=== PATIENT | male | born 1970 | race Caucasian/White ===

== ENCOUNTER 2022-05-24 10:38 | Emergency (ER) | payer OTHER, SELFPAY ==
[2022-05-24 10:41] VITALS: BP 122/79; PULSE 88; RESP 18; TEMP 36.8; O2SAT 98; BMI 23.8
[2022-05-24 17:35] LABS: MANUAL DIFF FLAG NO
[2022-05-24 17:42] LABS: Eosinophils Percent Auto 0.8 % (0-4); Imm Gran Abs Auto 0.01 X10*3/uL (0.00-0.03); Imm Gran Pct Auto 0.2 % (0.0-0.4); Lymphocytes Absolute Auto 1.7 X10*3/uL (1.2-4.9); PLT CLUMP 1; SCAN SMEAR FLAG 1
[2022-05-24 17:44] LABS: Basophils Percent Auto 0.4 % (0-2); Hematocrit 40.1 % (42.0-52.0); Hemoglobin 14.1 g/dl (14.0-18.0); Lymphocytes Percent Auto 32.9 % (20-40); Mean Corpuscular HGB Conc 35.2 g/dl (31.0-36.0); Mean Corpuscular Hemoglobin 29.7 pg (27.0-33.0); Mean Corpuscular Volume 84.6 fL (80.0-98.0); Mean Platelet Volume 10.1 fL (9.4-12.4); Monocytes Absolute Auto 0.4 X10*3/uL (0.1-1.2); Monocytes Percent Auto 8.1 % (2-11); Neutrophils Percent Auto 57.6 % (45-73); Platelet Count 111 X10*3/uL (160-400); Red Blood Count 4.74 X10*6/uL (4.60-5.80); Red Cell Distribution Width 12.7 % (11.0-16.0); White Blood Count 5.2 X10*3/uL (4.8-10.8)
[2022-05-24 17:52] LABS: Anion Gap 15 (12-20); Blood Urea Nitrogen 14 mg/dL (9-16); Calcium 9.4 mg/dL (8.4-10.2); Carbon Dioxide 26 mmol/L (22-29); Chloride 99 mmol/L (96-108); Estimated Glomerular Filt Rate > 60; Glucose Random 262 mg/dL (60-115); Potassium 4.3 mmol/L (3.3-5.1); Sodium 136 mmol/L (135-145)
--- OUTSIDE RECORDS SUMMARY | 2022-05-24 22:26 | XMS_ITS | Continuity of Care Document ---
:1970 Author Organization [facility] Address [address] [place] [address]- Care Team Providers Name Role Phone Mireya Zavaleta DO Primary Care Physician Encounter [facility] [place] Date(s): 04/19/20 - 04/20/[address] [id number]- [facility] Discharge Disposition: A-D/C Home Attending Physician: Terry Crawley MD Admitting Physician: Terry Crawley MD Referring Physician: Terry Crawley MD Allergies, Adverse Reactions, Alerts Substance Reaction Severity Status penicillin Active Immunizations Given and Recorded Vaccine Date Status Refusal Reason pneumococcal 23-valent vaccine 04/20/20 Given Medications amLODIPine 5 mg oral tablet 5 mg, 1, tablet, By Mouth, Daily, # 90 tablet, Refills 2, Tot. Refills 2, Maintenance, 04/20/20 12:28:00 EDT, Route to Pharmacy Electronically, [facility], 168, cm, 04/20/20 8:13:00 EDT, Height, 79.9, kg, 04/19/20 5:50:00 EDT, Dry Weight Start Date: 04/20/20 Status: Orderedaspirin 81 mg oral delayed release tablet 81 mg, By Mouth, Daily, # 200 tablet, Refills 0, Tot. Refills 0, Maintenance, 04/20/20 12:29:00 EDT,Route to Pharmacy Electronically, [facility], 168, cm, 04/20/20 8:13:00 EDT, Height, 79.9, kg, 04/19/20 5:50:00 EDT, Dry Weight Start Date: 04/20/20 Status: Orderedatorvastatin 80 mg oral tablet 1 tablet = 80 mg, By Mouth, Daily at bedtime, # 90 tablet, 2 Refills, Maintenance, 04/20/20 12:28:00EDT, Tablet, [facility], 168, cm, 04/20/20 8:13:00 EDT, Height, 79.9, kg, 04/19/20 5:50:00 EDT, Dry Weight Start Date: 04/20/20 Status: OrderedMetFORMIN (Eqv-Fortamet) 500 mg oral tablet, extended release 1 tablet = 500 mg, By Mouth, Daily, # 30 tablet, 1 Refills, Maintenance, 04/20/20 12:28:00 EDT, [facility], 168, cm, 04/20/20 8:13:00 EDT, Height, 79.9, kg, 04/19/20 5:50:00 EDT, Dry Weight Start Date: 04/20/20 Status: OrderedPlavix 75 mg oral tablet 75 mg, 1, tablet, By Mouth, Daily, # 90 tablet, Refills 2, Tot. Refills 2, Maintenance, 04/20/20 12:28:00 EDT, Route to Pharmacy Electronically, [facility], 168, cm, 04/20/20 8:13:00 EDT,Height, 79.9, kg, 04/19/20 5:50:00 EDT, Dry Weight Start Date: 04/20/20 Status: Ordered Problem List Condition Effective Dates Status Health Status Informant Herniation of intervertebral disc Active without myelopathy(Confirmed) Hyperlipidemia(Confirmed) Active Hypertension(Confirmed) Active Type 2 diabetes mellitus(Confirmed) Active Vital Signs Most recent to oldest 1 2 3 [Reference Range]: Height 168 cm 168 cm 168 cm (04/20/20 8:13 AM) (04/20/20 2:28 AM) (04/19/20 8:1 7 PM) Weight 79.9 kg (04/19/20 5:50 AM) Oxygen Saturation [94-100 %] 97 % 99 % 99 % (04/20/20 8:13 AM) (04/20/20 2:28 AM) (04/19/20 8:1 7 PM) Pulse Rate [55-90 bpm] 65 bpm 81 bpm 68 bpm (04/20/20 8:13 AM) (04/20/20 2:28 AM) (04/19/20 8:1 7 PM) Body Mass Index [18.5-24.99] 28.31 *H* (04/19/20 5:50 AM) Blood Pressure [90-138/55-84 mm 102/62 mm Hg 100/55 mm Hg 106/66 mm Hg Hg] (04/20/20 9:31 AM) (04/20/20 8:13 AM) (04/20/20 2:2 8 AM) Respiratory Rate [16-30 br/min] 18 br/min 18 br/min 18 br/min (04/20/20 8:13 AM) (04/20/20 2:28 AM) (04/19/20 8:1 7 PM) Temperature [96.8-100.4 DegF] 97.7 DegF 98.1 DegF 97 .9 DegF (04/20/20 8:13 AM) (04/20/20 2:28 AM) (04/19/20 8:1 7 PM) Mode of Delivery (Oxygen) Room air Room air Room a ir (04/20/20 8:13 AM) (04/20/20 2:28 AM) (04/19/20 8:1 7 PM) Blood pressure sites Arm, left Arm, left Arm, left (04/20/20 8:13 AM) (04/20/20 2:28 AM) (04/19/20 8:1 7 PM) Temperature Route Oral Oral Oral (04/20/20 8:13 AM) (04/20/20 2:28 AM) (04/19/20 8:1 7 PM) Dry Weight 79.9 kg (04/19/20 5:50 AM) Social History Social History Type Response Smoking Status 10 or more cigarettes (1/2 p ack or more)/day in last 30 days; Type: Cigarettes; Previous treatment: Counseling; Number of years: 20; Total pack years: 10; Started at age: 29; entered on: 04/19/20 Sex
--- OUTSIDE RECORDS SUMMARY | 2022-05-24 22:26 | XMS_ITS | Continuity of Care Document ---
:1970 Author Organization [facility] Address [address] [place] [id number]- Care Team Providers Name Role Phone Jason Perkins Primary Care Physician Encounter [facility] [place] Date(s): 02/04/21 - 03/06/21 [facility] [address] [place] [id number]- Attending Physician: Haydee Rodriguez Admitting Physician: AdmtrHaydee Referring Physician: Admtr, Ar8 Allergies, Adverse Reactions, Alerts Substance Reaction Severity Status penicillin Active Immunizations Given and Recorded Vaccine Date Status Refusal Reason pneumococcal 23-valent vaccine 04/20/20 Given Medications amLODIPine 5 mg oral tablet 5 mg, 1, tablet, By Mouth, Daily, # 90 tablet, Refills 2, Tot. Refills 2, Maintenance, 04/20/20 12:28:00 EDT, Route to Pharmacy Electronically, [facility], 168, cm, 04/20/20 8:13:00 EDT, Height, 79.9, kg, 04/19/20 5:50:00 EDT, Dry Weight Start Date: 04/20/20 Status: Orderedaspirin 81 mg oral delayed release tablet 81 mg, By Mouth, Daily, # 200 tablet, Refills 0, Tot. Refills 0, Maintenance, 04/20/20 12:29:00 EDT,Route to Pharmacy Electronically, [facility], 168, cm, 04/20/20 8:13:00 EDT, Height, 79.9, kg, 04/19/20 5:50:00 EDT, Dry Weight Start Date: 04/20/20 Status: Orderedatorvastatin 80 mg oral tablet 1 tablet = 80 mg, By Mouth, Daily at bedtime, # 90 tablet, 2 Refills, Maintenance, 04/20/20 12:28:00EDT, Tablet, [facility], 168, cm, 04/20/20 8:13:00 EDT, Height, 79.9, kg, 04/19/20 5:50:00 EDT, Dry Weight Start Date: 04/20/20 Status: OrderedBlood Pressure Monitor 1, each, # 1 each, Maintenance, 05/12/20 14:32:00 EDT, HOME BP MONITOR HYPERTENSION ICD 10 401.1, Supply Start Date: 05/12/20 Status: OrderedMetFORMIN (Eqv-Fortamet) 500 mg oral tablet, extended release 1 tablet = 500 mg, By Mouth, Daily, # 30 tablet, 1 Refills, Maintenance, 04/20/20 12:28:00 EDT, [facility], 168, cm, 04/20/20 8:13:00 EDT, Height, 79.9, kg, 04/19/20 5:50:00 EDT, Dry Weight Start Date: 04/20/20 Status: OrderedPlavix 75 mg oral tablet 75 mg, 1, tablet, By Mouth, Daily, # 90 tablet, Refills 2, Tot. Refills 2, Maintenance, 04/20/20 12:28:00 EDT, Route to Pharmacy Electronically, [facility], 168, cm, 04/20/20 8:13:00 EDT,Height, 79.9, kg, 04/19/20 5:50:00 EDT, Dry Weight Start Date: 04/20/20 Status: OrderedToprol XL 25 mg oral tablet, extended release 25 mg, 1, tablet, By Mouth, Daily, # 90 tablet, Refills 0, Tot. Refills 0, Maintenance, 05/12/20 13:44:00 EDT, Route to Pharmacy Electronically, [facility], 168, cm, 05/09/20 16:51:00 EDT, Height, 79.9, kg, 04/19/20 5:50:00 EDT, . Start Date: 05/12/20 Status: Ordered Problem List Condition Effective Dates Status Health Status Informant Herniation of intervertebral disc Active without myelopathy(Confirmed) Hyperlipidemia(Confirmed) Active Hypertension(Confirmed) Active Type 2 diabetes mellitus(Confirmed) Active Social History Social History Type Response Smoking Status 10 or more cigarettes (1/2 p ack or more)/day in last 30 days; Type: Cigarettes; Previous treatment: Counseling; Number of years: 20; Total pack years: 10; Started at age: 29; entered on: 04/19/20 Sex
--- OUTSIDE RECORDS SUMMARY | 2022-05-24 22:26 | XMS_ITS | Continuity of Care Document ---
:1970 Author Organization [facility] Address [address] [place] [id number]- Care Team Providers Name Role Phone Jason Perkins Primary Care Physician Encounter [facility] [place]s): 01/01/21 - 03/06/21 [facility] [address] [place] [id number] Attending Physician: Efrain Carmichael MD Admitting Physician: Efrain Carmichael MD Referring Physician: Jason Perkins Allergies, Adverse Reactions, Alerts Substance Reaction Severity Status penicillin Active Immunizations Given and Recorded Vaccine Date Status Refusal Reason pneumococcal 23-valent vaccine 04/20/20 Given Medications amLODIPine 5 mg oral tablet 5 mg, 1, tablet, By Mouth, Daily, # 90 tablet, Refills 2, Tot. Refills 2, Maintenance, 04/20/20 12:28:00 EDT, Route to Pharmacy Electronically, [facility], 168, cm, 04/20/20 8:13:00 EDT, Height, 79.9, kg, 04/19/20 5:50:00 EDT, Dry Weight Start Date: 04/20/20 Status: Orderedaspirin 81 mg oral delayed release tablet 81 mg, By Mouth, Daily, # 200 tablet, Refills 0, Tot. Refills 0, Maintenance, 04/20/20 12:29:00 EDT,Route to Pharmacy Electronically, [facility], 168, cm, 04/20/20 8:13:00 EDT, Height, 79.9, kg, 04/19/20 5:50:00 EDT, Dry Weight Start Date: 04/20/20 Status: Orderedatorvastatin 80 mg oral tablet 1 tablet = 80 mg, By Mouth, Daily at bedtime, # 90 tablet, 2 Refills, Maintenance, 04/20/20 12:28:00EDT, Tablet, [facility], 168, cm, 04/20/20 8:13:00 [...] tablet, 1 Refills, Maintenance, 04/20/20 12:28:00 EDT, [facility], 168, cm, 04/20/20 8:13:00 EDT, Height, 79.9, kg, 04/19/20 5:50:00 EDT, Dry Weight Start Date: 04/20/20 Status: OrderedPlavix 75 mg oral tablet 75 mg, 1, tablet, By Mouth, Daily, # 90 tablet, Refills 2, Tot. Refills 2, Maintenance, 04/20/20 12:28:00 EDT, Route to Pharmacy Electronically, [facility], 168, cm, 04/20/20 8:13:00 EDT,Height, 79.9, kg, 04/19/20 5:50:00 EDT, Dry Weight Start Date: 04/20/20 Status: OrderedToprol XL 25 mg oral tablet, extended release 25 mg, 1, tablet, By Mouth, Daily, # 90 tablet, Refills 0, Tot. Refills 0, Maintenance, 05/12/20 13:44:00 EDT, Route to Pharmacy Electronically, [facility], 168, cm, 05/09/20 16:51:00 EDT, Height, 79.9, kg, 04/19/20 5:50:00 EDT, Start Date: 05/12/20 Status: Ordered Problem List [...]
== END 2022-05-24 22:33 | disposition left against medical advice (07) ==
PROVIDERS: Emergency Provider Emergency Medicine
DX: M62.831 Muscle spasm of calf (principal); M79.605 Pain in left leg; M79.604 Pain in right leg
CPT/HCPCS: 36415; 80048; 85025; 99281; 99283

== ENCOUNTER 2022-07-23 03:22 | Observation (INO) | payer OTHER, SELFPAY ==
[2022-07-23] VITALS (9 sets, daily range): BP systolic 102–180; BP diastolic 59–120; PULSE 61–80; RESP 12–20; TEMP 36.4–36.7; O2SAT 97–99; BMI 25.0
--- NOTE | 2022-07-23 | CA_ITS ---
Acquisition Time: 2022-07-23 14:16:11 Total Exercise Time: 00:04:03 Test Indications: ELEVATED TROPONINS/CP Medications: SEE CHART Protocol: KARI Max HR: 118 BPM 70% of Pred: 168 BPM Max BP: 142/078 mmHG Max Work Load: 5.8 METS Exercise stress test with exercise 4 min 3 sec of Kari protocol, achieving 67% MPHR, 5.8 METs, with report of signficant left calf cramping and need to stop, no anginal symptoms, without arrythmia, with normotensive response to exercise, with nondiagnostic EKG for ischemia. In recovery his calf discomfort improved but was still present. Test reviewed with Dr Hampton. Referred By: Marianela Ellsworth Overread By: MARIANELA ELLSWORTH
--- NOTE | ~2022-07-23 | XR_ITS ---
EXAMINATION: XR CHEST CLINICAL INFORMATION: Chest pain, shortness of breath COMPARISON: 04/19/2020 TECHNIQUE: Frontal view of the chest was obtained. FINDINGS: The lungs are clear with no focal consolidation. No evidence of pneumothorax, pulmonary edema, or pleural effusions. The cardiomediastinal silhouette is unremarkable. No acute osseous findings. XR/XR chest 1V IMPRESSION: No acute cardiopulmonary findings.
--- NOTE | 2022-07-23 03:28 | ECG_ITS ---
Test Reason : chest pain Blood Pressure : / mmHG Vent. Rate : 075 BPM Atrial Rate : 075 BPM P-R Int : 140 ms QRS Dur : 080 ms QT Int : 362 ms P-R-T Axes : 027 016 061 degrees QTc Int : 404 ms Normal sinus rhythm Septal infarct (cited on or before 19-APR-2020) Abnormal ECG When compared with ECG of 19-APR-2020 02:19, ST no longer elevated in Anterior leads Nonspecific T wave abnormality no longer evident in Anterior leads Referred By: Generic ED Physician Electronically Signed By:Washington Hampton
[2022-07-23 03:50] LABS: MANUAL DIFF FLAG NO
--- NOTE | 2022-07-23 03:52 | ED_ITS ---
HPI - Chest Pain General Chief Complaint: Chest Pain Stated Complaint: Chest Pain Time Seen by Provider: 07/23/22 03:51 Source: patient Mode of arrival: ambulatory Limitations: no limitations History of Present Illness HPI narrative: Patient history of diabetes high cholesterol acute CO status post stent placement 04/10 since then patient been in good health without any chest pain yesterday at 09:00 while resting watching TV patient noticed left-sided chest pain similar to that when he had CO in 2019 lasted for an hour got better after taking ibuprofen patient with deep in character with slight radiation to the left armpit substitute with slight shortness of breath no diaphoresis or nausea or vomiting whole day patient was asymptomatic again 2 hours prior to arrival while resting and watching TV noticed similar pain radiated to the left side of the chest EMS gave him aspirin 324 mg and nitroglycerin feeling much better at this time but is still having the pain patient is noncompliant with medication not taking his cholesterol medication or aspirin does take his metformin for diabetes Related Data Previous Rx's Medication Instructions Recorded metformin 500 mg tablet,extended 500 mg PO BID #60 tabs 06/16/22 release 24 hr Allergies Allergy/AdvReac Type Severity Reaction Status Date / Time penicillin G [Penicillin G] Allergy Unknown THROAT Unverified 05/08/20 15:52 SWELLS penicillin V Allergy Unknown Unverified 12/13/19 00:00 Review of Systems Review of Systems: Yes all other systems are reviewed and are negative [facility] Past Medical History Medical History Coronary artery disease Diabetes mellitus Hyperlipidemia Surgical History S/P coronary artery stent placement Social History Social History Advance Directives: No Advance Directives Information Provided: Yes Physical Exam Vital Signs: Vital Signs: Last Vital Signs Temp 98.0 F 07/23/22 06:24 Pulse 69 07/23/22 06:24 Resp 17 07/23/22 06:24 BP 138/83 07/23/22 06:24 Pulse Ox 98 07/23/22 06:24 O2 Del Method 07/23/22 06:24 BMI result Body Mass Index 25.0 Appearance: Alert. Oriented X3. No acute distress. Eyes: PERRLA, No Nystagmus ENT: Pharynx normal. Oral Mucosa moist Neck: Normal inspection. Neck supple. CVS: Normal heart rate and rhythm. Pulses normal. No murmur rub or gallop Respiratory: No respiratory distress. Equal air entry bilateral, no wheezing/rales/rhonchi Abdomen: Soft and nontender. Bowel sounds are present, no mass palpable, no CVA tenderness Skin: Skin warm and dry. Normal skin color. Normal skin turgor. Extremities: No lower extremity edema. No calf tenderness Neuro: Oriented X 3. No motor deficit. No sensory deficit.No cerebellar signs , cranial nerves II-XII intact Medications Administered Discontinued Medications Generic Name Dose Route Start Last Admin Trade Name Freq PRN Reason Stop Dose Admin Nitroglycerin 1 inch 07/23/22 04:04 07/23/22 04:21 Nitroglycerin 2 % Oint 1 Gm Packet TRANSDERMA 07/23/22 04:05 1 inch ONCE ONE Administration MDM - Chest Pain MDM Narrative Medical decision making narrative: Patient with chest pain with history of stent placement came with the chest pain off and on for last 24 hours 2 sets of EKG without any ischemic changes 2 sets of high sensitive troponin negative for delta change. Patient is still complaining of pain were lasting for only a few seconds now. Case discussed Dr. gonzales, exercise physiologist advised to admit the patient for further evaluation including stress test/echo Differential Diagnosis Differential diagnosis: Likely stable angina, unstable angina pectoris, atypical chest pain, costochondritis and chest pain Medical Records Data Attestation: I reviewed the patient's medical records. Lab Data Result diagrams: 07/23/22 03:45 07/23/22 03:45 Labs: Lab Results 07/23/22 07/23/22 07/23/22 Range/Units 03:45 03:45 03:45 WBC 5.5 (4.8-10.8) X10*3/uL RBC 4.65 (4.60-5.80) X10*6/uL Hgb 13.8 L (14.0-18.0) g/dl Hct 39.2 L (42.0-52.0) % MCV 84.3 (80.0-98.0) fL MCH 29.7 (27.0-33.0) pg MCHC 35.2 (31.0-36.0) g/dl RDW 12.8 (11.0-16.0) % Plt Count 196 D (160-400) X10*3/uL MPV 9.7 (9.4-12.4) fL Immature Gran % (Auto) 0.4 (0.0-0.4) % Neut % (Auto) 40.6 L (45-73) % Lymph % (Auto) 47.1 H (20-40) % [place] % (Auto) 7.2 (2-11) % Eos % (Auto) 4.3 H (0-4) % Baso % (Auto) 0.4 (0-2) % Lymph # (Auto) 2.6 (1.2-4.9) X10*3/uL [place] # (Auto) 0.4 (0.1-1.2) X10*3/uL Eos # (Auto) 0.2 (0.0-0.4) X10*3/uL Baso # (Auto) 0.0 (0.0-0.2) X10*3/uL Abs Immat Gran (auto) 0.02 (0.00-0.03) X10*3/uL Absolute Neuts (auto) 2.3 (2.0-8.3) x10*3/uL Absolute Nucleated RBC 0.000 (0.0-0.012) X10*3/uL Nucleated RBC % (auto) 0.0 (0.0-0.2) /100WBC PT (10.0-13.1) SEC INR (0.9-1.1) APTT (26.0-36.4) SEC D-Dimer High Sensitivty NG/ML Sodium 131 L (135-145) mmol/L Potassium 4.3 (3.3-5.1) mmol/L Chloride 99 (96-108) mmol/L Carbon Dioxide 23 (22-29) mmol/L Anion Gap 13 (12-20) BUN 20 H (9-16) mg/dL Creatinine 0.85 (0.5-1.4) mg/dL Estim Creat Clear Calc 91.7 Estimated GFR > 60 Random Glucose 309 H (60-115) mg/dL Calcium 9.7 (8.4-10.2) mg/dL Troponin I High Sens (<3.5-35.0) ng/L COVID-19 (VANIA) Negative (Negative) COVID-19 Clin Com See Note 07/23/22 07/23/22 07/23/22 Range/Units 03:45 04:18 04:18 WBC (4.8-10.8) X10*3/uL RBC (4.60-5.80) X10*6/uL Hgb (14.0-18.0) g/dl Hct (42.0-52.0) % MCV (80.0-98.0) fL MCH (27.0-33.0) pg MCHC (31.0-36.0) g/dl RDW (11.0-16.0) % Plt Count (160-400) X10*3/uL MPV (9.4-12.4) fL Immature Gran % (Auto) (0.0-0.4) % Neut % (Auto) (45-73) % Lymph % (Auto) (20-40) % [place] % (Auto) (2-11) % Eos % (Auto) (0-4) % Baso % (Auto) (0-2) % Lymph # (Auto) (1.2-4.9) X10*3/uL [place] # (Auto) (0.1-1.2) X10*3/uL Eos # (Auto) (0.0-0.4) X10*3/uL Baso # (Auto) (0.0-0.2) X10*3/uL Abs Immat Gran (auto) (0.00-0.03) X10*3/uL Absolute Neuts (auto) (2.0-8.3) x10*3/uL Absolute Nucleated RBC (0.0-0.012) X10*3/uL Nucleated RBC % (auto) (0.0-0.2) /100WBC PT 10.1 (10.0-13.1) SEC INR 0.9 (0.9-1.1) APTT 26.8 (26.0-36.4) SEC D-Dimer High Sensitivty < 150 NG/ML Sodium (135-145) mmol/L Potassium (3.3-5.1) mmol/L Chloride (96-108) mmol/L Carbon Dioxide (22-29) mmol/L Anion Gap (12-20) BUN (9-16) mg/dL Creatinine (0.5-1.4) mg/dL Estim Creat Clear Calc Estimated GFR Random Glucose (60-115) mg/dL Calcium (8.4-10.2) mg/dL Troponin I High Sens < 3.5 (<3.5-35.0) ng/L COVID-19 (VANIA) (Negative) COVID-19 Clin Com 07/23/22 Range/Units 06:13 WBC (4.8-10.8) X10*3/uL RBC (4.60-5.80) X10*6/uL Hgb (14.0-18.0) g/dl Hct (42.0-52.0) % MCV (80.0-98.0) fL MCH (27.0-33.0) pg MCHC (31.0-36.0) g/dl RDW (11.0-16.0) % Plt Count (160-400) X10*3/uL MPV (9.4-12.4) fL Immature Gran % (Auto) (0.0-0.4) % Neut % (Auto) (45-73) % Lymph % (Auto) (20-40) % [place] % (Auto) (2-11) % Eos % (Auto) (0-4) % Baso % (Auto) (0-2) % Lymph # (Auto) (1.2-4.9) X10*3/uL [place] # (Auto) (0.1-1.2) X10*3/uL Eos # (Auto) (0.0-0.4) X10*3/uL Baso # (Auto) (0.0-0.2) X10*3/uL Abs Immat Gran (auto) (0.00-0.03) X10*3/uL Absolute Neuts (auto) (2.0-8.3) x10*3/uL Absolute Nucleated RBC (0.0-0.012) X10*3/uL Nucleated RBC % (auto) (0.0-0.2) /100WBC PT (10.0-13.1) SEC INR (0.9-1.1) APTT (26.0-36.4) SEC D-Dimer High Sensitivty NG/ML Sodium (135-145) mmol/L Potassium (3.3-5.1) mmol/L Chloride (96-108) mmol/L Carbon Dioxide (22-29) mmol/L Anion Gap (12-20) BUN (9-16) mg/dL Creatinine (0.5-1.4) mg/dL Estim Creat Clear Calc Estimated GFR Random Glucose (60-115) mg/dL Calcium (8.4-10.2) mg/dL Troponin I High Sens < 3.5 (<3.5-35.0) ng/L COVID-19 (VANIA) (Negative) COVID-19 Clin Com ECG Data ECG #1: Attestation: I personally reviewed and interpreted this ECG as follows: Interpretation: Normal sinus rhythm heart rate 75 beats per minute normal interval normal axis no acute ST-T changes no acute ischemia Discharge Plan Discharge Clinical Impression: Chest pain, Unstable angina pectoris Patient Disposition: Admitted As Inpatient
[2022-07-23 03:59] LABS: Basophils Percent Auto 0.4 % (0-2); Eosinophils Absolute Auto 0.2 X10*3/uL (0.0-0.4); Eosinophils Percent Auto 4.3 % (0-4); Hematocrit 39.2 % (42.0-52.0); Hemoglobin 13.8 g/dl (14.0-18.0); Imm Gran Abs Auto 0.02 X10*3/uL (0.00-0.03); Imm Gran Pct Auto 0.4 % (0.0-0.4); Lymphocytes Absolute Auto 2.6 X10*3/uL (1.2-4.9); Lymphocytes Percent Auto 47.1 % (20-40); Mean Corpuscular HGB Conc 35.2 g/dl (31.0-36.0); Mean Corpuscular Hemoglobin 29.7 pg (27.0-33.0); Mean Corpuscular Volume 84.3 fL (80.0-98.0); Mean Platelet Volume 9.7 fL (9.4-12.4); Monocytes Absolute Auto 0.4 X10*3/uL (0.1-1.2); Monocytes Percent Auto 7.2 % (2-11); Neutrophils Absolute Auto 2.3 x10*3/uL (2.0-8.3); Neutrophils Percent Auto 40.6 % (45-73); Platelet Count 196 X10*3/uL (160-400); Red Blood Count 4.65 X10*6/uL (4.60-5.80); Red Cell Distribution Width 12.8 % (11.0-16.0); White Blood Count 5.5 X10*3/uL (4.8-10.8)
[2022-07-23 04:08] LABS: Anion Gap 13 (12-20); Blood Urea Nitrogen 20 mg/dL (9-16); Calcium 9.7 mg/dL (8.4-10.2); Carbon Dioxide 23 mmol/L (22-29); Chloride 99 mmol/L (96-108); Creatinine Clr Calc Pharmacy 91.7; Estimated Glomerular Filt Rate > 60; Glucose Random 309 mg/dL (60-115); Potassium 4.3 mmol/L (3.3-5.1); Sodium 131 mmol/L (135-145)
[2022-07-23 04:10] LABS: COVID-19 Test Negative (Negative); IDNOW Serial# BCCEAD1C
[2022-07-23 04:13] LABS: Troponin-I High Sensitivity < 3.5 ng/L (<3.5-35.0)
[2022-07-23] MEDS: Nitroglycerin 2 % Oint 1 GM Packet 1 INCH TRANSDERMA (04:21)
[2022-07-23 04:28] LABS: INTERNATIONAL NORM RATIO 0.9 (0.9-1.1); Prothrombin Time 10.1 SEC (10.0-13.1)
[2022-07-23 04:31] LABS: D Dimer High Sensitivity < 150 NG/ML; Partial Thromboplastin Time 26.8 SEC (26.0-36.4)
--- NOTE | 2022-07-23 06:05 | ECG_ITS ---
Test Reason : chest pain Blood Pressure : / mmHG Vent. Rate : 064 BPM Atrial Rate : 064 BPM P-R Int : 138 ms QRS Dur : 080 ms QT Int : 378 ms P-R-T Axes : 011 014 062 degrees QTc Int : 389 ms Normal sinus rhythm Septal infarct (cited on or before 19-APR-2020) Abnormal ECG When compared with ECG of 23-JUL-2022 03:30, No significant change was found Referred By: Timothy Hernandez Electronically Signed By:Washington Hampton
[2022-07-23 06:39] LABS: Troponin-I High Sensitivity < 3.5 ng/L (<3.5-35.0)
--- NOTE | 2022-07-23 07:51 | PM.IMHP ---
History of Present Illness Date of Service: 07/23/22 Chief Complaint: chest pain this is a 51-year-old male with past medical history of coronary artery disease status post stent, diabetes, hyperlipidemia presents to the hospital with complaints of chest pain. Patient describes as pain as left-sided, occurred at rest, resolved with ibuprofen. He points to the left side of his chest stating that the pain is nonradiating,started on tue. patient denies any shortness of breath, no palpitations, no abdominal pain nausea or vomiting, no diarrhea constipation, no urinary symptoms and no lower extremity edema. On arrival to the ED patient hemodynamically stable with no significant abnormal vitals labs reviewed unremarkable, troponin negative x2, EKG shows normal sinus rhythm with no significant ST-T changes Chest x-ray shows no acute cardiopulmonary findings Review of Systems Review of Systems: Yes all other systems are reviewed and are negative [facility] Medical History Coronary artery disease Diabetes mellitus Hyperlipidemia Family History (Updated 07/23/22 @ 07:55 by Flaquita Matthews MD) Other No family history of coronary artery disease Surgical History S/P coronary artery stent placement Social History (Updated 07/23/22 @ 07:56 by Flaquita Matthews MD) Alcohol intake: former Patient Tobacco Use Status: Current everyday Tobacco user Cigarette Packs Per Day: 10 Use of substances other than those prescribed or required for medical reasons: No Advance Directives: No Advance Directives Information Provided: Yes Meds Allergies Allergy/AdvReac Type Severity Reaction Status Date / Time penicillin G [Penicillin G] Allergy Unknown THROAT Unverified 05/08/20 15:52 SWELLS penicillin V Allergy Unknown Unverified 12/13/19 00:00 Physical Exam Vital Signs and Narrative: Vital Signs: Last Vital Signs Temp 97.6 F 07/23/22 07:03 Pulse 61 07/23/22 07:03 Resp 12 07/23/22 07:03 BP 135/75 07/23/22 07:03 Pulse Ox 99 07/23/22 07:03 O2 Del Method 07/23/22 07:03 BMI result Body Mass Index 25.0 Results Labs CBC and Chem 7: 07/23/22 03:45 07/23/22 03:45 Labs: Laboratory Results - last 24 hr 07/23/22 07/23/22 07/23/22 03:45 03:45 03:45 MCV 84.3 MCH 29.7 MCHC 35.2 RDW 12.8 Plt Count 196 D MPV 9.7 Immature Gran % (Auto) 0.4 Neut % (Auto) 40.6 L Lymph % (Auto) 47.1 H [place] % (Auto) 7.2 Eos % (Auto) 4.3 H Baso % (Auto) 0.4 Lymph # (Auto) 2.6 [place] # (Auto) 0.4 Eos # (Auto) 0.2 Baso # (Auto) 0.0 Abs Immat Gran (auto) 0.02 Absolute Neuts (auto) 2.3 Absolute Nucleated RBC 0.000 Nucleated RBC % (auto) 0.0 PT INR APTT D-Dimer High Sensitivty Anion Gap 13 Estim Creat Clear Calc 91.7 Estimated GFR > 60 Random Glucose 309 H Calcium 9.7 Troponin I High Sens COVID-19 (VANIA) Negative COVID-19 Clin Com See Note 07/23/22 07/23/22 07/23/22 03:45 04:18 04:18 MCV MCH MCHC RDW Plt Count MPV Immature Gran % (Auto) Neut % (Auto) Lymph % (Auto) [place] % (Auto) Eos % (Auto) Baso % (Auto) Lymph # (Auto) [place] # (Auto) Eos # (Auto) Baso # (Auto) Abs Immat Gran (auto) Absolute Neuts (auto) Absolute Nucleated RBC Nucleated RBC % (auto) PT 10.1 INR 0.9 APTT 26.8 D-Dimer High Sensitivty < 150 Anion Gap Estim Creat Clear Calc Estimated GFR Random Glucose Calcium Troponin I High Sens < 3.5 COVID-19 (VANIA) COVID-19 Clin Com 07/23/22 06:13 MCV MCH MCHC RDW Plt Count MPV Immature Gran % (Auto) Neut % (Auto) Lymph % (Auto) [place] % (Auto) Eos % (Auto) Baso % (Auto) Lymph # (Auto) [place] # (Auto) Eos # (Auto) Baso # (Auto) Abs Immat Gran (auto) Absolute Neuts (auto) Absolute Nucleated RBC Nucleated RBC % (auto) PT INR APTT D-Dimer High Sensitivty Anion Gap Estim Creat Clear Calc Estimated GFR Random Glucose Calcium Troponin I High Sens < 3.5 COVID-19 (VANIA) COVID-19 Clin Com Imaging Radiologist's Impressions: Impressions Chest X-Ray 07/23/22 04:30 IMPRESSION: No acute cardiopulmonary findings. Assessment and Plan (1) Chest pain: Status: Acute Plan 51-year-old male with past medical history of coronary artery disease status post stent presents to the hospital with complaints of chest pain # chest pain - atypical - cardiology was consulted, wants patient admitted for possible stress test - admit to telemetry # diabetes - hold metformin - low-dose sliding scale insulin - diabetic diet DVT prophylaxis: Early ambulation Quality Stroke Does the patient have a stroke diagnosis?: No VTE Prior VTE?: No VTE Risk Level:: Medical - low VTE Device Contraindication: Treatment Not Indicated VTE Drug Contraindication: Treatment Not Indicated
[2022-07-23 08:02] LABS: Glucose, Whole Blood 199 mg/dL (60-115)
--- NOTE | 2022-07-23 09:09 | PHA.MEDREC ---
Pharmacy Consult ? Medication Reconciliation Pharmacy has completed the medication reconciliation. PATIENT STATES THEY ARE SUPPOSED TO BE ON A STATIN AND ASPIRIN BUT HAVE NOT TAKEN IT DUE TO PROVIDER ISSUES BRAYAN
[2022-07-23] MEDS: 0.9 % Sodium Chloride Flush 3 ML SYRINGE IVFLUSH (10:46)
--- NOTE | 2022-07-23 13:28 | MHC.CM.PN ---
This securities underwriter meet with patient for CM assessment. Patient from home, lives with @ home. Independent @ baseline. No services in the home. Not Vax'd. D/C plan- home no services. Daughter to transport. OBS noticed delivered.
[2022-07-23 13:37] LABS: Glucose, Whole Blood 267 mg/dL (60-115)
[2022-07-23] MEDS: Insulin Lispro 100 UNIT/ML 3 ML VIAL SUBCUT (13:39)
--- NOTE | 2022-07-23 15:06 | P.CONCA_ITS ---
History of Present Illness History of Present Illness Date of Service: 07/23/22 Requesting physician: Kalani Ramachandran Chief complaint: Chest Pain Narrative: [age] year gentleman who is here for chest pain. He has known history of coronary disease with previous PCI [place] [address] Shah. Is history of cocaine use. He is saying he has not used for many months. He is now presenting for indigestion like feeling as well as stabbing sensation on the lef t side of the chest which comes and goes. He also has neck issues and bilateral arm pains which are chronic. He has not been taking medications for 3-4 months at this stage. He has ruled out with troponins. EKG has not shown any dynamic changes. After discussion with him I referred him for treadmill stress test. He was able to exercise for 4 minutes and requested to stop because of severe left calf cramping. He achieved 5.8 metabolic equivalents. Dynamic EKG changes were noticed no chest pain was reported by the patient. [facility] Past Medical History Medical History Coronary artery disease Diabetes mellitus Hyperlipidemia Family History Family History (Updated 07/23/22 @ 07:55 by Flaquita Matthews MD) Other No family history of coronary artery disease Surgical History Surgical History S/P coronary artery stent placement Social History Social History (Updated 07/23/22 @ 07:56 by Flaquita Matthews MD) Alcohol intake: former Patient Tobacco Use Status: Current everyday Tobacco user Cigarette Packs Per Day: 10 Use of substances other than those prescribed or required for medical reasons: No Advance Directives: No Advance Directives Information Provided: Yes service: No Current occupational status: unemployed Meds Allergies Allergy/AdvReac Type Severity Reaction Status Date / Time penicillin G [Penicillin G] Allergy Unknown THROAT Verified 07/23/22 10:46 SWELLS penicillin V Allergy Unknown Swelling Verified 07/23/22 10:46 Active Medications: Current Medications Acetaminophen (Acetaminophen 325 Mg Tablet) 650 mg PO Q6H PRN PRN Reason: Pain, Mild (Pain Scale 1-3) Dextrose (Dextrose 50 % 25 Gm/50 Ml Syringe) 25 gm IVPUSH Q15M PRN; Protocol PRN Reason: per Hypoglycemia Standing Ord. Docusate Sodium (Docusate Sodium 100 Mg Capsule) 100 mg PO DAILY PRN PRN Reason: Constipation Glucose (Glucose Gel 15 Gm Gel..Gram.) 15 gm PO Q15M PRN; Protocol PRN Reason: per Hypoglycemia Standing Ord. Insulin Human Lispro (Insulin Lispro 100 Unit/Ml 3 Ml Vial) 0 unit SUBCUT QIDACHS [facility]; Protocol Last Admin: 07/23/22 13:39 Dose: 6 unit Ondansetron HCl (Ondansetron Hcl 4 Mg/2 Ml Vial) 4 mg IVPUSH Q8H PRN PRN Reason: Nausea and Vomiting Pharmacy Consult (Consult Rx Perform Med Rec) 1 each MISCELLANE ONCE PRN PRN Reason: Consult order Sodium Chloride (0.9 % Sodium Chloride Flush 3 Ml Syringe) [facility] Last Admin: 07/23/22 10:46 Dose: 3 ml Physical Exam Vital Signs: Vital Signs: Last Vital Signs Temp 97.6 F 07/23/22 07:03 Pulse 76 07/23/22 10:45 Resp 14 07/23/22 10:45 BP 122/68 07/23/22 10:45 Pulse Ox 97 07/23/22 10:45 O2 Del Method 07/23/22 10:45 BMI result Body Mass Index 25.0 GENERAL APPEARANCE: in no acute distress, pleasant. NECK: no carotid bruit, no jugular venous distention. SKIN: no suspicious lesions, warm and dry. HEART: no murmurs, regular rate and rhythm. LUNGS: clear to auscultation bilaterally. ABDOMEN: soft, nontender. EXTREMITIES: no edema. PERIPHERAL PULSES: equal. NEUROLOGIC: No gross deficits, AAO X 3 Objective Labs and Meds Result diagrams: 07/23/22 03:45 07/23/22 03:45 Lab results: Laboratory Results - last 24 hr 07/23/22 07/23/22 07/23/22 03:45 03:45 03:45 WBC 5.5 RBC 4.65 Hgb 13.8 L Hct 39.2 L MCV 84.3 MCH 29.7 MCHC 35.2 RDW 12.8 Plt Count 196 D MPV 9.7 Immature Gran % (Auto) 0.4 Neut % (Auto) 40.6 L Lymph % (Auto) 47.1 H [place] % (Auto) 7.2 Eos % (Auto) 4.3 H Baso % (Auto) 0.4 Lymph # (Auto) 2.6 [place] # (Auto) 0.4 Eos # (Auto) 0.2 Baso # (Auto) 0.0 Abs Immat Gran (auto) 0.02 Absolute Neuts (auto) 2.3 Absolute Nucleated RBC 0.000 Nucleated RBC % (auto) 0.0 PT INR APTT D-Dimer High Sensitivty Sodium 131 L Potassium 4.3 Chloride 99 Carbon Dioxide 23 Anion Gap 13 BUN 20 H Creatinine 0.85 Estim Creat Clear Calc 91.7 Estimated GFR > 60 POC Glucose Random Glucose 309 H Calcium 9.7 Troponin I High Sens COVID-19 (VANIA) Negative COVID-19 Clin Com See Note 07/23/22 07/23/22 07/23/22 03:45 04:18 04:18 WBC RBC Hgb Hct MCV MCH MCHC RDW Plt Count MPV Immature Gran % (Auto) Neut % (Auto) Lymph % (Auto) [place] % (Auto) Eos % (Auto) Baso % (Auto) Lymph # (Auto) [place] # (Auto) Eos # (Auto) Baso # (Auto) Abs Immat Gran (auto) Absolute Neuts (auto) Absolute Nucleated RBC Nucleated RBC % (auto) PT 10.1 INR 0.9 APTT 26.8 D-Dimer High Sensitivty < 150 Sodium Potassium Chloride Carbon Dioxide Anion Gap BUN Creatinine Estim Creat Clear Calc Estimated GFR POC Glucose Random Glucose Calcium Troponin I High Sens < 3.5 COVID-19 (VANIA) COVID-19 Clin Com 07/23/22 07/23/22 07/23/22 06:13 07:58 13:33 WBC RBC Hgb Hct MCV MCH MCHC RDW Plt Count MPV Immature Gran % (Auto) Neut % (Auto) Lymph % (Auto) [place] % (Auto) Eos % (Auto) Baso % (Auto) Lymph # (Auto) [place] # (Auto) Eos # (Auto) Baso # (Auto) Abs Immat Gran (auto) Absolute Neuts (auto) Absolute Nucleated RBC Nucleated RBC % (auto) PT INR APTT D-Dimer High Sensitivty Sodium Potassium Chloride Carbon Dioxide Anion Gap BUN Creatinine Estim Creat Clear Calc Estimated GFR POC Glucose 199 H 267 H Random Glucose Calcium Troponin I High Sens < 3.5 COVID-19 (VANIA) COVID-19 Clin Com Imaging Radiologist's impression: Impressions Chest X-Ray 07/23/22 04:30 IMPRESSION: No acute cardiopulmonary findings. Assessment and Plan (1) Chest pain: Status: Acute Plan [age] year gentleman with known history of coronary disease with previous PCI in 2019, diabetes, and hyperlipidemia is presenting for chest pain. The chest pain is quite atypical. He is describing and indigestion feeling as well as some stabbing sensation on the left side of his chest. He does not have any EKG changes. His biomarkers are normal. These symptoms happen at rest and on treadmill he did not develop any dynamic changes and stress test was limited because of claudication which is likely due to underlying peripheral vascular disease. The fact that he had pain at rest and during treadmill stress test did not develop any symptoms is somewhat reassuring. I think he can be discharged home and can follow up with [facility] as outpatient for further assessment. I think his chest pain is unlikely to be cardiac. He is reporting that he has not used cocaine in for many months. I have advised him that he should not be stopping all his medications and should definitely restart his asp irin and statin. Please start him on baby aspirin and atorvastatin 40 mg once a day. Thank you for allowing me to participate in the care of your patient. Please feel free to contact me if you have any questions. Procedures Date of Service Date of Service: 07/23/22
--- NOTE | 2022-07-23 15:53 | PM.DS ---
DS: Providers Provider Date of Service: 07/23/22 Date of admission: 07/23/22 07:44 Primary care physician: Unknown Physician Consults: 07/23/22 07:49 Consult to Cardiology Routine Consulting Provider: [place] Reason for consultation: chest pain Has provider been notified: No DS: Diagnosis Discharge Diagnosis (1) Chest pain: Status: Acute DS: Summary Hospital Course Hospital Course: history of presenting illness Chief Complaint: chest pain 51-year-old male with past medical history of coronary artery disease status post stent, diabetes, hyperlipidemia presents to the hospital with complaints of chest pain.? Patient describes as pain as left-sided, occurred at rest, resolved with ibuprofen.? He points to the left side of his chest stating that the pain is nonradiating,started on tue.?patient denies any shortness of breath, no palpitations, no abdominal pain nausea or vomiting, no diarrhea constipation, no urinary symptoms and no lower extremity edema. ?On arrival to the ED patient hemodynamically stable with no significant abnormal vitals ?labs reviewed unremarkable, troponin negative x2, ?EKG shows normal sinus rhythm with no significant ST-T changes ?Chest x-ray shows no acute cardiopulmonary findings hospital course [age] year gentleman with known history of coronary disease with previous PCI in 2020, diabetes, and hyperlipidemia presented with chest pain, described as indigestion , stabbing sensation on the left side of his chest.? noted to have normal EKG and troponin, due to prior history of coronary artery disease patient seen by quality engineer medical device and underwent stress,and on treadmill he did not develop any dynamic changes and stress test was limited because of claudication which is likely due to underlying peripheral vascular disease.? The fact that he had pain at rest and during treadmill stress test did not develop any symptoms is somewhat reassuring, quality engineer medical device recommend patient to be discharged on aspirin and Lipitor and recommend outpatient follow-up with Dr. Painting patient reported he has not used cocaine in for many months.? diabetes mellitus recommend to take metformin and follow diabetic diet Time Spent with Patient Time attestation: Total time spent providing and/or coordinating discharge services: Discharge coordination time: Greater than 30 minutes Quality: Safe Use of Opioids Does Pt have an Active Cancer Diagnosis on the Problem List?: No Quality: Stroke Does the patient have a stroke diagnosis?: No Physical Exam Vital Signs: Vital Signs: Last Vital Signs Temp 97.6 F 07/23/22 15:26 Pulse 72 07/23/22 15:26 Resp 14 07/23/22 10:45 BP 102/59 L 07/23/22 15:26 Pulse Ox 97 07/23/22 15:26 O2 Del Method 07/23/22 15:26 BMI result Body Mass Index 25.0 Const: Other: GENERAL no acute distress, pleasant . NECK: no carotid bruit, no jugular venous distention . SKIN: no suspici ous lesions, warm and dry. HEART: no murmurs, regular rate and rhythm. L UNGS: clear to aus cultation bilatera lly. ABDOMEN: soft , nontender. EXTRE MITIES: no edema. PERIPHERAL PULSES: equal. NEUROLOGIC : No gross deficit s, AAO X 3 DS: Data Data Completed and Pending Labs on day of discharge: Laboratory Results - last 24 hr 07/23/22 07/23/22 07/23/22 03:45 03:45 03:45 WBC 5.5 RBC 4.65 Hgb 13.8 L Hct 39.2 L MCV 84.3 MCH 29.7 MCHC 35.2 RDW 12.8 Plt Count 196 D MPV 9.7 Immature Gran % (Auto) 0.4 Neut % (Auto) 40.6 L Lymph % (Auto) 47.1 H [place] % (Auto) 7.2 Eos % (Auto) 4.3 H Baso % (Auto) 0.4 Lymph # (Auto) 2.6 [place] # (Auto) 0.4 Eos # (Auto) 0.2 Baso # (Auto) 0.0 Abs Immat Gran (auto) 0.02 Absolute Neuts (auto) 2.3 Absolute Nucleated RBC 0.000 Nucleated RBC % (auto) 0.0 PT INR APTT D-Dimer High Sensitivty Sodium 131 L Potassium 4.3 Chloride 99 Carbon Dioxide 23 Anion Gap 13 BUN 20 H Creatinine 0.85 Estim Creat Clear Calc 91.7 Estimated GFR > 60 POC Glucose Random Glucose 309 H Calcium 9.7 Troponin I High Sens COVID-19 (VANIA) Negative COVID-19 Clin Com See Note 07/23/22 07/23/22 07/23/22 03:45 04:18 04:18 WBC RBC Hgb Hct MCV MCH MCHC RDW Plt Count MPV Immature Gran % (Auto) Neut % (Auto) Lymph % (Auto) [place] % (Auto) Eos % (Auto) Baso % (Auto) Lymph # (Auto) [place] # (Auto) Eos # (Auto) Baso # (Auto) Abs Immat Gran (auto) Absolute Neuts (auto) Absolute Nucleated RBC Nucleated RBC % (auto) PT 10.1 INR 0.9 APTT 26.8 D-Dimer High Sensitivty < 150 Sodium Potassium Chloride Carbon Dioxide Anion Gap BUN Creatinine Estim Creat Clear Calc Estimated GFR POC Glucose Random Glucose Calcium Troponin I High Sens < 3.5 COVID-19 (VANIA) COVID-19 [facility] 07/23/22 07/23/22 07/23/22 06:13 07:58 13:33 WBC RBC Hgb Hct MCV MCH MCHC RDW Plt Count MPV Immature Gran % (Auto) Neut % (Auto) Lymph % (Auto) [place] % (Auto) Eos % (Auto) Baso % (Auto) Lymph # (Auto) [place] # (Auto) Eos # (Auto) Baso # (Auto) Abs Immat Gran (auto) Absolute Neuts (auto) Absolute Nucleated RBC Nucleated RBC % (auto) PT INR APTT D-Dimer High Sensitivty Sodium Potassium Chloride Carbon Dioxide Anion Gap BUN Creatinine Estim Creat Clear Calc Estimated GFR POC Glucose 199 H 267 H Random Glucose Calcium Troponin I High Sens < 3.5 COVID-19 (VANIA) COVID-19 [facility] Discharge Plan Discharge Patient Disposition: Home, Self-Care Discharge Diagnosis: atypical chest pain Referrals: Physician,Unknown J [Primary Care Provider] - 1 Week Discharge Medications: New aspirin [Ecotrin Low Strength] 81 mg tablet,delayed release (DR/EC) 81 mg PO DAILY Qty: 30 0RF atorvastatin [Lipitor] 40 mg tablet 40 mg PO BEDTIME Qty: 30 0RF Continued metformin 500 mg tablet extended release 24 hr 500 mg PO BID Qty: 60 3RF Discharge Orders: Discharge Order (Routine); Ordered 07/23/22 Ordered By: Kalani Ramachandran Diet: Diabetic diet Activity on Discharge: As tolerated Stand Alone Forms: Patient Portal Discharge page Care Plan Goals: take aspirin and statins as prescribed follow diabetic diet and continue metformin follow up with your primary quality engineer medical device stress test did not show acute ischemia likely atypical chest pain. Health Concerns: strongly recommend to abstain from illicit drug use Plan of Treatment: follow-up with Dr. Dsouza at [facility] call for appointment Assessment: as above
== END 2022-07-23 17:08 | disposition home or self-care (01) ==
LOC: HO.ED 06:28 → HO.EDOVER 07:55
PROVIDERS: Admitting Provider Internal Medicine; Emergency Provider Internal Medicine; Visit Provider Hospitalist
DX: R07.89 Other chest pain (principal); I25.10 Atherosclerotic heart disease of native coronary artery without angina pectoris; R06.02 Shortness of breath; E78.5 Hyperlipidemia, unspecified; Z20.822 Contact with and (suspected) exposure to COVID-19; Z79.899 Other long term (current) drug therapy
CPT/HCPCS: 36415; 71045; 80048; 82947; 84484; 85025; 85379; 85610; 85730; 87635; 93005; 93017; 96374; 96375; 99219; 99285

== ENCOUNTER 2022-08-23 08:32 | Outpatient (REF) | payer OTHER, SELFPAY ==
--- NOTE | ~2022-08-23 | MR_ITS ---
EXAMINATION: MR CERVICAL SPINE WITHOUT CONTRAST CLINICAL INFORMATION: 52-year-old with cervicalgia. Self-reported history of herniated disc and bilateral shoulder pain with muscle atrophy and weakness. COMPARISON: None TECHNIQUE: MRI of the cervical spine was obtained using routine sequences without contrast. FINDINGS: Alignment: Normal. No spondylolisthesis or retrolisthesis. Craniocervical Junction/C1-C2 Articulations: Intact and aligned. Visualized Intracranial Structures: Within normal limits. Vertebral Bodies: Mild chronic loss of height of the posterior aspect of the C4 vertebral body noted with minimal chronic loss of height of the posterior aspect of the C3 and C5 vertebral bodies. Otherwise vertebral body heights are well-maintained. Disc Spaces and Endplates: Earu-bb-qzgzrdcm multilevel anterior marginal endplate spurring is noted most apparent at C5-C6. Xmxq-ve-dwzcofda disc space height loss noted at C5-C6 and mild disc space height loss at C4-C5 and C3-C4. Endplates appear intact. Bone Marrow: No significant marrow-replacing process or bone marrow edema. C2-C3: Minor disc osteophyte complex noted with minimal flattening the ventral dural sac without cord impingement or canal stenosis. Mild facet arthropathy on the left noted with minor uncinate process spurring and mild left-sided foraminal narrowing. C3-C4: Posterior disc osteophyte complex noted with superimposed small central disc protrusion, with flattening of the ventral dural sac without cord impingement. Mild ligamentum flavum thickening is noted with mgyp-nw-irwhurtd central canal stenosis. There is uncovertebral spurring bilaterally and minor facet arthrosis on the left. There is moderate bilateral neural foraminal stenosis, left more than right. C4-C5: Central disc protrusion noted with effacement of the central dural sac slightly impinging on the ventral aspect of the spinal cord with slight ventral cord deformity with mild ligamentum flavum thickening. Nudx-za-tcvexqzm central canal stenosis is noted. There is uncovertebral and facet arthrosis with moderate bilateral neural foraminal stenosis, right more than left. C5-C6: Central to left central disc protrusion noted with effacement of the ventral dural sac with slight ventral cord deformity/impingement and mild ligamentum flavum thickening with xwky-sg-hlwvqaco spinal canal stenosis. Uncovertebral spurring is noted with facet arthropathy with moderate right-sided and mild left-sided neural foraminal stenosis. C6-C7: Central extruded disc herniation noted with 4 mm of caudal migration, with flattening of the ventral dural sac asymmetric to the left of midline resulting in moderate left-sided ventral cord deformity and pohs-mh-eqxcgoxw canal stenosis asymmetric to the left. Ligamentum flavum thickening is also noted with bilateral uncovertebral spurring and minor foraminal narrowing on the left. C7-T1: No disc herniation or canal stenosis. Mild left-sided facet arthrosis noted. No significant neural foraminal stenosis. Spinal Cord: The cervical and visualized upper thoracic spinal cord is normal in signal intensity throughout, without focal lesion, edema or syrinx. Probable chronic spinal cord volume loss on the left at C6-C7. Extracranial Soft Tissues: The visualized extracranial head/neck soft tissues are unremarkable within the limitations of the study. MR/MR cervical spine wo con IMPRESSION: 1. Multilevel discogenic degenerative changes as described above with multilevel central disc herniations and disc osteophyte complexes with multilevel bjxb-jl-wazluuko degrees of spinal canal stenosis with moderate left-sided ventral cord deformity at C6-C7 and slight ventral cord impingement at C4-C5 and C5-C6. 2. Multilevel uncovertebral and facet arthropathy with multilevel tfmc-st-dtbnjypu degrees of neural foraminal stenosis bilaterally as detailed by level above. 3. Probable chronic spinal cord volume loss at C6-C7.
== END 2022-08-23 08:33 | disposition home or self-care (01) ==
LOC: HO.MRI 08:32
PROVIDERS: Visit Provider Nurse Practitioner Family
DX: M54.2 Cervicalgia (principal)
CPT/HCPCS: 72141

== ENCOUNTER 2022-12-17 08:56 | Emergency (ER) | payer OTHER, SELFPAY ==
--- NOTE | 2022-12-17 09:02 | ED.NAVMDI ---
HPI - Nausea/Vomiting/Diarrhea General Chief complaint: Nausea/Vomiting/Diarrhea Stated complaint: Vomited (coffee ground blood) per EMS Time Seen by Provider: 12/17/22 08:57 Source: patient Mode of arrival: EMS Limitations: no limitations History of Present Illness HPI Narrative: This is a 52 years old man presented to the emergency department via ambulance complaining of vomiting x2 days, he describes vomiting as coffee-ground, he stated he has been taking a of nonsteroidal. Patient as history of diabetes, coronary artery disease status post stent, hyperlipidemia. He denies abdominal pain whatsoever MD elicited complaint: nausea and vomiting Onset (ago): day(s) (2) Description of vomiting: coffee grounds Associated nausea: Yes Associated abdominal pain: No Quality: cramping Exacerbating factors: none Relieving factors: none Related Data Previous Rx's Medication Instructions Recorded aspirin 81 mg tablet,delayed 81 mg PO DAILY #90 tabs 08/05/22 release (Ecotrin Low Strength) atorvastatin 40 mg tablet (Lipitor) 40 mg PO BEDTIME #90 tabs 08/05/22 cyclobenzaprine 5 mg tablet 5 mg PO BID PRN muscle spasm #14 08/05/22 tabs escitalopram oxalate 5 mg tablet 5 mg PO DAILY #30 tabs 08/05/22 metformin 500 mg tablet,extended 500 mg PO BID #60 tabs 12/03/22 release 24 hr ondansetron 4 mg disintegrating 4 mg PO Q8H 4 days #12 tabs 12/17/22 tablet pantoprazole 40 mg tablet,delayed 40 mg PO DAILY #30 tabs 12/17/22 release (Protonix) Allergies Allergy/AdvReac Type Severity Reaction Status Date / Time penicillin G [Penicillin G] Allergy Unknown THROAT Verified 08/05/22 15:55 SWELLS penicillin V Allergy Unknown Swelling Verified 08/05/22 15:55 Review of Systems Constitutional: Constitutional: Reports no additional constitutional complaints Cardiovascular: Cardiovascular: Reports no additional cardiovascular complaints Respiratory: Respiratory: Reports no additional respiratory complaints Gastrointestinal: Gastrointestinal: Reports nausea and Reports vomiting PMFSH Past Medical History Medical History Coronary artery disease Diabetes mellitus Hyperlipidemia Seizures Surgical History S/P coronary artery stent placement Family History Family History Other No family history of coronary artery disease Social History Social History Alcohol intake: former Patient Tobacco Use Status: Current everyday Tobacco user Cigarette Packs Per Day: 10 Smoked in Last 30 Days: Yes Use of substances other than those prescribed or required for medical reasons: Yes Substance Use Type: Marijuana Advance Directives: No Advance Directives Information Provided: No service: No Current occupational status: unemployed Cognitive needs: No Hearing needs: No Vision needs: No Physical Exam Vital Signs: Vital Signs: Last Vital Signs Temp 97.9 F 12/17/22 10:35 Pulse 68 12/17/22 10:35 Resp 15 12/17/22 10:35 BP 149/75 H 12/17/22 10:35 Pulse Ox 100 12/17/22 10:35 O2 Del Method Room Air 12/17/22 10:35 BMI result Body Mass Index 25.8 Const: General: cooperative, healthy appearing, comfortable and well developed Nutritional Appearance: well nourished Orientation/consciousness: patient oriented x3 HEENT: Head: Yes normal to inspection Ears: hearing grossly normal bilaterally General nose exam: Normal external nose present Mouth: Normal oral and palatal mucosa present Neck: Neck: Yes normal visual inspection, Yes full ROM and Yes no lymphadenopathy Chest: Chest palpation & inspection: normal inspection of the chest Resp: Effort & Inspection: normal respiratory effort and able to speak in complete sentences Auscultation: clear to auscultation bilaterally Cardio: Jugular venous distension: no JVD Rate: regular rate Rhythm: regular rhythm GI: Inspection: Yes normal to inspection Palpation (GI): Soft to palpation, not firm, nontender and no guarding Skin: General skin exam: no rashes or lesions noted, elasticity normal and turgor normal Rashes: no rashes Neuro: General: patient oriented x3 Cranial nerves: Yes CN's II-XII intact bilaterally Course Reevaluation(s) Reevaluation #1: rectal exam done brown stools Time: 09:22 Reevaluation #2: I re-examined the patient is doing much better at this time, is tolerating p.o. well his hemoglobin is normal ,stools are negative for blood , plan discharged with the PPI Time: 11:23 Medications Administered Discontinued Medications Generic Name Dose Route Start Last Admin Trade Name Shana PRN Reason Stop Dose Admin Famotidine 20 mg 12/17/22 09:01 12/17/22 09:14 Famotidine/Pf 20 Mg/2 Ml Vial IVPUSH 12/17/22 09:02 20 mg ONCE ONE Administration Sodium Chloride 1,000 mls @ 999 mls/hr 12/17/22 09:00 12/17/22 10:15 Ns IVCONT 12/17/22 10:00 Infused .Q1H1M RODRIGUEZ Infusion Sodium Chloride 1,000 mls @ 999 mls/hr 12/17/22 09:00 12/17/22 10:16 Ns IVCONT 12/17/22 10:00 Infused .Q1H1M RODRIGUEZ Infusion Metoclopramide HCl 10 mg 12/17/22 09:01 12/17/22 09:14 Metoclopramide Hcl 10 Mg/2 Ml Vial IVPUSH 12/17/22 09:02 10 mg ONCE ONE Administration Medical Decision Making Medical Decision Making [facility] Narrative: Patient presented within coffee-ground vomiting which check labs hydrate a antiemetic and reassess Differential Diagnosis Differential Diagnoses: The differential diagnosis associated with the presentation includes Gastroenteritis/peptic ulcer disease/GI bleeding Admission/Observation Consideration of admission/observation: Escalation of care including admission/observation considered Lab Data [facility] Lab Attestation statement: I reviewed the patient's lab results. 12/17/22 09:38 12/17/22 09:38 Labs: Lab Results 12/17/22 12/17/22 12/17/22 Range/Units 09:30 09:38 09:38 WBC 8.0 (4.8-10.8) X10*3/uL RBC 4.97 (4.60-5.80) X10*6/uL Hgb 15.0 (14.0-18.0) g/dl Hct 42.4 (42.0-52.0) % MCV 85.3 (80.0-98.0) fL MCH 30.2 (27.0-33.0) pg MCHC 35.4 (31.0-36.0) g/dl RDW 12.7 (11.0-16.0) % Plt Count 161 (160-400) X10*3/uL MPV 9.6 (9.4-12.4) fL Immature Gran % (Auto) 0.4 (0.0-0.4) % Neut % (Auto) 61.5 (45-73) % Lymph % (Auto) 28.0 (20-40) % [place] % (Auto) 7.2 (2-11) % Eos % (Auto) 2.5 (0-4) % Baso % (Auto) 0.4 (0-2) % Lymph # (Auto) 2.2 (1.2-4.9) X10*3/uL [place] # (Auto) 0.6 (0.1-1.2) X10*3/uL Eos # (Auto) 0.2 (0.0-0.4) X10*3/uL Baso # (Auto) 0.0 (0.0-0.2) X10*3/uL Abs Immat Gran (auto) 0.03 (0.00-0.03) X10*3/uL Absolute Neuts (auto) 4.9 (2.0-8.3) x10*3/uL Absolute Nucleated RBC 0.000 (0.0-0.012) X10*3/uL Nucleated RBC % (auto) 0.0 (0.0-0.2) /100WBC Sodium 133 L (135-145) mmol/L Potassium 4.4 (3.3-5.1) mmol/L Chloride 102 (96-108) mmol/L Carbon Dioxide 22 (22-29) mmol/L Anion Gap 13 (12-20) BUN 22 H (9-16) mg/dL Creatinine 1.01 (0.5-1.4) mg/dL Estim Creat Clear Calc 76.3 Estimated GFR > 60 Random Glucose 327 H (60-115) mg/dL Calcium 9.3 (8.4-10.2) mg/dL Total Bilirubin 0.8 (0.0-1.0) mg/dL AST 14 (5-37) U/L ALT 14 (0-40) U/L Alkaline Phosphatase 89 (39-117) U/L Total Protein 6.8 (6.5-8.0) g/dL Albumin 4.2 (3.5-5.0) g/dL Lipase 28 (8-78) U/L Stool Occult Blood NEGATIVE (NEGATIVE) Tests considered The following testing was considered but not selected: ct abdomen but no abdominal pain Discharge Plan Discharge Clinical Impression: Vomiting Patient Disposition: Home, Self-Care Instructions: Acute Nausea and Vomiting (ED) Additional Instructions: Clear liquid diet times 24 hour return if you worse Prescriptions: New pantoprazole [Protonix] 40 mg tablet,delayed release (DR/EC) 40 mg PO DAILY Qty: 30 0RF ondansetron 4 mg tablet,disintegrating 4 mg PO Q8H 4 Days Qty: 12 0RF No Action metformin 500 mg tablet extended release 24 hr 500 mg PO BID Qty: 60 3RF escitalopram oxalate 5 mg tablet 5 mg PO DAILY Qty: 30 2RF atorvastatin [Lipitor] 40 mg tablet 40 mg PO BEDTIME Qty: 90 0RF aspirin [Ecotrin Low Strength] 81 mg tablet,delayed release (DR/EC) 81 mg PO DAILY Qty: 90 1RF cyclobenzaprine 5 mg tablet 5 mg PO BID PRN (Reason: muscle spasm) Qty: 14 0RF Referrals: Yeskia Nash MD [Physician] - 5 days
[2022-12-17 09:06] VITALS: BP 151/92; PULSE 92; RESP 18; TEMP 36.7; O2SAT 98; BMI 25.8
[2022-12-17] MEDS: 0.9 % Sodium Chloride 1,000 ML 999 ML IVCONT ×2 (09:14)
[2022-12-17] MEDS: Metoclopramide HCl 10 MG/2 ML VIAL IVPUSH (09:14)
[2022-12-17] MEDS: Famotidine/PF 20 MG/2 ML VIAL IVPUSH (09:14)
[2022-12-17 09:47] LABS: Basophils Percent Auto 0.4 % (0-2); Eosinophils Absolute Auto 0.2 X10*3/uL (0.0-0.4); Eosinophils Percent Auto 2.5 % (0-4); Hematocrit 42.4 % (42.0-52.0); Imm Gran Abs Auto 0.03 X10*3/uL (0.00-0.03); Imm Gran Pct Auto 0.4 % (0.0-0.4); Lymphocytes Absolute Auto 2.2 X10*3/uL (1.2-4.9); MANUAL DIFF FLAG NO; Mean Corpuscular HGB Conc 35.4 g/dl (31.0-36.0); Mean Corpuscular Hemoglobin 30.2 pg (27.0-33.0); Mean Corpuscular Volume 85.3 fL (80.0-98.0); Mean Platelet Volume 9.6 fL (9.4-12.4); Monocytes Absolute Auto 0.6 X10*3/uL (0.1-1.2); Monocytes Percent Auto 7.2 % (2-11); Neutrophils Absolute Auto 4.9 x10*3/uL (2.0-8.3); Neutrophils Percent Auto 61.5 % (45-73); Platelet Count 161 X10*3/uL (160-400); Red Blood Count 4.97 X10*6/uL (4.60-5.80); Red Cell Distribution Width 12.7 % (11.0-16.0)
[2022-12-17 09:50] LABS: OBS Int Ctl Valid YES; OBS1 NEGATIVE (NEGATIVE)
[2022-12-17 10:17] LABS: Alanine Aminotransferase 14 U/L (0-40); Albumin Level 4.2 g/dL (3.5-5.0); Alkaline Phosphatase 89 U/L (39-117); Anion Gap 13 (12-20); Aspartate Amino Transferase 14 U/L (5-37); Bilirubin Total 0.8 mg/dL (0.0-1.0); Blood Urea Nitrogen 22 mg/dL (9-16); Calcium 9.3 mg/dL (8.4-10.2); Carbon Dioxide 22 mmol/L (22-29); Chloride 102 mmol/L (96-108); Creatinine Clr Calc Pharmacy 76.3; Estimated Glomerular Filt Rate > 60; Glucose Random 327 mg/dL (60-115); Lipase 28 U/L (8-78); Potassium 4.4 mmol/L (3.3-5.1); Sodium 133 mmol/L (135-145); Total Protein 6.8 g/dL (6.5-8.0)
[2022-12-17 10:35] VITALS: BP 149/75; PULSE 68; RESP 15; TEMP 36.6; O2SAT 100
--- NOTE | 2022-12-17 11:22 | PC.NURSE ---
pt given po challenge
== END 2022-12-17 11:33 | disposition home or self-care (01) ==
PROVIDERS: Emergency Provider Emergency Medicine; PCP Physician Assistant
DX: R11.2 Nausea with vomiting, unspecified (principal); E11.9 Type 2 diabetes mellitus without complications; E78.5 Hyperlipidemia, unspecified; F12.90 Cannabis use, unspecified, uncomplicated; F17.210 Nicotine dependence, cigarettes, uncomplicated; Z79.82 Long term (current) use of aspirin; Z79.02 Long term (current) use of antithrombotics/antiplatelets; Z79.84 Long term (current) use of oral hypoglycemic drugs; Z79.899 Other long term (current) drug therapy
CPT/HCPCS: 36415; 80053; 82272; 83690; 85025; 96361; 96374; 96375; 99284; J2765

== ENCOUNTER 2022-12-23 11:18 | Outpatient (REF) | payer OTHER, SELFPAY ==
--- NOTE | ~2022-12-23 | XR_ITS ---
EXAMINATION: XR SHOULDER, RIGHT CLINICAL INFORMATION: Unspecified disorder of synovium and tendon, right shoulder COMPARISON: Previous x-ray most recent April 2019 TECHNIQUE: AP external rotation, Grashey, scapular Y, and axillary views of the right shoulder. FINDINGS: Bone alignment is normal. No fracture or dislocation. The glenohumeral joint is normal. Mild osteoarthritis at the acromioclavicular joint. Normal soft tissues. XR/XR shoulder RT min 2V IMPRESSION: Mild osteoarthritis at the acromioclavicular joint.
== END 2022-12-23 11:19 | disposition home or self-care (01) ==
LOC: HO.XRAY 11:18
PROVIDERS: PCP Physician Assistant; Visit Provider Physician Assistant
DX: M67.911 Unspecified disorder of synovium and tendon, right shoulder (principal)
CPT/HCPCS: 73030

== ENCOUNTER → 2022-12-29 08:51 | Outpatient (BNVA) | payer OTHER, SELFPAY | PROVIDERS: PCP Physician Assistant; Visit Provider Physician Assistant | DX: K27.9 Peptic ulcer, site unspecified, unspecified as acute or chronic, without hemorrhage or perforation (principal); F32.89 Other specified depressive episodes; R19.4 Change in bowel habit | CPT/HCPCS: 99202 ==

== ENCOUNTER 2023-01-04 10:46 | Emergency (ER) | payer OTHER, SELFPAY ==
--- NOTE | ~2023-01-04 | XR_ITS ---
EXAMINATION: XR RIBS, RIGHT CLINICAL INFORMATION: Right lower rib pain. Question deformity. COMPARISON: Previous chest x-ray most recent July 2022 TECHNIQUE: 3 views of the right ribs were obtained. FINDINGS: Lungs are clear. No consolidation, pneumothorax, or pleural effusion. The cardiomediastinal silhouette and pulmonary vasculature are normal. There are degenerative changes of the thoracic spine. No rib fracture or bone lesion. XR/XR ribs RT min 3V w CXR1V IMPRESSION: No evidence for acute disease in the chest. No rib fracture. Degenerative changes of the thoracic spine.
--- NOTE | 2023-01-04 10:47 | ED_ITS ---
HPI - General Adult General Chief complaint: General Medical Stated complaint: R RIB/BACK PAIN, NO INJURY PER EMS Time Seen by Provider: 01/04/23 10:47 Source: patient, EMS and RN notes reviewed Mode of arrival: EMS Limitations: no limitations History of Present Illness HPI narrative: Patient is a 52-year-old male with history of DM, CAD, PUD, and cervical spinal stenosis presenting with 2-3 days of right lower rib pain radiating around to his back. He denies any injury, falls, or trauma. He reports that he sleeps on his stomach and typically sleeps with his right arm under his ribs. Last night he moved his arm and slept without the support or his arm under his ribs. He reports that the pain is decreased when his applies pressure to his right anterior lower ribs. He denies any recent cough, denies any chest pain or shortness of breath. He reports that for years his right 12th rib has appeared deformed compared to the left. He mentioned this to his district director and she advised him to have it evaluated. He has not tried any [id number] medications for his symptoms, has not tried any ice or heat. He denies any abdominal pain, recent nausea or vomiting, denies any urinary symptoms. He denies any fevers. He denies recent surgery, immobilization, hemoptysis. Related Data Previous Rx's Medication Instructions Recorded aspirin 81 mg tablet,delayed 81 mg PO DAILY #90 tabs 08/05/22 release (Ecotrin Low Strength) ondansetron 4 mg disintegrating 4 mg PO Q8H 4 days #12 tabs 12/17/22 tablet bupropion HCl 150 mg tablet,12 hr 150 mg PO BID 30 days #60 tabs 12/23/22 sustained-release (Wellbutrin SR) metformin 1,000 mg tablet 1,000 mg PO BID 30 days #60 tabs 12/23/22 pantoprazole 40 mg tablet,delayed 40 mg PO DAILY 90 days #90 tabs 12/23/22 release (Protonix) tramadol 50 mg tablet 50 mg PO BID PRN pain 7 days #14 12/23/22 tabs bisacodyl 5 mg tablet,delayed 10 mg PO ONCE colonoscopy prep 1 12/29/22 release (Dulcolax (bisacodyl)) day #2 tabs methylcellulose (laxative) 500 mg 500 mg PO TID #90 tabs 12/29/22 tablet (Citrucel) polyethylene glycol 3350 17 238 g PO ONCE PRN laxative effect 12/29/22 gram/dose oral powder (Miralax) 1 day #238 grams simethicone 125 mg chewable tablet 125 mg PO TID-QID PRN abdominal 12/29/22 (Gas Relief (simethicone)) distention #90 tabs sucralfate 1 gram tablet 1 g PO QIDACHS 28 days #90 tabs 12/29/22 atorvastatin 40 mg tablet (Lipitor) 40 mg PO BEDTIME #90 tabs 12/31/22 Allergies Allergy/AdvReac Type Severity Reaction Status Date / Time penicillin G [Penicillin G] Allergy Unknown THROAT Verified 12/29/22 09:05 SWELLS penicillin V Allergy Unknown Swelling Verified 12/29/22 09:05 Review of Systems Review of Systems: As per HPI Yes all other systems are reviewed and are negative Constitutional: Constitutional: Reports as per HPI PMFSH Past Medical History Medical History Coronary artery disease Diabetes mellitus Hyperlipidemia Seizures Surgical History S/P coronary artery stent placement Family History Family History Other No family history of coronary artery disease Social History Social History Housing: Apartment Alcohol intake: never Patient Tobacco Use Status: Current everyday Tobacco user Tobacco use type: Cigarette Cigarette Packs Per Day: 10 Smoked in Last 30 Days: No e-Cigarette/Vaping Use: Never Used Second Hand Smoke Exposure: Yes Use of substances other than those prescribed or required for medical reasons: No Substance Use Type: Marijuana Advance Directives: No service: No Current occupational status: unemployed Cognitive needs: No Hearing needs: No Vision needs: Yes Physical Exam ED Vital Signs: Vital Signs - 24 hr 01/04/23 10:50 01/04/23 11:07 01/04/23 12:22 Temperature 98.4 F 98.0 F 98.0 F Pulse Rate 81 77 78 Respiratory Rate 19 20 20 Blood Pressure 151/95 H 122/84 145/86 H Pulse Oximetry 99 98 98 Oxygen Delivery Method Room Air Room Air Room Air BMI result Body Mass Index 24.2 Const General: cooperative, healthy appearing and no acute distress Orientation/consciousness: oriented to person, oriented to place, oriented to time and patient oriented x3 Limitations: no limitations HENMT Head: Yes normocephalic and Yes atraumatic Ears: external ears normal General nose exam: Normal external nose present Face and sinus: Yes face symmetric Mouth: oropharynx normal and moist mucous membranes Throat: Yes uvula midline Eyes Pupils: Equal, round and reactive pupils present Neck Neck: Yes normal visual inspection and Yes supple Chest Chest palpation & inspection: abnormal palpation of chest wall, abnormal inspection of the chest other (anterior aspect of right 12th rib more prominent than left), no crepitus and tenderness (increased pain with hooking maneuver ) rib right other involving the 12th rib (tenderness to palpation of costal margin ) Resp Effort & Inspection: normal respiratory effort and able to speak in complete sentences Auscultation: clear to auscultation bilaterally Cardio Rate: regular rate Rhythm: regular rhythm Heart sounds: S1 normal heart sound present and S2 normal heart sound present GI Inspection: Yes normal to inspection Palpation (GI): Soft to palpation, nontender, no guarding and No Rebound tenderness present Auscultation: normoactive bowel sounds General: Yes no CVA tenderness Back/Spine/Pelvis Back: no CVA tenderness Thoracic/Lumbar Spine: No thoracic spinal tenderness and No lumbar spinal tenderness Skin General skin exam: elasticity normal and turgor normal Neuro General: oriented to person, oriented to place, oriented to time, patient oriented x3, moves all extremities, no focal motor deficits and CN's II-XI intact bilaterally Cranial nerves: Yes Equal, round and reactive pupils present Cognition (Neuro): normal cognition Extrem General: Yes full ROM, Yes no pedal edema and Yes no calf tenderness Psych Mental Status: mental status grossly normal Affect: normal affect Thought process: Normal thought process present Course Course Course Narrative: 12:01 X-ray negative for fracture. Will obtain D-dimer to rule out PE. 13:03 D-dimer negative, feel patient is safe for discharge home. 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 Advised patient to utilize Tylenol for pain and follow up with PCP. Return precautions discussed at bedside. Medical Decision Making Medical Decision Making MDM Narrative: Patient is a 52-year-old male with history of DM, CAD, PUD, and cervical spinal stenosis presenting with 2-3 days of right lower rib pain radiating around to his back. On exam patient is nontoxic appearing, in no acute distress, A+Ox3, VS WNL, not tachycardic or tachypneic. Concern for rib fracture or lower rib pain syndrome such as slipping rib syndrome given reported history and physical exam findings. Lower concern for abdominal etiology such as cholecystitis, FHC, or other hepatobiliary etiology given that abdomen is soft and nontender. PE unlikely as patient has low risk Wells score. Pyelonephritis also unlikely given lack of urinary symptoms, no CVAT. Plan: x-ray ribs, reassess Please refer to course for remaining clinical decision making. Differential Diagnosis Differential Diagnoses: The differential diagnosis associated with the presentation includes As above Lab Data Labs: Lab Results 01/04/23 Range/Units 12:20 D-Dimer High Sensitivty < 150 NG/ML Independent Interpretation I performed an independent interpretation of an: Plain X-Ray Interpretation: I independently reviewed the x-ray and agree with the radiologist's interpretation. Radiology Impression Discussion of test interpretation with radiology: I have reviewed the radiologist's reading. Radiologist Impression: FINDINGS: Lungs are clear. No consolidation, pneumothorax, or pleural effusion. The cardiomediastinal silhouette and pulmonary vasculature are normal. There are degenerative changes of the thoracic spine. No rib fracture or bone lesion. XR/XR ribs RT min 3V w CXR1V IMPRESSION: No evidence for acute disease in the chest. No rib fracture. Degenerative changes of the thoracic spine. ? External Record Review External record reviewed: Inpatient record, Office record and Outpatient record Discharge Plan Discharge Clinical Impression: Slipped rib syndrome Patient Disposition: Home, Self-Care Instructions: Costochondritis (ED), Thoracic Pain (ED) Additional Instructions: You were evaluated in the emergency department today for rib pain. Your evaluation has shown no signs of medical conditions requiring emergent intervention at this time, however we recommend that you follow-up with your primary care physician this week. We recommend you use 650mg Tylenol every 6 hours as needed for pain. Return to the emergency department if you experience worsening or uncontrolled chest pain, shortness of breath, lightheadedness, feeling faint, nausea, vomiting, or any other concerning symptoms. Prescriptions: No Action atorvastatin [Lipitor] 40 mg tablet 40 mg PO BEDTIME Qty: 90 0RF ondansetron 4 mg tablet,disintegrating 4 mg PO Q8H 4 Days Qty: 12 0RF aspirin [Ecotrin Low Strength] 81 mg tablet,delayed release (DR/EC) 81 mg PO DAILY Qty: 90 1RF metformin 1,000 mg tablet 1,000 mg PO BID 30 Days Qty: 60 3RF tramadol 50 mg tablet 50 mg PO BID PRN (Reason: pain) 7 Days Qty: 14 0RF bupropion HCl [Wellbutrin SR] 150 mg tablet sustained-release 12 hr 150 mg PO BID 30 Days Qty: 60 3RF pantoprazole [Protonix] 40 mg tablet,delayed release (DR/EC) 40 mg PO DAILY 90 Days Qty: 90 1RF bisacodyl [Dulcolax (bisacodyl)] 5 mg tablet,delayed release (DR/EC) 10 mg PO ONCE 1 Days Qty: 2 0RF Rx Instructions: Take 2 tablets by mouth at 12:00pm the day before your procedure. polyethylene glycol 3350 [Miralax] 17 gram/dose powder 238 g PO ONCE PRN (Reason: laxative effect) 1 Days Qty: 238 0RF Rx Instructions: Take as directed by mouth the day before your procedure. sucralfate 1 gram tablet 1 g PO QIDACHS 28 Days Qty: 90 0RF Citrucel 500 mg tablet 500 mg PO TID Qty: 90 5RF simethicone [Gas Relief (simethicone)] 125 mg tablet,chewable 125 mg PO TID-QID PRN (Reason: abdominal distention) Qty: 90 2RF
[2023-01-04 10:50] VITALS: BP 142/84; BP 151/95; PULSE 81; PULSE 83; RESP 19; TEMP 36.9; O2SAT 99; BMI 24.2
[2023-01-04 11:07] VITALS: BP 122/84; PULSE 77; RESP 20; TEMP 36.7; O2SAT 98
--- OUTSIDE RECORDS SUMMARY | 2023-01-04 11:09 | XMS_ITS | Continuity of Care Document ---
Author Name Unknown Organization [facility] Address [address] [place] [address] [address], [address] [place] [address]- Care Team Providers Care Repair Weaver Name Role Phone Jason Perkins Primary Care Physician Encounter [facility] Date(s): 08/31/22 - 09/30/22 [facility] [address] [place] [address] Drive, [address] [place], [place] [address] Allergies, Adverse Reactions, Alerts Substance Reaction Severity Status penicillin Active Immunizations Given and Recorded Vaccine Date Status Refusal Reason pneumococcal 23-valent vaccine 04/20/20 Given Medications amLODIPine 5 mg oral tablet 5 mg, 1, tablet, By Mouth, Daily, # 90 tablet, Refills 2, Tot. Refills 2, Maintenance, 04/20/20 12:28:00 EDT, Route to Pharmacy Electronically, [facility], 168, cm, 04/20/20 8:13:00 EDT, Height, 79.9, kg, 04/19/20 5:50:00 EDT, Dry Weight Start Date: 04/20/20 Status: Ordered aspirin 81 mg oral delayed release tablet 81 mg, By Mouth, Daily, # 200 tablet, Refills 0, Tot. Refills 0, Maintenance, 04/20/20 12:29:00 EDT, Route to Pharmacy Electronically, [facility], 168, cm, 04/20/20 8:13:00 EDT, Height,79.9, kg, 04/19/20 5:50:00 EDT, Dry Weight Start Date: 04/20/20 Status: Ordered atorvastatin 80 mg oral tablet 1 tablet = 80 mg, By Mouth, Daily at bedtime, # 90 tablet, 2 Refills, Maintenance, 04/20/20 12:28:00 EDT, Tablet, [facility], 168, cm, 04/20/20 8:13:00 EDT, Height, 79.9, kg, 04/19/20 5:50:00 EDT, Dry Weight Start Date: 04/20/20 Status: Ordered Blood Pressure Monitor 1, each, # 1 each, Maintenance, 05/12/20 14:32:00 EDT, HOME BP MONITOR HYPERTENSION ICD 10 401.1, Supply Start Date: 05/12/20 Status: Ordered Escitalopram By Mouth, Daily, 0 Refills, Maintenance, 09/20/22 11:12:00 EST, Partial fill upon patient request if the prescription is for a schedule II opioid drug. Start Date: 09/20/22 Status: Ordered MetFORMIN (Eqv-Fortamet) 500 mg oral tablet, extended release 1 tablet = 500 mg, By Mouth, Daily, # 30 tablet, 1 Refills, Maintenance, 04/20/20 12:28:00 EDT, [facility], 168, cm, 04/20/20 8:13:00 EDT, Height, 79.9, kg, 04/19/20 5:50:00 EDT, Dry Weight Start Date: 04/20/20 Status: Ordered Plavix 75 mg oral tablet 75 mg, 1, tablet, By Mouth, Daily, # 90 tablet, Refills 2, Tot. Refills 2, Maintenance, 04/20/20 12:28:00 EDT, Route to Pharmacy Electronically, [facility], 168, cm, 04/20/20 8:13:00 EDT, Height, 79.9, kg, 04/19/20 5:50:00 EDT, Dry Weight Start Date: 04/20/20 Status: Ordered Toprol XL 25 mg oral tablet, extended release 25 mg, 1, tablet, By Mouth, Daily, # 90 tablet, Refills 0, Tot. Refills 0, Maintenance, 05/12/20 13:44:00 EDT, Route to Pharmacy Electronically, [facility], 168, cm, 05/09/20 16:51:00 EDT, Height, 79.9, kg, 04/19/20 5:50:00 EDT, . Start Date: 05/12/20 Status: Ordered Problem List Condition Confirmation Course Effective Dates Status H ealth Status Informant Herniation of intervertebral disc without myelopathy Confirmed Active Hyperlipidemia Confirmed Active Hypertension Confirmed Active Type 2 diabetes mellitus Confirmed Active Social History Social History Type Response Smoking Status 10 or more cigarette s (1/2 pack or more)/day in last 30 days; Type: Cigarettes; Previous treatment: Counseling; Number of years: 20; Total pack years: 10; Started at age: 29; entered on: 04/19/20 Sex Patient Care team information Care Team Personnel Name: Nidia Smart RN Position: S RN Member Role: Primary Care Nurse Name: Jason Perkins Position: Reference Physician Member Role: PCP Address: Address: [address] [place] [address]- Care Team Related Persons Name: PORSHA AVILA Address: home [address] [place] [address]
--- OUTSIDE RECORDS SUMMARY | 2023-01-04 11:09 | XMS_ITS | Continuity of Care Document ---
Author Name Unknown Organization [facility] Address [address] [place] [id number]- Care Team Providers Care It Project Lead Name Role Phone Jason Perkins Primary Care Physician Encounter [facility] ACCT R [id number] Date(s): 10/04/22 - 11/20/22 [facility] [address] [place] [address]- Attending Physician: Christine Oswadl MD Admitting Physician: Christine Oswald MD Referring Physician: Nilson SINGER, Paul Glover Allergies, Adverse Reactions, Alerts Substance Reaction Severity Status penicillin Active Immunizations Given and Recorded Vaccine Date Status Refusal Reason pneumococcal 23-valent vaccine 04/20/20 Given Medications amLODIPine 5 mg oral tablet 5 mg, 1, tablet, By Mouth, Daily, # 90 tablet, Refills 2, Tot. Refills 2, Maintenance, 04/20/20 12:28:00 EDT, Route to Pharmacy Electronically, [facility], 168, cm, 04/20/20 8:13:00 EDT, Height, 79.9, kg, 04/19/20 5:50:00 EDT, Dry Weight Start Date: 04/20/20 Status: Ordered aspirin 81 mg oral delayed release tablet 81 mg, By Mouth, Daily, # 200 tablet, Refills 0, Tot. Refills 0, Maintenance, 04/20/20 12:29:00 EDT, Route to Pharmacy Electronically, [facility], 168, cm, 04/20/20 8:13:00 EDT, Height,79.9, kg, 04/19/20 5:50:00 EDT, Dry Weight Start Date: 04/20/20 Status: Ordered atorvastatin 80 mg oral tablet 1 tablet = 80 mg, By Mouth, Daily at bedtime, # 90 tablet, 2 Refills, Maintenance, 04/20/20 12:28:00 EDT, Tablet, [facility], 168, cm, 04/20/20 8:13:00 [...] tablet, 1 Refills, Maintenance, 04/20/20 12:28:00 EDT, [facility], 168, cm, 04/20/20 8:13:00 EDT, Height, 79.9, kg, 04/19/20 5:50:00 EDT, Dry Weight Start Date: 04/20/20 Status: Ordered Plavix 75 mg oral tablet 75 mg, 1, tablet, By Mouth, Daily, # 90 tablet, Refills 2, Tot. Refills 2, Maintenance, 04/20/20 12:28:00 EDT, Route to Pharmacy Electronically, [facility], 168, cm, 04/20/20 8:13:00 EDT, Height, 79.9, kg, 04/19/20 5:50:00 EDT, Dry Weight Start Date: 04/20/20 Status: Ordered Toprol XL 25 mg oral tablet, extended release 25 mg, 1, tablet, By Mouth, Daily, # 90 tablet, Refills 0, Tot. Refills 0, Maintenance, 05/12/20 13:44:00 EDT, Route to Pharmacy Electronically, [facility], 168, cm, 05/09/20 16:51:00 EDT, Height, 79.9, kg, 04/19/20 5:50:00 EDT, Dr... Start Date: 05/12/20 Status: Ordered Problem List [...] Physician Member Role: PCP Address: Address: [address] [place] [address]- Care Team Related Persons Name: JESÚSMARLEY SCHWARZA Address: [address] [address]
--- OUTSIDE RECORDS SUMMARY | 2023-01-04 11:09 | XMS_ITS | Continuity of Care Document ---
Author Name Unknown Organization [facility] Address [address] [place] [address]- Care Team Providers Care Mold Changer Name Role Phone Jason Perkins Primary Care Physician Encounter [facility] Date(s): 10/21/22 - 11/20/22 [facility] [address] [place] [address]- Attending Physician: Haydee Rodriguez Admitting Physician: AdmtrHaydee [...] 04/20/20 12:28:00 EDT, Route to Pharmacy Electronically, [facility], 168, cm, 04/20/20 8:13:00 EDT, Height, 79.9, kg, 04/19/20 5:50:00 EDT, Dry Weight Start Date: 04/20/20 Status: Ordered aspirin 81 mg oral delayed release tablet 81 mg, By Mouth, Daily, # 200 tablet, Refills 0, Tot. Refills 0, Maintenance, 04/20/20 12:29:00 EDT, Route to Pharmacy Electronically, [facility], 168, cm, 04/20/20 8:13:00 EDT, Height,79.9, kg, 04/19/20 5:50:00 EDT, Dry Weight Start Date: 04/20/20 Status: Ordered atorvastatin 80 mg oral tablet 1 tablet = 80 mg, By Mouth, Daily at bedtime, # 90 tablet, 2 Refills, Maintenance, 04/20/20 12:28:00 EDT, Tablet, [facility], 168, cm, 04/20/20 8:13:00 EDT, [...] tablet, 1 Refills, Maintenance, 04/20/20 12:28:00 EDT, [facility], 168, cm, 04/20/20 8:13:00 EDT, Height, 79.9, kg, 04/19/20 5:50:00 EDT, Dry Weight Start Date: 04/20/20 Status: Ordered Plavix 75 mg oral tablet 75 mg, 1, tablet, By Mouth, Daily, # 90 tablet, Refills 2, Tot. Refills 2, Maintenance, 04/20/20 12:28:00 EDT, Route to Pharmacy Electronically, [facility], 168, cm, 04/20/20 8:13:00 EDT, Height, 79.9, kg, 04/19/20 5:50:00 EDT, Dry Weight Start Date: 04/20/20 Status: Ordered Toprol XL 25 mg oral tablet, extended release 25 mg, 1, tablet, By Mouth, Daily, # 90 tablet, Refills 0, Tot. Refills 0, Maintenance, 05/12/20 13:44:00 EDT, Route to Pharmacy Electronically, [facility], 168, cm, 05/09/20 16:51:00 EDT, Height, [...] Reference Physician Member Role: PCP Address: Address: [address] [place] [address] [address] [place] [address]- Care Team Related Persons Name: PORSHA AVILA Address: home [address] [place] [id number]
--- OUTSIDE RECORDS SUMMARY | 2023-01-04 11:09 | XMS_ITS | Continuity of Care Document ---
Author Name Unknown Organization [facility] Address [address] [place] [address] [address], [address] [place] [address]- Care Team Providers Care Senior Administrative Services Officer Name Role Phone Jason Perkins Primary Care Physician [phone] Encounter [facility] Date(s): 09/20/22 - 09/27/22 [facility] [address] [place] [address] Drive, [address] [place] [address]- Attending Physician: Paul Devine MD Referring Physician: Jason Perkins Allergies, Adverse Reactions, Alerts Substance Reaction Severity Status penicillin Active Immunizations Given and Recorded Vaccine Date Status Refusal Reason pneumococcal 23-valent vaccine 04/20/20 Given Medications amLODIPine 5 mg oral tablet 5 mg, 1, tablet, By Mouth, Daily, # 90 tablet, Refills 2, Tot. Refills 2, Maintenance, 04/20/20 12:28:00 EDT, Route to Pharmacy Electronically, [facility], 168, cm, 04/20/20 8:13:00 EDT, Height, 79.9, kg, 04/19/20 5:50:00 EDT, Dry Weight Start Date: 04/20/20 Status: Ordered aspirin 81 mg oral delayed release tablet 81 mg, By Mouth, Daily, # 200 tablet, Refills 0, Tot. Refills 0, Maintenance, 04/20/20 12:29:00 EDT, Route to Pharmacy Electronically, [facility], 168, cm, 04/20/20 8:13:00 EDT, Height,79.9, kg, 04/19/20 5:50:00 EDT, Dry Weight Start Date: 04/20/20 Status: Ordered atorvastatin 80 mg oral tablet 1 tablet = 80 mg, By Mouth, Daily at bedtime, # 90 tablet, 2 Refills, Maintenance, 04/20/20 12:28:00 EDT, Tablet, [facility], 168, cm, 04/20/20 [...] tablet, 1 Refills, Maintenance, 04/20/20 12:28:00 EDT, [facility], 168, cm, 04/20/20 8:13:00 EDT, Height, 79.9, kg, 04/19/20 5:50:00 EDT, Dry Weight Start Date: 04/20/20 Status: Ordered Plavix 75 mg oral tablet 75 mg, 1, tablet, By Mouth, Daily, # 90 tablet, Refills 2, Tot. Refills 2, Maintenance, 04/20/20 12:28:00 EDT, Route to Pharmacy Electronically, [facility], 168, cm, 04/20/20 8:13:00 EDT, Height, 79.9, kg, 04/19/20 5:50:00 EDT, Dry Weight Start Date: 04/20/20 Status: Ordered Toprol XL 25 mg oral tablet, extended release 25 mg, 1, tablet, By Mouth, Daily, # 90 tablet, Refills 0, Tot. Refills 0, Maintenance, 05/12/20 13:44:00 EDT, Route to Pharmacy Electronically, [facility], 168, cm, 05/09/20 16:51:00 EDT, Height, 79.9, kg, 04/19/20 5:50:00 Dr.. JOELLEN. Start Date: 05/12/20 Status: Ordered Problem List Condition Confirmation Course Effective Dates Status H ealth Status Informant Herniation of intervertebral disc without myelopathy Confirmed Active Hyperlipidemia Confirmed Active Hypertension Confirmed Active Type 2 diabetes mellitus Confirmed Active Vital Signs Most recent to oldest [Reference Range]: 1 Height 168 cm (09/20/22 11:08 AM) Weight 73 kg (09/20/22 11:08 AM) Body Mass Index [18.5-24.99 kg/m2] 25.86 kg/m2 *H* (09/20/22 11:08 AM) Social History Social History Type Response [...] Physician Member Role: PCP Address: Address: [address] [place] [address]- Care Team Related Persons Name: PORSHA AVILA Address: [address] [place] [address]
--- OUTSIDE RECORDS SUMMARY | 2023-01-04 11:09 | XMS_ITS | Continuity of Care Document ---
Author Name Unknown Organization [facility] Address [address] [place] [address], [address] [place] [address]- Care Team Providers Care Pre Billing Specialist Name Role Phone Jason Perkins Primary Care Physician [phone] Encounter [facility] Date(s): 09/20/22 - 10/20/22 [facility] [address] [place] [address], [address] [place], [place] [address] Attending Physician: Admtr, [id number] Admitting Physician: Admtr, Ar8 Referring Physician: Admtr, Ar8 Allergies, Adverse Reactions, Alerts Substance Reaction Severity Status penicillin Active Immunizations Given and Recorded Vaccine Date Status Refusal Reason pneumococcal 23-valent vaccine 04/20/20 Given Medications amLODIPine 5 mg oral tablet 5 mg, 1, tablet, By Mouth, Daily, # 90 tablet, Refills 2, Tot. Refills 2, Maintenance, 04/20/20 12:28:00 EDT, Route to Pharmacy Electronically, [facility], 168, cm, 04/20/20 8:13:00 EDT, Height, 79.9, kg, 04/19/20 5:50:00 EDT, Dry Weight Start Date: 04/20/20 Status: Ordered aspirin 81 mg oral delayed release tablet 81 mg, By Mouth, Daily, # 200 tablet, Refills 0, Tot. Refills 0, Maintenance, 04/20/20 12:29:00 EDT, Route to Pharmacy Electronically, [facility], 168, cm, 04/20/20 8:13:00 EDT, Height,79.9, kg, 04/19/20 5:50:00 EDT, Dry Weight Start Date: 04/20/20 Status: Ordered atorvastatin 80 mg oral tablet 1 tablet = 80 mg, By Mouth, Daily at bedtime, # 90 tablet, 2 Refills, Maintenance, 04/20/20 12:28:00 EDT, Tablet, [facility], 168, cm, 04/20/20 [...] tablet, 1 Refills, Maintenance, 04/20/20 12:28:00 EDT, [facility], 168, cm, 04/20/20 8:13:00 EDT, Height, 79.9, kg, 04/19/20 5:50:00 EDT, Dry Weight Start Date: 04/20/20 Status: Ordered Plavix 75 mg oral tablet 75 mg, 1, tablet, By Mouth, Daily, # 90 tablet, Refills 2, Tot. Refills 2, Maintenance, 04/20/20 12:28:00 EDT, Route to Pharmacy Electronically, [facility], 168, cm, 04/20/20 8:13:00 EDT, Height, 79.9, kg, 04/19/20 5:50:00 EDT, Dry Weight Start Date: 04/20/20 Status: Ordered Toprol XL 25 mg oral tablet, extended release 25 mg, 1, tablet, By Mouth, Daily, # 90 tablet, Refills 0, Tot. Refills 0, Maintenance, 05/12/20 13:44:00 EDT, Route to Pharmacy Electronically, [facility], 168, cm, 05/09/20 16:51:00 EDT, Height, 79.9, kg, 04/19/20 5:50:00 EDTDr... Start Date: 05/12/20 Status: Ordered Problem List [...] at age: 29; entered on: 04/19/20 Sex Note * Event Display: MRI Spine, Non- BH Authored Date: * Event Display: MRI Spine, Non- BH Authored Date: Patient Care team information Care Team Personnel Name: Nidia Smart RN Position: [facility] RN Member Role: Primary Care Nurse Name: Jason Perkins Position: Reference Physician Member Role: PCP Address: Address: [address] [place] [address]- Care Team Related Persons Name: PORSHA AVILA Address: home [address] [place] [address]
--- NOTE | 2023-01-04 11:13 | PC.NURSE ---
Patient presents with rib pain. Patient denies any shortness of breath associated with the pain. Patient states the the bottom of his right ribs stick out slightly which is seen on exam.
[2023-01-04 12:22] VITALS: BP 145/86; PULSE 78; RESP 20; TEMP 36.7; O2SAT 98
[2023-01-04 12:59] LABS: D Dimer High Sensitivity < 150 NG/ML
== END 2023-01-04 13:25 | disposition home or self-care (01) ==
PROVIDERS: Registered Nurse Emergency; Emergency Provider Student in an Organized Health Care Education/Training Program; PCP Physician Assistant
DX: M89.8X8 Other specified disorders of bone, other site (principal); E11.9 Type 2 diabetes mellitus without complications; E78.5 Hyperlipidemia, unspecified; F17.210 Nicotine dependence, cigarettes, uncomplicated; F12.90 Cannabis use, unspecified, uncomplicated; Z79.82 Long term (current) use of aspirin; Z79.84 Long term (current) use of oral hypoglycemic drugs; Z79.899 Other long term (current) drug therapy; Z79.02 Long term (current) use of antithrombotics/antiplatelets
CPT/HCPCS: 36415; 71101; 85379; 99283; 99284

== ENCOUNTER → 2023-01-21 08:57 | Outpatient (BNVA) | payer OTHER, SELFPAY | PROVIDERS: PCP Physician Assistant; Visit Provider Physician Assistant | DX: M54.40 Lumbago with sciatica, unspecified side (principal) | CPT/HCPCS: 99202 ==

== ENCOUNTER → 2023-01-26 13:42 | Outpatient (BNVA) | payer OTHER, SELFPAY | PROVIDERS: PCP Physician Assistant; Visit Provider Internal Medicine Cardiovascular Disease | DX: I25.10 Atherosclerotic heart disease of native coronary artery without angina pectoris (principal); I73.9 Peripheral vascular disease, unspecified; I25.2 Old myocardial infarction | CPT/HCPCS: 93005; 99212 ==

== ENCOUNTER → 2023-01-27 13:45 | Outpatient (BNVA) | payer OTHER, SELFPAY | PROVIDERS: PCP Physician Assistant; Visit Provider Physician Assistant | DX: K27.9 Peptic ulcer, site unspecified, unspecified as acute or chronic, without hemorrhage or perforation (principal); R19.4 Change in bowel habit | CPT/HCPCS: 99212 ==

== ENCOUNTER 2023-01-28 10:08 | Outpatient (REF) | payer OTHER, SELFPAY ==
--- NOTE | ~2023-01-28 | XR_ITS ---
EXAMINATION: XR KNEE, LEFT CLINICAL INFORMATION: Left knee pain, recent fall COMPARISON: Left knee 08/05/2017 TECHNIQUE: Four views of the left knee. FINDINGS: Bones and soft tissues are normal. No fracture or joint effusion. Alignment is anatomic. Joint spaces are well maintained. No abnormal soft tissue calcification. XR/XR knee LT 3V IMPRESSION: Normal left knee.
== END 2023-01-28 10:09 | disposition home or self-care (01) ==
LOC: HO.XRAY 10:08
PROVIDERS: PCP Physician Assistant; Visit Provider Nurse Practitioner Family
DX: M25.562 Pain in left knee (principal)
CPT/HCPCS: 73562

== ENCOUNTER 2023-02-03 08:00 | Outpatient (REF) | payer OTHER, SELFPAY ==
--- NOTE | 2023-02-03 07:59 | EMG_ITS ---
FINDINGS: Right median and ulnar motor and sensory studies were performed. Right radial sensory study was performed and paraspinal muscles were tested with a needle. IMPRESSION: 1. Iovp-ri-sbujjtjo ulnar neuropathy across cubital tunnel. 2. Euln-ex-bhkdfouw right median neuropathy across carpal tunnel. MD ROE Quintero/ANISHA / [id number]
== END 2023-02-03 08:01 | disposition home or self-care (01) ==
LOC: HO.NEURO 08:00
PROVIDERS: PCP Physician Assistant; Visit Provider Physician Assistant
DX: R20.2 Paresthesia of skin (principal)
CPT/HCPCS: 95886; 95909

== ENCOUNTER → 2023-02-04 08:47 | Outpatient (BNVA) | payer OTHER, SELFPAY | PROVIDERS: PCP Physician Assistant; Visit Provider Physician Assistant | DX: M75.101 Unspecified rotator cuff tear or rupture of right shoulder, not specified as traumatic (principal); M24.119 Other articular cartilage disorders, unspecified shoulder | CPT/HCPCS: 99202 ==

== ENCOUNTER → 2023-02-17 08:56 | Outpatient (REF) | payer OTHER, SELFPAY ==
--- NOTE | 2023-02-17 09:00 | CA_ITS ---
Transthoracic Echocardiogram Patient (Last, First, Middle): Kwaku Diggs, Gender: Male Date of : 1970 Age: 52 Procedure Date: 02/17/2023 Procedure Type: Transthoracic Echocardiogram Location: OP Height: 167.64 cm Weight: 70.31 kg BSA: 1.79 m2 Heart Rate: bpm BP: 120 / 72 mmHg Content Management Consultant: TO Referring MD: Washington Hampton MD Maritime Officer: Washington Hampton MD Symptoms: I25.10 - Atherosclerotic heart disease of [place] coronary artery without... Study Quality: Adequate with contrast Conclusions: - Normal left ventricular size and systolic function. The visually estimated ejection fraction is between 55-60%. - The basal inferior segment is akinetic. - Normal right ventricular cavity size and systolic function. Findings Procedure Information Contrast agent, definity, is being given per protocol without apparent complications. Left Ventricle Normal left ventricular size and systolic function. The visually estimated ejection fraction is between 55-60%. There is evidence of regional wall motion abnormalities. Diastolic function is indeterminate on the basis of available data. Wall Motion Rest Echo Findings The basal inferior segment is akinetic. Right Ventricle Normal right ventricular cavity size and systolic function. Atria The left atrium is normal in size. The right atrium is normal in size. Aortic Valve There is a normal trileaflet aortic valve. There is mild calcification of the aortic valve. There is no aortic valve stenosis. There is no aortic valve regurgitation. Mitral Valve Normal mitral valve structure and function. There is trace mitral valve regurgitation. There is no mitral valve stenosis. Pulmonic Valve Normal pulmonic valve structure and function. There is no pulmonic valve regurgitation. Tricuspid Valve Normal tricuspid valve structure and function. There is trace tricuspid valve regurgitation. Tricuspid regurgitation envelope is inadequate for calculation of right ventricular systolic pressure. Normal right atrial pressure. Great Vessels All visible segments of the aorta are normal in size. Venous The inferior vena cava is normal in size and collapses greater than 50% with inspiration. Pericardium/Pleural There is no evidence of pericardial effusion. Prior Study Comparison No prior study available for comparison. Measurements 2D Linear Measurements IVSd: 1.17 0.6-0.9/0.6-1.0 cm LVIDd: 4.53 3.9-5.3/4.2-5.9 cm LVIDd Index: 2.53 2.4-3.2/2.2-3.1 cm/m2 LVIDs: 3.19 2.0-3.6 cm LVPWd: 0.77 0.7-1.1 cm LA Diam: 3.10 2.7-3.8/3.0-4.0 cm LAIDs Index: 1.73 1.5-2.3 cm/m2 LV Mass: 184.86 67-162/88-224 g LV Mass Index: 103.28 43-95/49-115 g/m2 LVOT Diam: 2.30 3.0+(-)1.3 cm 2D Systolic Function EF 4C: 60.20 >55% EF 2C: 58.60 >55% EF BiP: 60.20 >55% Aortic Valve AoV Pk [place]: 1.10 AoV Mn [place]: 0.78 AoV VTI: 0.24 AoV Pk Grad: 5.00 Aov Mn Grad: 3.00 JOSEFINA Cont.VTI: 3.73 LVOT LVOT Pk [place]: 1.05 LVOT Mn [place]: 0.67 LVOT VTI: 0.21 LVOT Pk Grad: 4.00 LVOT Mn Grad: 2.00 LVOT Diam: 2.30 LVOT Area: 4.15 Right Ventricle TAPSE (mm): 20.70 TVS' [place]: 11.20 Tricuspid Valve RA Press: 3.00 Great Vessels Aorta Sinus of Valsalva: 3.18 2.0-3.[address] [place]: 2.13 1.7-3.4 cm Ao Asc: 3.30 2.1-3.4 cm Ao Arch: 3.10 Updated in Other Vendor System with Status of Final Washington Hampton MD electronically signed on 02/17/2023 9:29:56 PM with status of Final
== END ==
LOC: HO.CARD 08:56
PROVIDERS: PCP Physician Assistant; Visit Provider Internal Medicine Cardiovascular Disease
DX: I73.9 Peripheral vascular disease, unspecified (principal); I25.10 Atherosclerotic heart disease of native coronary artery without angina pectoris
CPT/HCPCS: 93306; 93923; Q9957

== ENCOUNTER 2023-02-17 10:13 | Outpatient (REF) | payer OTHER, SELFPAY | END 2023-02-17 10:14 | disposition home or self-care (01) | LOC: HO.US 10:13 | PROVIDERS: PCP Physician Assistant; Visit Provider Internal Medicine Cardiovascular Disease | DX: Z13.89 Encounter for screening for other disorder (principal) ==

== ENCOUNTER 2023-03-08 09:00 | Outpatient (RCR) | payer OTHER, SELFPAY ==
--- NOTE | 2023-01-20 10:47 | MHC.PT.EP ---
[facility] [place] Office [place] Office [place] Office [address] Pola Ortega [address] [phone] F: [phone] F: [phone] F: [phone] F: [phone] Physical Therapy Plan of Care Date of Evaluation: Date of Surgery: N/A Diagnosis: M67.911 unspecified disorder of synovium and tendon, right shoulder (RL) Assessment: pt is a 52 y/o male presenting to physical therapy w/ referring diagnosis of M67.911 unspecified disorder of synovium and tendon, right shoulder. pt has very long hx of chronic pain (15+ years). He has several compounding factors contributing to his pain including several cervical herniated discs, OA, RA, and peripheral nerve compression syndromes. He has never had any formal PT in the past. Impairments include pain, decreased range of motion, decreased strength, impaired functional mobility, impaired postural awareness, and altered ambulation mechanics. pt is a good candidate for skilled PT due to age, potential remediation of impairments, typical disease/condition progression and prognosis, comorbidities, and motivation. pt would benefit from skilled PT intervention to provide a tailored strengthening and stretching exercise program, functional training, gait training, postural re-training, neuromuscular re-education, modalities as needed for pain, equipment safety demonstration. Frequency and Duration: The patient will be seen 2x/wk for 6 wks Short Term Goals: pt will be I w/ HEP to promote self-management of condition. pt will demo proper sitting posture w/ lumbar roll to promote neutral spine w/ seated postures/ADLs. pt will improve B shoulder flexion strength by 10 degrees to promote ease w/ reaching into cabinets. Assisted Goals: pt will report a statistically significant improvement in self-reported outcome measure, SPADI, to promote return to PLOF. pt will improve B shoulder flexion to 5/5 to promote ease in caretaking activities w/ his son. Treatment Plan: Modalities to reduce pain, spasms and effusion. Manual therapy to restore motion and function. Therapeutic exercise to improve strength and flexibility. Neuromuscular re-education for posture and balance. Therapeutic activities to return to functional activities of daily living. Electronically signed by: Kaylin Serrano PT, DPT Please sign and return to therapist. Thank you for your referral.
--- NOTE | 2023-03-10 08:16 | MHC.PT.DC ---
[facility] [place] Office [place] Office [place] Office [address] Pola Ortega [address] [phone] F: [phone] F: [phone] F: [phone] F: [phone] Physical Therapy Discharge Report Diagnosis: M67.911 unspecified disorder of synovium and tendon, right shoulder (RL) Date of Surgery: N/A Date of Evaluation: 01/20/23 Date of Discharge: 03/10/23 Treatments to Date: 7 Cancellations to Date: 4 No Shows to Date: 0 Discharge Status: Recommend MD Follow-up Discharge Summary: The patient overall did not respond well to physical therapy for his neck and shoulders. To be fair, he only attended 7 visits with gaps inbetween visits and his compliance to recommendations to this therapist is questionable. Given his pain has been going on for decades I anticipated he would need more time to improve his symptoms. He tends to malinger and perseverate on his pain. His cervical MRI revealed Multilevel discogenic degenerative changes as described above with multilevel central disc herniations and disc osteophyte complexes with multilevel imrj-qe-eygrnkab degrees of spinal canal stenosis. 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 This also causes him mental/emotional stress which does not help his physical state either. He stated he does not have any type of relief from the pain regardless of position or posture and OTC pain medications are not helpful. He would benefit from a referral to the Pain Management clinic to discuss if there are any other pain management alternatives for him. Electronically signed by: Kyalin Serrano PT, DPT Please sign and return to therapist. Thank you for your referral.
== END 2023-03-10 08:17 | disposition home or self-care (01) ==
LOC: HO.PT 09:00
PROVIDERS: PCP Physician Assistant; Visit Provider Physician Assistant
DX: M67.911 Unspecified disorder of synovium and tendon, right shoulder (principal)
CPT/HCPCS: 97012; 97110; 97112; 97140; 97162

== ENCOUNTER 2023-03-12 07:55 | Outpatient (REF) | payer OTHER, SELFPAY ==
--- NOTE | ~2023-03-12 | MR_ITS ---
EXAMINATION: MR LUMBAR SPINE WITHOUT CONTRAST CLINICAL INFORMATION: Lumbago with sciatica. Left lower extremity pain. COMPARISON: MRI scan of the lumbar spine 01/03/2013. TECHNIQUE: MRI of the lumbar spine was obtained using routine sequences without contrast. FINDINGS: VERTEBRAL BODIES AND PARASPINAL STRUCTURES: The alignment of the vertebral bodies is normal. There is narrowing of intervertebral disc height with loss of signal from the disc at L4-L5, which is not significantly changed compared to prior imaging. There is mild disc desiccation at L5-S1. The vertebral disc height is also narrowed at T11-T12. The vertebral bodies of normal height and contour, and no fractures are demonstrated. Overall, marrow signal is homogenous. The visualized retroperitoneal structures are unremarkable. There are arthropathic changes at the sacroiliac joints. CONUS MEDULLARIS AND CAUDA EQUINA: Normal, terminating at the level of L1. The lower thoracic spinal cord has normal signal. The cauda equina nerve roots and filum terminale appear normal.. SPINAL LEVELS: T10-T11: There is a small posterior disc protrusion with an annular fissure without mass effect on the spinal cord. There is no central stenosis. Neural foramina appear patent. L1-L2: The facet joints appear normal bilaterally. Disc contour is normal. There is no central stenosis or foraminal narrowing. L2-L3: The facet joints appear normal bilaterally. Disc contour is normal. There is no central stenosis or foraminal narrowing. L3-L4: The facet joints appear normal bilaterally. Disc contour is normal. There is no central stenosis or foraminal narrowing. L4-L5: There is moderate bilateral facet arthropathy, with ligamenta flava hypertrophy. There is interval increase in a synovial cyst medially off the right facet joint which measures 5 mm in diameter. There is mass effect on the bilateral thecal sac dorsolaterally. In addition, there is a central and left-sided disc protrusion which flattens the ventral thecal sac and narrows the left subarticular recess with impingement on the traversing left L5 nerve root. A small right foraminal disc protrusion impinges on the exiting right L4 nerve root. There is moderate to severe central stenosis. L5-S1: There is moderate bilateral facet arthropathy. There is a diffuse disc bulge with inferior foraminal disc protrusions, more prominent on the right with impingement on the exiting L5 nerve roots, no significant change compared to prior imaging. There is no central stenosis. MR/MR lumbar spine wo con IMPRESSION: 1. There has been interval increase in a synovial cyst medially off the right facet joint at L4-L5 with mass effect on the thecal sac dorsolaterally. There is a central and left-sided disc protrusion which flattens the ventral thecal sac and narrows the left subarticular recess with impingement on the traversing left L5 nerve root. A small right foraminal disc protrusion impinges on the exiting right L4 nerve root. There is moderate to severe central stenosis. 2. At L5-S1 there is facet arthropathy and there is a diffuse disc bulge with inferior foraminal disc protrusions impinging on the exiting L5 nerve roots. There is no central stenosis.
== END 2023-03-12 07:56 | disposition home or self-care (01) ==
LOC: HO.MRI 07:55
PROVIDERS: PCP Physician Assistant; Visit Provider Physician Assistant
DX: M54.40 Lumbago with sciatica, unspecified side (principal)
CPT/HCPCS: 72148

== ENCOUNTER 2023-03-28 09:34 | Outpatient (REF) | payer OTHER, SELFPAY ==
[2023-03-28 10:26] LABS: Hematocrit 36.9 % (42.0-52.0); Hemoglobin 12.9 g/dl (14.0-18.0); Mean Corpuscular Hemoglobin 30.4 pg (27.0-33.0); Mean Corpuscular Volume 86.8 fL (80.0-98.0); Mean Platelet Volume 9.1 fL (9.4-12.4); Platelet Count 192 X10*3/uL (160-400); Red Blood Count 4.25 X10*6/uL (4.60-5.80); Red Cell Distribution Width 13.2 % (11.0-16.0); White Blood Count 8.3 X10*3/uL (4.8-10.8)
[2023-03-28 10:58] LABS: Alanine Aminotransferase 22 U/L (0-40); Albumin Level 4.4 g/dL (3.5-5.0); Alkaline Phosphatase 82 U/L (39-117); Anion Gap 16 (12-20); Aspartate Amino Transferase 14 U/L (5-37); Bilirubin Total 0.4 mg/dL (0.0-1.0); Blood Urea Nitrogen 15 mg/dL (9-16); Calcium 9.8 mg/dL (8.4-10.2); Carbon Dioxide 23 mmol/L (22-29); Chloride 104 mmol/L (96-108); Cholesterol 114 mg/dL; Estimated Glomerular Filt Rate > 60; Glucose Fasting 115 mg/dL (60-99); HDL Cholesterol 43 mg/dL; LDL Cholesterol Calculated 48 mg/dl; Potassium 4.2 mmol/L (3.3-5.1); Sodium 139 mmol/L (135-145); Total Protein 7.3 g/dL (6.5-8.0); Triglycerides 116 mg/dL
== END 2023-03-28 09:35 | disposition home or self-care (01) ==
LOC: HO.LAB 09:34
PROVIDERS: PCP Physician Assistant; Visit Provider Physician Assistant
DX: I25.10 Atherosclerotic heart disease of native coronary artery without angina pectoris (principal)
CPT/HCPCS: 36415; 80053; 80061; 85027

== ENCOUNTER 2023-03-28 10:22 | Outpatient (AMB) | payer OTHER, SELFPAY ==
--- NOTE | 2023-03-28 10:24 | A.OFFPC_ITS ---
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 Accompanied by: Self / Same As Patient Allergies penicillin V Allergy (Unknown, Verified 03/28/23 10:38) Swelling Medication List - Last Reconciled 03/28/23 by Jason Vega PA-C aspirin (Ecotrin Low Strength) 81 mg PO DAILY atorvastatin (Lipitor) 40 mg PO BEDTIME bisacodyl (Dulcolax (bisacodyl)) 20 mg (4 x 5 mg) PO ONCE PRN 1 day bupropion HCl (Wellbutrin SR) 150 mg PO BID 30 days docusate sodium (Colace) 200 mg (2 x 100 mg) PO BEDTIME 30 days metformin 1,000 mg PO BID 30 days methylcellulose (laxative) (Citrucel) 500 mg PO TID pantoprazole (Protonix) 40 mg PO DAILY 90 days polyethylene glycol 3350 (Miralax) 17 grams PO DAILY 30 days simethicone (Gas Relief (simethicone)) 125 mg PO TID-QID PRN Tobacco use date assessed: 01/28/23 Dental Screening Dental Screen Date: 03/28/23 Did you have a dental visit in the last 12 months?: No Did you have a dental problem in the last 6 months where you did not have access to dental care?: No Was dental information given to patient?: Yes HPI f/u DMII / CAD - smoking cessation HPI Details Patient is a 52-year-old male here today for follow-up visit.? Patient has a past medical history significant for type 2 diabetes, coronary artery disease, hyperlipidemia, major depressive disorder. He reports he continues to have bilateral shoulder pain worse over his right shoulder, he has seen orthopedics and received cortisone injection though reports no pain relief. MRI cervical spine showing--> Multilevel discogenic degenerative changes as described above with multilevel central disc herniations and disc osteophyte complexes with multilevel [id number]-es-[id number] degrees of spinal canal stenosis with moderate left-sided ventral cord deformity at C6-C7 and slight ventral cord impingement at C4-C5 and C5-C6. Has recently got lumbar spine MRI showing disc degeneration and central nerve stenosis. He is now followed by [facility]. He is interested in speaking with bumper and painter about his chronic pain. .. Coronary artery disease:? Unfortunately continues to smoke, has not gotten lipid panel checked in quite a while.? Continues on moderate dose statin.? He denies any chest discomfort or shortness of breath on exertion.. .. Former smoker:? Has been started on Wellbutrin and has been able to quit smoking. Has cravings from time to time though stays willing to refrain from smoking. Major depressive disorder:? Does report having more more depressed as of late due to stress in his family life.? He does report having some suicidal ideations at times though reports he will never do that himself due to his 8-year-old autistic son.? He is willing to speak with a mental health therapist in starting mental health medications. --> also complains of having an OCD menses and does pick at his skin a lot. He is willing to try medication to help him with this. .. Type 2 diabetes:? Type 2 diabetes much better controlled with A1c today is 7.5 from 10.1. Has been trying to to follow a diabetic diet. Has increased his metformin to max dose 1000 b.i.d..? [facility] Medical History Coronary artery disease Diabetes mellitus Hyperlipidemia Seizures Surgical History History of ear surgery Hx of inguinal hernia surgery S/P coronary artery stent placement Family History Other No family history of coronary artery disease Social History Housing: Apartment Alcohol intake: never Patient Tobacco Use Status: Former Tobacco user Tobacco use type: Cigarette Cigarette Packs Per Day: 10 Years Smoked: 22 +/- , pt quit smoking 01/25/23 e-Cigarette/Vaping Use: Never Used Second Hand Smoke Exposure: Yes Substance Use Type: Marijuana service: No Current occupational status: unemployed Cognitive needs: No Hearing needs: No Vision needs: Yes Questionnaire Thrive Questionnaire Date Thrive assessed: 12/23/22 I am a: Patient What is your living situation today?: I have a place to live, but I am worried about losing it in the future Within the past 12 months, did the food you bought not last and you didn't have the money to get more?: Sometimes True Within the past 12 months, did you worry whether your food would run out before you got money to buy more?: Sometimes True Please select the resources that you would like help with: Housing/M[facility], Food, Transportation and Utilities BILLY-7 AMB Questionnaire BILLY-7 Date BILLY - 7 assessed: 12/23/22 Source: Developed by Drs. Paul Brand, Kim Sauer, Abdias Patel and colleagues, with an educational chad from [employer]. Review of Systems Const Denies headache(s) Eyes Denies loss of vision ENT Denies vertigo, Denies dizziness, Denies headache(s) and Denies sore throat Card Denies chest pain, Denies leg edema and Denies lightheadedness Resp Denies cough, Denies hemoptysis and Denies wheezing GI Denies abdominal pain, Denies melena, Denies constipation, Denies diarrhea and Denies vomiting Denies dysuria, Denies urinary frequency and Denies urinary urgency Musc Denies arthralgias, Denies joint swelling, Denies numbness and Denies tingling Neuro Denies Abnormal speech present, Denies behavioral changes, Denies vertigo, Denies dizziness, Denies headache(s), Denies loss of vision, Denies memory loss, Denies numbness and Denies tingling Psych Denies anxiety, Denies behavioral changes, Denies depression, Denies memory loss and Denies panic attacks Jamarcus/Lymph Denies easy bleeding and Denies easy bruising Aller/Immun Denies wheezing Physical exam (Primary Care) Vital Signs: Last Vital Signs Pulse 75 03/28/23 10:25 BP 126/70 03/28/23 10:25 Pulse Ox 98 03/28/23 10:25 BMI result Body Mass Index 26.4 Tobacco/Smoking Status: Tobacco use Status Tobacco use date assessed 01/28/23 03/28/23 10:30 Patient Tobacco Use Status Former Tobacco user 03/28/23 10:30 Tobacco use type Cigarette 03/28/23 10:30 e-Cigarette/Vaping Use Never Used 03/28/23 10:30 Thrive Assessment: Date of Thrive Assessment Date Thrive assessed 12/23/22 03/28/23 10:30 Const General: healthy appearing, no acute distress, alert and awake Nutritional Appearance: well nourished Orientation/consciousness: oriented to person, oriented to place and oriented to time HENMT Ears: TM's normal bilaterally General nose exam: Normal nasal mucous membranes and turbinates present Eyes Conjunctivae: conjunctivae normal Sclerae: sclerae normal Pupils: Equal, round and reactive pupils present Neck Neck: Yes no lymphadenopathy and Yes no JVD Thyroid: Thyroid normal Carotids: no bruits Resp Effort & Inspection: normal respiratory effort and not tachypneic Auscultation: no crackles, no rales, no rhonchi and no wheezes Cardio Rate: regular rate Rhythm: regular rhythm Heart sounds: no murmurs and normal S1 and S2 GI Palpation (GI): Soft to palpation, nontender, no hepatomegaly and no splenomegaly Auscultation: normal bowel sounds Skin General skin exam: no rashes or lesions noted and dry skin Neuro General: oriented to person, oriented to place and oriented to time Cranial nerves: Yes Equal, round and reactive pupils present Speech: No Abnormal speech present Gait exam (Neuro): Normal gait present Motor exam (neuro): no tremor noted Extrem Right upper extremity: full ROM Left upper extremity: full ROM Right lower extremity: full ROM; no edema Left lower extremity: full ROM; no edema Psych Mental Status: mental status grossly normal Speech and movement: Normal speech and movement present Affect: normal affect Attitude: cooperative Thought process: Normal thought process present Results AMB Hemoglobin A1c AMB Hemoglobin A1c 7.6 % Last Edit by Bin Gomez CMA on 03/28/23 10: 41 Results Reviewed Results Reviewed: Laboratory Last Values Hgb A1c (Clinic) 7.6 % (4.0-6.0) H 03/28/23 10:40 Assessment and Plan Assessment & Plan (1) Diabetes mellitus: Code(s): E11.9 - Type 2 diabetes mellitus without complications Qualifiers: Diabetes mellitus complication status: with hyperglycemia Diabetes mellitus press tender long goods insulin use: without press tender long goods use Diabetes mellitus type: type 2 Qualified Code(s): E11.65 - Type 2 diabetes mellitus with hyperglycemia Plan: Patient's type 2 diabetes suboptimally controlled though much improved since last office visit. Continues to work on diabetic diet. Goal A1c is to be below 7.0 (2) Cervical stenosis of spinal canal: Code(s): M48.02 - Spinal stenosis, cervical region Plan: Patient's most recent MRI cervical spine showing multilevel disc disease and spinal stenosis. Continues to be in pain and would like medication before bed to help him with his pain. Will be following up with spine center on his lumbar spine (3) Coronary artery disease: Code(s): I25.10 - Atherosclerotic heart disease of [place] coronary artery without angina pectoris Qualifiers: Associated angina: without angina Coronary Disease-Associated Artery/Lesion type: [place] artery [place] vs. transplanted heart: [place] heart Qualified Code(s): I25.10 - Atherosclerotic heart disease of [place] coronary artery without angina pectoris Plan: Patient now followed by Cardiology. Continues on high potency statin and daily aspirin. Denies any chest pain, palpitations shortness of breath on exertion. (4) OCD (obsessive compulsive disorder): Code(s): F42.9 - Obsessive-compulsive disorder, unspecified Qualifiers: Obsessive-compulsive disorder type: excoriation disorder Qualified Code(s): F42.4 - Excoriation (skin-picking) disorder Plan: Patient does seem to have an OCD disorder. Willing to start SNRI therapy to treat both pain and his OCD. (5) Lumbar degenerative disc disease: Code(s): M51.36 - Other intervertebral disc degeneration, lumbar region Plan: Patient's most recent MRI lumbar spine showing L4-L5 disc herniation with spinal cord stenosis. Continues to have left lower extremity pain and weakness. Will be following with with spine center. Would like to see pain management as he has multiple pain generators and would like recommendations on pain reduction. Will try muscle relaxer, gabapentin to help with his neuropathic pain and muscular pain at night. Due to his comorbid mental health disorder will also add on effexor. Orders: Orders Complete Blood Count no Diff Today E11.65 - Type 2 diabetes mellitus with hyperglycemia Lipid Panel 6 Months E78.5 - Hyperlipidemia, unspecified AMB Hemoglobin A1c Today E11.9 - Type 2 diabetes mellitus without complications, Z13.9 - Encounter for screening, unspecified Referrals Pain Management Referral M48.02 - Spinal stenosis, cervical region Medications: New tizanidine 2 mg PO BEDTIME 90 days 90 tabs 1RF muscle spasticity E78.5 - Hyperlipidemia, unspecified, M48.02 - Spinal stenosis, cervical region gabapentin 300 mg PO DAILY 90 days 90 caps 1RF E78.5 - Hyperlipidemia, unspecified, M48.02 - Spinal stenosis, cervical region venlafaxine ER (Effexor XR) 37.5 mg PO DAILY 90 days 90 caps 1RF E78.5 - Hyperlipidemia, unspecified, F42.9 - Obsessive-compulsive disorder, unspecified Changed From bupropion HCl (Wellbutrin SR) 150 mg PO BID 30 days 60 tabs 3RF F33.1 - Major depressive disorder, recurrent, moderate To bupropion HCl (Wellbutrin SR) 150 mg PO BID 90 days 180 tabs 1RF F33.1 - Major depressive disorder, recurrent, moderate From atorvastatin (Lipitor) 40 mg PO BEDTIME 90 tabs 0RF E78.5 - Hyperlipid emia, unspecified To atorvastatin (Lipitor) 40 mg PO BEDTIME 90 days 90 tabs 1RF E78.5 - Hyperlipidemia, unspecified Coding Level of Care Code Est Pt Level 4 (54512) Diagnoses Diabetes mellitus E11.65 Diabetes mellitus complication status: with hyperglycemia Diabetes mellitus halfway insulin use: without halfway use Diabetes mellitus type: type 2 Cervical stenosis of spinal canal M48.02 Coronary artery disease I25.10 Associated angina: without angina Coronary Disease-Associated Artery/Lesion type: [place] artery [place] vs. transplanted heart: [place] heart OCD (obsessive compulsive disorder) F42.4 Obsessive-compulsive disorder type: excoriation disorder Lumbar degenerative disc disease M51.36
[2023-03-28 10:25] VITALS: BP 126/70; PULSE 75; O2SAT 98; BMI 26.4
== END 2023-03-28 11:38 | disposition home or self-care (01) ==
PROVIDERS: PCP Physician Assistant; Visit Provider Physician Assistant
DX: E11.65 Type 2 diabetes mellitus with hyperglycemia (principal); M48.02 Spinal stenosis, cervical region; I25.10 Atherosclerotic heart disease of native coronary artery without angina pectoris; F42.4 Excoriation (skin-picking) disorder; M51.36 Other intervertebral disc degeneration, lumbar region; Z13.9 Encounter for screening, unspecified; E11.9 Type 2 diabetes mellitus without complications
CPT/HCPCS: 83036; 99214

== ENCOUNTER 2023-04-04 09:34 | Outpatient (REF) | payer OTHER, SELFPAY ==
--- NOTE | ~2023-04-04 | MR_ITS ---
EXAMINATION: MR SHOULDER WITHOUT CONTRAST, RIGHT CLINICAL INFORMATION: Right shoulder pain. Decreased range of motion. Evaluate for rotator cuff tendon tear. COMPARISON: Right shoulder radiographs dated 12/23/2022. TECHNIQUE: MRI of the shoulder without contrast was performed on a high-field scanner. FINDINGS: ROTATOR CUFF: Mild supraspinatus tendinosis with focal articular surface fraying/partial tearing of the junctional fibers measuring up to 1.0 cm in ML dimension. Mild subscapularis tendinosis. No full-thickness rotator cuff tendon tear. No muscle atrophy or fatty infiltration. BICEPS: Intact. CORACOACROMIAL ARCH: The undersurface of the acromion is minimally curved with no subacromial spur. Mild acromioclavicular osteoarthritis. LABRUM/CAPSULE: Somewhat linear, intermediate signal within the undersurface of the superior labrum which could represent normal variation versus a nondisplaced undersurface tear. Minimal thickening and edema of the joint capsule which can be seen in the setting of adhesive capsulitis. GLENOHUMERAL JOINT/MARROW: Unremarkable. MR/MR shoulder RT wo con IMPRESSION: 1. Mild supraspinatus tendinosis with focal articular surface fraying/partial tearing of the junctional fibers measuring 1.0 cm in ML dimension. Mild subscapularis tendinosis. No full-thickness rotator cuff tendon tear. 2. Mild acromioclavicular osteoarthritis. 3. Linear intermediate signal within the undersurface of the superior labrum which could represent normal variation versus a nondisplaced undersurface tear. 4. Minimal thickening and edema of the joint capsule which can be seen in the setting of adhesive capsulitis.
== END 2023-04-04 09:35 | disposition home or self-care (01) ==
LOC: HO.MRI 09:34
PROVIDERS: PCP Physician Assistant; Visit Provider Physician Assistant
DX: M75.101 Unspecified rotator cuff tear or rupture of right shoulder, not specified as traumatic (principal)
CPT/HCPCS: 73221

== ENCOUNTER 2023-04-05 15:30 | Outpatient (AMB) | payer OTHER, SELFPAY ==
--- NOTE | 2023-04-05 15:33 | MHC.OFFVIS ---
Intake Intake Visit Reasons: OV - MRI review, right shoulder Intake Note: Kwaku is a 52 year old right hand dominant male who presents today for his MRI review for his right shoulder. Patient reports nothing has changed with pain but PT is helping with pain relief. He states having concerns of his right hand pain. Allergies penicillin V Allergy (Unknown, Verified 04/05/23 15:36) Swelling HPI OV - MRI review, right shoulder HPI Details 52-year-old right hand dominant male who presents in the office today for a follow up of right shoulder pain and review of his MRI. The patient reports nothing has changed with his pain. He confirms participating in physical therapy and states it has helped with some pain relief. Patient expresses concern for right hand pain. [facility] Medical History Coronary artery disease Diabetes mellitus Hyperlipidemia Seizures Surgical History History of ear surgery Hx of inguinal hernia surgery S/P coronary artery stent placement Family History Other No family history of coronary artery disease Social History Housing: Apartment Alcohol intake: never Patient Tobacco Use Status: Former Tobacco user Tobacco use type: Cigarette Cigarette Packs Per Day: 10 Years Smoked: 22 +/- , pt quit smoking 01/25/23 e-Cigarette/Vaping Use: Never Used Second Hand Smoke Exposure: Yes Substance Use Type: Marijuana service: No Current occupational status: unemployed Cognitive needs: No Hearing needs: No Vision needs: Yes Review of Systems Const All systems reviewed & are unremarkable except as noted in HPI and below Physical Exam Const General: cooperative, healthy appearing and no acute distress Resp Effort & Inspection: normal respiratory effort and able to speak in complete sentences Cardio Rate: regular rate Peripheral pulses: Peripheral pulses 2+ throughout GI Palpation (GI): Soft to palpation Skin Lesions: no lesions Rashes: no rashes Extrem Other: Right shoulder: Forward flexion and abduction lacking 20 degrees. External rotation to end range. Able to reach T12. Pain with cross-body reach. Negative drop arm. Negative empty can. Positive O?Jordan?s. Occasional numbness and tingling bilateral upper extremities. Assessment & Plan Assessment & Plan (1) Painful arc syndrome of right shoulder: Code(s): M75.101 - Unspecified rotator cuff tear or rupture of right shoulder, not specified as traumatic (2) Labral tear of shoulder, degenerative: Code(s): M24.119 - Other articular cartilage disorders, unspecified shoulder Plan Mr. Diggs is a 52-year-old right hand dominant male who presents in the office today for a follow up of right shoulder pain and review of his MRI. The patient reports nothing has changed with his pain. He confirms participating in physical therapy and states it has helped with some pain relief. Patient expresses concern for right hand pain. I would like for the patient to meet with Dr. Guerrero to further evaluate the integrity of the right shoulder and see if he will be a possible surgical candidate. He expresses his main concern is the shoulder feels unstable. Although he does not dislocated. The patient also has a complaint of bilateral hand and all digit numbness and tingling. He would like to further discuss cubital tunnel and carpal tunnel release with our hand specialist. He has had an EMG which was obtained on 02/03/2023. He will follow up with Dr. Guerrero for the right shoulder and Dr. Romero for the bilateral hands at their next available, or sooner if needed. MRI of the right shoulder, obtained on 04/04/2023, revealed: 1. Mild supraspinatus tendinosis with focal articular surface fraying/partial tearing of the junctional fibers measuring 1.0 cm in ML dimension. Mild subscapularis tendinosis. No full-thickness rotator cuff tendon tear. 2. Mild acromioclavicular osteoarthritis. 3. Linear intermediate signal within the undersurface of the superior labrum which could represent normal variation versus a nondisplaced undersurface tear. 4. Minimal thickening and edema of the joint capsule which can be seen in the setting of adhesive capsulitis. EMG of the right upper extremity, obtained on 02/03/2023, revealed: 1. [id number] ulnar neuropathy across cubital tunnel. 2. [id number] right median neuropathy across carpal tunnel. Patient Instructions: Scribed for Cathleen Carter PA-C by mica Lucas scribe, on 04/05/2023 at 3:36 pm, EST. Coding Level of Care Code Est Pt Level 4 (16530) Diagnoses Painful arc syndrome of right shoulder M75.101 Labral tear of shoulder, degenerative M24.119
== END 2023-04-05 15:50 | disposition home or self-care (01) ==
PROVIDERS: PCP Physician Assistant; Visit Provider Physician Assistant
DX: M75.101 Unspecified rotator cuff tear or rupture of right shoulder, not specified as traumatic (principal); M24.119 Other articular cartilage disorders, unspecified shoulder; M19.011 Primary osteoarthritis, right shoulder; G56.23 Lesion of ulnar nerve, bilateral upper limbs
CPT/HCPCS: 99213

== ENCOUNTER → 2023-04-05 15:30 | Outpatient (BNVA) | payer OTHER, SELFPAY | PROVIDERS: PCP Physician Assistant; Visit Provider Physician Assistant ==

== ENCOUNTER 2023-04-14 13:43 | Outpatient (AMB) | payer OTHER, SELFPAY ==
--- NOTE | 2023-04-14 13:50 | MHC.OFFVIS ---
Intake Vital Signs 04/14/23 13:59 Height 5 ft 6 in Weight 165 lb 6 oz BMI 26.7 BP 179/90 H Blood Pressure Location Rt brachial Position Sitting Pulse 84 Pulse Source Pulse Oximeter Pulse Oximetry (%) 96 Oxygen Delivery Method Room Air Intake Visit Reasons: Spinal stenosis, cervical region Intake Note: Pain today 02/28. Trim Technician Required: No Accompanied by: Self / Same As Patient Allergies penicillin V Allergy (Unknown, Verified 04/14/23 13:56) Swelling HPI Spinal stenosis, cervical region HPI Details Patient is a pleasant 52 years old male with history of seizures, depression, shoulder arthritis, migraines, diabetes (A1C 7.6 on 03/28/23), ID, CAD with stenting, chronic neck and back pain presents today with multiple pain generators, head to toe, most significant neck pain radiating to his shoulders. Denies any recent trauma, injury of falls. Reports most recent seizure 2 months ago, states he self-stopped Keppra due to side effects and has been taking gabapentin and smoking marijuana which he reports helps for seizures but not pain. He was previously evaluated by [facility] and [facility] and was deemed non surgical for cervical degenerative disc disease. Patient will follow up with [facility] for potential back surgery. Neck pain is worse with extension, overhead reaches. His cervical lateral rotations are slow movements due to pain. He reports mild to moderate pain with bending or flexion with numbness and tingling in his fingers bilaterally, worse on the right. Pain affects his daily activities, functioning, sleep, mood and social interactions. Denies any fever, chills, visual disturbances, dizziness, chest pain, bladder or bowel incontinence or saddle anesthesia. Location Neck pain radiates to shoulders (R>L) down to his left leg and calf Duration Chronic pain neck pain for 15 years Characteristics of symptom or complaint Aching, numbness and tingling, sharp, shooting, burning Aggravating or associated factors Movements, changing positions, walking, bending, twisting Relieving factors Rest, hot baths, Tylenol, NSAIDs Treatment PT- helped, gabapentin- no improvement [facility] Medical History (Updated 04/14/23 @ 14:21 by ELDA Barron) Coronary artery disease Diabetes mellitus Hyperlipidemia Seizures Surgical History History of ear surgery Hx of inguinal hernia surgery S/P coronary artery stent placement Family History Other No family history of coronary artery disease Social History Housing: Apartment Alcohol intake: never Patient Tobacco Use Status: Former Tobacco user Tobacco use type: Cigarette Cigarette Packs Per Day: 10 Years Smoked: 22 +/- , pt quit smoking 01/25/23 e-Cigarette/Vaping Use: Never Used Second Hand Smoke Exposure: Yes Substance Use Type: Marijuana service: No Current occupational status: unemployed Cognitive needs: No Hearing needs: No Vision needs: Yes Review of Systems Const All systems reviewed & are unremarkable except as noted in HPI and below Physical Exam Vital Signs: Last Vital Signs Pulse 84 04/14/23 13:59 BP 179/90 H 04/14/23 13:59 Pulse Ox 96 04/14/23 13:59 Oxygen Delivery Method Room Air 04/14/23 13:59 BMI result Body Mass Index 26.7 Neck Other: Patient with decreased cervical ROM in all planes due to pain. Reports increased pain with cervical extension and flexion. Spurling compression test equivocal. Pain is unchanged by Spurling maneuver with retraction. Elvey's tension test positive bilaterally, with radiation of pain from neck to wrist to fingers bilaterally, worse on the right. Lhermitte's test was negative. DTR intact, +2 and symmetrical. Patient demonstrated 5/5 left and 4/5 right motor strength of bilateral upper extremities. 2 + radial pulses. Significant tightness throughout right upper trapezius as well as TTP throughout bilateral upper trapezius muscles. Anterior right shoulder pain with overhead reaches. No swelling, no redness, no warmth. Neck: Yes no lymphadenopathy, Yes supple, No anterior neck swelling and Yes no JVD Back/Spine/Pelvis Cervical Spine: cervical muscular tenderness, pain with cervical ROM, No Cervical spine tenderness and No step off deformity Thoracic/Lumbar Spine: thoracic and lumbar spine normal to inspection, Lasegue's sign positive on the left and diffuse, pain with thoraco-lumbar ROM, paraspinal muscle tenderness, No thoracic spinal tenderness and lumbar spinal tenderness Pelvis: buttock tenderness on the left Sacroiliac joints: bilaterally nontender Results Reviewed Results Reviewed: MR/MR shoulder RT wo con 04/04/23 IMPRESSION: 1. Mild supraspinatus tendinosis with focal articular surface fraying/partial tearing of the junctional fibers measuring 1.0 cm in ML dimension. Mild subscapularis tendinosis. No full-thickness rotator cuff tendon tear. 2. Mild acromioclavicular osteoarthritis. 3. Linear intermediate signal within the undersurface of the superior labrum which could represent normal variation versus a nondisplaced undersurface tear. 4. Minimal thickening and edema of the joint capsule which can be seen in the setting of adhesive capsulitis. NE electromyogram (EMG); NE nerve conduction velocity 02/03/23 FINDINGS: Right median and ulnar motor and sensory studies were performed. Right radial sensory study was performed and paraspinal muscles were tested with a needle. IMPRESSION: 1. Svlj-mw-rpfsgeoo ulnar neuropathy across cubital tunnel. 2. Khon-sw-vussjswb right median neuropathy across carpal tunnel. MR LUMBAR SPINE WITHOUT CONTRAST 03/12/23 CLINICAL INFORMATION: Lumbago with sciatica. Left lower extremity pain. COMPARISON: MRI scan of the lumbar spine 01/03/2013. FINDINGS: VERTEBRAL BODIES AND PARASPINAL STRUCTURES: The alignment of the vertebral bodies is normal. There is narrowing of intervertebral disc height with loss of signal from the disc at L4-L5, which is not significantly changed compared to prior imaging. There is mild disc desiccation at L5-S1. The vertebral disc height is also narrowed at T11-T12. The vertebral bodies of normal height and contour, and no fractures are demonstrated. Overall, marrow signal is homogenous. The visualized retroperitoneal structures are unremarkable. There are arthropathic changes at the sacroiliac joints. CONUS MEDULLARIS AND CAUDA EQUINA: Normal, terminating at the level of L1. The lower thoracic spinal cord has normal signal. The cauda equina nerve roots and filum terminale appear normal.. SPINAL LEVELS: T10-T11: There is a small posterior disc protrusion with an annular fissure without mass effect on the spinal cord. There is no central stenosis. Neural foramina appear patent. L1-L2: The facet joints appear normal bilaterally. Disc contour is normal. There is no central stenosis or foraminal narrowing. L2-L3: The facet joints appear normal bilaterally. Disc contour is normal. There is no central stenosis or foraminal narrowing. L3-L4: The facet joints appear normal bilaterally. Disc contour is normal. There is no central stenosis or foraminal narrowing. L4-L5: There is moderate bilateral facet arthropathy, with ligamenta flava hypertrophy. There is interval increase in a synovial cyst medially off the right facet joint which measures 5 mm in diameter. There is mass effect on the bilateral thecal sac dorsolaterally. In addition, there is a central and left-sided disc protrusion which flattens the ventral thecal sac and narrows the left subarticular recess with impingement on the traversing left L5 nerve root. A small right foraminal disc protrusion impinges on the exiting right L4 nerve root. There is moderate to severe central stenosis. L5-S1: There is moderate bilateral facet arthropathy. There is a diffuse disc bulge with inferior foraminal disc protrusions, more prominent on the right with impingement on the exiting L5 nerve roots, no significant change compared to prior imaging. There is no central stenosis. IMPRESSION: 1. There has been interval increase in a synovial cyst medially off the right facet joint at L4-L5 with mass effect on the thecal sac dorsolaterally. There is a central and left-sided disc protrusion which flattens the ventral thecal sac and narrows the left subarticular recess with impingement on the traversing left L5 nerve root. A small right foraminal disc protrusion impinges on the exiting right L4 nerve root. There is moderate to severe central stenosis. 2. At L5-S1 there is facet arthropathy and there is a diffuse disc bulge with inferior foraminal disc protrusions impinging on the exiting L5 nerve roots. There is no central stenosis. MR CERVICAL SPINE WITHOUT CONTRAST 08/23/22 CLINICAL INFORMATION: 52-year-old with cervicalgia. Self-reported history of herniated disc and bilateral shoulder pain with muscle atrophy and weakness. FINDINGS: Alignment: Normal. No spondylolisthesis or retrolisthesis. Craniocervical Junction/C1-C2 Articulations: Intact and aligned. Visualized Intracranial Structures: Within normal limits. Vertebral Bodies: Mild chronic loss of height of the posterior aspect of the C4 vertebral body noted with minimal chronic loss of height of the posterior aspect of the C3 and C5 vertebral bodies. Otherwise vertebral body heights are well-maintained. Disc Spaces and Endplates: Iuss-te-ppnmhpwi multilevel anterior marginal endplate spurring is noted most apparent at C5-C6. Xxmk-lm-cmpbnvvq disc space height loss noted at C5-C6 and mild disc space height loss at C4-C5 and C3-C4. Endplates appear intact. Bone Marrow: No significant marrow-replacing process or bone marrow edema. C2-C3: Minor disc osteophyte complex noted with minimal flattening the ventral dural sac without cord impingement or canal stenosis. Mild facet arthropathy on the left noted with minor uncinate process spurring and mild left-sided foraminal narrowing. C3-C4: Posterior disc osteophyte complex noted with superimposed small central disc protrusion, with flattening of the ventral dural sac without cord impingement. Mild ligamentum flavum thickening is noted with gezw-us-hzjhyxpf central canal stenosis. There is uncovertebral spurring bilaterally and minor facet arthrosis on the left. There is moderate bilateral neural foraminal stenosis, left more than right. C4-C5: Central disc protrusion noted with effacement of the central dural sac slightly impinging on the ventral aspect of the spinal cord with slight ventral cord deformity with mild ligamentum flavum thickening. Ppxa-vp-tgggptva central canal stenosis is noted. There is uncovertebral and facet arthrosis with moderate bilateral neural foraminal stenosis, right more than left. C5-C6: Central to left central disc protrusion noted with effacement of the ventral dural sac with slight ventral cord deformity/impingement and mild ligamentum flavum thickening with vvlp-fo-mmpkgppf spinal canal stenosis. Uncovertebral spurring is noted with facet arthropathy with moderate right-sided and mild left-sided neural foraminal stenosis. C6-C7: Central extruded disc herniation noted with 4 mm of caudal migration, with flattening of the ventral dural sac asymmetric to the left of midline resulting in moderate left-sided ventral cord deformity and pjek-kt-iouzyxsa canal stenosis asymmetric to the left. Ligamentum flavum thickening is also noted with bilateral uncovertebral spurring and minor foraminal narrowing on the left. C7-T1: No disc herniation or canal stenosis. Mild left-sided facet arthrosis noted. No significant neural foraminal stenosis. Spinal Cord: The cervical and visualized upper thoracic spinal cord is normal in signal intensity throughout, without focal lesion, edema or syrinx. Probable chronic spinal cord volume loss on the left at C6-C7. Extracranial Soft Tissues: The visualized extracranial head/neck soft tissues are unremarkable within the limitations of the study. IMPRESSION: 1. Multilevel discogenic degenerative changes as described above with multilevel central disc herniations and disc osteophyte complexes with multilevel mqug-rz-osbfujrk degrees of spinal canal stenosis with moderate left-sided ventral cord deformity at C6-C7 and slight ventral cord impingement at C4-C5 and C5-C6. 2. Multilevel uncovertebral and facet arthropathy with multilevel ufhy-jz-otszxjas degrees of neural foraminal stenosis bilaterally as detailed by level above. 3. Probable chronic spinal cord volume loss at C6-C7 Assessment & Plan Assessment & Plan (1) Seizures: Code(s): R56.9 - Unspecified convulsions (2) Migraines: Code(s): G43.909 - Migraine, unspecified, not intractable, without status migrainosus (3) Cervical spondylosis: Code(s): M47.812 - Spondylosis without myelopathy or radiculopathy, cervical region (4) Degenerative disc disease, cervical: Code(s): M50.30 - Other cervical disc degeneration, unspecified cervical region (5) Lumbar degenerative disc disease: Code(s): M51.36 - Other intervertebral disc degeneration, lumbar region (6) Neck pain: Code(s): M54.2 - Cervicalgia Plan 1. Cervical spine imaging to assess degree of degenerative changes, any subluxation, listhesis or pars defects. Cervical, shoulder, lumbar MRI were reviewed and are noted above. 2. Neurology Referral for management of seizures and migraine headaches. Patient used to see provider in [place] in the past prior to stopping Keppra. Continue gabapentin. 3. Schedule Bilateral Diagnostic C3-C4-C5 MBBs with local and fluoroscopy for axial cervical pain for potential therapeutic cervical MBBs or cervical RFA. Patient is not candidate for Sprint PNS trial due to seizures. Expectations, risks and benefits were reviewed. Patient is aware he will be contacted to schedule this procedure. All questions were answered and the patient is in agreement of plan. Follow-up after injections and sooner as needed. Orders: Orders XR cervical spine 3V 04/15/23 M47.812 - Spondylosis without myelopathy or radiculopathy, cervical region, M50.30 - Other cervical disc degeneration, unspecified cervical region Referrals Neurology Referral G43.909 - Migraine, unspecified, not intractable, without status migrainosus, R56.9 - Unspecified convulsions Coding Level of Care Code New Pt Level 4 (58330) Diagnoses Seizures R56.9 Migraines G43.909 Cervical spondylosis M47.812 Degenerative disc disease, cervical M50.30 Lumbar degenerative disc disease M51.36 Neck pain M54.2
[2023-04-14 13:59] VITALS: BP 179/90; PULSE 84; O2SAT 96; BMI 26.7
== END 2023-04-14 14:25 | disposition home or self-care (01) ==
PROVIDERS: PCP Physician Assistant; Visit Provider Nurse Practitioner Family
DX: G43.909 Migraine, unspecified, not intractable, without status migrainosus (principal); R56.9 Unspecified convulsions; M47.812 Spondylosis without myelopathy or radiculopathy, cervical region; M50.30 Other cervical disc degeneration, unspecified cervical region; M51.36 Other intervertebral disc degeneration, lumbar region; M54.2 Cervicalgia
CPT/HCPCS: 99204

== ENCOUNTER → 2023-04-14 13:43 | Outpatient (BNVA) | payer OTHER, SELFPAY | PROVIDERS: PCP Physician Assistant; Visit Provider Nurse Practitioner Family | DX: M47.812 Spondylosis without myelopathy or radiculopathy, cervical region (principal); M50.30 Other cervical disc degeneration, unspecified cervical region; M51.36 Other intervertebral disc degeneration, lumbar region; G43.909 Migraine, unspecified, not intractable, without status migrainosus; R56.9 Unspecified convulsions | CPT/HCPCS: 99202 ==

== ENCOUNTER 2023-04-15 08:41 | Outpatient (REF) | payer OTHER, SELFPAY ==
--- NOTE | ~2023-04-15 | XR_ITS ---
EXAMINATION: XR CERVICAL SPINE CLINICAL INFORMATION: Spondylosis. COMPARISON: MR cervical spine 08/23/2022. TECHNIQUE: 3 views of the cervical spine were obtained. FINDINGS: No acute compression deformity or evidence of traumatic subluxation. Zqyg-dr-nwxcxixn multilevel discogenic degenerative changes and disc osteophyte complexes. Suboptimal evaluation of neural foraminal encroachment and central canal stenosis in the absence of oblique views. No prevertebral soft tissue thickening. Lung apices are clear. XR/XR cervical spine 3V IMPRESSION: 1. No acute compression deformity or traumatic subluxation. 2. Mild to moderate cervical spondylosis.
== END 2023-04-15 08:42 | disposition home or self-care (01) ==
LOC: HO.XRAY 08:41
PROVIDERS: PCP Physician Assistant; Visit Provider Nurse Practitioner Family
DX: M47.812 Spondylosis without myelopathy or radiculopathy, cervical region (principal); M50.30 Other cervical disc degeneration, unspecified cervical region
CPT/HCPCS: 72040

== ENCOUNTER 2023-04-21 13:46 | Outpatient (AMB) | payer OTHER, SELFPAY ==
--- NOTE | 2023-04-21 14:01 | A.OFFVIS_ITS ---
Intake Intake Visit Reasons: ov- right shoulder pain Intake Note: Kwaku is a 52 year old male who presents today for a follow up of his right shoulder pain to discuss possible surgical intervention. Allergies penicillin V Allergy (Unknown, Verified 04/14/23 13:56) Swelling HPI ov- right shoulder pain HPI Details This is a 52 year old Diabetic man who presents to discuss his right shoulder pain. He has pain with daily activity, worse with overhead activity and at night. He says he has had his pain for over 9 months. He has found minimal relief from PT, and is unsure if he has had a shoulder injection in the past. He has had a neck injection before which did not help his pain. He says his pain is tolerable if it was just for himself, but he has an 8 year old autistic son at home that he plays with. He has a hx of Diabetes and CAD. He has both Cervical & Lumbar DDD. He also has Carpal & cubital tunnel syndrome affecting his right arm. [facility] Medical History (Updated 04/21/23 @ 14:25 by Rowdy Upton) Coronary artery disease Diabetes mellitus Hyperlipidemia Seizures Surgical History History of ear surgery Hx of inguinal hernia surgery S/P coronary artery stent placement Family History Other No family history of coronary artery disease Social History Housing: Apartment Alcohol intake: never Patient Tobacco Use Status: Former Tobacco user Tobacco use type: Cigarette Cigarette Packs Per Day: 10 Years Smoked: 22 +/- , pt quit smoking 01/25/23 e-Cigarette/Vaping Use: Never Used Second Hand Smoke Exposure: Yes Substance Use Type: Marijuana service: No Current occupational status: unemployed Cognitive needs: No Hearing needs: No Vision needs: Yes Review of Systems Const All systems reviewed & are unremarkable except as noted in HPI and below Physical Exam Const General: no acute distress, alert and awake Orientation/consciousness: patient oriented x3 HEENT Head: Yes normocephalic and Yes atraumatic Eyes EOM: EOMs intact bilaterally Resp Effort & Inspection: normal respiratory effort and able to speak in complete sentences Cardio Jugular venous distension: no JVD Skin General skin exam: turgor normal Rashes: no rashes Neuro General: patient oriented x3 Extrem Other: Right Shoulder: + H/N 4+/5 ec 45/90/130/s1 Psych Appearance: grossly normal Affect: normal affect Attitude: cooperative Results Reviewed Results Reviewed: I personally reviewed relevant MR images 1. Mild supraspinatus tendinosis with focal articular surface fraying/partial tearing of the junctional fibers measuring 1.0 cm in ML dimension. Mild subscapularis tendinosis. No full-thickness rotator cuff tendon tear. ? 2. Mild acromioclavicular osteoarthritis. ? 3. Linear intermediate signal within the undersurface of the superior labrum which could represent normal variation versus a nondisplaced undersurface tear. ? 4. Minimal thickening and edema of the joint capsule which can be seen in the setting of adhesive capsulitis. Assessment & Plan Assessment & Plan (1) Right rotator cuff tear: Code(s): M75.101 - Unspecified rotator cuff tear or rupture of right shoulder, not specified as traumatic Plan: This is a 52 year old man with a partial-thickness tear of the right RTC. He has pain with daily activity, worse with overhead activity and at night. He found minimal relief from PT in the past and injections have not provided sustained relief. I discussed his diagnosis and treatment options. He has a partial thickness rtc tear and his QOL is diminished and worsening., I recommend a right RTC repair with SAD. I discussed the risks, benefits, and alternatives including, but not limited to, the risk of pain, infection, stiffness, need for further surgery as well as potential medical complications such as blood clots, pulmonary embolism and cardiac complications. I discussed the recovery timeline and process as well as the importance of PT. Kwaku is a good candidate for this surgery, and he wishes to proceed with this decision. He is a Diabetic, his most recent HgA1c was 7.6% on 03/28/23. (2) Coronary artery disease: Code(s): I25.10 - Atherosclerotic heart disease of [place] coronary artery without angina pectoris Qualifiers: Associated angina: without angina Coronary Disease-Associated Artery/Lesion type: [place] artery [place] vs. transplanted heart: [place] heart Qualified Code(s): I25.10 - Atherosclerotic heart disease of [place] coronary artery without angina pectoris (3) Diabetes mellitus: Code(s): E11.9 - Type 2 diabetes mellitus without complications Qualifiers: Diabetes mellitus complication status: with hyperglycemia Diabetes mellitus termite control servicer insulin use: without fdc use Diabetes mellitus type: type 2 Qualified Code(s): E11.65 - Type 2 diabetes mellitus with hyperglycemia Plan Scribed for Cesar Guerrero MD by Rowdy Upton, medical equipment sales, on 04/21/23 at 2:35 PM, EST. Coding Level of Care Code Est Pt Level 4 (43521) Diagnoses Right rotator cuff tear M75.101 Coronary artery disease I25.10 Associated angina: without angina Coronary Disease-Associated Artery/Lesion type: [place] artery [place] vs. transplanted heart: [place] heart Diabetes mellitus E11.65 Diabetes mellitus complication status: with hyperglycemia Diabetes mellitus termite control servicer insulin use: without fdc use Diabetes mellitus type: type 2
== END 2023-04-21 14:41 | disposition home or self-care (01) ==
PROVIDERS: PCP Physician Assistant; Visit Provider Orthopaedic Surgery
DX: M75.101 Unspecified rotator cuff tear or rupture of right shoulder, not specified as traumatic (principal); E11.65 Type 2 diabetes mellitus with hyperglycemia
CPT/HCPCS: 99214

== ENCOUNTER → 2023-04-21 13:46 | Outpatient (BNVA) | payer OTHER, SELFPAY | PROVIDERS: PCP Physician Assistant; Visit Provider Orthopaedic Surgery | DX: M75.101 Unspecified rotator cuff tear or rupture of right shoulder, not specified as traumatic (principal); I25.10 Atherosclerotic heart disease of native coronary artery without angina pectoris; E11.65 Type 2 diabetes mellitus with hyperglycemia | CPT/HCPCS: 99212 ==

== ENCOUNTER 2023-04-26 10:00 | Outpatient (RCR) | payer OTHER, SELFPAY ==
--- NOTE | 2023-03-29 13:35 | MHC.PT.EP ---
[facility] [place] [facility] [place] [facility] [place] Office [address] Pola Ortega [address] [phone] F: [phone] F: [phone] F: [phone] F: [phone] Physical Therapy Plan of Care Date of Evaluation: Date of Surgery: N/A Diagnosis: lumbago with sciatica (RL) Assessment: pt is a 52 y/o male presenting to physical therapy w/ referring diagnosis of lumbago with sciatica. Impairments include pain, decreased range of motion, decreased strength, impaired functional mobility, impaired postural awareness, and altered ambulation mechanics. pt is a fair candidate for skilled PT due to age, potential remediation of impairments, typical disease/condition progression and prognosis, comorbidities, and motivation. pt would benefit from skilled PT intervention to provide a tailored strengthening and stretching exercise program, functional training, gait training, postural re-training, neuromuscular re-education, modalities as needed for pain, equipment safety demonstration. Frequency and Duration: The patient will be seen 2x/wk for 4 wks Short Term Goals: pt will be I w/ HEP to promote self-management of condition. pt will demo proper sitting posture w/ lumbar roll to promote neutral spine w/ seated ADLs. Director Of Annual Giving Goals: pt will report a statistically significant improvement in self-reported outcome measure, Nina, to promote return to PLOF. pt will improve standing tolerance to >15 min w/ <3/10 low back pain to promote improved tolerance for ADLs. Treatment Plan: Modalities to reduce pain, spasms and effusion. Manual therapy to restore motion and function. Therapeutic exercise to improve strength and flexibility. Neuromuscular re-education for posture and balance. Therapeutic activities to return to functional activities of daily living. Electronically signed by: Kaylin Serrano PT, DPT Please sign and return to therapist. Thank you for your referral.
--- NOTE | 2023-04-26 10:02 | MHC.PT.EP ---
[facility] [place] Office [place] Office [place] Office [address] Pola Ortega [address] [phone] F: [phone] F: [phone] F: [phone] F: [phone] Physical Therapy Plan of Care Date of Evaluation: 03/29/23 Date of Surgery: N/A Diagnosis: lumbago with sciatica (RL) Assessment: pt is a 52 y/o male presenting to physical therapy w/ referring diagnosis of lumbago with sciatica. Impairments include pain, decreased range of motion, decreased strength, impaired functional mobility, impaired postural awareness, and altered ambulation mechanics. pt is a fair candidate for skilled PT due to age, potential remediation of impairments, typical disease/condition progression and prognosis, comorbidities, and motivation. pt would benefit from skilled PT intervention to provide a tailored strengthening and stretching exercise program, functional training, gait training, postural re-training, neuromuscular re-education, modalities as needed for pain, equipment safety demonstration. Frequency and Duration: The patient will be seen 2x/wk for 4 wks Short Term Goals: pt will be I w/ HEP to promote self-management of condition. pt will demo proper sitting posture w/ lumbar roll to promote neutral spine w/ seated ADLs. Machine Plate Stacker Goals: pt will report a statistically significant improvement in self-reported outcome measure, Nina, to promote return to PLOF. pt will improve standing tolerance to >15 min w/ <3/10 low back pain to promote improved tolerance for ADLs. Treatment Plan: Modalities to reduce pain, spasms and effusion. Manual therapy to restore motion and function. Therapeutic exercise to improve strength and flexibility. Neuromuscular re-education for posture and balance. Therapeutic activities to return to functional activities of daily living. Electronically signed by: Kaylin Serrano PT, DPT Please sign and return to therapist. Thank you for your referral.
== END 2023-04-26 10:02 | disposition home or self-care (01) ==
LOC: HO.PT 10:00
PROVIDERS: PCP Physician Assistant; Visit Provider Physician Assistant
DX: M54.50 Low back pain, unspecified (principal)
CPT/HCPCS: 97110; 97162

== ENCOUNTER 2023-04-29 14:46 | Outpatient (REF) | payer OTHER, SELFPAY ==
--- NOTE | ~2023-04-29 | XR_ITS ---
EXAMINATION: XR LUMBOSACRAL SPINE WITH OBLIQUES CLINICAL INFORMATION: Low back pain. COMPARISON: MRI lumbar spine 03/12/2023 TECHNIQUE: AP, flexion and extension views of the lumbar spine. Lateral view of the lumbosacral junction. FINDINGS: There are 5 nonrib-bearing lumbar vertebral bodies. Normal sagittal alignment unchanged with flexion and extension. Vertebral body heights are maintained. Mild intervertebral disc space. L4-L5 and L5-S1 with facet hypertrophy. Mild sclerotic changes of the right sacroiliac joint. Atherosclerotic changes of the abdominal aorta. XR/XR lumbar spine 4V min IMPRESSION: Mild degenerative disc disease at L4-L5 and L5-S1.
== END 2023-04-29 14:47 | disposition home or self-care (01) ==
LOC: HO.HOSX 14:46
PROVIDERS: PCP Physician Assistant; Visit Provider Physician Assistant
DX: M51.36 Other intervertebral disc degeneration, lumbar region (principal); M48.061 Spinal stenosis, lumbar region without neurogenic claudication
CPT/HCPCS: 72110; 99212

== ENCOUNTER 2023-05-06 08:22 | Outpatient (REF) | payer OTHER, SELFPAY ==
--- NOTE | ~2023-05-06 | US_ITS ---
EXAMINATION: US RETROPERITONEAL LIMITED (AORTA) CLINICAL INFORMATION: Peripheral vascular disease, unspecified. COMPARISON: Ultrasound abdomen 12/22/2016. CT abdomen and pelvis 09/13/2013. TECHNIQUE: Rascon-scale, color Doppler and spectral Doppler evaluation of the abdominal aorta. FINDINGS: There is atherosclerotic disease with vessel wall calcification. The abdominal aorta is normal in caliber. There is no aneurysm. The measurements of the aorta in maximum AP and transverse dimensions respectively are as follows: Proximal: 2.5 x 2.5 cm. Mid: 2.0 x 2.0 cm. Distal: 1.4 x 1.4 cm. PSV: 62 cm/s. The measurements of the common iliac arteries in maximum AP and TRV dimensions are as follows: Right: AP: 0.9 cm. TRV: 1.0 cm. Left: AP: 1.0 cm. TRV: 0.9 cm. US/US aorta IMPRESSION: Atherosclerotic disease. No aneurysm.
== END 2023-05-06 08:23 | disposition home or self-care (01) ==
LOC: HO.US 08:22
PROVIDERS: Visit Provider Internal Medicine Cardiovascular Disease
DX: I73.9 Peripheral vascular disease, unspecified (principal)
CPT/HCPCS: 76775

== ENCOUNTER 2023-05-11 12:46 | Outpatient (AMB) | payer OTHER, SELFPAY ==
--- NOTE | 2023-05-11 13:00 | A.OFFVIS_ITS ---
Intake Vital Signs 05/11/23 13:15 Height 5 ft 6 in Weight 165 lb BMI 26.6 Intake Visit Reasons: New prob- R carpal + rubital tunnel Intake Note: Kwaku 52 yr old male presents today for a new problem visit. States he is having CTS. Patient has Hx of Right CTR (unsure of surgery date) and left cubital release with Dr Guerrero in 2016. States his symptoms started about 25 yrs ago. Reports after surgery, he cont'd to have numbness and tingling. Currently states his symptoms have started up again. Updated EMG done. Allergies penicillin V Allergy (Unknown, Verified 05/11/23 13:14) Swelling HPI New prob- R carpal + rubital tunnel HPI Details Kwaku is a 52 year old right hand dominant man who presents for a NCS review of his right hand numbness. He complains of numbness in all digits of his right hand. He says he has difficulties picking up objects and with fine motor control, and now has new pain that is radiating into his forearm. He has a hx of a right carpal tunnel release many years in the past but he cannot remember the exact date. He says his symptoms did not improve following his surgery. 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 He says he is unsure if he is squeezing too hard when holding his sons' hand. He also complains of similar numbness in his left hand, but his NCS was performed only on the right side. He has a hx of left cubital tunnel release performed by Dr. Guerrero in 2016. He says his sensation improved for a little while but a few months following this surgery he developed dense numbness in his small finger He has a hx of Cervical DDD and follows with Pain Management for this. He says he is not a candidate for C-spine surgery as the reconstruction would be very extensive and not worth the risk. He has lost muscle in his arms over the last few years. He says he has been doing martial arts for several years and has noticed a decrease in strength in his arms. He also has a hx of Diabetes, CAD, depression, OCD, and is a heavy smoker. He has lumbar surgery planned in the next few months, as well as a right RTC repair with Dr. Guerrero sometime in July. He says he has some difficulty walking due to his lumbar spine issues. He walks using a cane He studies [employer] for several years which involved repetitive striking and forceful maneuvers throughout his life, since he was 6 years old. He is no longer practicing [employer] Medical History (Updated 05/11/23 @ 13:17 by Rowdy Upton) Seizures Coronary artery disease Hyperlipidemia Diabetes mellitus Surgical History Hx of inguinal hernia surgery History of ear surgery S/P coronary artery stent placement Family History Other No family history of coronary artery disease Social History Housing: Apartment Alcohol intake: never Patient Tobacco Use Status: Former Tobacco user Tobacco use type: Cigarette Cigarette Packs Per Day: 10 Years Smoked: 22 +/- , pt quit smoking 01/25/23 e-Cigarette/Vaping Use: Never Used Second Hand Smoke Exposure: Yes Substance Use Type: Marijuana service: No Current occupational status: unemployed Cognitive needs: No Hearing needs: No Vision needs: Yes Review of Systems Const All systems reviewed & are unremarkable except as noted in HPI and below Physical Exam Vital Signs: BMI result Body Mass Index 26.6 Const General: cooperative, healthy appearing and no acute distress Orientation/consciousness: patient oriented x3 HEENT Head: Yes normocephalic and Yes atraumatic Eyes EOM: EOMs intact bilaterally Resp Effort & Inspection: normal respiratory effort and able to speak in complete sentences Cardio Jugular venous distension: no JVD Skin General skin exam: turgor normal Rashes: no rashes Neuro General: patient oriented x3 Extrem Other: Evaluation of Right Upper Extremity: The patient is alert, oriented, and in no acute distress Neuro: Dense numbness to the tips of all digits Early intrinsic wasting, no thenar wasting Weak APB muscle belly firing and finger cross + Froment's sign on the right - Froment's sign on the left Vascular: Cap refill brisk ROM: He can make a fist and extend all his digits Skin: No lacerations or abrasions. General: No Ecchymosis. No Erythema or evidence of infection. Nerve Conduction Study: Right median and ulnar motor and sensory studies were performed. Right radial sensory study was performed and paraspinal muscles were tested with a needle. IMPRESSION: 1. Qkqx-cm-zajzcfmg ulnar neuropathy across cubital tunnel. 2. Vjbm-sf-qwzitncs right median neuropathy across carpal tunnel. Patricia Sandoval MD 02/03/2023 Psych Appearance: grossly normal Affect: normal affect Attitude: cooperative Assessment & Plan Assessment & Plan (1) Carpal tunnel syndrome of right wrist: Code(s): G56.01 - Carpal tunnel syndrome, right upper limb (2) Cubital tunnel syndrome on right: Code(s): G56.21 - Lesion of ulnar nerve, right upper limb (3) Numbness and tingling in left hand: Code(s): R20.0 - Anesthesia of skin; R20.2 - Paresthesia of skin (4) Degenerative disc disease, cervical: Code(s): M50.30 - Other cervical disc degeneration, unspecified cervical region (5) MDD (major depressive disorder), recurrent episode, moderate: Code(s): F33.1 - Major depressive disorder, recurrent, moderate (6) Coronary artery disease: Code(s): I25.10 - Atherosclerotic heart disease of [place] coronary artery without angina pectoris Qualifiers: Associated angina: without angina Coronary Disease-Associated Artery/Lesion type: [place] artery [place] vs. transplanted heart: [place] heart Qualified Code(s): I25.10 - Atherosclerotic heart disease of [place] coronary artery without angina pectoris (7) Diabetes mellitus: Code(s): E11.9 - Type 2 diabetes mellitus without complications Qualifiers: Diabetes mellitus complication status: with hyperglycemia Diabetes mellitus group home insulin use: without computer terminal operator use Diabetes mellitus type: type 2 Qualified Code(s): E11.65 - Type 2 diabetes mellitus with hyperglycemia Plan Assessment & Plan: 1. Right Cubital tunnel syndrome, mild-moderate on NCS With dense numbness & early intrinsic wasting with a + Froment's sign This is his primary complaint today 2. Right Carpal tunnel syndrome, mild-moderate, recurrent S/P release DOS: unknown, several years ago at an outside clinic With Dense numbness that did not improve after the primary surgery More portably he does not have visible thenar atrophy, but does have weak APB muscle belly firing I educated him about these conditions I discussed operative and non-operative treatment options, I am recommending surgery to preserve motor function The patient would like to proceed with surgery The risks and benefits of operative treatment were discussed with the patient and the patient wishes to proceed with surgery. These risks include, but are not limited to risk of damage to blood vessels, nerves, tendons, infection, recurrence, incomplete relief of preoperative symptoms, persistent pain, possible need for further surgery and the risks associated with regional blocks and anesthesia. The plan is to take the patient to the operating room sometime in the next few weeks for the following procedures: 1. Right Cubital tunnel release vs transposition, under general 2. Right REPEAT Carpal tunnel release, under general All of the preoperative paperwork including the consent was filled out today. All the patient's questions were answered. The patient understands that they will be contacted by our sample color maker soon to schedule this procedure He denies blood thinners, asthma, lung, kidney issues He is a Diabetic, his most recent HgA1c was 7.6% on 03/28/23 He has CAD & PAD and will need cardiac clearance prior to surgery. However he is scheduled for lumbar spine surgery in May and a right RTC repair on 07/27/[address] Guerrero and may already have clearance for those procedures He is a heavy smoker of cigarettes and Marijuana 3. Left hand numbness Primarily in the middle, ring, and small fingers He reports having some slight improvement following his cubital tunnel release, but it was short-lived and he has had numbness since that time Negative Froment sign Hx of left cubital tunnel release by Dr. Guerrero in 2015 He has a lot going on with now 3 separate surgeries planned. We will evaluate this at a later date. Scribed for Sharmila Romero MD by Rowdy Upton, medical laboratory technologist, on 05/11/23 at 1:30 PM, EST. Coding Level of Care Code Est Pt Level 4 (17020) Diagnoses Carpal tunnel syndrome of right wrist G56.01 Cubital tunnel syndrome on right G56.21 Numbness and tingling in left hand R20.0; R20.2 Degenerative disc disease, cervical M50.30 MDD (major depressive disorder), recurrent episode, moderate F33.1 Coronary artery disease involving [place] coronary artery of [place] heart without angina pectoris I25.10 Associated angina: without angina Coronary Disease-Associated Artery/Lesion type: [place] artery [place] vs. transplanted heart: [place] heart Type 2 diabetes mellitus with hyperglycemia, without long-term current use of insulin E11.65 Diabetes mellitus complication status: with hyperglycemia Diabetes mellitus computer terminal operator insulin use: without computer terminal operator use Diabetes mellitus type: type 2
[2023-05-11 13:15] VITALS: BMI 26.6
== END 2023-05-11 13:42 | disposition home or self-care (01) ==
PROVIDERS: PCP Physician Assistant; Visit Provider Orthopaedic Surgery
DX: G56.01 Carpal tunnel syndrome, right upper limb (principal); G56.21 Lesion of ulnar nerve, right upper limb; R20.0 Anesthesia of skin; R20.2 Paresthesia of skin; M50.30 Other cervical disc degeneration, unspecified cervical region; F33.1 Major depressive disorder, recurrent, moderate; I25.10 Atherosclerotic heart disease of native coronary artery without angina pectoris; E11.65 Type 2 diabetes mellitus with hyperglycemia
CPT/HCPCS: 99214

== ENCOUNTER → 2023-05-11 12:46 | Outpatient (BNVA) | payer OTHER, SELFPAY | PROVIDERS: PCP Physician Assistant; Visit Provider Orthopaedic Surgery | DX: G56.01 Carpal tunnel syndrome, right upper limb (principal); G56.21 Lesion of ulnar nerve, right upper limb; M50.30 Other cervical disc degeneration, unspecified cervical region; R20.0 Anesthesia of skin; R20.2 Paresthesia of skin; F33.1 Major depressive disorder, recurrent, moderate; I25.10 Atherosclerotic heart disease of native coronary artery without angina pectoris; E11.65 Type 2 diabetes mellitus with hyperglycemia | CPT/HCPCS: 99212 ==

== ENCOUNTER 2023-05-18 06:02 | Outpatient (REF) | payer OTHER, SELFPAY ==
--- NOTE | ~2023-05-18 | FL_ITS ---
EXAMINATION: XR FLUOROSCOPY WITH IMAGES CLINICAL INFORMATION: Other cervical disc degeneration, unspecified cervical region, bilateral. COMPARISON: None available. TECHNIQUE: Fluoroscopy Supervised By: Dr. Tyler Mccoy. Fluoroscopy Time: 0.3 minutes. Cumulative Dose: 10.4 mGy. DAP: 1.12 Gycm2. Images: 4. FINDINGS: Images demonstrate needle placement and epidural contrast injection adjacent to the bilateral C3, C4 and C5 vertebrae FL/FL guidance in treatment room IMPRESSION: Fluoroscopy guidance for pain management procedure.
== END 2023-05-18 06:03 | disposition home or self-care (01) ==
LOC: CF 06:02
PROVIDERS: Visit Provider Internal Medicine
DX: M50.30 Other cervical disc degeneration, unspecified cervical region (principal)
CPT/HCPCS: J2795; Q9967

== ENCOUNTER 2023-05-18 08:34 | Outpatient (AMB) | payer OTHER, SELFPAY ==
[2023-05-18 08:39] VITALS: BP 110/70; PULSE 86; RESP 14; O2SAT 99
--- NOTE | 2023-05-18 08:39 | MHC.OFFVIS ---
Intake Vital Signs 05/18/23 08:39 05/18/23 09:07 BP 110/70 120/62 Blood Pressure Location Lt brachial Lt brachial Position Sitting Sitting Respiration 14 14 Pulse 86 78 Pulse Source Pulse Oximeter Pulse Oximeter Pulse Oximetry (%) 99 100 Oxygen Delivery Method Room Air Room Air Intake Visit Reasons: Jarek Dx C3-C4-C5 MBB Allergies penicillin V Allergy (Unknown, Verified 05/18/23 08:39) Swelling HPI Jarek Dx C3-C4-C5 MBB HPI Details Patient presents for scheduled procedure. Denies any recent cough, cold, infection, fever or other significant changes in medical history since last office visit. [facility] Medical History Migraine Peptic ulcer Depression Myocardial infarction Seizures Coronary artery disease Hyperlipidemia Diabetes mellitus Surgical History Hx of inguinal hernia surgery History of ear surgery S/P coronary artery stent placement Family History Other No family history of coronary artery disease Social History Housing: Apartment Alcohol intake: never Patient Tobacco Use Status: Current everyday Tobacco user Tobacco use type: Cigarette Cigarette Packs Per Day: 10 Cigarettes Per Day: 4 Years Smoked: 22 +/- , pt quit smoking 01/25/23 e-Cigarette/Vaping Use: Never Used Second Hand Smoke Exposure: Yes Substance Use Type: Marijuana service: No Current occupational status: unemployed Cognitive needs: No Hearing needs: No Vision needs: Yes Physical Exam Vital Signs: Last Vital Signs Pulse 78 05/18/23 09:07 Resp 14 05/18/23 09:07 BP 120/62 05/18/23 09:07 Pulse Ox 100 05/18/23 09:07 Oxygen Delivery Method Room Air 05/18/23 09:07 Office Procedures Cervical/Thoracic Facet Inj Details: Diagnostic Cervical Medial Branch Block, Bilateral C4, C5, C6 medial branches After obtaining written consent, pre-procedure blood pressure and pulse were recorded and are in the nursing record for review. The patient was placed in a lateral position. The respective cervical area was prepped with chloraprep and draped in sterile fashion. The skin over the target medial branch nerves was anesthetized with 0.5% lidocaine. A 25 gauge 1.5 inch needle was inserted into the target medial branch nerve under fluoroscopic guidance. No paresthesias were elicited with needle placement and aspiration was negative for blood and CSF. Next, 0.2cc of omnipaque 180 was injected to verify positioning. Next 0.5 ml 0.5% bupivicaine was injected (0.5 cc total per level). The identical procedure was performed at the remaining levels. The skin was cleansed and a sterile bandage was applied. Following the procedure the patient's vital signs were stable. The patient tolerated the procedure well and no complications were encountered. Following the procedure the patient's vital signs were stable. The patient was discharged home in good condition with post-procedural instructions. Time Out: Immediately prior to the procedure, the following was verbally confirmed that there is a signed consent form and that the correct patient, planned procedure, site and side are consistent with documentation and that necessary equipment and/or blood products are available prior to the start of the case. Complications: none EBL: <5 cc 74207 - second level, with Fluoroscopy (bilateral) Procedure code (CPT) selection complete Assessment & Plan Assessment & Plan (1) Cervical spondylosis: Code(s): M47.812 - Spondylosis without myelopathy or radiculopathy, cervical region Plan Patient is status post bilateral diagnostic C4, C5, C6 MBBs. Patient tolerated procedure well and was discharged home in stable condition with discharge instructions. All questions were answered. We will follow-up via telephone or in clinic to assess response to therapy. A follow-up appointment was made during today's visit. Orders: Orders FL guidance in treatment room Today M50.30 - Other cervical disc degeneration, unspecified cervical region Coding Level of Care Code Procedure Only Diagnoses Cervical spondylosis M47.812 CPT Codes Facet Injection Cervical/Thoracic - CPT: 74315 - second level, with Fluoroscopy ([id number])
[2023-05-18 09:07] VITALS: BP 120/62; PULSE 78; RESP 14; O2SAT 100
== END 2023-05-18 09:06 | disposition home or self-care (01) ==
LOC: HO.PMCPRC 08:34
PROVIDERS: PCP Physician Assistant; Visit Provider Internal Medicine
DX: M47.812 Spondylosis without myelopathy or radiculopathy, cervical region (principal)
CPT/HCPCS: 64490; 64491

== ENCOUNTER 2023-05-18 10:25 | Day surgery (SDC) | payer OTHER, SELFPAY ==
[2023-05-16 14:38] VITALS: BMI 24.9
--- NOTE | 2023-05-17 10:00 | HO.ANESPROP2 ---
Documented by User: Teresa Yang NP 05/17/23 10:04 HPI - Anesthesia Eval Consult details Narrative: 52yo M for Upper Endoscopy and Colonoscopy anterior wall [place] in 2019 in the setting of cocaine use. He underwent drug-eluting stent at that time [place] [facility] [place]. Last office visit 01/2023. [facility] Active Problems Active Problems: All Active Problems (Updated 05/16/23 @ 14:33 by Viji Partida RN) Numbness and tingling in left hand (Acute) Cubital tunnel syndrome on right (Acute) Carpal tunnel syndrome of right wrist (Acute) PAD (peripheral artery disease) (Acute) Lumbar stenosis (Acute) Right rotator cuff tear (Acute) Degenerative disc disease, cervical (Acute) Cervical spondylosis (Acute) Migraines (Acute) Lumbar degenerative disc disease (Acute) OCD (obsessive compulsive disorder) (Acute) Labral tear of shoulder, degenerative (Acute) Painful arc syndrome of right shoulder (Acute) Left knee pain (Acute) Preop cardiovascular exam (Acute) Claudication (Acute) Back pain of lumbar region with sciatica (Acute) Change in bowel habits (Acute) PUD (peptic ulcer disease) (Acute) Cervical stenosis of spinal canal (Acute) Right hand paresthesia (Acute) Tendinopathy of right shoulder (Acute) MDD (major depressive disorder), recurrent episode, moderate (Acute) Bilateral shoulder pain (Acute) Depression (Acute) Neck pain (Acute) Seizures (Acute) Hyperlipidemia (Acute) Coronary artery disease (Acute) Diabetes mellitus (Acute) Past Medical History Medical History Migraine Peptic ulcer Depression Myocardial infarction Seizures Coronary artery disease Hyperlipidemia Diabetes mellitus Family History Family History Other No family history of coronary artery disease Surgical History Surgical History Hx of inguinal hernia surgery History of ear surgery S/P coronary artery stent placement Social History Social History Housing: Apartment Alcohol intake: never Patient Tobacco Use Status: Current everyday Tobacco user Tobacco use type: Cigarette Cigarette Packs Per Day: 10 Cigarettes Per Day: 4 Years Smoked: 22 +/- , pt quit smoking 01/25/23 e-Cigarette/Vaping Use: Never Used Second Hand Smoke Exposure: Yes Substance Use Type: Marijuana service: No Current occupational status: unemployed Cognitive needs: No Hearing needs: No Vision needs: Yes Meds Allergies Allergy/AdvReac Type Severity Reaction Status Date / Time penicillin V Allergy Unknown Swelling Verified 05/18/23 08:39 Exam Exam Date and Time: May 17, 2023 1000 Height,Weight and Vital Signs: Height 5 ft 6 in Weight 69.853 kg Pertinent Lab Results Pertinent Lab Results: Laboratory Tests 03/28/23 10:05 WBC 8.3 Hgb 12.9 L Hct 36.9 L Plt Count 192 Sodium 139 Potassium 4.2 Chloride 104 Carbon Dioxide 23 BUN 15 Creatinine 0.84 Narrative Narrative: EKG 01/2023 Sinus rhythm 80 beats per minute, normal axis, anterior infarct, QTC 408 milliseconds ECHO 2022 Conclusions: - Normal left ventricular size and systolic function. The visually estimated ejection fraction is between 55-60%. - The basal inferior segment is akinetic. - Normal right ventricular cavity size and systolic function. Assessment and Plan Assessment Anesthesia Assessment: Chart Reviewed Documented by User: Lo Babcock MD 05/18/23 13:53 [facility] Active Problems Active Problems: All Active Problems (Updated 05/18/23 @ 12:51 by Lo Babcock MD) Numbness and tingling in left hand (Acute) Cubital tunnel syndrome on right (Acute) Carpal tunnel syndrome of right wrist (Acute) PAD (peripheral artery disease) (Acute) Lumbar stenosis (Acute) Right rotator cuff tear (Acute) Degenerative disc disease, cervical (Acute) Cervical spondylosis (Acute) Migraines (Acute) Lumbar degenerative disc disease (Acute) OCD (obsessive compulsive disorder) (Acute) Labral tear of shoulder, degenerative (Acute) Painful arc syndrome of right shoulder (Acute) Left knee pain (Acute) Preop cardiovascular exam (Acute) Claudication (Acute) Back pain of lumbar region with sciatica (Acute) Change in bowel habits (Acute) PUD (peptic ulcer disease) (Acute) Cervical stenosis of spinal canal (Acute) Right hand paresthesia (Acute) Tendinopathy of right shoulder (Acute) MDD (major depressive disorder), recurrent episode, moderate (Acute) Bilateral shoulder pain (Acute) Depression (Acute) Neck pain (Acute) Seizures (Acute). Was on keppra. Stopped taking. Marijuana works better. Last seizure about 1 month ago Hyperlipidemia (Acute) Coronary artery disease (Acute) Diabetes mellitus (Acute) H/o TIA Cervical joint injection(pain management ) this morning 05/18/23 Smoker Past Medical History Medical History Migraine Peptic ulcer Depression Myocardial infarction Seizures Coronary artery disease Hyperlipidemia Diabetes mellitus Family History Family History Other No family history of coronary artery disease Family history of problems with anesthesia: No Surgical History Surgical History Hx of inguinal hernia surgery History of ear surgery S/P coronary artery stent placement History of Problems with Anesthesia: No Social History Social History Housing: Apartment Alcohol intake: never Patient Tobacco Use Status: Current everyday Tobacco user Tobacco use type: Cigarette Cigarette Packs Per Day: 10 Cigarettes Per Day: 4 Years Smoked: 22 +/- , pt quit smoking 01/25/23 e-Cigarette/Vaping Use: Never Used Second Hand Smoke Exposure: Yes Substance Use Type: Marijuana service: No Current occupational status: unemployed Cognitive needs: No Hearing needs: No Vision needs: Yes Meds Allergies Allergy/AdvReac Type Severity Reaction Status Date / Time penicillin V Allergy Unknown Swelling Verified 05/18/23 08:39 Exam Height,Weight and Vital Signs: Height 5 ft 6 in Weight 69.853 kg Vital Signs Temp Pulse Resp BP Pulse Ox O2 Del Method 97.6 F 67 16 135/81 100 Room Air 05/18/23 11:58 05/18/23 11:58 05/18/23 11:58 05/18/23 11:58 05/18/23 11:58 05/18/23 11:58 Pertinent Lab Results Pertinent Lab Results: Laboratory Tests 03/28/23 10:05 WBC 8.3 Hgb 12.9 L Hct 36.9 L Plt Count 192 Sodium 139 Potassium 4.2 Chloride 104 Carbon Dioxide 23 BUN 15 Creatinine 0.84 Lab Results 05/18/23 Range/Units 12:03 POC Glucose 115 (60-115) mg/dL Airway Mallampati Class: II TM Dist: >3cm Neck ROM: Full Loose/Missing/Broken Teeth: Yes (No teeth top. Some teeth bottom - all loose. Informed about possibility of damage or dislodgement) Heart: RRR Lungs: CTAB Assessment and Plan Assessment Anesthesia Assessment: Anesthesia Plan Discussed Final Anesthetic Review Family History of Problems with Anesthesia: No History of Problems with Anesthesia: No NPO: Yes ASA Class: III Final Preanesthetic Review: No Changes in Pt Med Stat and Consent Obtained/Reviewed Patient Risk: Intermediate Procedure Risk: Low Assessment/Block/Sedation in SS: Assess/Block/Sedation-SS Anesthetic Plan Anesthetic Plan: MAC: Disposition: Standard PACU
[2023-05-18 11:58] VITALS: BP 135/81; PULSE 67; RESP 16; TEMP 36.4; O2SAT 100
--- NOTE | 2023-05-18 12:07 | MHC.SHP ---
Pre-Procedural Eval Section A Date of Service: 05/18/23 Section B Chief Complaint: Peptic ulcer, site unspecified, other fecal abnorm Details of Present Illness: diarrhea Relevant Family History (Specify if Yes): No Relevant Social History: Other (specify) Present Medications: see Short Stay Collaborative assessment Medical History: Significant History (Migraine Peptic ulcer Depression Myocardial infarction Seizures Coronary artery disease Hyperlipidemia Diabetes mellitus) History of Previous Operations: Relevant previous surgery/procedure and date(s) (Hx of inguinal hernia surgery History of ear surgery S/P coronary artery stent placement) Allergies: Allergies Allergy/AdvReac Type Severity Reaction Status Date / Time penicillin V Allergy Unknown Swelling Verified 05/18/23 08:39 Review of Systems Sugical H&P ROS: Negative: Constitution, Cardiovascular, Respiratory, Neurological, Psychiatric, Hem-Onc, Allergic/Immunologic, Gastrointestinal, Genitourinary, Musculoskeletal, Integumentary, Endocrine and Eyes/Ears/Nose/Throat Exam Surgical H&P Exam: Normal: HEENT, Normal: Heart, Normal: Lungs, Normal: Extremities, Normal: Abdomen, Normal: Skin and Normal: Neurological Plan Diagnosis/Plan: Unchanged I have reviewed the history and physical and performed a pertinent physical examination on my patient. No changes have occurred unless specified. Time Spent With Patient Time: Total time managing care of this patient today ____ minutes.
[2023-05-18] MEDS: Lactated Ringers 1,000 ML 100 ML IVCONT (12:09)
[2023-05-18 12:11] LABS: Glucose, Whole Blood 115 mg/dL (60-115)
--- NOTE | 2023-05-18 12:42 | P.OP_ITS ---
Operative Note Operative Note Date of Service: 05/18/23 Narrative: Operative Information Procedure Description: EGD, Colonoscopy Indication: diarrhea, hx of PUD Anesthesia: MAC FLEXIBLE TRANSORAL UPPER GASTROINTESTINAL ENDOSCOPY AND COLONOSCOPY PROCEDURE NOTE UPPER ENDOSCOPY Consent: Indications for the procedure and potential complications of bleeding, perforation, reaction to medications and missed diagnosis were discussed with the patient and informed consent was obtained. Instrument: Olympus GIF H 190 J mid size upper endoscope Monitoring: Vital signs and clinical assessment, continuous EKG monitoring, Pulse oximetry, Carbon Dioxide monitoring and blood pressure monitoring were done throughout the procedure. Procedure: The patient was placed in the left lateral decubitis position and pre-procedure medications were administered and a bite block was placed. The endoscope was inserted into the mouth and advanced under direct vision to the third part of duodenum. A careful inspection was made as the upper endoscope was withdrawn including a retroflexed examination of the proximal stomach; Findings and interventions are described below. Findings: Larynx:normal Esophagus: GE junction at 38 cm, diaphragm hiatus at 38 cm, midl congestion and erythema GEJ, bx taken, benign esophgeal inlet patch noted Stomach: Patchy erythema. Biopsies were obtained. Grade 2 flap valve on retroflexed examination of the cardia. posterior antral wall there was a superficial linear ulcer with eschar measured about 8 mm with adjacent erosion, bx taken Duodenum: Normal bulb and descending duodenum, bx taken Intervention: Biopsies as noted above COLONOSCOPY Instrument: Olympus variable stiffness pediatric scope 190L Colonoscopy Monitoring: Vital signs and clinical assessment, continuous EKG monitoring, Pulse oximetry, Carbon Dioxide monitoring and blood pressure monitoring were done throughout the procedure. Colon withdrawal time was 8 minutes. Procedure: The patient was placed in the left lateral decubitis position and pre-procedure medications were administered. After a digital rectal examination of the ano-rectum, the video colonoscope was inserted into the rectum and advanced through the colon to the cecum/TI. The colonoscope was slowly withdrawn in a retrograde panoramic fashion and the colon mucosa was carefully examined including a retroflexed view of the rectum. Findings and interventions are described below. Procedure Difficulty: easy Findings: Terminal Ileum-normal Cecum:normal Ascending Colon: scattered diverticula noted, x2 sessile polyps 10 mm removed with cold snare Transverse Colon -normal Descending Colon: 10 mm sessile polyp removed with cold snare Sigmoid Colon:moderate diverticula Rectum: Retroflexion with small internal hemorrhoids, grade I Anorectum - normal Colon preparation: [place] Bowel Preparation Scale Right colon; 2 Transverse colon: 2 Left colon; 2 (0 = Unprepared colon segment with mucosa not seen due to solid stool that cannot be cleared. 1 = Portion of mucosa of the colon segment seen, but other areas of the colon segment not well seen due to staining, residual stool and/or opaque liquid. 2 = Minor amount of residual staining, small fragments of stool and/or opaque liquid, but mucosa of colon segment seen well. 3 = Entire mucosa of colon segment seen well with no residual staining, small fragments of stool or opaque liquid) Impression and Post Procedure Diagnosis: Endoscopy Findings: gastric ulcer gastritis Colonoscopy Findings: polyps internal hemorrhoids diverticular disease Plan: Await Pathology results Repeat Colonoscopy in 3 years or earlier if clinically indicated High fiber diet leaflet avoid straining at stool, epsom salts and sitz bath, anusol supps or cream check compliance with pantoprazole, maybe change to another formulation Above findings were reviewed with the patient and relevant handouts were provided if indicated.
[2023-05-18 13:45] VITALS: BP 96/61; PULSE 71; RESP 20; TEMP 36.1; O2SAT 98
[2023-05-18 14:00] VITALS: BP 133/81; PULSE 66; RESP 17; TEMP 36.1; O2SAT 100
== END 2023-05-18 14:57 | disposition home or self-care (01) ==
PROVIDERS: PCP Physician Assistant; Visit Provider Internal Medicine Gastroenterology
PROC: (CPT 45385; principal; 2023-05-18 12:40)
DX: R19.5 Other fecal abnormalities (principal); D12.2 Benign neoplasm of ascending colon; D12.4 Benign neoplasm of descending colon; K57.30 Diverticulosis of large intestine without perforation or abscess without bleeding; K64.0 First degree hemorrhoids; K27.9 Peptic ulcer, site unspecified, unspecified as acute or chronic, without hemorrhage or perforation; Q39.8 Other congenital malformations of esophagus; K29.50 Unspecified chronic gastritis without bleeding; K44.9 Diaphragmatic hernia without obstruction or gangrene; M47.812 Spondylosis without myelopathy or radiculopathy, cervical region; I25.10 Atherosclerotic heart disease of native coronary artery without angina pectoris; I25.2 Old myocardial infarction; Z95.5 Presence of coronary angioplasty implant and graft; E78.5 Hyperlipidemia, unspecified; E11.9 Type 2 diabetes mellitus without complications; R56.9 Unspecified convulsions; Z79.82 Long term (current) use of aspirin; Z79.84 Long term (current) use of oral hypoglycemic drugs; Z79.899 Other long term (current) drug therapy; Z88.0 Allergy status to penicillin; F17.210 Nicotine dependence, cigarettes, uncomplicated; F12.90 Cannabis use, unspecified, uncomplicated
CPT/HCPCS: 45385; 43239; 64490; 64491; 82947; 88305; 88342

== ENCOUNTER → 2023-05-18 10:25 | Outpatient (BNV) | payer OTHER, SELFPAY | PROVIDERS: PCP Physician Assistant; Visit Provider Internal Medicine Gastroenterology | DX: K52.9 Noninfective gastroenteritis and colitis, unspecified (principal); Z87.11 Personal history of peptic ulcer disease; D12.2 Benign neoplasm of ascending colon; D12.4 Benign neoplasm of descending colon; K64.0 First degree hemorrhoids; K57.30 Diverticulosis of large intestine without perforation or abscess without bleeding; K29.70 Gastritis, unspecified, without bleeding; K25.9 Gastric ulcer, unspecified as acute or chronic, without hemorrhage or perforation | CPT/HCPCS: 43239; 45385 ==

== ENCOUNTER 2023-05-20 11:27 | Outpatient (AMB) | payer OTHER, SELFPAY ==
--- NOTE | 2023-05-20 11:39 | A.OFFVIS_ITS ---
Intake Vital Signs 05/20/23 11:41 Height 5 ft 6 in Weight 171 lb BMI 27.6 BP 176/85 H Blood Pressure Location Rt brachial Position Sitting Respiration 14 Pulse 78 Pulse Source Pulse Oximeter Pulse Oximetry (%) 99 Oxygen Delivery Method Room Air Intake Visit Reasons: s/p amol Dx C3-C4-C5 MBB Allergies Penicillins Allergy (Severe, Verified 05/20/23 15:36) Anaphylaxis Medication List - Last Reconciled 05/20/23 by Krystal Day LPN aspirin (Ecotrin Low Strength) 81 mg PO DAILY atorvastatin (Lipitor) 40 mg PO BEDTIME 90 days blood sugar diagnostic (FreeStyle Lite Strips) Testing once a day as needed blood-glucose meter (FreeStyle Lite Meter kit) As directed bupropion HCl (Wellbutrin SR) 150 mg PO BID 90 days cane As directed flash glucose scanning reader (Trema [employer]Style John 2 [place]) As directed flash glucose sensor (FreeStyle John 2 Sensor kit) As directed gabapentin 300 mg PO DAILY 90 days lancets (FreeStyle Lancets) Testing once a day as needed metformin 1,000 mg PO BID 30 days pantoprazole (Protonix) 40 mg PO DAILY 90 days simethicone (Gas Relief (simethicone)) 125 mg PO TID-QID PRN tizanidine 2 mg PO BEDTIME 90 days HPI s/p amol Dx C3-C4-C5 MBB HPI Details 52-year-old male who presents today to t he office for a status post bilateral diagnostic C3-C4-C5 MBB. The patient reports insignificant relief following the procedure on the left side, which is most bothersome. He had significant pain relief on the right side; however, he continues to have pain on the left side. He reports pain and paresthesia in his left neck and shoulder for the past two weeks. He had cortisone injections in his neck and back in the past. He no longer wishes to proceed with steroid injections due to weight-gain issues and lack of relief in the past. He has not tolerated facet injections in the past. He also quit smoking. He has tried physical therapy in the past with moderate benefit. The patient has scheduled appointment for lumbar laminectomy. Past procedures: 05/18/23: Diagnostic Cervical Medial Bra nch Block, Bilateral C4, C5, C6 medial branches: no particular relief on the left side. REPLACED BY [facility] Medical History (Updated 05/20/23 @ 15:40 by Guadalupe Lino, NESS) Anxiety Glaucoma Diarrhea Migraine Peptic ulcer Depression Myocardial infarction Seizures Coronary artery disease Hyperlipidemia Diabetes mellitus Surgical History (Updated 05/20/23 @ 15:35 by Guadalupe Lino, RN) History of esophagogastroduodenoscopy (EGD) Hx of colonoscopy Hx of inguinal hernia surgery History of ear surgery S/P coronary artery stent placement Family History Other No family history of coronary artery disease Social History (Updated 05/20/23 @ 15:04 by Guadalupe Lino RN) Household Members: Spouse Housing: Apartment Are you a primary housekeeper child care to a significant other at home: No Do you presently have visiting nurse or other home services: No Alcohol intake: never Patient Tobacco Use Status: Current everyday Tobacco user Tobacco use type: Cigarette Cigarettes Per Day: 4 Years Smoked: 22+ e-Cigarette/Vaping Use: Never Used Second Hand Smoke Exposure: Yes Substance Use Type: Marijuana service: No Current occupational status: unemployed Cognitive needs: No Hearing needs: No Vision needs: Yes Review of Systems Const All systems reviewed & are unremarkable except as noted in HPI and below Physical Exam Vital Signs: Last Vital Signs Pulse 78 05/20/23 11:41 Resp 14 05/20/23 11:41 BP 176/85 H 05/20/23 11:41 Pulse Ox 99 05/20/23 11:41 Oxygen Delivery Method Room Air 05/20/23 11:41 BMI result Body Mass Index 27.6 General: Appears afebrile. Alert and oriented. Mood and affect appropriate. Follows and participates in conversation appropriately. Respiratory effort is unlabored. Able to transition from sit to stand unassisted. Ambulates with bilaterally normal heel strike and toe off. Results Reviewed Results Reviewed: No imaging is available for review. Assessment & Plan Assessment & Plan (1) Cervical radicular pain: Code(s): M54.12 - Radiculopathy, cervical region Plan Discussed potential IBRAHIMA for cervical radiculitis secondary to cervical disc herniation but the patient is not interested in further injection therapies at this time nor is he interested in considering surgery in the future for his neck. He will continue to participate in physical therapy. A referral was provided to physical therapy for active exercises as well as cervical traction. The patient will receive a call to schedule an appointment. Scribed for Dr. Mccoy by Severo Payan, medical device assembler, on 05/20/2023. I, Dr. Mccoy, have personally reviewed and agree with the information entered by the scribe. Orders: Orders PT Evaluation and Treatment 05/20/23 M54.12 - Radiculopathy, cervical region Coding Level of Care Code Est Pt Level 3 (07827) Diagnoses Cervical radicular pain M54.12
[2023-05-20 11:41] VITALS: BP 176/85; PULSE 78; RESP 14; O2SAT 99; BMI 27.6
== END 2023-05-20 12:09 | disposition home or self-care (01) ==
PROVIDERS: PCP Physician Assistant; Visit Provider Internal Medicine
DX: M54.12 Radiculopathy, cervical region (principal)
CPT/HCPCS: 99213

== ENCOUNTER → 2023-05-20 11:27 | Outpatient (BNVA) | payer OTHER, SELFPAY | PROVIDERS: PCP Physician Assistant; Visit Provider Internal Medicine | DX: M54.12 Radiculopathy, cervical region (principal) | CPT/HCPCS: 99212 ==

== ENCOUNTER 2023-05-24 07:45 | Outpatient (REF) | payer OTHER, SELFPAY ==
--- NOTE | 2023-05-24 07:54 | EEG_ITS ---
FINDINGS: Waking background activity consists of a [id number] voltage posterior 8 hertz alpha frequency that is seen symmetrically and attenuates well with eye opening while low-voltage fast frequencies predominate anteriorly. Photic stimulation is without activation. hyperventilation produces no change. No focal, lateralizing, or paroxysmal discharges are seen. IMPRESSION: This waking EEG is within normal limits. MD KASANDRA Mcleod/ANISHA / [phone]
== END 2023-05-24 07:46 | disposition home or self-care (01) ==
LOC: HO.NEURO 07:45
PROVIDERS: PCP Physician Assistant; Visit Provider Physician Assistant
DX: R56.9 Unspecified convulsions (principal)
CPT/HCPCS: 95816

== ENCOUNTER 2023-06-01 08:31 | Outpatient (AMB) | payer OTHER, SELFPAY ==
--- NOTE | 2023-06-01 08:38 | MHC.OFFVIS ---
Intake Vital Signs 06/01/23 08:41 Height 5 ft 6 in Weight 171 lb BMI 27.6 BP 140/77 H Blood Pressure Location Lt brachial Position Sitting Pulse 75 Intake Visit Reasons: S/P EGD, [place]; Dr. Nash Intake Note: Patient follow up for EGD/Colonoscopy results. Patient cc: acid reflex, abdominal pain come and go, some swallowing problems even the water, between diarrhea and constipation. 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: No Accompanied by: Self / Same As Patient Allergies Penicillins Allergy (Severe, Verified 06/01/23 08:38) Anaphylaxis Medication List - Last Reconciled 06/01/23 by Celeste Banegas PA-C aspirin (Ecotrin Low Strength) 81 mg PO DAILY atorvastatin (Lipitor) 40 mg PO DAILY blood sugar diagnostic (FreeStyle Lite Strips) Testing once a day as needed blood-glucose meter (FreeStyle Lite Meter kit) As directed cane As directed flash glucose scanning reader (FreeStyle John 2 [place]) As directed flash glucose sensor (FreeStyle John 2 Sensor kit) As directed lancets (FreeStyle Lancets) Testing once a day as needed metformin 1,000 mg PO BID 30 days pantoprazole (Protonix) 40 mg PO DAILY 90 days simethicone (Gas Relief (simethicone)) 125 mg PO TID-QID PRN tizanidine 2 mg PO BEDTIME 90 days HPI HPI Comments History of Present Illness Details A 52 y/o male f/u after EGD and colonoscopy- he c/o reflux intermittent-unable to identify anything specific- Appetite is ok Bowels alternate- constipation/loose stool. He does have anxiety upcoming 5 surgeries over the next few months He has been taking simethicone thinking it was fiber Scheduled for laminectomy tomorrow eye laser 06/14 rotator cuff- 05/27 Reviewed procedure report, path and recommendations-to include H pylori breath test . Duodenum, biopsy: Duodenal mucosa with predominantly preserved villi and no specific change. B. Gastric ulcer, biopsy: Gastric antral mucosa (2 pieces) with congestion and reactive changes, consistent with tissue adjacent to ulcer; negative for H pylori, intestinal metaplasia and dysplasia. Duodenal mucosa (1 piece) with no specific change. C. Stomach, biopsy: Gastric antral and body mucosa with congestion and focal minimal chronic inactive inflammation; negative for H pylori, intestinal metaplasia and dysplasia. D. Gastroesophageal junction, biopsy: Squamocolumnar mucosa with mild chronic active inflammation; negative for intestinal metaplasia and dysplasia. E. Colon, ascending, 2 polyps: Tubular adenomas (multiple pieces); negative for high-grade dysplasia and carcinoma. F. Colon, descending, polyp: Tubular adenoma; negative for high-grade dysplasia and carcino No N/v abdominal pain PFSH Medical History (Updated 06/01/23 @ 10:10 by Celeste Banegas PA-C) Change in consistency of stool Anxiety Glaucoma Diarrhea Migraine Peptic ulcer Depression Myocardial infarction Seizures Coronary artery disease Hyperlipidemia Diabetes mellitus Surgical History History of esophagogastroduodenoscopy (EGD) Hx of colonoscopy Hx of inguinal hernia surgery History of ear surgery S/P coronary artery stent placement Family History Other No family history of coronary artery disease Social History Household Members: Spouse Housing: Apartment Are you a primary care professionals to a significant other at home: No Do you presently have visiting nurse or other home services: No Alcohol intake: never Patient Tobacco Use Status: Current everyday Tobacco user Tobacco use type: Cigarette Cigarettes Per Day: 4 Years Smoked: 22+ e-Cigarette/Vaping Use: Never Used Second Hand Smoke Exposure: Yes Substance Use Type: Marijuana service: No Current occupational status: unemployed Cognitive needs: No Hearing needs: No Vision needs: Yes Review of Systems Const All systems reviewed & are unremarkable except as noted in HPI and below Card Denies chest pain and Denies dyspnea Resp Denies dyspnea GI Reports other (Alternating stool pattern) Musc Denies back pain, Reports arthralgias and Reports limited range of motion Psych Reports anxiety Physical Exam Vital Signs: Last Vital Signs Pulse 75 06/01/23 08:41 BP 140/77 H 06/01/23 08:41 BMI result Body Mass Index 27.6 Const General: cooperative, healthy appearing and comfortable Orientation/consciousness: patient oriented x3 Limitations: ambulation with cane Eyes Sclerae: sclerae normal Resp Effort & Inspection: normal respiratory effort and able to speak in complete sentences Skin General skin exam: no rashes or lesions noted Neuro General: patient oriented x3 Psych Appearance: well kempt Speech and movement: Clear speech present Affect: Anxious affect present Attitude: cooperative Thought process: Normal thought process present Thought content: Normal thought content present Results Reviewed Results Reviewed: Findings: Terminal Ileum-normal Cecum:normal Ascending Colon: scattered diverticula noted, x2 sessile polyps 10 mm removed with cold snare Transverse Colon -normal Descending Colon: 10 mm sessile polyp removed with cold snare Sigmoid Colon:moderate diverticula Rectum: Retroflexion with small internal hemorrhoids, grade I Anorectum - normal Colon preparation: Impression and Post Procedure Diagnosis: Endoscopy Findings: gastric ulcer gastritis Colonoscopy Findings: polyps internal hemorrhoids diverticular disease Plan: Await Pathology results Repeat Colonoscopy in 3 years or earlier if clinically indicated High fiber diet leaflet avoid straining at stool, epsom salts and sitz bath, anusol supps or cream check compliance with pantoprazole, maybe change to another formulation Above findings were reviewed with the patient and relevant handouts were provided if indicated. Name: Kwaku Diggs Age/Sex: 52/M Attending: Yesika Nash MD : [id number] Submitted by: Yesika Nash MD Copies to: Jason Vega PA-C MR #: [id number] Status: [facility] Collected: 05/18/23 Location: [facility] Received: 05/18/23 Diagnosis A. Duodenum, biopsy: Duodenal mucosa with predominantly preserved villi and no specific change. B. Gastric ulcer, biopsy: Gastric antral mucosa (2 pieces) with congestion and reactive changes, consistent with tissue adjacent to ulcer; negative for H pylori, intestinal metaplasia and dysplasia. Duodenal mucosa (1 piece) with no specific change. C. Stomach, biopsy: Gastric antral and body mucosa with congestion and focal minimal chronic inactive inflammation; negative for H pylori, intestinal metaplasia and dysplasia. D. Gastroesophageal junction, biopsy: Squamocolumnar mucosa with mild chronic active inflammation; negative for intestinal metaplasia and dysplasia. E. Colon, ascending, 2 polyps: Tubular adenomas (multiple pieces); negative for high-grade dysplasia and carcinoma. F. Colon, descending, polyp: Tubular adenoma; negative for high-grade dysplasia and carcino Assessment & Plan Assessment & Plan (1) Tubular adenoma of colon: Code(s): D12.6 - Benign neoplasm of colon, unspecified Plan: Repeat asymptomatic colonoscopy 3 years (2) Gastric ulcer: Comment: Having surgery tomorrow all will give him recovery time and then DC PPI for 2 weeks-UBT Code(s): K25.9 - Gastric ulcer, unspecified as acute or chronic, without hemorrhage or perforation Plan: After discontinuing PPI for 2 weeks he will- H pylori UBT-if positive will treat (3) Acid reflux: Code(s): K21.9 - Gastro-esophageal reflux disease without esophagitis Plan: Reflux precaution Medications as prescribed (4) Change in consistency of stool: Code(s): R19.5 - Other fecal abnormalities Plan: Maintain high-fiber diet Fiber supplement Orders: Orders H Pylori Breath Test 3 Weeks A04.8 - Other specified bacterial intestinal infections Patient Instructions: 3 weeks- UBT-must discontinue PPI for 2 weeks prior may take Tums in the antrum Repeat colonoscopy 3 years- 2025 Maintain high-fiber diet Fiber supplement Encouraged to call questions or concerns Coding Level of Care Code Est Pt Level 3 (59318) Diagnoses Tubular adenoma of colon D12.6 Gastric ulcer K25.9 Acid reflux K21.9 Change in consistency of stool R19.5 Time Spent (min) 30
[2023-06-01 08:41] VITALS: BP 140/77; PULSE 75; BMI 27.6
== END 2023-06-01 09:44 | disposition home or self-care (01) ==
PROVIDERS: PCP Physician Assistant; Visit Provider Physician Assistant
DX: D12.6 Benign neoplasm of colon, unspecified (principal); K25.9 Gastric ulcer, unspecified as acute or chronic, without hemorrhage or perforation; K21.9 Gastro-esophageal reflux disease without esophagitis; R19.5 Other fecal abnormalities
CPT/HCPCS: 99213

== ENCOUNTER → 2023-06-01 08:31 | Outpatient (BNVA) | payer OTHER, SELFPAY | PROVIDERS: PCP Physician Assistant; Visit Provider Physician Assistant | DX: R19.5 Other fecal abnormalities (principal); K21.9 Gastro-esophageal reflux disease without esophagitis; K25.9 Gastric ulcer, unspecified as acute or chronic, without hemorrhage or perforation; D12.6 Benign neoplasm of colon, unspecified | CPT/HCPCS: 99212 ==

== ENCOUNTER 2023-06-02 09:41 | Day surgery (SDC) | payer OTHER, SELFPAY ==
[2023-05-20 15:40] VITALS: BMI 27.4
--- NOTE | 2023-06-01 09:57 | HO.ANESPROP2 ---
Documented by User: Teresa Yang NP 06/01/23 10:03 HPI - Anesthesia Eval Consult details Narrative: 52yo M for Bilateral L4-5 Lumbar Decompression Medically cleared - pt self d/c kyree. PCP informed. EEG done preop. Cardiac cleared - abnormal WMA on echo. No further testing per [facility] [place] Smoker [facility] Active Problems Active Problems: All Active Problems (Updated 05/20/23 @ 15:40 by Guadalupe Lino RN) Cervical radicular pain (Acute) Numbness and tingling in left hand (Acute) Cubital tunnel syndrome on right (Acute) Carpal tunnel syndrome of right wrist (Acute) PAD (peripheral artery disease) (Acute) Lumbar stenosis (Acute) Right rotator cuff tear (Acute) Degenerative disc disease, cervical (Acute) Cervical spondylosis (Acute) Migraines (Acute) Lumbar degenerative disc disease (Acute) OCD (obsessive compulsive disorder) (Acute) Labral tear of shoulder, degenerative (Acute) Painful arc syndrome of right shoulder (Acute) Left knee pain (Acute) Preop cardiovascular exam (Acute) Claudication (Acute) Back pain of lumbar region with sciatica (Acute) Change in bowel habits (Acute) PUD (peptic ulcer disease) (Acute) Cervical stenosis of spinal canal (Acute) Right hand paresthesia (Acute) Tendinopathy of right shoulder (Acute) MDD (major depressive disorder), recurrent episode, moderate (Acute) Bilateral shoulder pain (Acute) Depression (Acute) Neck pain (Acute) Seizures (Acute) Hyperlipidemia (Acute) Coronary artery disease (Acute) Diabetes mellitus (Acute) Past Medical History Medical History (Updated 06/01/23 @ 10:10 by Celeste Banegas PA-C) Change in consistency of stool Anxiety Glaucoma Diarrhea Migraine Peptic ulcer Depression Myocardial infarction Seizures Coronary artery disease Hyperlipidemia Diabetes mellitus Family History Family History Other No family history of coronary artery disease Family history of problems with anesthesia: No Surgical History Surgical History History of esophagogastroduodenoscopy (EGD) Hx of colonoscopy Hx of inguinal hernia surgery History of ear surgery S/P coronary artery stent placement History of Problems with Anesthesia: No Social History Social History Household Members: Spouse Housing: Apartment Are you a primary medical care administrator to a significant other at home: No Do you presently have visiting nurse or other home services: No Alcohol intake: never Patient Tobacco Use Status: Current everyday Tobacco user Tobacco use type: Cigarette Cigarettes Per Day: 4 Years Smoked: 22+ e-Cigarette/Vaping Use: Never Used Second Hand Smoke Exposure: Yes Substance Use Type: Marijuana service: No Current occupational status: unemployed Cognitive needs: No Hearing needs: No Vision needs: Yes Meds Allergies Allergy/AdvReac Type Severity Reaction Status Date / Time Penicillins Allergy Severe Anaphylaxis Verified 06/02/23 10:19 Home Medications Medication Instructions Recorded Confirmed Last Taken Type atorvastatin 40 mg tablet (Lipitor) 40 mg PO DAILY 05/20/23 06/02/23 Unknown History Exam Exam Date and Time: June 01, 2023 0957 Height,Weight and Vital Signs: Height 5 ft 6 in Weight 77.111 kg Pertinent Lab Results Pertinent Lab Results: Laboratory Tests 03/28/23 10:05 WBC 8.3 Hgb 12.9 L Hct 36.9 L Plt Count 192 Sodium 139 Potassium 4.2 Chloride 104 Carbon Dioxide 23 BUN 15 Creatinine 0.84 Narrative Narrative: ECHO 01/2023 Conclusions: - Normal left ventricular size and systolic function. The visually estimated ejection fraction is between 55-60%. - The basal inferior segment is akinetic. - Normal right ventricular cavity size and systolic function. EKG 01/2023 Sinus rhythm 80 beats per minute, normal axis, anterior infarct, QTC 408 milliseconds EEG 05/2023 IMPRESSION: This waking EEG is within normal limits. Assessment and Plan Assessment Anesthesia Assessment: Chart Reviewed Final Anesthetic Review Family History of Problems with Anesthesia: No History of Problems with Anesthesia: No Documented by User: Devang Barron MD 06/02/23 18:29 HPI - Anesthesia Eval Consult details Narrative: 52yo M for Bilateral L4-5 Lumbar Decompression CAD s/p Stent Medically cleared - pt self d/c keppra. PCP informed. EEG done preop. Cardiac cleared - abnormal WMA on echo. No further testing per [facility] [place] Smoker [facility] Past Medical History Medical History (Updated 06/01/23 @ 10:10 by Celeste Banegas PA-C) Change in consistency of stool Anxiety Glaucoma Diarrhea Migraine Peptic ulcer Depression Myocardial infarction Seizures Coronary artery disease Hyperlipidemia Diabetes mellitus Functional capacity: independent ambulation Family History Family History Other No family history of coronary artery disease Surgical History Surgical History History of esophagogastroduodenoscopy (EGD) Hx of colonoscopy Hx of inguinal hernia surgery History of ear surgery S/P coronary artery stent placement Social History Social History Household Members: Spouse Housing: Apartment Are you a primary medical care administrator to a significant other at home: No Do you presently have visiting nurse or other home services: No Alcohol intake: never Patient Tobacco Use Status: Current everyday Tobacco user Tobacco use type: Cigarette Cigarettes Per Day: 4 Years Smoked: 22+ e-Cigarette/Vaping Use: Never Used Second Hand Smoke Exposure: Yes Substance Use Type: Marijuana service: No Current occupational status: unemployed Cognitive needs: No Hearing needs: No Vision needs: Yes Meds Allergies Allergy/AdvReac Type Severity Reaction Status Date / Time Penicillins Allergy Severe Anaphylaxis Verified 06/02/23 10:19 Home Medications Medication Instructions Recorded Confirmed Last Taken Type atorvastatin 40 mg tablet (Lipitor) 40 mg PO DAILY 05/20/23 06/02/23 Unknown History Exam Airway Mallampati Class: III TM Dist: >3cm Neck ROM: Full Loose/Missing/Broken Teeth: Yes (poor dentition overall , multiple lower teeth extremely loose ) Assessment and Plan Assessment Anesthesia Assessment: Anesthesia Plan Discussed Final Anesthetic Review NPO: Yes ASA Class: III Final Preanesthetic Review: Meds/Allgs Chart Reviewed, Consent Obtained/Reviewed and Anes Risks/Benef Reviewed Patient Risk: Intermediate Procedure Risk: Intermediate Anesthetic Plan Anesthetic Plan: GA and Agree w/ Assess. and Plan Disposition: Standard PACU
[2023-06-02] VITALS (16 sets, daily range): BP systolic 113–158; BP diastolic 52–80; PULSE 63–75; RESP 12–20; TEMP 36.1–36.4; O2SAT 96–100; BMI 27.4
--- NOTE | ~2023-06-02 | FL_ITS ---
EXAMINATION: XR FLUOROSCOPY WITH IMAGES CLINICAL INFORMATION: Bilateral L4-L5 decompression. COMPARISON: None available. TECHNIQUE: Fluoroscopy Supervised By: Dr. Cosmo Keene. Fluoroscopy Time: 0.0 minutes. Cumulative Dose: 1.89 mGy. DAP: 0.409 Gycm2. Images: 1. FINDINGS: Single lateral image demonstrates surgical marker projecting posterior to the L4 vertebral body. FL/FL guidance in OR IMPRESSION: Fluoroscopy guidance for lumbar spine surgery.
--- NOTE | 2023-06-02 07:02 | MHC.SHP ---
Pre-Procedural Eval Section A Date of Service: 06/02/23 Section B Chief Complaint: Other intervertebral disc degeneration, lumbar reg Allergies: Allergies Allergy/AdvReac Type Severity Reaction Status Date / Time Penicillins Allergy Severe Anaphylaxis Verified 06/01/23 08:38 Review of Systems Sugical H&P ROS: Negative: Constitution, Cardiovascular, Respiratory, Neurological, Psychiatric, Hem-Onc, Allergic/Immunologic, Gastrointestinal, Genitourinary, Musculoskeletal, Integumentary, Endocrine and Eyes/Ears/Nose/Throat Exam Surgical H&P Exam: Not Evaluated: HEENT, Not Evaluated: Heart, Not Evaluated: Lungs, Not Evaluated: Extremities, Not Evaluated: Abdomen, Not Evaluated: Skin and Not Evaluated: Neurological Plan Diagnosis/Plan: Unchanged I have reviewed the history and physical and performed a pertinent physical examination on my patient. No changes have occurred unless specified. Plan remains the same, L4-5 bilateral laminectomy. Time Spent With Patient Time: Total time managing care of this patient today ___10_ minutes.
[2023-06-02 10:20] LABS: Glucose, Whole Blood 221 mg/dL (60-115)
[2023-06-02] MEDS: Lactated Ringers 1,000 ML 100 ML IVCONT (10:43)
[2023-06-02] MEDS: Gabapentin 300 MG CAPSULE PO (10:43)
[2023-06-02] MEDS: methocarbamoL 750 MG TABLET PO (10:43)
[2023-06-02] MEDS: vancomycin HCL 1,000 MG in 0.9 % Sodium Chloride 250 ML 270 MG IV (10:43)
--- NOTE | 2023-06-02 13:56 | P.OP_ITS ---
Operative Note Operative Note Date of Service: 06/02/23 Narrative: Preoperative Diagnosis: L4-5 spinal stenosis/lateral recess stenosis/neural foraminal stenosis Operation: L4-5 Laminotomy, Partial facetectomy and foraminotomy with use of microscope Consent Informed Consent was obtained for this operation. I have explained the nature, purpose and benefits of the operation. I have discussed the risks and benefit of the operation including possible complications or adverse events with patient/family. Alternative(s) were discussed with the patient with their relative benefits and risks as well as the consequences of not accepting the operation were included in obtaining consent. Surgeon: BIANCA VASQUEZ MD, PHD Procedure Assisted By: Anthony Suarez Pac] Description of Procedure The patient is suffering from neurogenic claudication due to L4-5 spinal stenosis. The patient was offered a decompression. The procedure complications were explained. The patient was consented. The patient was brought to the operating room and endotracheally intubated. The patient was turned in prone position on the Desean frame. Prep and drape was done followed by timeout. The Physician nurseryman assistant provided access. A mid lumbar incision was made followed by release of the left paravertebral muscles to expose the L4-5 lamina and facet joint. An intraoperative x-ray was obtained to confirm the correct level. The microscope was brought in. I took over the procedure. The high-speed drill was used to do a left L4-5 laminotomy until flavum ligament was reached. a 2. Kerrison was used to expand the laminotomy near flush to the pedicles and to include a partial facetectomy. The L5 nerve root was decompressed in the lateral recess with a 2. and 3 Kerrison. The patient was turned contralaterally. The spinous process was undercut and in this way I could reach contralaterally. I removed flavum ligament until I could palpate in the lateral recess of the contralateral side lateral from the L5 nerve root. A long nerve root could be easily passed along both nerve roots in the lateral recesses as a sign of adequate decompression. Instability of the facet joints was noted during the procedure.The microscope was removed. Hemostasis was done. The physician nurseryman assistant close the Incision in 2 layers. Steri-Strips were used to approximate incision. An OpSite with Tegaderm was used to cover the incision. All sponge needle counts were correct. Patient was extubated and transported in stable is to recovery room. Anesthesia: General Estimated Blood Loss (ml): 20 mL Complications: None Duration of Surgery: Under 60 Minutes Postoperative Plan: Discharge to home
--- NOTE | 2023-06-02 14:11 | P.DS_ITS ---
DS: Providers Provider Date of Service: 06/02/23 Primary care physician: Jason Vega PA-C DS: Summary Time Spent with Patient Time attestation: Total time managing care of this patient today ____ minutes. Discharge coordination time: Less than 30 minutes Quality: Safe Use of Opioids Does Pt have an Active Cancer Diagnosis on the Problem List?: No Quality: Stroke Does the patient have a stroke diagnosis?: No Physical Exam Vital Signs: Vital Signs: Last Vital Signs Temp 97.3 F 06/02/23 10:30 Pulse 63 06/02/23 10:30 Resp 16 06/02/23 10:30 BP 158/78 H 06/02/23 10:30 Pulse Ox 97 06/02/23 10:30 O2 Del Method Room Air 06/02/23 10:30 BMI result Body Mass Index 27.4 DS: Data Data Completed and Pending Labs on day of discharge: Laboratory Results - last 24 hr 06/02/23 06/02/23 10:16 10:29 POC Glucose 221 H Blood Type A Positive Antibody Screen NEGATIVE Discharge Plan Discharge Patient Disposition: Home, Self-Care Referrals: Jason Vega PA-C [Primary Care Provider] - 1 Week Discharge Medications: New oxycodone 5 mg tablet 5 mg PO Q6H PRN (Reason: moderate-severe pain) Qty: 20 0RF Rx Instructions: Partial Fill upon patient request. docusate sodium 100 mg capsule 100 mg PO BID Qty: 20 0RF Continued aspirin [Ecotrin Low Strength] 81 mg tablet,delayed release (DR/EC) 81 mg PO DAILY Qty: 90 1RF (DME) cane Device See Rx Instructions .Route Qty: 1 0RF Rx Instructions: As directed (DME) lancets [FreeStyle Lancets] 28 gauge misc See Rx Instructions .ROUTE .MEDSUPPLY Qty: 100 3RF Rx Instructions: Testing once a day as needed (DME) FreeStyle Lite Strips Strip See Rx Instructions .ROUTE .MEDSUPPLY Qty: 100 3RF Rx Instructions: Testing once a day as needed (DME) blood-glucose meter [FreeStyle Lite Meter] Kit See Rx Instructions .Route Qty: 1 0RF Rx Instructions: As directed (DME) FreeStyle John 2 [place] Misc See Rx Instructions .Route Qty: 1 3RF Rx Instructions: As directed (DME) FreeStyle John 2 Sensor Kit See Rx Instructions .Route Qty: 1 3RF Rx Instructions: As directed metformin 1,000 mg tablet 1,000 mg PO BID 30 Days Qty: 60 3RF atorvastatin [Lipitor] 40 mg tablet 40 mg PO DAILY pantoprazole [Protonix] 40 mg tablet,delayed release (DR/EC) 40 mg PO DAILY 90 Days Qty: 90 1RF tizanidine 2 mg tablet 2 mg PO BEDTIME 90 Days Qty: 90 1RF simethicone [Gas Relief (simethicone)] 125 mg tablet,chewable 125 mg PO TID-QID PRN (Reason: abdominal distention) Qty: 90 2RF Discharge Orders: Discharge Order (Routine); Ordered 06/02/23 Ordered By: Sumit Auguste Diet: Advance to usual diet Activity on Discharge: As tolerated Activity Restrictions/Additional Instructions: After your spinal surgery we ask you to observe the following restrictions/guidelines: Activity: It is normal to feel some discomfort as you increase your activity, but that will improve with time. We ask you avoid heavy lifting or acitivities that cause pain. As a general rule, 8lbs is a safe limit for lifting right after surgery. Walk as much as you feel comfortable but not to exhaustion. You will feel extra tired the first few days after surgery. Stay well hydrated. It is OK to walk up and down stairs You may return to driving when you are off narcotics (such as vicodin, oxycodone, dilaudid, etc), and you are back to normal functional capacity. If you have any concerns please check with office before driving. Return to work is specific to each patient and each surgery, so please speak with your doctor/PA at first follow up. Please bring paperwork such as FMLA at that time if you need it filled out. Medications: We will give you a short supply of narcotics after surgery (usually one weeks worth). If you need more please call the office but do not use more than prescribed. You will need to give our office 48 hours notice if you need narcotics refilled and we do not fill narcotics on weekends or evenings. If you are on a narcotic, it is a good idea to take a stool softener such as colace or senna to avoid constipation If you take blood thinner such as aspirin, Plavix, Coumadin, Effient, Eliquis etc for conditions such as Afib, DVT, Pulmonary embolus, coronary disease, stents etc please speak with your surgeon about specific details as to when you can resume these medications. You can resume NSAIDs on post op day 1 (eg: Motrin, Naproxen, etc). Follow up: Please call the office, , after surgery to arrange a 3 w [place] follow up for wound check. Wound Care: You may remove your dressing on the first day after surgery. You may leave open to air. Please do not remove the steri strips underneath. they will fall off on their own in one week. IT IS NORMAL FOR THE WOUND TO OOZE OR BE BLOODY FOR A FEW DAYS AFTER SURGERY. IF THIS HAPPENS JUST PLACE NEW DRESSING OVER IT TO AVOID STAINING CLOTHES. You may shower on post op day # 1 We ask that you do not let the water soak the wound. If it does get wet, just towel dry lightly. Please do not scrub your incision or place any type of chemical/ointment on the wound. No tub baths, pools or jacuzzis for one month. If you have any leaking or redness from your wound, or fevers, please call the office.
[2023-06-02] MEDS: fentaNYL citrate/PF 100 MCG/2 ML VIAL 50 MCG IVPUSH ×2 (14:48→14:57)
[2023-06-02] MEDS: HYDROmorphone HCl 0.5 MG/0.5 ML SYRINGE IVPUSH (15:06)
[2023-06-02] MEDS: oxyCODONE HCl Immed Release 5 MG TABLET PO (15:35)
== END 2023-06-02 15:55 | disposition home or self-care (01) ==
PROVIDERS: PCP Physician Assistant; Visit Provider Neurological Surgery
PROC: (CPT 63047; principal; 2023-06-02 11:50)
DX: M48.062 Spinal stenosis, lumbar region with neurogenic claudication (principal); M51.36 Other intervertebral disc degeneration, lumbar region; R26.2 Difficulty in walking, not elsewhere classified; E11.9 Type 2 diabetes mellitus without complications; I25.10 Atherosclerotic heart disease of native coronary artery without angina pectoris; Z95.5 Presence of coronary angioplasty implant and graft; Z79.82 Long term (current) use of aspirin; Z79.899 Other long term (current) drug therapy; Z88.0 Allergy status to penicillin; F17.210 Nicotine dependence, cigarettes, uncomplicated; F12.90 Cannabis use, unspecified, uncomplicated
CPT/HCPCS: 63047; 82947; 86850; 86900; 86901; J0131; J1100; J1170; J1885; J2250; J2371; J2405; J3010; J3370

== ENCOUNTER → 2023-06-02 09:41 | Outpatient (BNV) | payer OTHER, SELFPAY | PROVIDERS: PCP Physician Assistant; Visit Provider Neurological Surgery | DX: M48.061 Spinal stenosis, lumbar region without neurogenic claudication (principal); M51.36 Other intervertebral disc degeneration, lumbar region | CPT/HCPCS: 63047; 99499 ==

== ENCOUNTER 2023-06-22 08:46 | Outpatient (REF) | payer OTHER, SELFPAY ==
[2023-06-24 13:57] LABS: H Pylori Breath Test Negative (Negative)
== END 2023-06-22 08:47 | disposition home or self-care (01) ==
LOC: HO.LNP 08:46
PROVIDERS: PCP Physician Assistant; Visit Provider Physician Assistant
DX: A04.8 Other specified bacterial intestinal infections (principal)
CPT/HCPCS: 83013; 99211

== ENCOUNTER 2023-06-24 10:27 | Outpatient (AMB) | payer OTHER, SELFPAY ==
--- NOTE | 2023-06-24 10:37 | A.SPINEOV_ITS ---
Intake Intake Visit Reasons: 1st post op Intake Note: Mr. Diggs is here today for his 1st post-op visit. 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 He reports he is very satisfied with the surgery and feels much better than he did pre- operatively. The patient reports he is up walking around and completing the majority of his ADLs. He reports that he still has some pain with ambulation and standing for prolonged periods of time, but does feel that it is getting better. He reports that he has been walking up to 1/2 mile per day, and trying to stay as active as he can. No neurological deficits. Sensation grossly intact. Patient is able to ambulate well with a cane, rises from a seated position with assistance of a cane. Incision site is closed, well healing, with no signs of drainage. We will follow-up with the patient in 6 weeks for his 2nd postoperative visit. Sumit Keene MD,PhD [facility] Coding Level of Care Code Global (41439) Diagnoses S/P spinal surgery Z98.890
== END 2023-06-24 10:53 | disposition home or self-care (01) ==
PROVIDERS: PCP Physician Assistant; Visit Provider Physician Assistant
DX: Z98.890 Other specified postprocedural states (principal)
CPT/HCPCS: 99024

== ENCOUNTER → 2023-06-24 10:27 | Outpatient (BNVA) | payer OTHER, SELFPAY | PROVIDERS: PCP Physician Assistant; Visit Provider Physician Assistant ==

== ENCOUNTER 2023-06-27 13:26 | Outpatient (AMB) | payer OTHER, SELFPAY ==
--- NOTE | 2023-06-27 13:50 | MHC.OFFVIS ---
Intake Vital Signs 06/27/23 14:04 Height 5 ft 7 in Weight 165 lb 12.602 oz BMI 26.0 BP 116/76 Blood Pressure Location Rt brachial Position Sitting Respiration 12 Pulse 76 Pulse Source Palpation Intake Visit Reasons: 4 mth f/up Intake Note: Kwaku is a 52 year old male who presents today for a 4 month follow up. Patient reports feeling very tired latley and having a lot of body pain. Allergies Penicillins Allergy (Severe, Verified 06/27/23 14:04) Anaphylaxis Medication List - Last Reconciled 06/27/23 by Washington Hampton MD aspirin (Ecotrin Low Strength) 81 mg PO DAILY atorvastatin (Lipitor) 40 mg PO DAILY blood sugar diagnostic (FreeStyle Lite Strips) Testing once a day as needed blood-glucose meter (FreeStyle Lite Meter kit) As directed cane As directed docusate sodium 100 mg PO BID doxycycline monohydrate 100 mg PO BID 7 days flash glucose scanning reader (BookititStyle John 2 [place]) As directed flash glucose sensor (FreeStyle John 2 Sensor kit) As directed lancets (BookititStyle Lancets) Testing once a day as needed metformin 1,000 mg PO BID 30 days oxycodone 5 mg PO Q8H PRN pantoprazole (Protonix) 40 mg PO DAILY 90 days simethicone (Gas Relief (simethicone)) 125 mg PO TID-QID PRN tizanidine 2 mg PO BEDTIME 90 days HPI HPI Comments History of Present Illness Details 52 year gentleman here for follow-up. 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 He underwent drug-eluting stent at that time by Dr. Shah. He had EF of 40 45% at that time too. He was at [facility] with atypical chest pain in July 2022. At that time he underwent stress testing which did not show any significant issues and he was discharged home. He has not followed up since then. He is saying that he does not plan to follow up with [facility] and wants to establish care with our practice. He is experiencing some right-sided atypical sounding chest pains. He has chronic shoulder discomfort. His anginal pain was left-sided tightness which she has not experienced. He walks and has no significant shortness of breath or chest discomfort with activity. His main complaint is left calf claudication. He is a former smoker. He has been clean since he had the anterior wall NE. 06/27/2023: He returns for follow-up. He had echocardiography which showed basal inferior wall motion with EF of 55-60%. He has non-anginal left-sided chest pain. Blood pressure control is good. He has started smoking again and will be talking to his primary about alternative medications for Wellbutrin. He was previously given Wellbutrin but apparently has history of seizures of albuterol was stopped appropriately. [facility] Medical History (Updated 06/13/23 @ 07:36 by Jason Vega PA-C) Change in consistency of stool Anxiety Glaucoma Diarrhea Migraine Peptic ulcer Depression Myocardial infarction Seizures Coronary artery disease Hyperlipidemia Diabetes mellitus Surgical History (Updated 06/24/23 @ 10:53 by MATIAS Saldana) History of esophagogastroduodenoscopy (EGD) Hx of colonoscopy Hx of inguinal hernia surgery History of ear surgery S/P coronary artery stent placement Family History Other No family history of coronary artery disease Social History Household Members: Spouse Housing: Apartment Are you a primary healthcare technician to a significant other at home: No Do you presently have visiting nurse or other home services: No Alcohol intake: never Patient Tobacco Use Status: Current everyday Tobacco user Tobacco use type: Cigarette Cigarettes Per Day: 4 Years Smoked: 22+ e-Cigarette/Vaping Use: Never Used Second Hand Smoke Exposure: Yes Substance Use Type: Marijuana service: No Current occupational status: unemployed Cognitive needs: No Hearing needs: No Vision needs: Yes Physical Exam Vital Signs: Last Vital Signs Temp 97.6 F 07/23/22 07:03 Pulse 76 07/23/22 10:45 Resp 14 07/23/22 10:45 BP 122/68 07/23/22 10:45 Pulse Ox 97 07/23/22 10:45 O2 Del Method 07/23/22 10:45 BMI result Body Mass Index 25.0 GENERAL APPEARANCE: in no acute distress, pleasant. NECK: no carotid bruit, no jugular venous distention. SKIN: no suspicious lesions, warm and dry. HEART: no murmurs, regular rate and rhythm. LUNGS: clear to auscultation bilaterally. ABDOMEN: soft, nontender. EXTREMITIES: no edema. PERIPHERAL PULSES: equal. NEUROLOGIC: No gross deficits, AAO X 3 Office Procedures EKG Details: Sinus rhythm 75 beats per minute, normal axis, anteroseptal infarct, QTC 404 milliseconds. [id number], Complete Assessment & Plan Assessment & Plan (1) Coronary artery disease: Code(s): I25.10 - Atherosclerotic heart disease of [place] coronary artery without angina pectoris Qualifiers: Coronary Disease-Associated Artery/Lesion type: [place] artery [place] vs. transplanted heart: [place] heart Associated angina: without angina Qualified Code(s): I25.10 - Atherosclerotic heart disease of [place] coronary artery without angina pectoris Plan 52-year-old gentleman who is here for follow-up. He has history of ischemic cardiomyopathy and previous anterior wall NE in 2020 for which she was treated with drug-eluting stent. Ejection fraction based on recent echocardiography is normal. He has some basal inferior wall motion abnormality. He has no anginal symptoms. He had spine surgery and is recovering from that. He needs shoulder and had surgery on the right side. He has restarted smoking and we discussed in detail that smoking cessation is important for him for multiple reason including cardiovascular disease as well as multiple surgeries as it will affect wound healing. He also has peptic ulcer disease. He is asking whether aspirin should be stopped. In case of spine surgery the risk is high and aspirin should not be used but for shoulder and had surgery if the surgeons can operate with baby aspirin then he should be operated while taking aspirin. On the other hand if it is felt that the bleeding risk is too high and may complicate his surgery then aspirin can be held. He is intermediate risk for perioperative cardiovascular complications. Thank you for allowing me to participate in the care of your patient. Please feel free to contact me if you have any questions. Coding Level of Care Code Est Pt Level 4 (52009) Diagnoses Coronary artery disease involving [place] coronary artery of [place] heart without angina pectoris I25.10 Coronary Disease-Associated Artery/Lesion type: [place] artery [place] vs. transplanted heart: [place] heart Associated angina: without angina CPT Codes EKG - CPT: 61130-[id number], Complete ([id number])
[2023-06-27 14:04] VITALS: BP 116/76; PULSE 76; RESP 12; BMI 26.0
== END 2023-06-27 14:15 | disposition home or self-care (01) ==
PROVIDERS: PCP Physician Assistant; Visit Provider Internal Medicine Cardiovascular Disease
DX: I25.10 Atherosclerotic heart disease of native coronary artery without angina pectoris (principal)
CPT/HCPCS: 93010; 99214

== ENCOUNTER → 2023-06-27 13:26 | Outpatient (BNVA) | payer OTHER, SELFPAY | PROVIDERS: PCP Physician Assistant; Visit Provider Internal Medicine Cardiovascular Disease | DX: I25.10 Atherosclerotic heart disease of native coronary artery without angina pectoris (principal); I25.2 Old myocardial infarction | CPT/HCPCS: 93005; 99212 ==

== ENCOUNTER 2023-06-28 10:02 | Outpatient (AMB) | payer OTHER, SELFPAY ==
[2023-06-28 10:17] VITALS: BP 120/72; PULSE 80; O2SAT 98; BMI 25.7
--- NOTE | 2023-06-28 10:17 | A.OFFPC_ITS ---
Vital Signs 06/28/23 10:17 Height 5 ft 7 in Weight 164 lb BMI 25.7 BP 120/72 Blood Pressure Location Lt brachial Position Sitting Pulse 80 Pulse Source Pulse Oximeter Pulse Oximetry (%) 98 Oxygen Delivery Method Room Air Intake Visit Reasons: f/u DMII/ HLD Wealth Management Advisor Required: No Accompanied by: Self / Same As Patient Allergies Penicillins Allergy (Severe, Verified 06/28/23 10:39) Anaphylaxis Medication List - Last Reconciled 06/28/23 by Jason Vega PA-C aspirin (Ecotrin Low Strength) 81 mg PO DAILY atorvastatin (Lipitor) 40 mg PO DAILY blood sugar diagnostic (FreeStyle Lite Strips) Testing once a day as needed blood-glucose meter (FreeStyle Lite Meter kit) As directed cane As directed docusate sodium 100 mg PO BID PRN flash glucose scanning reader (FreeStyle John 2 [place]) As directed flash glucose sensor (FreeStyle John 2 Sensor kit) As directed lancets (FreeStyle Lancets) Testing once a day as needed metformin 1,000 mg PO BID 30 days pantoprazole (Protonix) 40 mg PO DAILY 90 days simethicone (Gas Relief (simethicone)) 125 mg PO TID-QID PRN tizanidine 2 mg PO BEDTIME 90 days Tobacco use date assessed: 01/28/23 Dental Screening Dental Screen Date: 06/28/23 Did you have a dental visit in the last 12 months?: No Did you have a dental problem in the last 6 months where you did not have access to dental care?: No Was dental information given to patient?: Patient has dentist HPI f/u DMII/ HLD HPI Details Patient is a 52-year-old male here today for follow-up visit.? Patient has a past medical history significant for type 2 diabetes, coronary artery disease, hyperlipidemia, major depressive disorder. Shoulder tendinopathy: Scheduled for Right rotator cuff surgery Jul 27 2023. He reports he continues to have bilateral shoulder pain worse over his right shoulder, he has seen orthopedics and received cortisone injection though reports no pain relief. Degenerative spine diseaseL MRI cervical spine showing--> Multilevel discogenic degenerative changes as described above with multilevel central disc herniations and disc osteophyte complexes with multilevel [id number] degrees of spinal canal stenosis with moderate left-sided ventral cord deformity at C6-C7 and slight ventral cord impingement at C4-C5 and C5-C6. Has underwent lumbar spine surgery which has reduced his lower lumbar spine pain .. Coronary artery disease:? Unfortunately continues to smoke, has not gotten lipid panel checked in quite a while.? Continues on moderate dose statin.? He denies any chest discomfort or shortness of breath on exertion.. He has follow-up with cardiology advised to continue aspirin therapy .. Tobacco dependency:? Unfortunately to smoking again.. Has tried Wellbutrin though does have history seizure disorder and has stopped medication due to fears of having seizure. Will trial turned of medication to help him quit smoking. WIlling to try chantix now Major depressive disorder:? Does report having more more depressed as of late due to stress in his family life.? He does report having some suicidal ideations at times though reports he will never do that himself due to his 8-year-old autistic son.? He is willing to speak with a mental health therapist in starting mental health medications. --> also complains of having an OCD mens es and does pick at his skin a lot. He is willing to try medication to help him with this. .. Type 2 diabetes:? Today's A1c at 8.1 7.5. He does admit to some dietary indiscretion. Reports it is financially difficult to E within a diabetic diet.. He continues on metformin a 1000 b.i.d.. Will add on Actos 15 mg for better diabetes control. [facility] Medical History (Updated 06/29/23 @ 07:33 by Jason Vega PA-C) Change in consistency of stool Anxiety Glaucoma Diarrhea Migraine Peptic ulcer Depression Myocardial infarction Seizures Coronary artery disease Hyperlipidemia Diabetes mellitus Surgical History History of esophagogastroduodenoscopy (EGD) Hx of colonoscopy Hx of inguinal hernia surgery History of ear surgery S/P coronary artery stent placement Family History Mother Lumbar spine tumor Father Heart attack Paternal Grandfather Heart attack Other No family history of coronary artery disease Social History Household Members: Spouse Housing: Apartment Are you a primary chronic care nurse to a significant other at home: No Do you presently have visiting nurse or other home services: No Alcohol intake: never Patient Tobacco Use Status: Current everyday Tobacco user Tobacco use type: Cigarette Cigarettes Per Day: 4 Years Smoked: 22+ e-Cigarette/Vaping Use: Never Used Second Hand Smoke Exposure: Yes Substance Use Type: Marijuana service: No Current occupational status: unemployed Cognitive needs: No Hearing needs: No Vision needs: Yes Questionnaire Thrive Questionnaire Date Thrive assessed: 12/23/22 BILLY-7 AMB Questionnaire BILLY-7 Date BILLY - 7 assessed: 12/23/22 Source: Developed by Drs. Paul Brand, Kim Sauer, Abdias Patel and colleagues, with an educational chad from [employer]. Review of Systems Const Denies headache(s) Eyes Denies loss of vision ENT Denies vertigo, Denies dizziness, Denies headache(s) and Denies sore throat Card Denies chest pain, Denies leg edema and Denies lightheadedness Resp Denies cough, Denies hemoptysis and Denies wheezing GI Denies abdominal pain, Denies melena, Denies constipation, Denies diarrhea and Denies vomiting Denies dysuria, Denies urinary frequency and Denies urinary urgency Musc Denies arthralgias, Denies joint swelling, Denies numbness and Denies tingling Neuro Denies Abnormal speech present, Denies behavioral changes, Denies vertigo, Denies dizziness, Denies headache(s), Denies loss of vision, Denies memory loss, Denies numbness and Denies tingling Psych Denies anxiety, Denies behavioral changes, Denies depression, Denies memory loss and Denies panic attacks Jamarcus/Lymph Denies easy bleeding and Denies easy bruising Aller/Immun Denies wheezing Physical exam (Primary Care) Vital Signs: Last Vital Signs Pulse 80 06/28/23 10:17 BP 120/72 06/28/23 10:17 Pulse Ox 98 06/28/23 10:17 Oxygen Delivery Method Room Air 06/28/23 10:17 BMI result Body Mass Index 25.7 Tobacco/Smoking Status: Tobacco use Status Tobacco use date assessed 01/28/23 06/28/23 10:20 Patient Tobacco Use Status Current everyday Tobacco 06/28/23 10:20 Tobacco use type Cigarette 06/28/23 10:20 e-Cigarette/Vaping Use Never Used 06/28/23 10:20 Thrive Assessment: Date of Thrive Assessment Date Thrive assessed 12/23/22 06/28/23 10:20 Const General: healthy appearing, no acute distress, alert and awake Nutritional Appearance: well nourished Orientation/consciousness: oriented to person, oriented to place and oriented to time HENMT Ears: TM's normal bilaterally General nose exam: Normal nasal mucous membranes and turbinates present Eyes Conjunctivae: conjunctivae normal Sclerae: sclerae normal Pupils: Equal, round and reactive pupils present Neck Neck: Yes no lymphadenopathy and Yes no JVD Thyroid: Thyroid normal Carotids: no bruits Resp Effort & Inspection: normal respiratory effort and not tachypneic Auscultation: no crackles, no rales, no rhonchi and no wheezes Cardio Rate: regular rate Rhythm: regular rhythm Heart sounds: no murmurs and normal S1 and S2 GI Palpation (GI): Soft to palpation, nontender, no hepatomegaly and no splenomegaly Auscultation: normal bowel sounds Skin General skin exam: no rashes or lesions noted and dry skin Neuro General: oriented to person, oriented to place and oriented to time Cranial nerves: Yes Equal, round and reactive pupils present Speech: No Abnormal speech present Gait exam (Neuro): Normal gait present Motor exam (neuro): no tremor noted Extrem Right upper extremity: full ROM Left upper extremity: full ROM Right lower extremity: full ROM; no edema Left lower extremity: full ROM; no edema Psych Mental Status: mental status grossly normal Speech and movement: Normal speech and movement present Affect: normal affect Attitude: cooperative Thought process: Normal thought process present Results AMB Hemoglobin A1c AMB Hemoglobin A1c 8.1 % Last Edit by DAVID Lance on 06/28/23 10:37 Results Reviewed Results Reviewed: Laboratory Last Values Hgb A1c (Clinic) 8.1 % (4.0-6.0) H 06/28/23 10:37 Assessment and Plan Assessment & Plan (1) Right rotator cuff tear: Code(s): M75.101 - Unspecified rotator cuff tear or rupture of right shoulder, not specified as traumatic Qualifiers: Rotator cuff tear extent: incomplete Rotator cuff tear trauma status: nontraumatic Qualified Code(s): M75.111 - Incomplete rotator cuff tear or rupture of right shoulder, not specified as traumatic Plan: Patient is anticipating surgery next month for his right rotator cuff tear. Continues to have decreased range of motion and pain in his right shoulder. (2) Cervical spondylosis: Code(s): M47.812 - Spondylosis without myelopathy or radiculopathy, cervical region Plan: Recently underwent surgery for his cervical spine. Does report some reduced pain in his neck though continues to have pain and numbness/weakness in the upper extremities. (3) Diabetes mellitus: Code(s): E11.9 - Type 2 diabetes mellitus without complications Qualifiers: Diabetes mellitus complication status: with hyperglycemia Diabetes mellitus fci insulin use: without ocean transportation intermediary use Diabetes mellitus type: type 2 Qualified Code(s): E11.65 - Type 2 diabetes mellitus with hyperglycemia Plan: Patient's type 2 diabetes suboptimally controlled though much improved since last office visit. Today's A1c at 8.1. Will add on Actos 15 mg for better diabetes control. Continues to work on diabetic diet. Goal A1c is to be below 7.0 (4) Coronary artery disease: Code(s): I25.10 - Atherosclerotic heart disease of [place] coronary artery without angina pectoris Qualifiers: Associated angina: without angina Coronary Disease-Associated Artery/Lesion type: [place] artery [place] vs. transplanted heart: [place] heart Qualified Code(s): I25.10 - Atherosclerotic heart disease of [place] coronary artery without angina pectoris Plan: Patient now followed by Cardiology. Continues on high potency statin and daily aspirin. Denies any chest pain, palpitations shortness of breath on exertion. (5) OCD (obsessive compulsive disorder): Code(s): F42.9 - Obsessive-compulsive disorder, unspecified Qualifiers: Obsessive-compulsive disorder type: excoriation disorder Qualified Code(s): F42.4 - Excoriation (skin-picking) disorder Plan: Patient does seem to have an OCD disorder. Willing to start SNRI therapy to treat both pain and his OCD. Of note has a history acute angle glaucoma. Has underwent surgery to reverse this which was successful. (6) Tobacco dependence: Code(s): F17.200 - Nicotine dependence, unspecified, uncomplicated Plan: Patient does understand he needs to completely quit smoking due to his elevated CV risk. He is interested in starting Chantix as it has been effective for him in the past. He is now willing to be evaluated by the lung cancer screening program to start CTs of chest. As per the smoker more than [address] years [address] recent CT of chest (7) Migraines: Code(s): G43.909 - Migraine, unspecified, not intractable, without status migrainosus Qualifiers: Migraine type: unspecified Status migrainosus presence: without status migrainosus Intractability: not intractable Qualified Code(s): G43.909 - Migraine, unspecified, not intractable, without status migrainosus Plan: Reports he has frequent daily migraines located on the right side of his head and frontal region. He is willing to start up daily medication to reduce his migraines frequency. Sumatriptan contraindicated due to his history of coronary artery disease. (8) Seizures: Comment: last seizure 03/2023 , not taking Keppra x2 years Code(s): R56.9 - Unspecified convulsions Plan: Has a history of seizures. Was on Keppra in the past though has been off of this medication. He would like to establish care with a neurologist for further evaluation and possible restarting seizure medication. Orders: Orders AMB Hemoglobin A1c 06/28/23 E11.9 - Type 2 diabetes mellitus without complications Referrals Neurology Referral G43.909 - Migraine, unspecified, not intractable, without status migrainosus Thoracic Surgery Referral F17.200 - Nicotine dependence, unspecified, uncomplicated Medications: New varenicline 0.5 mg PO; Take 0.5 mg qd x 3 days, then 0.5 mg b.i.d. x4 days 7 days 11 tabs 0RF F17.200 - Nicotine dependence, unspecified, uncomplicated propranolol 10 mg PO BID 90 days 180 tabs 1RF G43.909 - Migraine, unspecified, not intractable, without status migrainosus varenicline 1 mg PO BID 90 days 180 tabs 1RF F17.200 - Nicotine dependence, unspecified, uncomplicated cyclobenzaprine 10 mg PO BEDTIME 90 days 90 tabs 1RF M48.02 - Spinal stenosis, cervical region venlafaxine 37.5 mg PO DAILY 90 days 90 tabs 1RF F42.4 - Excoriation (skin- picking) disorder pioglitazone (Actos) 15 mg PO DAILY 90 days 90 tabs 1RF E11.65 - Type 2 diabetes mellitus with hyperglycemia Changed From docusate sodium 100 mg PO BID 20 caps 0RF constipation To docusate sodium 100 mg PO BID PRN constipation From simethicone (Gas Relief (simethicone)) 125 mg PO TID-QID PRN 90 tabs 2RF abdominal distention To simethicone (Gas Relief (simethicone)) 125 mg PO TID-QID PRN abdominal distention Discontinued tizanidine Discontinued Reason: Doctor's Order 2 mg PO BEDTIME 90 days 90 tabs 1RF muscle spasticity E78.5 - Hyperlipidemia, unspecified, M48.02 - Spinal stenosis, cervical region Coding Level of Care Code Est Pt Level 4 (11751) Diagnoses Nontraumatic incomplete tear of right rotator cuff M75.111 Rotator cuff tear extent: incomplete Rotator cuff tear trauma status: nontraumatic Cervical spondylosis M47.812 Type 2 diabetes mellitus with hyperglycemia, without long-term current use of insulin E11.65 Diabetes mellitus complication status: with hyperglycemia Diabetes mellitus ocean transportation intermediary insulin use: without ocean transportation intermediary use Diabetes mellitus type: type 2 Coronary artery disease involving [place] coronary artery of [place] heart without angina pectoris I25.10 Associated angina: without angina Coronary Disease-Associated Artery/Lesion type: [place] artery [place] vs. transplanted heart: [place] heart Excoriation (skin-picking) disorder F42.4 Obsessive-compulsive disorder type: excoriation disorder Tobacco dependence F17.200 Migraine without status migrainosus, not intractable, unspecified migraine type G43.909 Migraine type: unspecified Status migrainosus presence: without status migrainosus Intractability: not intractable Seizures R56.9
== END 2023-06-28 11:04 | disposition home or self-care (01) ==
PROVIDERS: PCP Physician Assistant; Visit Provider Physician Assistant
DX: E11.9 Type 2 diabetes mellitus without complications (principal)
CPT/HCPCS: 83036; 99214

== ENCOUNTER 2023-07-07 09:59 | Outpatient (AMB) | payer OTHER, SELFPAY ==
--- NOTE | 2023-07-07 10:02 | MHC.OFFVIS ---
Intake Vital Signs 07/07/23 10:03 Height 5 ft 7 in Weight 164 lb BMI 25.7 Intake Visit Reasons: PreOP- Rt Shoulder 07/27/23 NE Intake Note: Kwaku is a 52 year old male who presents today for a pre op appointment right shoulder 07/27/23. Allergies Penicillins Allergy (Severe, Verified 07/07/23 10:03) Anaphylaxis HPI PreOP- Rt Shoulder 07/27/23 NE HPI Details 52-year-old male who presents in the office today for his preoperative history and physical exam prior to a right shoulder arthroscopy to be performed on 07/27/[address] Guerrero. Patient?s A1c as of 06/28/2023 was 8.1. Patient states he will get a ride to the [facility] for the day of surgery. 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 He confirms a history of seizures. Patient has no known allergy history. Patient is currently taking, as follows: -Aspirin 81 mg PO daily -Atorvastatin 40 mg PO daily -Cyclobenzaprine 10 mg PO bedtime -Docusate sodium 100 mg PO BID PRN -Metformin 1,000 mg PO BID -Pantoprazole 40 mg PO daily -Pioglitazone 15 mg PO daily -Propranolol 10 PO BID -Simethicone 125 mg PO TID-QID PRN -Varenicline 1 mg PO BID -Venlafaxine 37.5 mg PO daily Patient has a medical history, as follows: -Change in consistency of stool -Anxiety -Glaucoma -Migraine -Peptic ulcer -Depression -Myocardial infarction; 2019 w/cardiac stent-follows w/ -[facility] -Seizures; last seizure 03/2023 , not taking Keppra x2 years -Coronary artery disease -Hyperlipidemia -Diabetes mellitus Patient has a surgical history, as follows: -History of esophagogastroduodenoscopy; 05/18/2023 -History of colonoscopy; 05/18/2023 -History of inguinal hernia surgery -History of ear surgery -History of coronary artery stent placement Patient has a social history, as follows: -Tobacco; current user, 4 cigarettes daily -Marijuana [facility] Medical History (Updated 06/29/23 @ 07:33 by Jason Vgea PA-C) Change in consistency of stool Anxiety Glaucoma Diarrhea Migraine Peptic ulcer Depression Myocardial infarction Seizures Coronary artery disease Hyperlipidemia Diabetes mellitus Surgical History History of esophagogastroduodenoscopy (EGD) Hx of colonoscopy Hx of inguinal hernia surgery History of ear surgery S/P coronary artery stent placement Family History Mother Lumbar spine tumor Father Heart attack Paternal Grandfather Heart attack Other No family history of coronary artery disease Social History Household Members: Spouse Housing: Apartment Are you a primary managed care analyst to a significant other at home: No Do you presently have visiting nurse or other home services: No Alcohol intake: never Patient Tobacco Use Status: Current everyday Tobacco user Tobacco use type: Cigarette Cigarettes Per Day: 4 Years Smoked: 22+ e-Cigarette/Vaping Use: Never Used Second Hand Smoke Exposure: Yes Substance Use Type: Marijuana service: No Current occupational status: unemployed Cognitive needs: No Hearing needs: No Vision needs: Yes Review of Systems Const All systems reviewed & are unremarkable except as noted in HPI and below Physical Exam Vital Signs: BMI result Body Mass Index 25.7 Const General: no acute distress, alert and awake Orientation/consciousness: patient oriented x3 HEENT Head: Yes normocephalic and Yes atraumatic Eyes General: appearance normal, both eyes and all related structures EOM: EOMs intact bilaterally Neck Neck: Yes normal visual inspection and Yes no lymphadenopathy Resp Effort & Inspection: normal respiratory effort and able to speak in complete sentences Cardio Jugular venous distension: no JVD Rate: regular rate Peripheral pulses: Peripheral pulses 2+ throughout GI Inspection: Yes normal to inspection Palpation (GI): Soft to palpation Skin General skin exam: turgor normal Rashes: no rashes Neuro General: patient oriented x3 Extrem Other: Right Shoulder: + H/N 4+/5 ec 45/90/130/s1 Psych Appearance: grossly normal Mental Status: mental status grossly normal Affect: normal affect Attitude: cooperative Assessment & Plan Assessment & Plan (1) Right rotator cuff tear: Code(s): M75.101 - Unspecified rotator cuff tear or rupture of right shoulder, not specified as traumatic Qualifiers: Rotator cuff tear extent: incomplete Rotator cuff tear trauma status: nontraumatic Qualified Code(s): M75.111 - Incomplete rotator cuff tear or rupture of right shoulder, not specified as traumatic (2) Coronary artery disease: Code(s): I25.10 - Atherosclerotic heart disease of [place] coronary artery without angina pectoris Qualifiers: Associated angina: without angina Coronary Disease-Associated Artery/Lesion type: [place] artery [place] vs. transplanted heart: [place] heart Qualified Code(s): I25.10 - Atherosclerotic heart disease of [place] coronary artery without angina pectoris (3) Diabetes mellitus: Code(s): E11.9 - Type 2 diabetes mellitus without complications Qualifiers: Diabetes mellitus complication status: with hyperglycemia Diabetes mellitus correction insulin use: without correction use Diabetes mellitus type: type 2 Qualified Code(s): E11.65 - Type 2 diabetes mellitus with hyperglycemia Plan Mr. Diggs is a 52-year-old male who presents in the office today for his preoperative history and physical exam prior to a right shoulder arthroscopy to be performed on 07/27/[address] Guerrero. Patient?s A1c as of 06/28/2023 was 8.1. Patient states he will get a ride to the [facility] for the day of surgery. 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 He confirms a history of seizures. Patient has no known allergy history. Patient is currently taking, as follows: -Aspirin 81 mg PO daily -Atorvastatin 40 mg PO daily -Cyclobenzaprine 10 mg PO bedtime -Docusate sodium 100 mg PO BID PRN -Metformin 1,000 mg PO BID -Pantoprazole 40 mg PO daily -Pioglitazone 15 mg PO daily -Propranolol 10 PO BID -Simethicone 125 mg PO TID-QID PRN -Varenicline 1 mg PO BID -Venlafaxine 37.5 mg PO daily Patient has a medical history, as follows: -Change in consistency of stool -Anxiety -Glaucoma -Migraine -Peptic ulcer -Depression -Myocardial infarction; 2019 w/cardiac stent-follows w/ -[facility] -Seizures; last seizure 03/2023 , not taking Keppra x2 years -Coronary artery disease -Hyperlipidemia -Diabetes mellitus Patient has a surgical history, as follows: -History of esophagogastroduodenoscopy; 05/18/2023 -History of colonoscopy; 05/18/2023 -History of inguinal hernia surgery -History of ear surgery -History of coronary artery stent placement Patient has a social history, as follows: -Tobacco; current user, 4 cigarettes daily -Marijuana Dr. Joshua was avaliable to speak with me about the patient?s A1c while in the office today and we have agreed to proceed. The patient was instructed to continue to monitor his blood sugars. I discussed in detail the procedure and what to expect pre and post operatively. We discussed the risks, benefits and alternatives to the surgery as well as the rehabilitation course. The risks; which include, but are not limited to infection, bleeding, nerve injury, ongoing pain, swelling, and stiffness, perioperative risk of injury to bones and soft tissues, and blood clots. I have answered all questions and with their understanding they have consented to move forward with a right shoulder arthroscopy to be performed on 07/27/[address] Cesar Guerrero. Follow up will be at the post operative appointment on 08/02/2023 or sooner if needed. Patient Instructions: Scribed for Cathleen Carter PA-C by Soila Gonzalez clinical laboratory medical director, on 07/07/2023 at 10:05 am, EST. Coding Level of Care Code Global (88322) Diagnoses Nontraumatic incomplete tear of right rotator cuff M75.111 Rotator cuff tear extent: incomplete Rotator cuff tear trauma status: nontraumatic Coronary artery disease involving [place] coronary artery of [place] heart without angina pectoris I25.10 Associated angina: without angina Coronary Disease-Associated Artery/Lesion type: [place] artery [place] vs. transplanted heart: [place] heart Type 2 diabetes mellitus with hyperglycemia, without long-term current use of insulin E11.65 Diabetes mellitus complication status: with hyperglycemia Diabetes mellitus termite control representative insulin use: without correction use Diabetes mellitus type: type 2
[2023-07-07 10:03] VITALS: BMI 25.7
== END 2023-07-07 10:38 | disposition home or self-care (01) ==
PROVIDERS: PCP Physician Assistant; Visit Provider Physician Assistant
DX: M75.111 Incomplete rotator cuff tear or rupture of right shoulder, not specified as traumatic (principal); I25.10 Atherosclerotic heart disease of native coronary artery without angina pectoris; E11.65 Type 2 diabetes mellitus with hyperglycemia
CPT/HCPCS: 99024

== ENCOUNTER → 2023-07-07 09:59 | Outpatient (BNVA) | payer OTHER, SELFPAY | PROVIDERS: PCP Physician Assistant; Visit Provider Physician Assistant ==

== ENCOUNTER 2023-07-27 05:52 | Day surgery (SDC) | payer OTHER, SELFPAY ==
[2023-07-25 10:36] VITALS: BMI 25.7
--- NOTE | 2023-07-26 08:23 | P.CONAN_ITS ---
Documented by User: Teresa Yang NP 07/26/23 08:33 HPI - Anesthesia Eval Consult details Narrative: 52yo M for Right Shoulder Arthroscopy Cardiac cleared. Hx of KS with stent 2019. Resolved decrease EF s/p Bilateral L4-5 Lumbar Decompression 05/2023 with GA-ETT 7 (Prio to spine surgery: Medically cleared - pt self d/c kyree. PCP informed. EEG done preop and was wnl.) Smoker PMFSH Active Problems Active Problems: All Active Problems (Updated 07/25/23 @ 10:34 by Viji Partida RN) Tobacco dependence (Acute) S/P spinal surgery (Acute) Otitis media (Acute) Gastric ulcer (Acute) Tubular adenoma of colon (Acute) Acid reflux (Acute) Cervical radicular pain (Acute) Numbness and tingling in left hand (Acute) Cubital tunnel syndrome on right (Acute) Carpal tunnel syndrome of right wrist (Acute) PAD (peripheral artery disease) (Acute) Lumbar stenosis (Acute) Right rotator cuff tear (Acute) Degenerative disc disease, cervical (Acute) Cervical spondylosis (Acute) Migraines (Acute) Lumbar degenerative disc disease (Acute) OCD (obsessive compulsive disorder) (Acute) Labral tear of shoulder, degenerative (Acute) Painful arc syndrome of right shoulder (Acute) Left knee pain (Acute) Preop cardiovascular exam (Acute) Claudication (Acute) Back pain of lumbar region with sciatica (Acute) Change in bowel habits (Acute) PUD (peptic ulcer disease) (Acute) Cervical stenosis of spinal canal (Acute) Right hand paresthesia (Acute) Tendinopathy of right shoulder (Acute) MDD (major depressive disorder), recurrent episode, moderate (Acute) Bilateral shoulder pain (Acute) Depression (Acute) Neck pain (Acute) Change in consistency of stool (Acute) Seizures (Acute) Hyperlipidemia (Acute) Coronary artery disease (Acute) Diabetes mellitus (Acute) Past Medical History Medical History Change in consistency of stool Anxiety Glaucoma Diarrhea Migraine Peptic ulcer Depression Myocardial infarction Seizures Coronary artery disease Hyperlipidemia Diabetes mellitus Family History Family History Mother Lumbar spine tumor Father Heart attack Paternal Grandfather Heart attack Other No family history of coronary artery disease Family history of problems with anesthesia: No Surgical History Surgical History Hx of elbow surgery History of carpal tunnel surgery of right wrist History of incision and drainage History of back surgery History of esophagogastroduodenoscopy (EGD) Hx of colonoscopy Hx of inguinal hernia surgery History of ear surgery S/P coronary artery stent placement History of Problems with Anesthesia: No Social History Social History Household Members: Spouse Housing: Apartment Are you a primary critical care unit nurse to a significant other at home: No Do you presently have visiting nurse or other home services: No Alcohol intake: never Comment: d/c from er Patient Tobacco Use Status: Current everyday Tobacco user Tobacco use type: Cigarette Cigarettes Per Day: 4 Years Smoked: 22+ e-Cigarette/Vaping Use: Never Used Second Hand Smoke Exposure: Yes Use of substances other than those prescribed or required for medical reasons: No Substance Use Type: Marijuana Are you DNR?: No Advance Directives: No Advance Directives Information Provided: Yes service: No Current occupational status: unemployed Cognitive needs: No Hearing needs: No Vision needs: Yes Meds Allergies Allergy/AdvReac Type Severity Reaction Status Date / Time Penicillins Allergy Severe Anaphylaxis Verified 07/27/23 06:12 Home Medications Medication Instructions Recorded Confirmed Last Taken Type atorvastatin 40 mg tablet (Lipitor) 40 mg PO DAILY 05/20/23 07/25/23 Unknown History docusate sodium 100 mg capsule 100 mg PO BID PRN constipation 06/28/23 07/25/23 Unknown History simethicone 125 mg chewable tablet 125 mg PO TID-QID PRN abdominal 06/28/23 07/25/23 Unknown History (Gas Relief (simethicone)) distention Exam Exam Date and Time: June 01, 2023 0957 Height,Weight and Vital Signs: Height 5 ft 7 in Weight 74.389 kg Pertinent Lab Results Pertinent Lab Results: Laboratory Tests 03/28/23 10:05 WBC 8.3 Hgb 12.9 L Hct 36.9 L Plt Count 192 Sodium 139 Potassium 4.2 Chloride 104 Carbon Dioxide 23 BUN 15 Creatinine 0.84 Narrative Narrative: ECHO 01/2023 Conclusions: - Normal left ventricular size and systolic function. The visually estimated ejection fraction is between 55-60%. - The basal inferior segment is akinetic. - Normal right ventricular cavity size and systolic function. EKG 01/2023 Sinus rhythm 80 beats per minute, normal axis, anterior infarct, QTC 408 milliseconds EEG 05/2023 IMPRESSION: This waking EEG is within normal limits. Airway Mallampati Class: III TM Dist: >3cm Neck ROM: Full Loose/Missing/Broken Teeth: Yes (poor dentition overall , multiple lower teeth extremely loose ) Assessment and Plan Assessment Anesthesia Assessment: Chart Reviewed Final Anesthetic Review Family History of Problems with Anesthesia: No History of Problems with Anesthesia: No Documented by User: Walt Hernandez MD 07/27/23 09:59 PMFSH Past Medical History Medical History Change in consistency of stool Anxiety Glaucoma Diarrhea Migraine Peptic ulcer Depression Myocardial infarction Seizures Coronary artery disease Hyperlipidemia Diabetes mellitus Family History Family History Mother Lumbar spine tumor Father Heart attack Paternal Grandfather Heart attack Other No family history of coronary artery disease Surgical History Surgical History Hx of elbow surgery History of carpal tunnel surgery of right wrist History of incision and drainage History of back surgery History of esophagogastroduodenoscopy (EGD) Hx of colonoscopy Hx of inguinal hernia surgery History of ear surgery S/P coronary artery stent placement Social History Social History Household Members: Spouse Housing: Apartment Are you a primary critical care unit nurse to a significant other at home: No Do you presently have visiting nurse or other home services: No Alcohol intake: never Comment: d/c from er Patient Tobacco Use Status: Current everyday Tobacco user Tobacco use type: Cigarette Cigarettes Per Day: 4 Years Smoked: 22+ e-Cigarette/Vaping Use: Never Used Second Hand Smoke Exposure: Yes Use of substances other than those prescribed or required for medical reasons: No Substance Use Type: Marijuana Are you DNR?: No Advance Directives: No Advance Directives Information Provided: Yes service: No Current occupational status: unemployed Cognitive needs: No Hearing needs: No Vision needs: Yes Meds Allergies Allergy/AdvReac Type Severity Reaction Status Date / Time Penicillins Allergy Severe Anaphylaxis Verified 07/27/23 06:12 Home Medications Medication Instructions Recorded Confirmed Last Taken Type atorvastatin 40 mg tablet (Lipitor) 40 mg PO DAILY 05/20/23 07/25/23 Unknown History docusate sodium 100 mg capsule 100 mg PO BID PRN constipation 06/28/23 07/25/23 Unknown History simethicone 125 mg chewable tablet 125 mg PO TID-QID PRN abdominal 06/28/23 07/25/23 Unknown History (Gas Relief (simethicone)) distention Exam Airway Heart: rrr Lungs: cta Assessment and Plan Assessment Anesthesia Assessment: Anesthesia Plan Discussed Final Anesthetic Review NPO: No ASA Class: III Final Preanesthetic Review: No Changes in Pt Med Stat, Meds/Allgs Chart Reviewed, Consent Obtained/Reviewed and Anes Risks/Benef Reviewed Patient Risk: Intermediate Procedure Risk: Intermediate Anesthetic Plan Anesthetic Plan: GA, Regional Block and Agree w/ Assess. and Plan Disposition: Standard PACU
[2023-07-27 06:02] VITALS: BMI 26.6
[2023-07-27 06:32] VITALS: BP 121/76; PULSE 67; RESP 16; TEMP 36; O2SAT 98
[2023-07-27] MEDS: Lactated Ringers 1,000 ML 100 ML IVCONT (06:32)
[2023-07-27 06:56] LABS: Glucose, Whole Blood 131 mg/dL (60-115)
--- NOTE | 2023-07-27 07:57 | PC.NURSE ---
Dr Guerrero made aware of multiple scabbed, red areas noted to R side chest wall. Ok to proceed with planned surgical procedure.
[2023-07-27 09:17] VITALS: BP 135/75; PULSE 64; RESP 16; TEMP 36.1; O2SAT 100
[2023-07-27 09:22] VITALS: BP 128/70; PULSE 62; RESP 16; O2SAT 97
[2023-07-27 09:27] VITALS: BP 139/78; PULSE 67; RESP 17; O2SAT 97
[2023-07-27 09:33] VITALS: BP 126/62; PULSE 65; RESP 18; O2SAT 97
[2023-07-27 09:48] VITALS: BP 114/64; PULSE 63; RESP 18; TEMP 36.2; O2SAT 97
--- NOTE | 2023-07-27 09:49 | P.BOP_ITS ---
Brief Operative Note Date of Service: 07/27/23 Pre-op diagnosis: right rtc tear Post-op diagnosis: other (RTC tear and SLAP tear) Procedure: Right rtc repair and biceps tenotomy Implants: [employer]hew double loaded Helacoil and one knotless helacoil Surgeon: Cesar Guererro MD Anesthesia: GETA and regional Was an Counterintelligence Specialist used for this Procedure?: Yes Counterintelligence Specialist: Cathleen Carter Estimated blood loss (mL): 20 IV fluids (mL): 1,000 Pathology: none sent Condition: stable Disposition: PACU
--- NOTE | 2023-07-28 16:23 | W.PM.OPN ---
Operative Note Operative Note Date of Service: 07/27/23 Narrative: Date of Service: 07/27/23 Pre-op diagnosis: right rtc tear Post-op diagnosis: other (RTC tear and SLAP tear) Procedure: Right rtc repair and biceps tenotomy Implants: [employer] Nephew double loaded Helacoil and one knotless helacoil Surgeon: Cesar Guerrero MD Anesthesia: GETA and regional Was an Hospice Care Transitions Coordinator used for this Procedure?: Yes Hospice Care Transitions Coordinator: Cathleen Carter Estimated blood loss (mL): 20 IV fluids (mL): 1,000 Pathology: none sent Condition: stable Disposition: PACU Procedure in detail: Patient was brought to the operating room and placed the the beach chair position. All bony prominences were well padded and the limb was prepped and draped in standard sterile fashion. A time out was called to identify proper site, proper procedure and proper surgeon. IV antibiotics per weight were administered. I began by making a posterolateral stab incision with a 15 blade. A blunt trochar was placed into the glenohumeral joint and I insufflated the joint with saline and a 30 degree arthroscope was placed. I established an outside- in anterior portal just distal to the biceps tendon. I then began my inspection of the glenohumeral joint. There was a large degenerative SLAP tear at the biceps anchor ( Type 2). There were minimal cartilage changes at the inferior glenoid without humeral head changes. There was a parthial thickness undersurface RTC tear. The subcapularis was intact. I debrided the loose cartilage of the glenoid and the degenerative labral tearing and performed a biceps tenotomy. I placed a spinal needle into the undersurface RTC tear from superior to inferior. I then removed the trochar and entered the subacromial space. A direct lateral portal was then established and I performed a bursectomy. The cuff was then examined. There was a bursal sided partial thickness tear of the supraspinatus at the same level as the undersurface tear. I debrided this with a shaver and the tear was near full thicness. I therefore completed the tear and shaved unhealthy tissue. There was a small crescentic full thickness tear. I used a angelo to debride the bare area brii nto bleeding bone. I placed one medial row double loaded anchor adjacent to the articular cartilage and then brought the suture limbs (4) through the medial cuff. Using a cross bridge configuration, brought the 4 limbs to to the lateral 5.0 anchor. This re-approximated the cuff anatomy anatomically. Once I was satisfied with the repair final images were captured and I removed all instrumentation. There was no decompression needed. Portals were closed with nylon. Patient was placed in an abduction sling, extubated and brought to the recovery room in stable condition. There were no known complications. Small RTC repair protocol
== END 2023-07-27 14:55 | disposition home or self-care (01) ==
PROVIDERS: PCP Physician Assistant; Visit Provider Orthopaedic Surgery
PROC: (CPT 29805; principal; 2023-07-27 07:30)
DX: M75.111 Incomplete rotator cuff tear or rupture of right shoulder, not specified as traumatic (principal); S43.431A Superior glenoid labrum lesion of right shoulder, initial encounter; X58.XXXA Exposure to other specified factors, initial encounter; Y93.9 Activity, unspecified; Y92.9 Unspecified place or not applicable; Y99.9 Unspecified external cause status; H40.9 Unspecified glaucoma; I25.2 Old myocardial infarction; I25.10 Atherosclerotic heart disease of native coronary artery without angina pectoris; Z95.5 Presence of coronary angioplasty implant and graft; F17.210 Nicotine dependence, cigarettes, uncomplicated; E11.65 Type 2 diabetes mellitus with hyperglycemia; E78.5 Hyperlipidemia, unspecified; R56.9 Unspecified convulsions; F32.A Depression, unspecified; F41.9 Anxiety disorder, unspecified; Z79.82 Long term (current) use of aspirin; Z79.84 Long term (current) use of oral hypoglycemic drugs; Z79.899 Other long term (current) drug therapy; Z88.0 Allergy status to penicillin; F12.90 Cannabis use, unspecified, uncomplicated
CPT/HCPCS: 29827; 29826; 82947; C1713; J0131; J0171; J0736; J1100; J1885; J2250; J2371; J2405; J2704; J2795

== ENCOUNTER → 2023-07-27 05:52 | Outpatient (BNV) | payer OTHER, SELFPAY | PROVIDERS: PCP Physician Assistant; Visit Provider Orthopaedic Surgery | DX: M75.111 Incomplete rotator cuff tear or rupture of right shoulder, not specified as traumatic (principal); S43.431A Superior glenoid labrum lesion of right shoulder, initial encounter | CPT/HCPCS: 29827 ==

== ENCOUNTER 2023-08-02 08:59 | Outpatient (AMB) | payer OTHER, SELFPAY ==
--- NOTE | 2023-08-02 09:06 | A.OFFVIS_ITS ---
Intake Intake Visit Reasons: PO-Rt Shoulder 07/27 NE Intake Note: Kwaku is a 52 year old right hand dominant male who presents today for a post op appointment s/p right shoulder 07/27/23. Patient reports having some soreness and having muscle spams. Allergies Penicillins Allergy (Severe, Verified 08/02/23 09:07) Anaphylaxis HPI PO-Rt Shoulder 07/27 NE HPI Details 52-year-old right hand dominant male who presents in the office today 6 days status post right rotator cuff repair and biceps tenotomy, which was performed on 07/27/[address] Guerrero. While in the office today the patient reports having some soreness and muscle spams. Wearing the sling without the abduction pillow. [facility] Medical History Change in consistency of stool Anxiety Glaucoma Diarrhea Migraine Peptic ulcer Depression Myocardial infarction Seizures Coronary artery disease Hyperlipidemia Diabetes mellitus Surgical History (Updated 08/02/23 @ 09:14 by Soila Gonzalez) Hx of elbow surgery History of carpal tunnel surgery of right wrist History of incision and drainage History of back surgery History of esophagogastroduodenoscopy (EGD) Hx of colonoscopy Hx of inguinal hernia surgery History of ear surgery S/P coronary artery stent placement Family History Mother Lumbar spine tumor Father Heart attack Paternal Grandfather Heart attack Other No family history of coronary artery disease Social History Household Members: Spouse Housing: Apartment Are you a primary floor care technician to a significant other at home: No Do you presently have visiting nurse or other home services: No Alcohol intake: never Comment: d/c from er Patient Tobacco Use Status: Current everyday Tobacco user Tobacco use type: Cigarette Cigarettes Per Day: 4 Years Smoked: 22+ e-Cigarette/Vaping Use: Never Used Second Hand Smoke Exposure: Yes Substance Use Type: Marijuana service: No Current occupational status: unemployed Cognitive needs: No Hearing needs: No Vision needs: Yes Review of Systems Const All systems reviewed & are unremarkable except as noted in HPI and below Physical Exam Const General: cooperative, healthy appearing and no acute distress Resp Effort & Inspection: normal respiratory effort and able to speak in complete sentences Cardio Rate: regular rate Peripheral pulses: Peripheral pulses 2+ throughout GI Palpation (GI): Soft to palpation Skin Lesions: no lesions Rashes: no rashes Extrem Other: Right shoulder: Incision site is clean, dry, and intact. Sutures intact. No surrounding erythema or drainage. No signs of infection. Forward flexion and abduction to 45 degrees. External rotation to neutral. NVI. Assessment & Plan Assessment & Plan (1) S/P right rotator cuff repair: Comment: 07/27/2023 NE Code(s): Z98.890 - Other specified postprocedural states Plan Mr. Diggs is a 52-year-old right hand dominant male who presents in the office today 6 days status post right rotator cuff repair and biceps tenotomy, which was performed on 07/27/[address] Guerrero. While in the office today the patient reports having some soreness and muscle spams. Sutures were removed and steri-stripes were applied. The office will call the physical therapy office to get the patient scheduled for his first therapy session as soon as possible. I have sent a refill for Percocet 5-325 mg PO Q6H PRN to the pharmacy while in the office today. He will remain in the sling for a total of 6 weeks. Follow up will be in [address] Guerrero, or sooner if needed. Medications: New oxycodone-acetaminophen 5-325 mg Partial Fill upon patient request. 1 tab PO Q6H PRN 28 tabs 0RF pain 7 days Discontinued oxycodone-acetaminophen 5-325 mg (Percocet) Partial Fill upon patient request. Discontinued Reason: Doctor's Order 1 tab PO Q6H 7 days PRN 28 tabs 0RF pain (scale score 4-6) Patient Instructions: Scribed for Cathleen Carter PA-C by Soila Gonzalez medical staff physician, on 08/01/2023 at 9:10 am, EST. Coding Level of Care Code Global (81642) Diagnoses S/P right rotator cuff repair Z98.890
== END 2023-08-02 09:42 | disposition home or self-care (01) ==
PROVIDERS: PCP Physician Assistant; Visit Provider Physician Assistant
DX: Z98.890 Other specified postprocedural states (principal)
CPT/HCPCS: 99024

== ENCOUNTER → 2023-08-02 08:59 | Outpatient (BNVA) | payer OTHER, SELFPAY | PROVIDERS: PCP Physician Assistant; Visit Provider Physician Assistant | DX: Z47.89 Encounter for other orthopedic aftercare (principal) | CPT/HCPCS: 99212 ==

== ENCOUNTER 2023-08-05 09:58 | Outpatient (AMB) | payer OTHER, SELFPAY ==
--- NOTE | 2023-08-05 10:19 | A.SPINEOV_ITS ---
Intake Intake Visit Reasons: 2nd post op Allergies Penicillins Allergy (Severe, Verified 08/02/23 09:07) Anaphylaxis Assessment & Plan Assessment & Plan (1) S/P spinal surgery: Code(s): Z98.890 - Other specified postprocedural states Plan Procedure: L4-5 Laminotomy, Partial facetectomy and foraminotomy Kwaku comes in today for his 2nd postoperative visit. He reports that he continues to feel satisfied with the surgery. He has remained active, walking at least 1/2 mile a day as previously reported and completing tasks around his home. He was able to have his right rotator cuff repair surgery as well completed at [facility], and is healing from that. He reports he still has significant pain from that surgery, but feels as though his back pain has completely resolved. No neurological deficits. Patient is able to ambulate well, rises from a seated position without difficulty. Incision site is closed and well healed. Kwaku continues to do well from his surgery. There is no need for routine follow-up. He was advised to follow-up as needed. Sumit Keene MD,PhD [facility] Coding Level of Care Code Global (07737) Diagnoses S/P spinal surgery Z98.890
== END 2023-08-05 10:25 | disposition home or self-care (01) ==
PROVIDERS: PCP Physician Assistant; Visit Provider Physician Assistant
DX: Z98.890 Other specified postprocedural states (principal)
CPT/HCPCS: 99024

== ENCOUNTER → 2023-08-05 09:58 | Outpatient (BNVA) | payer OTHER, SELFPAY | PROVIDERS: PCP Physician Assistant; Visit Provider Physician Assistant | DX: Z98.890 Other specified postprocedural states (principal) | CPT/HCPCS: 99212 ==

== ENCOUNTER 2023-09-02 10:26 | Outpatient (AMB) | payer OTHER, SELFPAY ==
--- NOTE | 2023-09-02 10:39 | A.OFFVIS_ITS ---
Intake Intake Visit Reasons: LDCT SD Allergies Penicillins Allergy (Severe, Verified 08/02/23 09:07) Anaphylaxis HPI HPI Comments History of Present Illness Details Kwaku is a pleasant 53 year old male, current minimal smoker with a 31 PYH. Patient has been smoking since age 22 for 31 years at 1 ppd. Admits marijuana use. 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 Admits second hand smoke exposure. Denies known family history of lung cancer. Denies personal history of cancers. Denies chest CT in last year. Denies recent travel outside the [place]. Denies testing positive for COVID. Admits receiving COVID Vaccine. Denies fever, chills, chest pain, new cough, hemoptysis or unintentional weight loss. Lung Cancer Screening Questionnaire reviewed with patient by provider. Shared Decision Making Completed. Discussed in detail with patient, the risk versus benefit of LDCT screening. Patient in agreement of proceeding with scan. [facility] Medical History Change in consistency of stool Anxiety Glaucoma Diarrhea Migraine Peptic ulcer Depression Myocardial infarction Seizures Coronary artery disease Hyperlipidemia Diabetes mellitus Surgical History (Updated 08/02/23 @ 09:14 by Soila Gonzalez) Hx of elbow surgery History of carpal tunnel surgery of right wrist History of incision and drainage History of back surgery History of esophagogastroduodenoscopy (EGD) Hx of colonoscopy Hx of inguinal hernia surgery History of ear surgery S/P coronary artery stent placement Family History Mother Lumbar spine tumor Father Heart attack Paternal Grandfather Heart attack Other No family history of coronary artery disease Social History Household Members: Spouse Housing: Apartment Are you a primary weekend caregiver to a significant other at home: No Do you presently have visiting nurse or other home services: No Alcohol intake: never Comment: d/c from er Patient Tobacco Use Status: Current everyday Tobacco user Tobacco use type: Cigarette Cigarettes Per Day: 4 Years Smoked: 22+ e-Cigarette/Vaping Use: Never Used Second Hand Smoke Exposure: Yes Substance Use Type: Marijuana service: No Current occupational status: unemployed Cognitive needs: No Hearing needs: No Vision needs: Yes Assessment & Plan Assessment & Plan (1) Tobacco dependence: Code(s): F17.200 - Nicotine dependence, unspecified, uncomplicated Plan Shared decision-making visit completed today in office. This patient meets criteria for LDCT for lung cancer screening purposes and is asymptomatic. Patient currently on Chantix. Patient has been scheduled for a low dose chest CT for screening purposes at [facility]. We discussed how the results will be obtained depending on CT findings. RADS 1 and RADS 2 will receive a letter with results and will follow up for annual LDCT. Patient informed they will be contacted at later date to schedule upcoming LDCT scan. RADS 3 and RADS 4 will receive a telephone call, or an office visit after reviewing case at our Lung Cancer Conference to determine when the next LDCT will be scheduled or further interventions that may be needed. Discussed importance of screening program and compliance with yearly LDCT scan as scheduled. Risks, benefits, and alternatives were discussed in detail and patient agrees to proceed. Risks discussed include but are not limited to: radiation exposure and possibility of additional intervention for benign disease. Benefits include detection of lung cancer at an early stage. A copy of today's visit and LDCT results will be sent to patient's PCP. Incidental findings on LDCT are PCP's responsibility. If there are incidental findings, our office will ensure that PCP office is aware of these findings. All questions were answered and patient is in agreement of plan. Coding Level of Care Code Lung Cancer Screening G0296 Diagnoses Tobacco dependence F17.200
== END 2023-09-02 11:02 | disposition home or self-care (01) ==
PROVIDERS: PCP Physician Assistant; Visit Provider Nurse Practitioner Family
DX: F17.200 Nicotine dependence, unspecified, uncomplicated (principal)
CPT/HCPCS: G0296

== ENCOUNTER 2023-09-02 10:45 | Outpatient (REF) | payer OTHER, SELFPAY ==
--- NOTE | ~2023-09-02 | CT_ITS ---
EXAMINATION: CT CHEST LOW-DOSE SCREENING WITHOUT CONTRAST HISTORY: Asymptomatic patient meeting criteria for lung screening. Nicotine dependence. PATIENT PACK-YEAR HISTORY: 31. Current Smoker: Yes, 1 pack per day. COMPARISON: CTA chest 09/13/2013. TECHNIQUE: Multidetector volumetric noncontrast CT imaging of the chest was obtained on a Siemens Definition 64-slice scanner using low-dose screening CT technique. Axial thin section 0.6 mm reformations in soft tissue and lung windows were obtained. Sagittal and coronal reformations were obtained. Axial MIP images were also created and reviewed. RECONSTRUCTED WIDTH: 1.25 mm x 1.[address] examination was performed using dose optimization techniques as appropriate, variously including the following: *Automated exposure control *Adjustment of mA and/or kV according to patient size (this includes techniques or standardized protocols for targeted exams where dose is matched to indication/reason for exam; i.e. extremities or head) *Use of iterative reconstruction technique TOTAL EXAM DLP: 52 mGy-cm CTDIvol: 1.24 mGy FINDINGS: LUNGS: Some mild emphysematous changes are present. Mild saber sheath trachea. Lungs bilaterally symmetrically expanded. No effusion or pneumothorax. Central airways patent. Some punctate granulomas are seen. In the right lower lobe, there is a 5 x 4 x 2 mm right lower lobe pulmonary nodule (7:260). This was present on the 09/13/2013 study (6:273) and stable over 10 years. No other or concerning lung nodules are seen. LYMPHATIC STRUCTURES: No mediastinal, hilar or axillary adenopathy or free fluid collection. THYROID GLAND: Unremarkable to the extent seen. CARDIOVASCULAR STRUCTURES: Aortic and heart size normal. Marked coronary artery calcifications. No pericardial effusion. UPPER ABDOMEN: Included portions of the solid organs in the upper abdomen unremarkable on noncontrast imaging. OSSEOUS STRUCTURES: No suspicious focal findings. Mild degenerative changes are present. SPINAL COMPRESSION: Absent. CT/CT lung screening IMPRESSION: No findings suspicious for malignancy. There is a single 5 mm right lower lobe nodule, stable over a 10-year period. Mild emphysema. LUNG-RADS CATEGORY ASSESSMENT: Benign. INCIDENTAL FINDINGS (S CATEGORY): Finding: No incidental findings. Significance category: Normal or normal variant. RECOMMENDATION: Low-dose lung CT overall in 1 year. Visual estimate of coronary calcified plaque burden: Marked. However, this exam cannot replace a dedicated cardiac CT calcium score for accurate assessment.
== END 2023-09-02 10:46 | disposition home or self-care (01) ==
LOC: HO.CT 10:45
PROVIDERS: PCP Physician Assistant; Visit Provider Nurse Practitioner Family
DX: Z12.2 Encounter for screening for malignant neoplasm of respiratory organs (principal); F17.210 Nicotine dependence, cigarettes, uncomplicated
CPT/HCPCS: 71271; G0296

== ENCOUNTER 2023-09-12 09:58 | Outpatient (AMB) | payer OTHER, SELFPAY ==
--- NOTE | 2023-09-12 10:00 | MHC.OFFVIS ---
Intake Intake Visit Reasons: PO-Rt Shoulder 07/27/23 NE Intake Note: Kwaku is a 52 year old right hand dominant male who presents today for a post op appointment s/p right shoulder 07/27/23. Patient reports that he is feeling more pain this week than he did last week. Pain is felt at the top of the shoulder, as well as the posterior and anterior aspects of the shoulder as well. He has difficulty sleeping due to his pain. He explains that he is due to have a carpal tunnel release with Dr. Romero. He is working with physical therapy which is going well, he has improved ROM He is requesting Tramadol to help with pain at night for him to be able to sleep. Allergies Penicillins Allergy (Severe, Verified 09/12/23 10:05) Anaphylaxis HPI PO-Rt Shoulder 07/27/23 NE HPI Details Kwaku is a 53 year old man who presents ~6 weeks S/P right shoulder RTC repair with biceps tenotomy. He says his pain has been increasing in the last few weeks, since his last appointment. He feels pain globally about his shoulder, and says he has difficulty sleeping at night due to this. He has been working with PT and has improved his ROM, which he is happy about. He would like to request Tramadol for pain control at night so he can sleep. He plans to have a CTR with Dr. Romero soon in the next few months, when his shoulder has recovered more. [facility] Medical History Change in consistency of stool Anxiety Glaucoma Diarrhea Migraine Peptic ulcer Depression Myocardial infarction Seizures Coronary artery disease Hyperlipidemia Diabetes mellitus Surgical History Hx of elbow surgery History of carpal tunnel surgery of right wrist History of incision and drainage History of back surgery History of esophagogastroduodenoscopy (EGD) Hx of colonoscopy Hx of inguinal hernia surgery History of ear surgery S/P coronary artery stent placement Family History Mother Lumbar spine tumor Father Heart attack Paternal Grandfather Heart attack Other No family history of coronary artery disease Social History Household Members: Spouse Housing: Apartment Are you a primary resident care assistant to a significant other at home: No Do you presently have visiting nurse or other home services: No Alcohol intake: never Comment: d/c from er Patient Tobacco Use Status: Current everyday Tobacco user Tobacco use type: Cigarette Cigarettes Per Day: 4 Years Smoked: 22+ e-Cigarette/Vaping Use: Never Used Second Hand Smoke Exposure: Yes Substance Use Type: Marijuana service: No Current occupational status: unemployed Cognitive needs: No Hearing needs: No Vision needs: Yes Review of Systems Const All systems reviewed & are unremarkable except as noted in HPI and below Physical Exam Const General: no acute distress, alert and awake Orientation/consciousness: patient oriented x3 HEENT Head: Yes normocephalic and Yes atraumatic Eyes EOM: EOMs intact bilaterally Resp Effort & Inspection: normal respiratory effort and able to speak in complete sentences Cardio Jugular venous distension: no JVD Skin General skin exam: turgor normal Rashes: no rashes Neuro General: patient oriented x3 Extrem Other: 30/90/130/L5 no pain well healed portals Psych Appearance: grossly normal Affect: normal affect Attitude: cooperative Assessment & Plan Assessment & Plan (1) S/P right rotator cuff repair: Comment: 07/27/2023 NE Code(s): Z98.890 - Other specified postprocedural states Plan: Doing well D/c'd sling at 2 weeks but doing PT and doing well f/u 6 weeks Plan Prepared for Cesar Guerrero MD by Rowdy Upton, medical claims examiner, on 09/12/23 at 10:12 AM, EST. Coding Level of Care Code Global (55812) Diagnoses S/P right rotator cuff repair Z98.890
== END 2023-09-12 10:17 | disposition home or self-care (01) ==
PROVIDERS: PCP Physician Assistant; Visit Provider Orthopaedic Surgery
DX: Z98.890 Other specified postprocedural states (principal)
CPT/HCPCS: 99024

== ENCOUNTER → 2023-09-12 09:58 | Outpatient (BNVA) | payer OTHER, SELFPAY | PROVIDERS: PCP Physician Assistant; Visit Provider Orthopaedic Surgery | DX: Z47.89 Encounter for other orthopedic aftercare (principal); Z98.890 Other specified postprocedural states | CPT/HCPCS: 99212 ==

== ENCOUNTER 2023-09-26 13:26 | Outpatient (AMB) | payer OTHER, SELFPAY ==
[2023-09-26 13:48] VITALS: BP 110/62; PULSE 88; BMI 26.4
--- NOTE | 2023-09-26 13:48 | MHC.OFFVIS ---
Intake Vital Signs 09/26/23 13:48 Height 5 ft 7 in Weight 168 lb 13.985 oz BMI 26.4 BP 110/62 Blood Pressure Location Lt brachial Position Sitting Pulse 88 Pulse Source Pulse Oximeter Intake Visit Reasons: 4 month f/u Intake Note: pt its here in the office for a 4 mnth f/up pt states that he its feeling fine. Meteorologist In Charge Required: No Accompanied by: Self / Same As Patient Allergies Penicillins Allergy (Severe, Verified 09/12/23 10:05) Anaphylaxis Medication List - Last Reconciled 09/26/23 by Washington Hampton MD aspirin (Ecotrin Low Strength) 81 mg PO DAILY atorvastatin (Lipitor) 40 mg PO DAILY blood sugar diagnostic (FreeStyle Lite Strips) Testing once a day as needed blood-glucose meter (FreeStyle Lite Meter kit) As directed cane As directed cyclobenzaprine 10 mg PO BEDTIME 90 days flash glucose scanning reader (FreeStyle John 2 [place]) As directed flash glucose sensor (FreeStyle John 2 Sensor kit) As directed lancets (FreeStyle Lancets) Testing once a day as needed metformin 1,000 mg PO BID 30 days pantoprazole (Protonix) 40 mg PO DAILY 90 days pioglitazone (Actos) 15 mg PO DAILY 90 days propranolol 10 mg PO BID 90 days simethicone (Gas Relief (simethicone)) 125 mg PO TID-QID PRN varenicline 0.5 mg PO; Take 0.5 mg qd x 3 days, then 0.5 mg b.i.d. x4 days 7 days varenicline 1 mg PO BID 90 days venlafaxine 37.5 mg PO DAILY 90 days HPI HPI Comments History of Present Illness Details 53 year gentleman here for follow-up. He has background history of anterior wall CT in 2019 in the setting of cocaine use. He underwent drug-eluting stent at that time by Dr. Shah. He had EF of 40 45% at that time too. He was at [facility] with atypical chest pain in July 2022. At that time he underwent stress testing which did not show any significant issues and he was discharged home. He has not followed up since then. He is saying that he does not plan to follow up with [facility] and wants to establish care with our practice. He is experiencing some right-sided atypical sounding chest pains. He has chronic shoulder discomfort. His anginal pain was left-sided tightness which she has not experienced. He walks and has no significant shortness of breath or chest discomfort with activity. His main complaint is left calf claudication. He is a former smoker. He has been clean since he had the anterior wall CT. 06/27/2023: He returns for follow-up. He had echocardiography which showed basal inferior wall motion with EF of 55-60%. He has non-anginal left-sided chest pain. Blood pressure control is good. He has started smoking again and will be talking to his primary about alternative medications for Wellbutrin. He was previously given Wellbutrin but apparently has history of seizures of albuterol was stopped appropriately. 09/26/2023: He returns for follow-up. He has undergone spine and right shoulder surgery. He is still recovering from the shoulder surgery and is complaining of some pain. He is saying that he stop smoking with Chantix and today is day 1 of not smoking. He has no chest discomfort shortness of breath. Blood pressure is well controlled. [facility] Medical History Change in consistency of stool Anxiety Glaucoma Diarrhea Migraine Peptic ulcer Depression Myocardial infarction Seizures Coronary artery disease Hyperlipidemia Diabetes mellitus Surgical History Hx of elbow surgery History of carpal tunnel surgery of right wrist History of incision and drainage History of back surgery History of esophagogastroduodenoscopy (EGD) Hx of colonoscopy Hx of inguinal hernia surgery History of ear surgery S/P coronary artery stent placement Family History Mother Lumbar spine tumor Father Heart attack Paternal Grandfather Heart attack Other No family history of coronary artery disease Social History Household Members: Spouse Housing: Apartment Are you a primary technical healthcare consultant to a significant other at home: No Do you presently have visiting nurse or other home services: No Alcohol intake: never Comment: d/c from er Patient Tobacco Use Status: Current everyday Tobacco user Tobacco use type: Cigarette Cigarettes Per Day: 4 Years Smoked: 22+ e-Cigarette/Vaping Use: Never Used Second Hand Smoke Exposure: Yes Substance Use Type: Marijuana service: No Current occupational status: unemployed Cognitive needs: No Hearing needs: No Vision needs: Yes Review of Systems Const Denies chills, Denies fatigue, Denies fever(s), Denies frequent falls, Denies weakness, Denies weight gain and Denies weight loss ENT Denies dizziness Card Denies chest pain, Denies leg edema, Denies lightheadedness, Denies palpitations, Denies dyspnea and Denies dyspnea on exertion Resp Denies cough, Denies dyspnea and Denies dyspnea on exertion GI Denies hematochezia Musc Denies abnormal gait, Denies muscle weakness, Denies numbness, Denies radiating pain into limb and Denies tingling Neuro Denies abnormal gait, Denies dizziness, Denies frequent falls, Denies numbness, Denies tingling and Denies weakness Endo Denies fatigue and Denies palpitations Physical Exam Vital Signs: Last Vital Signs Pulse 88 09/26/23 13:48 BP 110/62 09/26/23 13:48 BMI result Body Mass Index 26.4 Last Vital Signs Temp 97.6 F 07/23/22 07:03 Pulse 76 07/23/22 10:45 Resp 14 07/23/22 10:45 BP 122/68 07/23/22 10:45 Pulse Ox 97 07/23/22 10:45 O2 Del Method 07/23/22 10:45 BMI result Body Mass Index 25.0 GENERAL APPEARANCE: in no acute distress, pleasant. NECK: no carotid bruit, no jugular venous distention. SKIN: no suspicious lesions, warm and dry. HEART: no murmurs, regular rate and rhythm. LUNGS: clear to auscultation bilaterally. ABDOMEN: soft, nontender. EXTREMITIES: no edema. PERIPHERAL PULSES: equal. NEUROLOGIC: No gross deficits, AAO X 3 Assessment & Plan Assessment & Plan (1) Coronary artery disease: Code(s): I25.10 - Atherosclerotic heart disease of grindstone coronary artery without angina pectoris Qualifiers: Coronary Disease-Associated Artery/Lesion type: grindstone artery [place] vs. transplanted heart: grindstone heart Associated angina: without angina Qualified Code(s): I25.10 - Atherosclerotic heart disease of grindstone coronary artery without angina pectoris (2) Hyperlipidemia: Code(s): E78.5 - Hyperlipidemia, unspecified Plan Pleasant 53 year gentleman is here for follow-up. He has known history of coronary disease with previous CT. He had cardiomyopathy which has improved at this stage. Blood pressure is well controlled. He is recovering from shoulder surgery at this point. He should have fasting lipid panel at least once a year. Target LDL is less than 70. Thank you for allowing me to participate in the care of your patient. Please feel free to contact me if you have any questions. Coding Level of Care Code Est Pt Level 3 (77764) Diagnoses Coronary artery disease involving grindstone coronary artery of grindstone heart without angina pectoris I25.10 Coronary Disease-Associated Artery/Lesion type: grindstone artery [place] vs. transplanted heart: grindstone heart Associated angina: without angina Hyperlipidemia E78.5
== END 2023-09-26 14:25 | disposition home or self-care (01) ==
PROVIDERS: PCP Physician Assistant; Visit Provider Internal Medicine Cardiovascular Disease
DX: I25.10 Atherosclerotic heart disease of native coronary artery without angina pectoris (principal); E78.5 Hyperlipidemia, unspecified
CPT/HCPCS: 99213

== ENCOUNTER → 2023-09-26 13:26 | Outpatient (BNVA) | payer OTHER, SELFPAY | PROVIDERS: PCP Physician Assistant; Visit Provider Internal Medicine Cardiovascular Disease | DX: I25.10 Atherosclerotic heart disease of native coronary artery without angina pectoris (principal); E78.5 Hyperlipidemia, unspecified; I25.2 Old myocardial infarction | CPT/HCPCS: 99212 ==

== ENCOUNTER 2023-09-29 13:00 | Outpatient (RCR) | payer OTHER, SELFPAY ==
--- NOTE | 2023-08-09 12:18 | MHC.PT.EP ---
[facility] [place] Office [place] Office [place] Office [address] Pola Ortega [address] [phone] F: [phone] F: [phone] F: [phone] F: [phone] Physical Therapy Plan of Care Date of Evaluation: 08/09/23 Date of Surgery: 07/27 Diagnosis: RTC Repair Assessment: 52 y/o R-hand dominant male s/p R RTC Repair on 07/27. He lives with his spouse and autisitc 8 y/o son. He is sleeping in his bed with pillows on his L side. Reports he is I with don/doffing sling otherwise reports limited with all R UE functional mobility and lifting. Of note, he had lumbar L4-5 laminectomy 06/06/23 and states his back feels better and no longer has restrictions. Examination shows limited R shoulder PROM, strength not tested secondary to surgical precautions, scabbed incisions, increased pain, and limited functional mobility. Recommend PT 2x/week for 12 weeks to address impairments, implement HEP, and optimize functional mobility. Frequency and Duration: The patient will be seen 2x/week for 12 weeks Short Term Goals: 6 weeks Compliant with HEP Improve R shoulder flexion AAROM to 140* Improve R shoulder ER AAROM to >50* Intermediate Goals: 12 weeks I with HEP and self management of sx Pt will be able to actively lift R shoulder to 120* to reach into overhead shelves Pt will be I with light peoplesoft analyst Treatment Plan: Modalities to reduce pain, spasms and effusion. Manual therapy to restore motion and function. Therapeutic exercise to improve strength and flexibility. Neuromuscular re-education for posture and balance. Therapeutic activities to return to functional activities of daily living. Electronically signed by: Ana Callaway PT Please sign and return to therapist. Thank you for your referral.
--- NOTE | 2023-10-31 12:20 | MHC.PT.DC ---
[facility] [place] [facility] [place] [facility] [place] [facility] [address] Pola Ortega [address] [phone] F: [phone] F: [phone] F: [phone] F: [phone] Physical Therapy Discharge Report Diagnosis: RTC Repair Date of Surgery: 07/27 Date of Evaluation: 08/09/23 Date of Discharge: 10/31/23 Treatments to Date: 6 Cancellations to Date: 11 No Shows to Date: 5 Discharge Status: Visit Non-compliance Discharge Summary: Pt had made progress with shoulder ROM however he is being d/c d/t noncompliance with scheduling policy having several cancellations and no show visits. Electronically signed by: Ana Callaway PT Please sign and return to therapist. Thank you for your referral.
== END 2023-10-31 12:20 | disposition home or self-care (01) ==
LOC: HO.PT 13:00
PROVIDERS: PCP Physician Assistant; Visit Provider Physician Assistant
DX: M75.111 Incomplete rotator cuff tear or rupture of right shoulder, not specified as traumatic (principal)
CPT/HCPCS: 97110; 97140; 97162

== ENCOUNTER 2023-10-11 10:26 | Outpatient (AMB) | payer OTHER, SELFPAY ==
--- NOTE | 2023-10-11 10:55 | A.OFFVIS_ITS ---
Intake Vital Signs 10/11/23 11:07 Height 5 ft 7 in Weight 168 lb BMI 26.3 Intake Visit Reasons: OV-Right Wrist, Discuss Surgery Intake Note: Kwaku 53 yr old male presents today to discuss Right Cubital tunnel release vs transposition & Right REPEAT Carpal tunnel release. He is also s/p right Shoulder from 07/27/23. last A1C was taken 06/28/23 and was a 8.1. also mentioned his director drug has cleared him already. Allergies Penicillins Allergy (Severe, Verified 10/11/23 11:23) Anaphylaxis HPI OV-Right Wrist, Discuss Surgery HPI Details Kwaku is a 53 year old right hand dominant man who returns to discuss his right carpal & cubital tunnel syndrome. He continues to have dense numbness in all fingers his right hand. He says his fingers are only a little less numb than when he received a nerve block prior to his right RTC repair by Dr. Guerrero, DOS: 07/28/23. He has a hx of a right carpal tunnel release many years in the past but he cannot remember the exact date. He says his symptoms did not improve following his surgery. 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 He says he is unsure if he is squeezing too hard when holding his sons' hand. He reports pain along anterior aspect of his right arm, extending along antecubital fossa, in line with the biceps tendon. He has some occasional pain in the extensor origin, near the lateral epicondyle He also complains of similar numbness in his left hand. Please see my previous note from 05/11/23 for more information regarding his LUE. He has a hx of Diabetes, CAD, depression, OCD, and is a heavy, daily, smoker of both cigarettes & Marijuana. He has been working on quitting smoking cigarettes since 09/26/23 He had a lumbar spine surgery in 06/13. He says he has some difficulty walking due to his lumbar spine issues. 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 He is no longer practicing. [facility] Medical History Change in consistency of stool Anxiety Glaucoma Diarrhea Migraine Peptic ulcer Depression Myocardial infarction Seizures Coronary artery disease Hyperlipidemia Diabetes mellitus Surgical History Hx of elbow surgery History of carpal tunnel surgery of right wrist History of incision and drainage History of back surgery History of esophagogastroduodenoscopy (EGD) Hx of colonoscopy Hx of inguinal hernia surgery History of ear surgery S/P coronary artery stent placement Family History Mother Lumbar spine tumor Father Heart attack Paternal Grandfather Heart attack Other No family history of coronary artery disease Social History Household Members: Spouse Housing: Apartment Are you a primary field care coordinator to a significant other at home: No Do you presently have visiting nurse or other home services: No Alcohol intake: never Comment: d/c from er Patient Tobacco Use Status: Current everyday Tobacco user Tobacco use type: Cigarette Cigarettes Per Day: 4 Years Smoked: 22+ e-Cigarette/Vaping Use: Never Used Second Hand Smoke Exposure: Yes Substance Use Type: Marijuana service: No Current occupational status: unemployed Cognitive needs: No Hearing needs: No Vision needs: Yes Physical Exam Vital Signs: BMI result Body Mass Index 26.3 Extrem Other: Evaluation of Right Upper Extremity: The patient is alert, oriented, and in no acute distress Neuro: Dense numbness to the tips of all digits, including the small finger Early intrinsic wasting, no thenar wasting Weak APB muscle belly firing and finger cross + Froment's sign on the right - Froment's sign on the left Vascular: Cap refill brisk ROM: He can make a fist and extend all his digits Nerve Conduction Study: Right side only IMPRESSION: 1. [id number] ulnar neuropathy across cubital tunnel. 2. [id number] right median neuropathy across carpal tunnel. Patricia Sandoval MD 02/03/23 Assessment & Plan Assessment & Plan (1) Carpal tunnel syndrome of right wrist: Code(s): G56.01 - Carpal tunnel syndrome, right upper limb (2) Cubital tunnel syndrome on right: Code(s): G56.21 - Lesion of ulnar nerve, right upper limb (3) Numbness and tingling in left hand: Code(s): R20.0 - Anesthesia of skin; R20.2 - Paresthesia of skin (4) Degenerative disc disease, cervical: Code(s): M50.30 - Other cervical disc degeneration, unspecified cervical region (5) Coronary artery disease: Code(s): I25.10 - Atherosclerotic heart disease of [place]ann[place] coronary artery without angina pectoris Qualifiers: Associated angina: without angina Coronary Disease-Associated Artery/Lesion type: [place]osh[place] artery [place] vs. transplanted heart: shoshone-bannock heart Qualified Code(s): I25.10 - Atherosclerotic heart disease of [place]ann[place] coronary artery without angina pectoris (6) Diabetes mellitus: Code(s): E11.9 - Type 2 diabetes mellitus without complications Qualifiers: Diabetes mellitus complication status: with hyperglycemia Diabetes mellitus mcc insulin use: without terminal clerk use Diabetes mellitus type: type 2 Qualified Code(s): E11.65 - Type 2 diabetes mellitus with hyperglycemia Plan Assessment & Plan: 1. Right Cubital tunnel syndrome, mild-moderate on NCS With dense numbness & early intrinsic wasting with a + Froment's sign This is his primary complaint today 2. Right Carpal tunnel syndrome, mild-moderate, recurrent S/P release DOS: unknown, several years ago at an outside clinic With Dense numbness that did not improve after the primary surgery More notably he does not have visible thenar atrophy, but does have weak APB muscle belly firing I educated him about these conditions I discussed operative and non-operative treatment options, I am recommending surgery to preserve motor function The patient would like to proceed with surgery I did explain that surgery is unlikely to affect the pain in his right arm The risks and benefits of operative treatment were discussed with the patient and the patient wishes to proceed with surgery. These risks include, but are not limited to risk of damage to blood vessels, nerves, tendons, infection, recurrence, incomplete relief of preoperative symptoms, persistent pain, possible need for further surgery and the risks associated with regional blocks and anesthesia. The plan is to take the patient to the operating room sometime in the next few weeks for the following procedures: 1. Right Cubital tunnel release vs transposition, under general 2. Right REPEAT Carpal tunnel release, under general All of the preoperative paperwork including the consent was filled out today. All the patient's questions were answered. The patient understands that they will be contacted by our online marketing specialist soon to schedule this procedure He denies blood thinners, asthma, lung, kidney issues He is a Diabetic, his most recent HgA1c was ~8.0%. He needs an updated HgA1c <8.1% in order to proceed with surgery. His next appointment to have thic checked in on 11/16/23. He has CAD & PAD and will need cardiac clearance prior to surgery. However he underwent a right RTC repair on 07/27/[address] Guerrero, with no complications He is a heavy smoker of cigarettes and Marijuana. he is working on quitting smoking since 09/26/23 3. Left hand numbness, S/P cubital tunnel release Done by Dr. Guerrero in ~2015 Primarily in the middle, ring, and small fingers He reports having some slight improvement following his cubital tunnel release, but it was short-lived and he has had numbness since that time Negative Froment sign We will evaluate this at a later date. Scribed for Sharmila Romero MD by Rowdy Upton, medical collections specialist, on 10/11/23 at 11:30 AM, EST. Coding Level of Care Code Est Pt Level 4 (00722) Diagnoses Carpal tunnel syndrome of right wrist G56.01 Cubital tunnel syndrome on right G56.21 Numbness and tingling in left hand R20.0; R20.2 Degenerative disc disease, cervical M50.30 Coronary artery disease involving shosh[place]bannock coronary artery of shosh[place]ann[place] heart without angina pectoris I25.10 Associated angina: without angina Coronary Disease-Associated Artery/Lesion type: [place]osh[place] artery [place] vs. transplanted heart: shoshone[place]bannock heart Type 2 diabetes mellitus with hyperglycemia, without long-term current use of insulin E11.65 Diabetes mellitus complication status: with hyperglycemia Diabetes mellitus terminal clerk insulin use: without terminal clerk use Diabetes mellitus type: type 2
[2023-10-11 11:07] VITALS: BMI 26.3
== END 2023-10-11 11:42 | disposition home or self-care (01) ==
PROVIDERS: PCP Physician Assistant; Visit Provider Orthopaedic Surgery
DX: G56.01 Carpal tunnel syndrome, right upper limb (principal); G56.21 Lesion of ulnar nerve, right upper limb; R20.0 Anesthesia of skin; R20.2 Paresthesia of skin; M50.30 Other cervical disc degeneration, unspecified cervical region; I25.10 Atherosclerotic heart disease of native coronary artery without angina pectoris; E11.65 Type 2 diabetes mellitus with hyperglycemia
CPT/HCPCS: 99214

== ENCOUNTER → 2023-10-11 10:26 | Outpatient (BNVA) | payer OTHER, SELFPAY | PROVIDERS: PCP Physician Assistant; Visit Provider Orthopaedic Surgery | DX: G56.01 Carpal tunnel syndrome, right upper limb (principal); G56.21 Lesion of ulnar nerve, right upper limb; R20.0 Anesthesia of skin; R20.2 Paresthesia of skin; M50.30 Other cervical disc degeneration, unspecified cervical region; I25.10 Atherosclerotic heart disease of native coronary artery without angina pectoris; E11.65 Type 2 diabetes mellitus with hyperglycemia | CPT/HCPCS: 99212 ==

== ENCOUNTER 2023-10-24 08:25 | Outpatient (REF) | payer OTHER, SELFPAY ==
[2023-10-24 09:20] LABS: Hematocrit 40.8 % (42.0-52.0); Hemoglobin 14.2 g/dl (14.0-18.0); Mean Corpuscular HGB Conc 34.8 g/dl (31.0-36.0); Mean Corpuscular Hemoglobin 29.9 pg (27.0-33.0); Mean Corpuscular Volume 85.9 fL (80.0-98.0); Mean Platelet Volume 9.5 fL (9.4-12.4); Platelet Count 202 X10*3/uL (160-400); Red Blood Count 4.75 X10*6/uL (4.60-5.80); Red Cell Distribution Width 13.2 % (11.0-16.0); White Blood Count 8.2 X10*3/uL (4.8-10.8)
[2023-10-24 09:33] LABS: Estimated Average Glucose 217 mg/dL; Hemoglobin A1c % 9.2 % (<6.0)
[2023-10-24 10:03] LABS: Cholesterol 148 mg/dL (<200); HDL Cholesterol 43 mg/dL (>40); LDL Cholesterol Calculated 69 mg/dL (<100); Triglycerides 181 mg/dL (<150)
== END 2023-10-24 08:26 | disposition home or self-care (01) ==
LOC: HO.LAB 08:25
PROVIDERS: PCP Physician Assistant; Visit Provider Physician Assistant
DX: E11.65 Type 2 diabetes mellitus with hyperglycemia (principal); E78.5 Hyperlipidemia, unspecified; M25.511 Pain in right shoulder; Z47.89 Encounter for other orthopedic aftercare; Z98.890 Other specified postprocedural states
CPT/HCPCS: 36415; 80061; 83036; 85027; 99212

== ENCOUNTER 2023-10-24 08:44 | Outpatient (AMB) | payer OTHER, SELFPAY ==
--- NOTE | 2023-10-24 09:08 | A.OFFVIS_ITS ---
Intake Intake Visit Reasons: PO-Rt Shoulder 07/27/23 NE Intake Note: Kwaku is a 52 year old right hand dominant male who presents today for a post op appointment s/p right shoulder 07/27/23. Patient reports that he is feeling pain in the shoulder, he explains that this pain is random and is not triggered by anything particular. He is scheduled to have a carpal & cubital tunnel surgery with Dr. Gibbons on 10/27/23 which should aleviate some symtpoms. Allergies Penicillins Allergy (Severe, Verified 10/11/23 11:23) Anaphylaxis HPI PO-Rt Shoulder 07/27/23 NE HPI Details Kwaku is a 53 year old man who presents ~3 months S/P right shoulder RTC repair with biceps tenotomy. He says he continues to have pain sporadically, with no identified triggers. He has been working with PT and has improved his ROM, which he is happy about. He has avoided any heavy lifting activities. He is scheduled for a right carpal & cubital tunnel release on 10/27/[address] Romero. He is hoping this will help some of his symptoms of pain. COUNT INCLUDES THE [facility] Medical History Change in consistency of stool Anxiety Glaucoma Diarrhea Migraine Peptic ulcer Depression Myocardial infarction Seizures Coronary artery disease Hyperlipidemia Diabetes mellitus Surgical History Hx of elbow surgery History of carpal tunnel surgery of right wrist History of incision and drainage History of back surgery History of esophagogastroduodenoscopy (EGD) Hx of colonoscopy Hx of inguinal hernia surgery History of ear surgery S/P coronary artery stent placement Family History Mother Lumbar spine tumor Father Heart attack Paternal Grandfather Heart attack Other No family history of coronary artery disease Social History Household Members: Spouse Housing: Apartment Are you a primary critical care physician assistant to a significant other at home: No Do you presently have visiting nurse or other home services: No Alcohol intake: never Comment: d/c from er Patient Tobacco Use Status: Current everyday Tobacco user Tobacco use type: Cigarette Cigarettes Per Day: 4 Years Smoked: 22+ e-Cigarette/Vaping Use: Never Used Second Hand Smoke Exposure: Yes Substance Use Type: Marijuana service: No Current occupational status: unemployed Cognitive needs: No Hearing needs: No Vision needs: Yes Review of Systems Const All systems reviewed & are unremarkable except as noted in HPI and below Physical Exam Const General: no acute distress, alert and awake Orientation/consciousness: patient oriented x3 HEENT Head: Yes normocephalic and Yes atraumatic Eyes EOM: EOMs intact bilaterally Resp Effort & Inspection: normal respiratory effort and able to speak in complete s entences Cardio Jugular venous distension: no JVD Skin General skin exam: turgor normal Rashes: no rashes Neuro General: patient oriented x3 Extrem Other: 45/90/120/S1 mild swati nwith emty can Psych Appearance: grossly normal Affect: normal affect Attitude: cooperative Assessment & Plan Assessment & Plan (1) S/P right rotator cuff repair: Comment: 07/27/2023 NE Code(s): Z98.890 - Other specified postprocedural states Plan: S/p RTC repair. Overall he is doing well. COntinue PT exercises and I would abstain from lifting activities until pain gone. He may follow up in 3 months. Plan Prepared for Cesar Guerrero MD by Rowdy Upton, medical coding specialist, on 10/24/23 at 9:11 AM, EST. Coding Level of Care Code Global (83571) Diagnoses S/P right rotator cuff repair Z98.890
== END 2023-10-24 10:00 | disposition home or self-care (01) ==
PROVIDERS: PCP Physician Assistant; Visit Provider Orthopaedic Surgery
DX: Z98.890 Other specified postprocedural states (principal)
CPT/HCPCS: 99024

== ENCOUNTER 2023-11-16 11:29 | Outpatient (AMB) | payer OTHER, SELFPAY ==
--- NOTE | 2023-11-16 11:47 | A.OFFPC_ITS ---
Vital Signs 11/16/23 11:53 Height 5 ft 7 in Weight 179 lb BMI 28.0 BP 138/80 Blood Pressure Location Lt brachial Position Sitting Pulse 79 Pulse Source Pulse Oximeter Pulse Oximetry (%) 100 Oxygen Delivery Method Room Air Intake Visit Reasons: 3 Month F/U Oil Burner Required: No Accompanied by: Self / Same As Patient Allergies Penicillins Allergy (Severe, Verified 11/16/23 12:23) Anaphylaxis Medication List - Last Reconciled 11/16/23 by Jason Vega PA-C aspirin (Ecotrin Low Strength) 81 mg PO DAILY atorvastatin (Lipitor) 40 mg PO DAILY 90 days blood sugar diagnostic (FreeStyle Lite Strips) Testing once a day as needed blood-glucose meter (FreeStyle Lite Meter kit) As directed cane As directed cyclobenzaprine 10 mg PO BEDTIME 90 days flash glucose scanning reader ([employer] John 2 [place]) As directed flash glucose sensor (FreeStyle John 2 Sensor kit) As directed gabapentin 800 mg PO BID 30 days lancets (FreeStyle Lancets) Testing once a day as needed metformin 1,000 mg PO BID 90 days pantoprazole (Protonix) 40 mg PO DAILY 90 days pioglitazone (Actos) 15 mg PO DAILY 90 days propranolol 10 mg PO BID 90 days simethicone (Gas Relief (simethicone)) 125 mg PO TID-QID PRN varenicline 0.5 mg PO; Take 0.5 mg qd x 3 days, then 0.5 mg b.i.d. x4 days 7 days varenicline 1 mg PO BID 90 days venlafaxine 37.5 mg PO DAILY 90 days Tobacco use date assessed: 11/16/23 HPI 3 Month F/U HPI Details Patient is a 53-year-old male here today for follow-up visit.? Patient has a past medical history significant for type 2 diabetes, coronary artery disease, hyperlipidemia, major depressive disorder. Concern---> he still has concerns about having a seizure disorder as he does r eport symptoms of random metallic taste in his mouth along with feeling as though his body gives out strength. He has seen multiple neurologists in the past and a mentions he was told he may have MS. Has had MRIs of his brain which did show nonspecific white matter spots. He would like to see a new neurologist for further evaluation of possible seizure disorder Degenerative spine disease MRI cervical spine showing--> Multilevel discogenic degenerative changes as described above with multilevel central disc herniations and disc osteophyte complexes with multilevel [id number] degrees of spinal canal stenosis with moderate left-sided ventral cord deformity at C6-C7 and slight ventral cord impingement at C4-C5 and C5-C6. Has underwent lumbar spine surgery which has reduced his lower lumbar spine pain .. Coronary artery disease:? Has quit smoking.? Continues on moderate dose statin.? He denies any chest discomfort or shortness of breath on exertion.. He has follow-up with cardiology advised to continue aspirin therapy .. Former smoker? Continues on Chantix and is quit smoking over the last several months. He does admit to taking a drag from a cigarette from time to time though has generally stopped smoking Major depressive disorder:? Does report having more more depressed as of late due to stress in his family life.? He does report having some suicidal ideations at times though reports he will never do that himself due to his 8-year-old autistic son.? He is willing to speak with a mental health therapist in starting mental health medications. --> also complains of having an OCD mens es and does pick at his skin a lot. He is willing to try medication to help him with this. .. Type 2 diabetes:? Most recent A1c above 9. He reports dietary indiscretion as of lately. He would like to recheck his A1c in 5 weeks to assure it is below 8 so that he can get his carpal and cubital tunnel surgery done. He continues on metformin a 1000 b.i.d.. [facility] Medical History Change in consistency of stool Anxiety Glaucoma Diarrhea Migraine Peptic ulcer Depression Myocardial infarction Seizures Coronary artery disease Hyperlipidemia Diabetes mellitus Surgical History Hx of elbow surgery History of carpal tunnel surgery of right wrist History of incision and drainage History of back surgery History of esophagogastroduodenoscopy (EGD) Hx of colonoscopy Hx of inguinal hernia surgery History of ear surgery S/P coronary artery stent placement Family History Mother Lumbar spine tumor Father Heart attack Paternal Grandfather Heart attack Other No family history of coronary artery disease Social History Household Members: Spouse Housing: Apartment Are you a primary hearing care professional to a significant other at home: No Do you presently have visiting nurse or other home services: No Alcohol intake: never Comment: d/c from er Patient Tobacco Use Status: Former Tobacco user Tobacco use type: Cigarette Cigarettes Per Day: 4 Years Smoked: 22+ e-Cigarette/Vaping Use: Never Used Second Hand Smoke Exposure: Yes Substance Use Type: Marijuana service: No Current occupational status: unemployed Cognitive needs: No Hearing needs: No Vision needs: Yes Questionnaire PHQ-9 Over the last 2 weeks, how often have you been bothered by any of the following problems? 1. Little interest or pleasure in doing things: not at all 2. Feeling down, depressed, or hopeless: several days 3. Trouble falling or staying asleep, or sleeping too much: nearly every day 4. Feeling tired or having little energy: nearly every day 5. Poor appetite or overeating: not at all 6. Feeling bad about yourself - or that you are a failure or have let yourself or your family down: nearly every day 7. Trouble concentrating on things, such as reading the newspaper or watching television: nearly every day 8. Moving or speaking so slowly that other people could have noticed. Or the opposite - being so fidgety or restless that you have been moving around a lot more than usual: more than half the days 9. Thoughts that you would be better off or of hurting yourself in some way: not at all Total score: 15 Depression Screening Interpretation: Positive Depression Screening Follow-up: New Medication prescribed Depression Screening Done: Yes 30421 - PHQ-9 Billing: Yes Source: Developed by Drs. Paul Brand, Kim Sauer, Abdias Patel and colleagues, with an educational chad from [employer]. Thrive Questionnaire Date Thrive assessed: 11/16/23 I am a: Patient What is your living situation today?: I have a place to live, but I am worried about losing it in the future (10 month behind on rent/in court for a whole year) Within the past 12 months, did the food you bought not last and you didn't have the money to get more?: Never true Within the past 12 months, did you worry whether your food would run out before you got money to buy more?: Never true Do you have trouble paying for medicines?: No Do you have trouble getting transportation to medical appointments?: No Do you have trouble paying your heating and electricity bill?: No Do you have trouble taking care of your child, family member or friend?: No Do you have trouble with day-to-day activities such as bathing, preparing meals, shopping, managing finances, etc.?: No Are you currently unemployed and looking for a job?: No Are you interested in more education?: No Please select the resources that you would like help with: None Currently or been in a relationship where the following occur: no concerns reported THRIVE Score: 1 AUDIT C Alcohol Use Questionnaire (AUDIT-C) 1. How often do you have a drink containing alcohol?: Never 3. How often do you have six or more drinks on one occasion?: Never Total Score: 0 Score Reviewed/Action Taken: No BILLY-7 AMB Questionnaire BILLY-7 Date BILLY - 7 assessed: 11/16/23 Feeling nervous, anxious, or on edge: 0 = Not at all Not being able to stop or control worryin = Not at all Worrying too much about different things: 0 = Not at all Trouble relaxin = Not at all Being so restless that it is hard to sit still: 0 = Not at all Becoming easily annoyed or irritable: 0 = Not at all Feeling afraid as if something awful might happen: 0 = Not at all Total BILLY-7 score (0-4 normal; 5-9 mild; 10-14 moderate; 15-21 severe): 0 Source: Developed by Drs. Paul Brand, Kim Sauer, Abdias Patel and colleagues, with an educational chad from [employer]. BILLY-7 Assessment Billing BILLY-7 Assessment Tool: BILLY-7 Assessment 10216 Review of Systems Const Denies headache(s) Eyes Denies loss of vision ENT Denies vertigo, Denies dizziness, Denies headache(s) and Denies sore throat Card Denies chest pain, Denies leg edema and Denies lightheadedness Resp Denies cough, Denies hemoptysis and Denies wheezing GI Denies abdominal pain, Denies melena, Denies constipation, Denies diarrhea and Denies vomiting Denies dysuria, Denies urinary frequency and Denies urinary urgency Musc Denies arthralgias, Denies joint swelling, Denies numbness and Denies tingling Neuro Denies Abnormal speech present, Denies behavioral changes, Denies vertigo, Denies dizziness, Denies headache(s), Denies loss of vision, Denies memory loss, Denies numbness and Denies tingling Psych Denies anxiety, Denies behavioral changes, Denies depression, Denies memory loss and Denies panic attacks Jamarcus/Lymph Denies easy bleeding and Denies easy bruising Aller/Immun Denies wheezing Physical exam (Primary Care) Vital Signs: Last Vital Signs Pulse 79 11/16/23 11:53 BP 138/80 11/16/23 11:53 Pulse Ox 100 11/16/23 11:53 Oxygen Delivery Method Room Air 11/16/23 11:53 BMI result Body Mass Index 28.0 Tobacco/Smoking Status: Tobacco use Status Tobacco use date assessed 11/16/23 11/16/23 11:58 Patient Tobacco Use Status Former Tobacco user 11/16/23 12:32 Tobacco use type Cigarette 11/16/23 11:47 e-Cigarette/Vaping Use Never Used 11/16/23 11:47 PHQ-9: PHQ-9 Score PHQ-9: Total score 15 11/16/23 12:25 Depression Screening Interpretation: Positive Depression Screening Follow-up: New Medication prescribed Thrive Assessment: Date of Thrive Assessment Date Thrive assessed 11/16/23 11/16/23 11:58 Currently or been in a relationship where the following occur: no concerns reported Const General: healthy appearing, no acute distress, alert and awake Nutritional Appearance: well nourished Orientation/consciousness: oriented to person, oriented to place and oriented to time HENMT Ears: TM's normal bilaterally General nose exam: Normal nasal mucous membranes and turbinates present Eyes Conjunctivae: conjunctivae normal Sclerae: sclerae normal Pupils: Equal, round and reactive pupils present Neck Neck: Yes no lymphadenopathy and Yes no JVD Thyroid: Thyroid normal Carotids: no bruits Resp Effort & Inspection: normal respiratory effort and not tachypneic Auscultation: no crackles, no rales, no rhonchi and no wheezes Cardio Rate: regular rate Rhythm: regular rhythm Heart sounds: no murmurs and normal S1 and S2 GI Palpation (GI): Soft to palpation, nontender, no hepatomegaly and no splenomegaly Auscultation: normal bowel sounds Skin General skin exam: no rashes or lesions noted and dry skin Neuro General: oriented to person, oriented to place and oriented to time Cranial nerves: Yes Equal, round and reactive pupils present Speech: No Abnormal speech present Gait exam (Neuro): Normal gait present Motor exam (neuro): no tremor noted Extrem Right upper extremity: full ROM Left upper extremity: full ROM Right lower extremity: full ROM; no edema Left lower extremity: full ROM; no edema Psych Mental Status: mental status grossly normal Speech and movement: Normal speech and movement present Affect: normal affect Attitude: cooperative Thought process: Normal thought process present Assessment and Plan Assessment & Plan (1) Diabetes mellitus: Code(s): E11.9 - Type 2 diabetes mellitus without complications Qualifiers: Diabetes mellitus complication status: with hyperglycemia Diabetes mellitus meterman insulin use: without meterman use Diabetes mellitus type: type 2 Qualified Code(s): E11.65 - Type 2 diabetes mellitus with hyperglycemia Plan: Patient's type 2 diabetes suboptimally controlled though much improved since last office visit. Most recent A1c at 9.2. He does admit to dietary indiscretion. He would like to recheck his A1c in the next 5 weeks and if below 8 will be able to be candidate for surgery. (2) Coronary artery disease: Code(s): I25.10 - Atherosclerotic heart disease of tribe coronary artery without angina pectoris Qualifiers: Associated angina: without angina Coronary Disease-Associated Artery/Lesion type: tribe artery [place] vs. transplanted heart: tribe heart Qualified Code(s): I25.10 - Atherosclerotic heart disease of tribe coronary artery without angina pectoris Plan: Patient now followed by Cardiology. Continues on high potency statin and daily aspirin. Denies any chest pain, pal pitations shortness of breath on exertion. (3) OCD (obsessive compulsive disorder): Code(s): F42.9 - Obsessive-compulsive disorder, unspecified Qualifiers: Obsessive-compulsive disorder type: excoriation disorder Qualified Code(s): F42.4 - Excoriation (skin-picking) disorder Plan: Patient does seem to have an OCD disorder. Continues on venlafaxine with good effect. Of note has a history acute angle glaucoma. Has underwent surgery to reverse this which was successful. (4) Tobacco dependence: Code(s): F17.200 - Nicotine dependence, unspecified, uncomplicated Plan: Patient does understand he needs to completely quit smoking due to his elevated CV risk. Has generally quit smoking. He does take a drug from cigarette from time to time. Has been using Chantix which has been helpful on smoking cessation. (5) Seizures: Comment: last seizure 03/2023-has not taken keppra X2 years-has followed w/PCP-has new appt w/Dr. Santiago or Dr. Sandoval 08/10/23-prior patient of theirs Code(s): R56.9 - Unspecified convulsions Plan: Has a history of seizures. Was on Keppra in the past though has been off of this medication. MRI of brain done in 2018 showing nonspecific white matter disease. He would like to establish care with a new neurologist for further evaluation and possible restarting seizure medication. (6) MDD (major depressive disorder), recurrent episode, moderate: Code(s): F33.1 - Major depressive disorder, recurrent, moderate Plan: Patient's PHQ-9 score positive for depression which has been existing condition for him. He continues on SNRI therapy with good effect on his mood. Orders: Orders Complete Blood Count no Diff Today I73.9 - Peripheral vascular disease, unspecified Hemoglobin A1c 5 Weeks E11.65 - Type 2 diabetes mellitus with hyperglycemia Comprehensive [place]. Panel Fast Today E78.5 - Hyperlipidemia, unspecified Lipid Panel Today E78.5 - Hyperlipidemia, unspecified Referrals Neurology Referral R56.9 - Unspecified convulsions Medications: Discontinued varenicline Discontinued Reason: Doctor's Order 0.5 mg PO; Take 0.5 mg qd x 3 days, then 0.5 mg b.i.d. x4 days 7 days 11 tabs 0RF F17.200 - Nicotine dependence, unspecified, uncomplicated Coding Level of Care Code Est Pt Level 4 (31769) Diagnoses Type 2 diabetes mellitus with hyperglycemia, without long-term current use of insulin E11.65 Diabetes mellitus complication status: with hyperglycemia Diabetes mellitus [facility] insulin use: without [facility] use Diabetes mellitus type: type 2 Coronary artery disease involving tribe coronary artery of tribe heart without angina pectoris I25.10 Associated angina: without angina Coronary Disease-Associated Artery/Lesion type: tribe artery [place] vs. transplanted heart: tribe heart Excoriation (skin-picking) disorder F42.4 Obsessive-compulsive disorder type: excoriation disorder Tobacco dependence F17.200 Seizures R56.9 MDD (major depressive disorder), recurrent episode, moderate F33.1 Additional Codes BILLY-7 Assessment Billing - BILLY-7 Assessment Tool: BILLY-7 Assessment 98763 ([id number])
[2023-11-16 11:53] VITALS: BP 138/80; PULSE 79; O2SAT 100; BMI 28.0
== END 2023-11-16 12:44 | disposition home or self-care (01) ==
PROVIDERS: PCP Physician Assistant; Visit Provider Physician Assistant
DX: E11.65 Type 2 diabetes mellitus with hyperglycemia (principal); R56.9 Unspecified convulsions; F33.1 Major depressive disorder, recurrent, moderate; I25.10 Atherosclerotic heart disease of native coronary artery without angina pectoris; F42.4 Excoriation (skin-picking) disorder; F17.210 Nicotine dependence, cigarettes, uncomplicated
CPT/HCPCS: 96127; 99214

== ENCOUNTER 2024-01-05 08:30 | Outpatient (REF) | payer OTHER, SELFPAY ==
--- NOTE | ~2024-01-05 | XR_ITS ---
EXAMINATION: XR SHOULDER, RIGHT CLINICAL INFORMATION: Right shoulder pain COMPARISON: Right shoulder x-ray on 12/23/2022 TECHNIQUE: AP external rotation, Grashey, and axillary views of the right shoulder. FINDINGS: BONES: Bony structures are intact. Surgical anchor is seen in lateral right humeral head. There is no focal bone destruction or periosteal reaction seen. JOINTS: Alignment of joints is normal. SOFT TISSUE: Lititz-shaped calcification is seen directly above the right humeral greater tuberosity. No radiopaque foreign body or abnormal air collection is seen. XR/XR shoulder RT min 2V IMPRESSION: 1. Interval performance of right shoulder tendon repair. 2. Interval development of right rotator cuff calcific tendinitis. 3. No fracture or dislocation or signs of osteomyelitis are found.
== END 2024-01-05 08:31 | disposition home or self-care (01) ==
LOC: HO.HOSX 08:30
PROVIDERS: PCP Physician Assistant; Visit Provider Orthopaedic Surgery
DX: M25.511 Pain in right shoulder (principal); G56.21 Lesion of ulnar nerve, right upper limb; Z98.890 Other specified postprocedural states
CPT/HCPCS: 73030; 99212

== ENCOUNTER 2024-01-05 08:30 | Outpatient (AMB) | payer OTHER, SELFPAY ==
[2024-01-05 08:34] VITALS: BMI 28.0
--- NOTE | 2024-01-05 08:34 | A.OFFVIS_ITS ---
Vital Signs 01/05/24 08:34 Height 5 ft 7 in Weight 179 lb BMI 28.0 Intake Visit Reasons: OV - Rt Shoulder 07/27/23 NE Intake Note: Kwaku is a 52 year old right hand dominant male who presents today for a post op appointment s/p right shoulder 07/27/23. He is booked to have Carpal & cubital tunnel surgery with Dr. Gibbons Patient reports that he is having more pain than he did prior to surgery. He expresses concerns for his clavicle, while sleeping he felt something shift and he now has pain in the proximal and distal aspect of the clavicle. he feels that the clavicle is pressing on the tendons of his neck. He has muscle spasms in the tricep of the righ arm, he is taking muscle relaxers which are not helping. Allergies Penicillins Allergy (Severe, Verified 11/16/23 12:23) Anaphylaxis HPI HPI OV - Rt Shoulder 07/27/23 NE: Details: Chucho comes in today almost 6 months status post right shoulder rotator cuff repair and biceps tenotomy. He states about 2 3 weeks ago he started having worsened pain and noticing prominence of the medial head of the clavicle. He also has ulnar hand numbness . He has not been working. He states he has some difficulty at night with pain in his subdeltoid and triceps region of his right shoulder. [facility] Medical History Change in consistency of stool Anxiety Glaucoma Diarrhea Migraine Peptic ulcer Depression Myocardial infarction Seizures Coronary artery disease Hyperlipidemia Diabetes mellitus Surgical History Hx of elbow surgery History of carpal tunnel surgery of right wrist History of incision and drainage History of back surgery History of esophagogastroduodenoscopy (EGD) Hx of colonoscopy Hx of inguinal hernia surgery History of ear surgery S/P coronary artery stent placement Family History Mother Lumbar spine tumor Father Heart attack Paternal Grandfather Heart attack Other No family history of coronary artery disease Social History Household Members: Spouse Housing: Apartment Are you a primary associate director career services to a significant other at home: No Do you presently have visiting nurse or other home services: No Alcohol intake: never Comment: d/c from er Patient Tobacco Use Status: Former Tobacco user Tobacco use type: Cigarette Cigarettes Per Day: 4 Years Smoked: 22+ e-Cigarette/Vaping Use: Never Used Second Hand Smoke Exposure: Yes Substance Use Type: Marijuana service: No Current occupational status: unemployed Cognitive needs: No Hearing needs: No Vision needs: Yes Physical Exam Vital Signs: BMI result Body Mass Index 28.0 Extrem Other: Mild prominence of the medial head of the clavicle at the sternoclavicular joint without instability Negative empty can Painful Anderson and Neer Positive Tinel's at the cubital tunnel Results Reviewed Results Reviewed: I personally reviewed relevant radiographs. No change in hardware alignment right shoulder radiographs. There is a question of calcific tendinitis of the rotator cuff insertion. Assessment & Plan Assessment & Plan (1) S/P right rotator cuff repair: Comment: 07/27/2023 NE Code(s): Z98.890 - Other specified postprocedural states Category: Surgical Plan: Status post rotator cuff repair on the right. There is no evidence of re-injury but he does have discomfort. He is trying to schedule a cubital tunnel decompression because of ulnar nerve symptoms. He is going to get a hemoglobin A1c and if that is under 8 do the surgery. I think that is reasonable. I would recommend get this done as soon as possible because I think it is affecting his shoulder mechanics. If his hemoglobin A1c is above a will contact me and I will write a prescription for physical therapy for his right shoulder. (2) Cubital tunnel syndrome on right: Code(s): G56.21 - Lesion of ulnar nerve, right upper limb Category: Medical Plan: Orders: Orders XR shoulder RT min 2V Today M25.519 - Pain in unspecified shoulder Coding Level of Care Code Est Pt Level 4 (75037) Diagnoses S/P right rotator cuff repair Z98.890 Cubital tunnel syndrome on right G56.21
== END 2024-01-05 09:10 | disposition home or self-care (01) ==
PROVIDERS: PCP Physician Assistant; Visit Provider Orthopaedic Surgery
DX: G56.21 Lesion of ulnar nerve, right upper limb (principal); M75.111 Incomplete rotator cuff tear or rupture of right shoulder, not specified as traumatic; S43.431S Superior glenoid labrum lesion of right shoulder, sequela
CPT/HCPCS: 99214

== ENCOUNTER 2024-01-05 09:17 | Outpatient (REF) | payer OTHER, SELFPAY ==
[2024-01-05 10:03] LABS: Hematocrit 39.8 % (42.0-52.0); Hemoglobin 13.8 g/dl (14.0-18.0); Mean Corpuscular HGB Conc 34.7 g/dl (31.0-36.0); Mean Corpuscular Hemoglobin 29.9 pg (27.0-33.0); Mean Corpuscular Volume 86.1 fL (80.0-98.0); Mean Platelet Volume 9.6 fL (9.4-12.4); Platelet Count 218 X10*3/uL (160-400); Red Blood Count 4.62 X10*6/uL (4.60-5.80); Red Cell Distribution Width 12.7 % (11.0-16.0); White Blood Count 7.4 X10*3/uL (4.8-10.8)
[2024-01-05 10:23] LABS: Alanine Aminotransferase 24 U/L (0-40); Albumin Level 4.6 g/dL (3.5-5.0); Alkaline Phosphatase 79 U/L (39-117); Anion Gap 12 (12-20); Aspartate Amino Transferase 15 U/L (5-37); Bilirubin Total 0.4 mg/dL (0.0-1.0); Blood Urea Nitrogen 18 mg/dL (9-16); Calcium 9.8 mg/dL (8.4-10.2); Carbon Dioxide 29 mmol/L (22-29); Chloride 102 mmol/L (96-108); Cholesterol 138 mg/dL (<200); Estimated Glomerular Filt Rate > 60; Glucose Fasting 187 mg/dL (60-99); HDL Cholesterol 43 mg/dL (>40); LDL Cholesterol Calculated 62 mg/dL (<100); Potassium 4.1 mmol/L (3.3-5.1); Sodium 139 mmol/L (135-145); Total Protein 7.4 g/dL (6.5-8.0); Triglycerides 167 mg/dL (<150)
[2024-01-05 11:03] LABS: Estimated Average Glucose 209 mg/dL; Hemoglobin A1c % 8.9 % (<6.0)
== END 2024-01-05 09:18 | disposition home or self-care (01) ==
LOC: HO.LAB 09:17
PROVIDERS: PCP Physician Assistant; Visit Provider Physician Assistant
DX: E78.5 Hyperlipidemia, unspecified (principal); I73.9 Peripheral vascular disease, unspecified; E11.65 Type 2 diabetes mellitus with hyperglycemia
CPT/HCPCS: 36415; 80053; 80061; 83036; 85027

== ENCOUNTER 2024-02-16 08:39 | Outpatient (AMB) | payer OTHER, SELFPAY ==
[2024-02-16 09:04] VITALS: BP 140/80; PULSE 65; O2SAT 100; BMI 28.8
--- NOTE | 2024-02-16 09:04 | MHC.PC.OV ---
Vital Signs 02/16/24 09:04 Height 5 ft 7 in Weight 184 lb BMI 28.8 BP 140/80 H Blood Pressure Location Lt brachial Position Sitting Pulse 65 Pulse Source Pulse Oximeter Pulse Oximetry (%) 100 Oxygen Delivery Method Room Air Intake Visit Reasons: f/u DMII Manager Inventory Management Required: No Network Security Consultant: Not Required per policy Accompanied by: Self / Same As Patient Allergies Penicillins Allergy (Severe, Verified 02/16/24 09:19) Anaphylaxis Medication List - Last Reconciled 02/16/24 by Jason Vega PA-C aspirin (Ecotrin Low Strength) 81 mg PO DAILY atorvastatin (Lipitor) 40 mg PO DAILY 90 days blood sugar diagnostic (FreeStyle Lite Strips) Testing once a day as needed blood-glucose meter (FreeStyle Lite Meter kit) As directed cane As directed cyclobenzaprine 10 mg PO BEDTIME 90 days flash glucose scanning reader (NMRKTStyle John 2 [place]) As directed flash glucose sensor (FreeStyle John 2 Sensor kit) As directed gabapentin 800 mg PO BID 30 days insulin glargine (Lantus Solostar U-100 Insulin) 12 units (0.12 mL) subcut QAM 30 days lancets (FreeStyle Lancets) Testing once a day as needed metformin 1,000 mg PO BID 90 days pantoprazole (Protonix) 40 mg PO DAILY 90 days pen needle, diabetic (BD Ultra-Fine [place] Pen Needle) As directed pioglitazone (Actos) 15 mg PO DAILY 90 days propranolol 10 mg PO BID 90 days simethicone (Gas Relief (simethicone)) 125 mg PO TID-QID PRN varenicline 1 mg PO BID 90 days venlafaxine 37.5 mg PO DAILY 90 days Tobacco use date assessed: 11/16/23 Dental Screening Dental Screen Date: 02/16/24 Did you have a dental visit in the last 12 months?: No Did you have a dental problem in the last 6 months where you did not have access to dental care?: No Was dental information given to patient?: Patient has dentist HPI f/u DMII HPI Details Patient is a 53-year-old male here today for follow-up visit.? Patient has a past medical history significant for type 2 diabetes, coronary artery disease, hyperlipidemia, major depressive disorder. .. Coronary artery disease:? Has quit smoking.? Continues on moderate dose statin.? He denies any chest discomfort or shortness of breath on exertion.. He has follow-up with cardiology advised to continue aspirin therapy .. Former smoker? Continues on Chantix and is quit smoking over the last several months. He does admit to taking a drag from a cigarette from time to time though has generally stopped smoking Major depressive disorder:? Does report having more more depressed as of late due to stress in his family life.? He does report having some suicidal ideations at times though reports he will never do that himself due to his 8-year-old autistic son.? He is willing to speak with a mental health therapist in starting mental health medications. --> also complains of having an OCD menses and does pick at his skin a lot. He is willing to try medication to help him with this. .. Type 2 diabetes:? Most recent A1c improved to 8.9.. He reports dietary indiscretion as of lately. He now has a continues glucose monitor(DebtLESS Communitystyle John) which has been helpful on managing his blood sugars.. He is anticipating cubital tunnel surgery and needs A1c below 8. Has been Lantus 12 units and reports sugars still 200-220. Of note has only been using 1 metformin 1000 mg per day. PLAN: Will increase his metformin to 1000 mg b.i.d.. He will up titrate his Lantus dose by 2 units weekly until gets his blood sugars 140s to 160s. [facility] Medical History Change in consistency of stool Anxiety Glaucoma Diarrhea Migraine Peptic ulcer Depression Myocardial infarction Seizures Coronary artery disease Hyperlipidemia Diabetes mellitus Surgical History Hx of elbow surgery History of carpal tunnel surgery of right wrist History of incision and drainage History of back surgery History of esophagogastroduodenoscopy (EGD) Hx of colonoscopy Hx of inguinal hernia surgery History of ear surgery S/P coronary artery stent placement Family History Mother Lumbar spine tumor Father Heart attack Paternal Grandfather Heart attack Other No family history of coronary artery disease Social History Household Members: Spouse Housing: Apartment Are you a primary neurocritical care physician to a significant other at home: No Do you presently have visiting nurse or other home services: No Alcohol intake: never Comment: d/c from er Patient Tobacco Use Status: Former Tobacco user Tobacco use type: Cigarette Cigarettes Per Day: 4 Years Smoked: 22+ e-Cigarette/Vaping Use: Never Used Second Hand Smoke Exposure: Yes Substance Use Type: Marijuana service: No Current occupational status: unemployed Cognitive needs: No Hearing needs: No Vision needs: Yes Questionnaire Thrive Questionnaire Date Thrive assessed: 11/16/23 BILLY-7 AMB Questionnaire BILLY-7 Date BILLY - 7 assessed: 11/16/23 Source: Developed by Drs. Paul Brand, Kim Sauer, Abdias Patel and colleagues, with an educational chad from [employer]. Review of Systems Const Denies headache(s) Eyes Denies loss of vision ENT Denies vertigo, Denies dizziness, Denies headache(s) and Denies sore throat Card Denies chest pain, Denies leg edema and Denies lightheadedness Resp Denies cough, Denies hemoptysis and Denies wheezing GI Denies abdominal pain, Denies melena, Denies constipation, Denies diarrhea and Denies vomiting Denies dysuria, Denies urinary frequency and Denies urinary urgency Musc Denies arthralgias, Denies joint swelling, Denies numbness and Denies tingling Neuro Denies Abnormal speech present, Denies behavioral changes, Denies vertigo, Denies dizziness, Denies headache(s), Denies loss of vision, Denies memory loss, Denies numbness and Denies tingling Psych Denies anxiety, Denies behavioral changes, Denies depression, Denies memory loss and Denies panic attacks Jamarcus/Lymph Denies easy bleeding and Denies easy bruising Aller/Immun Denies wheezing Physical exam (Primary Care) Vital Signs: Last Vital Signs Pulse 65 02/16/24 09:04 BP 140/80 H 02/16/24 09:04 Pulse Ox 100 02/16/24 09:04 Oxygen Delivery Method Room Air 02/16/24 09:04 BMI result Body Mass Index 28.8 Tobacco/Smoking Status: Tobacco use Status Tobacco use date assessed 11/16/23 02/16/24 09:05 Patient Tobacco Use Status Former Tobacco user 02/16/24 09:05 Tobacco use type Cigarette 02/16/24 09:05 e-Cigarette/Vaping Use Never Used 02/16/24 09:05 Are you ready to quit: No Tobacco cessation counseling provided: Yes Items discussed: Nicotine replacement Relapse Prevention: discussed the importance of a supportive environment, discussed negative mood or depression after quitting, weight gain after smoking is common and discussed dietary, exercise and/or lifestyle changes Number of minutes spent counselin CPT code: 83465 - 4-10 Minutes Thrive Assessment: Date of Thrive Assessment Date Thrive assessed 11/16/23 02/16/24 09:05 Const General: healthy appearing, no acute distress, alert and awake Nutritional Appearance: well nourished Orientation/consciousness: oriented to person, oriented to place and oriented to time HENMT Ears: TM's normal bilaterally General nose exam: Normal nasal mucous membranes and turbinates present Eyes Conjunctivae: conjunctivae normal Sclerae: sclerae normal Pupils: Equal, round and reactive pupils present Neck Neck: Yes no lymphadenopathy and Yes no JVD Thyroid: Thyroid normal Carotids: no bruits Chest Chest/axillae images: 1. TENDERNESS TO PALPATION IN THE AREA OUTLINED Resp Other: GOOD BREATH SOUNDS OVER RIGHT CHEST. Effort & Inspection: normal respiratory effort and not tachypneic Auscultation: no crackles, no rales, no rhonchi and no wheezes Cardio Rate: regular rate Rhythm: regular rhythm Heart sounds: no murmurs and normal S1 and S2 GI Palpation (GI): Soft to palpation, nontender, no hepatomegaly and no splenomegaly Auscultation: normal bowel sounds Skin General skin exam: no rashes or lesions noted and dry skin Neuro General: oriented to person, oriented to place and oriented to time Cranial nerves: Yes Equal, round and reactive pupils present Speech: No Abnormal speech present Gait exam (Neuro): Normal gait present Motor exam (neuro): no tremor noted Extrem Right upper extremity: full ROM Left upper extremity: full ROM Right lower extremity: full ROM; no edema Left lower extremity: full ROM; no edema Psych Mental Status: mental status grossly normal Speech and movement: Normal speech and movement present Affect: normal affect Attitude: cooperative Thought process: Normal thought process present Assessment and Plan Assessment & Plan (1) Diabetes mellitus: Code(s): E11.9 - Type 2 diabetes mellitus without complications Qualifiers: Diabetes mellitus type: type 2 Diabetes mellitus long filler cigar roller machine insulin use: without long filler cigar roller machine use Diabetes mellitus complication status: with hyperglycemia Qualified Code(s): E11.65 - Type 2 diabetes mellitus with hyperglycemia Plan: Patient's type 2 diabetes suboptimally controlled though much improved since last office visit. See at 8.9. He will increase his metformin to a 1000 b.i.d.. He will up titrate his Lantus dose by 2 units until sugars are more regularly 120s to 160s. Will recheck A1c in mid 03/2024 He does admit to dietary indiscretion, reports it is to expensive to eat healthy . He would like to recheck his A1c in the next 5 weeks and if below 8 will be able to be candidate for surgery. (2) Coronary artery disease: Code(s): I25.10 - Atherosclerotic heart disease of hoopa coronary artery without angina pectoris Qualifiers: Coronary Disease-Associated Artery/Lesion type: hoopa artery [place] vs. transplanted heart: hoopa heart Associated angina: without angina Qualified Code(s): I25.10 - Atherosclerotic heart disease of hoopa coronary artery without angina pectoris Plan: Patient now followed by Cardiology. Continues on high potency statin and daily aspirin. Denies any chest pain, palpitations shortness of breath on exertion. (3) Tobacco dependence: Code(s): F17.200 - Nicotine dependence, unspecified, uncomplicated Plan: Patient does understand he needs to completely quit smoking due to his elevated CV risk. Has generally quit smoking. He does take a drug from cigarette from time to time. Has been using Chantix which has been helpful on smoking cessation. (4) MDD (major depressive disorder), recurrent episode, moderate: Code(s): F33.1 - Major depressive disorder, recurrent, moderate Plan: Patient's PHQ-9 score positive for depression which has been existing condition for him. He continues on SNRI therapy with good effect on his mood. (5) Rib pain on right side: Code(s): R07.81 - Pleurodynia Plan: Reports injuring his right side of his ribs last . Still has pain especially with deep breaths. Will send for x-ray of right rib and chest to evaluate for fracture and pneumothorax. Orders: Orders XR ribs RT min 3V w CXR1V Today R07.81 - Pleurodynia Complete Blood Count no Diff 3 Months E11.65 - Type 2 diabetes mellitus with hyperglycemia Hemoglobin A1c 2 Months E11.65 - Type 2 diabetes mellitus with hyperglycemia Comprehensive [place]. Panel Fast 3 Months E11.65 - Type 2 diabetes mellitus with hyperglycemia Microalbumin, Random (w Creat) Today E11.65 - Type 2 diabetes mellitus with hyperglycemia Medications: Refilled flash glucose sensor (FreeStyle John 2 Sensor kit) As directed 1 ea 6RF E11.65 - Type 2 diabetes mellitus with hyperglycemia Patient Instructions: Goal: A1c to be below 8 Barriers: Adherence to physical activity and healthy eating habits Coding Level of Care Code Est Pt Level 4 (62282) Complex EM visit Add On G2211 Diagnoses Type 2 diabetes mellitus with hyperglycemia, without long-term current use of insulin E11.65 Diabetes mellitus type: type 2 Diabetes mellitus intermediate insulin use: without intermediate use Diabetes mellitus complication status: with hyperglycemia Coronary artery disease involving hoopa coronary artery of hoopa heart without angina pectoris I25.10 Coronary Disease-Associated Artery/Lesion type: hoopa artery [place] vs. transplanted heart: hoopa heart Associated angina: without angina Tobacco dependence F17.200 MDD (major depressive disorder), recurrent episode, moderate F33.1 Rib pain on right side R07.81 Additional Codes Vital Signs *Quality* - CPT code: 56859 - 4-10 Minutes ([id number])
== END 2024-02-16 09:37 | disposition home or self-care (01) ==
LOC: HO.HMGH 08:39
PROVIDERS: PCP Physician Assistant; Visit Provider Physician Assistant
DX: E11.65 Type 2 diabetes mellitus with hyperglycemia (principal); F33.1 Major depressive disorder, recurrent, moderate; I25.10 Atherosclerotic heart disease of native coronary artery without angina pectoris; F17.200 Nicotine dependence, unspecified, uncomplicated; R07.81 Pleurodynia
CPT/HCPCS: 99214; G2211

== ENCOUNTER 2024-02-17 08:31 | Outpatient (REF) | payer OTHER, SELFPAY ==
--- NOTE | ~2024-02-17 | XR_ITS ---
EXAMINATION: XR RIBS, RIGHT CLINICAL INFORMATION: Pleurodynia. COMPARISON: 01/04/2023 TECHNIQUE: 3 views of the right ribs were obtained. PA view of the chest. FINDINGS: The lungs are well expanded. No focal consolidation. No pleural effusion. Cardiac silhouette is unchanged. Postsurgical changes of the right humeral head. No displaced right-sided rib fracture. XR/XR ribs RT min 3V w CXR1V IMPRESSION: No acute abnormality.
== END 2024-02-17 08:32 | disposition home or self-care (01) ==
LOC: HO.XRAY 08:31
PROVIDERS: PCP Physician Assistant; Visit Provider Physician Assistant
DX: R07.81 Pleurodynia (principal)
CPT/HCPCS: 71101

== ENCOUNTER 2024-02-29 10:00 | Outpatient (RCR) | payer OTHER, SELFPAY ==
--- NOTE | 2024-01-31 08:58 | MHC.PT.EP ---
[facility] [place] Office [place] Office [place] Office [address] Pola Ortega [address] [phone] F: [phone] F: [phone] F: [phone] F: [phone] Physical Therapy Plan of Care Date of Evaluation: 01/31/24 Date of Surgery: 07/27/23 Diagnosis: s/p right rotator cuff repair (RL) Assessment: pt is a 53 y/o male presenting to physical therapy w/ referring diagnosis of s/p right rotator cuff repair. His R proximal clavicle does appear to be anteriorly shifted. His signs, symptoms, and objective findings seem consistent w/ adhesive capsulitis. Will continue to monitor and treat/refer as appropriate. Impairments include pain, decreased range of motion, decreased strength, impaired functional mobility, impaired postural awareness, and altered ambulation mechanics. pt is a fair candidate for skilled PT due to age, potential remediation of impairments, typical disease/condition progression and prognosis, comorbidities, and motivation. pt would benefit from skilled PT intervention to provide a tailored strengthening and stretching exercise program, functional training, gait training, postural re-training, neuromuscular re-education, modalities as needed for pain, equipment safety demonstration. Frequency and Duration: The patient will be seen 2x/wk for 4 wks Short Term Goals: pt will be I w/ HEP to promote self-management of condition. pt will improve R shoulder flexion AROM by at least 10 degrees to promote ease in reaching objects on higher shelves. Alf Goals: pt will report a statistically significant improvement in self-reported outcome measure, SPADI, to promote return to PLOF. pt will improve R shoulder functional IR to at least L3 to promote ease in upper body ADLs. Treatment Plan: Modalities to reduce pain, spasms and effusion. Manual therapy to restore motion and function. Therapeutic exercise to improve strength and flexibility. Neuromuscular re-education for posture and balance. Therapeutic activities to return to functional activities of daily living. Electronically signed by: Kaylin Serrano PT, DPT Please sign and return to therapist. Thank you for your referral.
--- NOTE | 2024-04-03 15:47 | MHC.PT.DC ---
[facility] [place] Office [place] Office [place] Office [address] Pola Ortega [address] [phone] F: [phone] F: [phone] F: [phone] F: [phone] Physical Therapy Discharge Report Diagnosis: s/p right rotator cuff repair (RL) Date of Surgery: 07/27/23 Date of Evaluation: 01/31/24 Date of Discharge: 04/03/24 Treatments to Date: 6 Cancellations to Date: 4 No Shows to Date: 1 Discharge Status: Improved Function Visit Non-compliance Discharge Summary: pt overall has been making improvement in AROM and pain intensity; however, his abduction range is still concerning. He feels he has a bony block that makes it impossible to move his arm any higher than 90-95*. He has improved scapulohumeral rhythm and less UT compensation. pt does still have palpable sternoclavicular joint deformity which I do not anticipate will change w/ PT. He was last seen on 02/29/24 and has not called to schedule any additional appointments since then. He is discharged from this plan of care. Electronically signed by: Kaylin Serrano PT, DPT Please sign and return to therapist. Thank you for your referral.
== END 2024-04-03 15:48 | disposition home or self-care (01) ==
LOC: HO.PT 10:00
PROVIDERS: PCP Physician Assistant; Visit Provider Orthopaedic Surgery
DX: Z98.890 Other specified postprocedural states (principal)
CPT/HCPCS: 97110; 97140; 97162

== ENCOUNTER 2024-03-01 08:32 | Outpatient (AMB) | payer OTHER, SELFPAY ==
--- NOTE | 2024-03-01 08:37 | A.OFFVIS_ITS ---
Intake Visit Reasons: OV - Rt Shoulder 07/27/23 NE-8 week follow up Intake Note: Kwaku is a 52 year old right hand dominant male who presents today for a post op appointment s/p right shoulder 07/27/23. Patient reports that he is doing well, he does have difficulty with ROM with lateral movements. He has some pain occasionally with certain movements. Allergies Penicillins Allergy (Severe, Verified 03/01/24 08:39) Anaphylaxis HPI HPI OV - Rt Shoulder 07/27/23 NE-8 week follow up: Details: Kwaku is a 52 year old right hand dominant male who presents today for a post op appointment s/p right shoulder 07/27/23. Patient reports that he is doing well, he does have difficulty with ROM with lateral movements. He has some pain occasionally with certain movements. [facility] Medical History Change in consistency of stool Anxiety Glaucoma Diarrhea Migraine Peptic ulcer Depression Myocardial infarction Seizures Coronary artery disease Hyperlipidemia Diabetes mellitus Surgical History Hx of elbow surgery History of carpal tunnel surgery of right wrist History of incision and drainage History of back surgery History of esophagogastroduodenoscopy (EGD) Hx of colonoscopy Hx of inguinal hernia surgery History of ear surgery S/P coronary artery stent placement Family History Mother Lumbar spine tumor Father Heart attack Paternal Grandfather Heart attack Other No family history of coronary artery disease Social History Household Members: Spouse Housing: Apartment Are you a primary client care representative to a significant other at home: No Do you presently have visiting nurse or other home services: No Alcohol intake: never Comment: d/c from er Patient Tobacco Use Status: Former Tobacco user Tobacco use type: Cigarette Cigarettes Per Day: 4 Years Smoked: 22+ e-Cigarette/Vaping Use: Never Used Second Hand Smoke Exposure: Yes Substance Use Type: Marijuana service: No Current occupational status: unemployed Cognitive needs: No Hearing needs: No Vision needs: Yes Physical Exam Extrem Other: 30/90/110/S1 neg EC Assessment & Plan Assessment & Plan (1) S/P right rotator cuff repair: Comment: 07/27/2023 NE Code(s): Z98.890 - Other specified postprocedural states Category: Surgical Plan: Eight months status post large rotator cuff repair doing well. Still limited combined glenohumeral abduction but isolated glenohumeral abduction to 90 with strong empty can. He is returning to normal activity. I cautioned him to be careful as it has only been 8 months after a significant injury in a 53-year-old diabetic. This typically takes a year to recover from fully but he is doing well at this point. Follow up as needed. Coding Level of Care Code Est Pt Level 3 (98872) Diagnoses S/P right rotator cuff repair Z98.890
== END 2024-03-01 08:52 | disposition home or self-care (01) ==
PROVIDERS: PCP Physician Assistant; Visit Provider Orthopaedic Surgery
DX: S43.431D Superior glenoid labrum lesion of right shoulder, subsequent encounter (principal); M75.111 Incomplete rotator cuff tear or rupture of right shoulder, not specified as traumatic
CPT/HCPCS: 99212

== ENCOUNTER → 2024-03-01 08:32 | Outpatient (BNVA) | payer OTHER, SELFPAY | PROVIDERS: PCP Physician Assistant; Visit Provider Orthopaedic Surgery | DX: Z98.890 Other specified postprocedural states (principal) | CPT/HCPCS: 99212 ==

== ENCOUNTER 2024-03-21 04:35 | Emergency (ER) | payer OTHER, SELFPAY ==
[2024-03-21 04:47] VITALS: BP 118/62; PULSE 86; O2SAT 97
[2024-03-21 04:51] VITALS: BMI 29.0
--- NOTE | 2024-03-21 06:37 | ED.GENADULT ---
HPI - General Adult General Chief complaint: Skin/Abscess/Foreign Body Stated complaint: rash lower left leg Time Seen by Provider: 03/21/24 06:32 Source: patient Mode of arrival: EMS Limitations: no limitations History of Present Illness ED Provider: rigo LANDIS narrative: Patient is a 53-year-old male presenting to the emergency department with complaint of pruritus to bilateral arms, legs, trunk since Tuesday. Patient reports his symptoms began after giving himself a hair cut and initially began on his head then spread to his entire body. He has taken Benadryl and Claritin with little relief. Some relief with cool compresses. Denies any new medications or recent medication changes, new soaps, new foods, etc.. Denies fevers. Denies any swelling to lips or tongue. Denies any chest pain or tightness or difficulty breathing. Denies any abdominal pain, nausea or vomiting. Related Data Home Medications ?Medication ?Instructions ?Recorded ?Confirmed simethicone 125 mg chewable tablet 125 mg PO TID-QID PRN abdominal 06/28/23 02/16/24 (Gas Relief (simethicone)) distention Previous Rx's ?Medication ?Instructions ?Recorded cane #1 ea 04/06/23 blood sugar diagnostic (FreeStyle #100 ea 05/02/23 Lite Strips) blood-glucose meter (FreeStyle #1 ea 05/02/23 Lite Meter kit) lancets 28 gauge (FreeStyle #100 ea 05/02/23 Lancets) aspirin 81 mg tablet,delayed 81 mg PO DAILY #90 tabs 09/28/23 release (Ecotrin Low Strength) atorvastatin 40 mg tablet (Lipitor) 40 mg PO DAILY 90 days #90 tabs 09/28/23 metformin 1,000 mg tablet 1,000 mg PO BID 90 days #180 tabs 09/28/23 pantoprazole 40 mg tablet,delayed 40 mg PO DAILY 90 days #90 tabs 09/28/23 release (Protonix) gabapentin 800 mg tablet 800 mg PO BID 30 days #60 tabs 11/23/23 pioglitazone 15 mg tablet (Actos) 15 mg PO DAILY 90 days #90 tabs 12/20/23 propranolol 10 mg tablet 10 mg PO BID 90 days #180 tabs 12/20/23 varenicline 1 mg tablet 1 mg PO BID 90 days #180 tabs 12/20/23 cyclobenzaprine 10 mg tablet 10 mg PO BEDTIME 90 days #90 tabs 01/05/24 insulin glargine 100 unit/mL (3 12 unit (0.12 mL) subcut QAM 30 01/17/24 mL) subcutaneous pen (Lantus days #15 mL Solostar U-100 Insulin) pen needle, diabetic 32 gauge x #50 ea 01/17/24 (BD Ultra-Fine Nereida Pen Needle) venlafaxine 37.5 mg tablet 37.5 mg PO DAILY 90 days #90 tabs 01/23/24 flash glucose scanning reader #1 ea 01/28/24 (FreeStyle John 2 [place]) flash glucose sensor (FreeStyle #1 ea 02/16/24 John 2 Sensor kit) prednisone 20 mg tablet See Rx Instructions .Route 03/21/24 .COMPLEX #18 tabs Allergies Allergy/AdvReac Type Severity Reaction Status Date / Time Penicillins Allergy Severe Anaphylaxis Verified 03/21/24 04:57 Review of Systems Review of Systems: As per HPI Yes all other systems are reviewed and are negative Constitutional: Constitutional: Reports as per HPI [facility] Past Medical History Medical History Change in consistency of stool Anxiety Glaucoma Diarrhea Migraine Peptic ulcer Depression Myocardial infarction Seizures Coronary artery disease Hyperlipidemia Diabetes mellitus Surgical History Hx of elbow surgery History of carpal tunnel surgery of right wrist History of incision and drainage History of back surgery History of esophagogastroduodenoscopy (EGD) Hx of colonoscopy Hx of inguinal hernia surgery History of ear surgery S/P coronary artery stent placement Family History Family History Mother Lumbar spine tumor Father Heart attack Paternal Grandfather Heart attack Other No family history of coronary artery disease Social History Social History Household Members: Spouse Housing: Apartment Are you a primary elderly caregiver to a significant other at home: No Do you presently have visiting nurse or other home services: No Alcohol intake: never Comment: d/c from er Patient Tobacco Use Status: Former Tobacco user Tobacco use type: Cigarette Cigarettes Per Day: 4 Years Smoked: 22+ Smoked in Last 30 Days: No e-Cigarette/Vaping Use: Never Used Second Hand Smoke Exposure: Yes Substance Use Type: Marijuana Advance Directives: No Advance Directives Information Provided: Yes service: No Current occupational status: unemployed Cognitive needs: No Hearing needs: No Vision needs: Yes Physical Exam ED Vital Signs: Vital Signs - 24 hr 03/21/24 07:36 Temperature 97.9 F Pulse Rate 76 Respiratory Rate 18 Blood Pressure 110/63 Pulse Oximetry 98 Oxygen Delivery Method Room Air BMI result Body Mass Index 29.0 Vital signs have been reviewed and appear to be correct. Blood pressure normal. Heart rate normal. Respiratory rate normal. Temperature normal. Oxygen saturation normal. Const General: cooperative, healthy appearing and no acute distress Orientation/consciousness: oriented to person, oriented to place, oriented to time and patient oriented x3 Limitations: no limitations HENMT Head: Yes normocephalic and Yes atraumatic Ears: external ears normal General nose exam: Normal external nose present Face and sinus: Yes face symmetric Mouth: Normal oral and palatal mucosa present, lip normal, tongue normal, oropharynx normal and moist mucous membranes Throat: Yes posterior oropharynx normal, Yes uvula midline and No uvular edema Eyes Pupils: Equal, round and reactive pupils present Neck Neck: Yes normal visual inspection and Yes supple Lymphatic: no lymphadenopathy noted Resp Effort & Inspection: normal respiratory effort and able to speak in complete sentences Auscultation: clear to auscultation bilaterally Cardio Rate: regular rate Rhythm: regular rhythm Heart sounds: S1 normal heart sound present and S2 normal heart sound present GI Palpation (GI): Soft to palpation and nontender Auscultation: normoactive bowel sounds General: Yes no CVA tenderness Back/Spine/Pelvis Back: no CVA tenderness Skin Other: linear superficial abrasions noted to bilateral arms, no other rash or lesions noted General skin exam: no rashes or lesions noted, elasticity normal and turgor normal Neuro General: oriented to person, oriented to place, oriented to time, patient oriented x3, moves all extremities, no focal motor deficits and CN's II-XI intact bilaterally Cranial nerves: Yes Equal, round and reactive pupils present Cognition (Neuro): normal cognition Extrem General: Yes full ROM, Yes no pedal edema and Yes no calf tenderness Psych Mental Status: mental status grossly normal Affect: normal affect Thought process: Normal thought process present Medical Decision Making Medical Decision Making [facility] Narrative: Patient is a 53-year-old male presenting to the emergency department with complaint of pruritus to bilateral arms, legs, trunk since Tuesday. On exam patient is awake, A+Ox3, VS WNL, afebrile, normal neurological exam without focal deficits, physical exam findings as above. Given reported symptoms and physical exam findings, initial differential includes contact dermatitis, atopic dermatitis. No red flag findings concerning for TEN/SJS, DRESS, TTP/DIC, necrotizing fasciitis, meningococcemia, SSSS, TSS, anaphylaxis. Will treat with taper dose of prednisone, advised loratadine/cetirizine, adding famotidine, and an unscented emollient cream. Follow up with dermatology and PCP. Return precautions discussed at bedside. Patient verbalized understanding of and agreement with plan. Differential Diagnosis Differential Diagnoses: The differential diagnosis associated with the presentation includes As per [facility] External Record Review External record reviewed: Inpatient record, Office record and Outpatient record Prescription Management I considered prescription management with: Other Discharge Plan Discharge Clinical Impression: Contact dermatitis Patient Disposition: Home, Self-Care Instructions: Contact Dermatitis (DC), Acute Rash (ED) Additional Instructions: You were evaluated in the emergency department today for a rash. Your evaluation did not reveal evidence of conditions requiring emergent medical treatment. You are being prescribed a tapering dose of a steroid called prednisone to decrease inflammation. We also recommend that you take a daily antihistamine such as loratadine (Claritin) or cetirizine (Zyrtec). You can also add over the counter famotidine (Pepcid) which is a different type of antihistamine. You can apply a thick unscented lotion to the affected areas such as Eucerine or Vanicream several times daily. Follow up with your primary care provider this week. If your symptoms do not improve, follow up with a fabrication specialist. Return to the emergency department if you develop difficulty breathing or shortness of breath, swelling to lips, tongue, fever, rash inside your mouth or to your palms/soles or any other concerning symptoms. Prescriptions: New prednisone 20 mg tablet See Rx Instructions .ROUTE .COMPLEX Qty: 18 0RF Rx Instructions: 60mg (3 tabs) x 3 days, then 40mg (2 tabs) x 3 days, then 20mg (1 tab) x 3 days No Action (DME) cane Device See Rx Instructions .Route Qty: 1 0RF Rx Instructions: As directed (DME) lancets [FreeStyle Lancets] 28 gauge misc See Rx Instructions .ROUTE .MEDSUPPLY Qty: 100 3RF Rx Instructions: Testing once a day as needed (DME) FreeStyle Lite Strips Strip See Rx Instructions .ROUTE .MEDSUPPLY Qty: 100 3RF Rx Instructions: Testing once a day as needed (DME) blood-glucose meter [FreeStyle Lite Meter] Kit See Rx Instructions .Route Qty: 1 0RF Rx Instructions: As directed atorvastatin [Lipitor] 40 mg tablet 40 mg PO DAILY 90 Days Qty: 90 1RF pantoprazole [Protonix] 40 mg tablet,delayed release (DR/EC) 40 mg PO DAILY 90 Days Qty: 90 1RF aspirin [Ecotrin Low Strength] 81 mg tablet,delayed release (DR/EC) 81 mg PO DAILY Qty: 90 1RF metformin 1,000 mg tablet 1,000 mg PO BID 90 Days Qty: 180 1RF gabapentin 800 mg tablet 800 mg PO BID 30 Days Qty: 60 3RF propranolol 10 mg tablet 10 mg PO BID 90 Days Qty: 180 1RF varenicline 1 mg tablet 1 mg PO BID 90 Days Qty: 180 1RF pioglitazone [Actos] 15 mg tablet 15 mg PO DAILY 90 Days Qty: 90 1RF cyclobenzaprine 10 mg tablet 10 mg PO BEDTIME 90 Days Qty: 90 3RF insulin glargine [Lantus Solostar U-100 Insulin] 100 unit/mL (3 mL) insulin pen 12 unit subcut QAM 30 Days Qty: 15 1RF (DME) pen needle, diabetic [BD Ultra-Fine Nereida Pen Needle] 32 gauge x 5/32 needle See Rx Instructions .ROUTE .MEDSUPPLY Qty: 50 1RF Rx Instructions: As directed venlafaxine 37.5 mg tablet 37.5 mg PO DAILY 90 Days Qty: 90 1RF (DME) FreeStyle John 2 [place] Misc See Rx Instructions .Route Qty: 1 3RF Rx Instructions: As directed simethicone [Gas Relief (simethicone)] 125 mg tablet,chewable 125 mg PO TID-QID PRN (Reason: abdominal distention) (DME) [employer] John 2 Sensor Kit See Rx Instructions .Route Qty: 1 6RF Rx Instructions: As directed Referrals: [facility] [Provider Group] [facility] [Provider Group] [facility] [Provider Group] [facility] [Provider Group] Print Language: Maldivian
[2024-03-21 07:36] VITALS: BP 110/63; PULSE 76; RESP 18; TEMP 36.6; O2SAT 98
== END 2024-03-21 08:11 | disposition home or self-care (01) ==
PROVIDERS: Emergency Provider Emergency Medicine Emergency Medical Services
DX: L25.9 Unspecified contact dermatitis, unspecified cause (principal); L29.9 Pruritus, unspecified
CPT/HCPCS: 99283; 99284

== ENCOUNTER 2024-03-30 14:24 | Outpatient (AMB) | payer OTHER, SELFPAY ==
[2024-03-30 14:39] VITALS: BP 118/68; PULSE 78; O2SAT 99; BMI 29.4
--- NOTE | 2024-03-30 14:39 | MHC.PC.OV ---
Vital Signs 03/30/24 14:39 Height 5 ft 6 in Weight 182 lb 0.2 oz BMI 29.4 BP 118/68 Blood Pressure Location Lt brachial Position Sitting Pulse 78 Pulse Source Pulse Oximeter Pulse Oximetry (%) 99 Oxygen Delivery Method Room Air Intake Visit Reasons: [place] [facility] [place]/Hyperglycemia Intake Note: Patient is here for hospital discharge follow up. [place] [facility] [place] 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 He [place] [facility] [place] for pruritus to the Bilateral arms, legs, chest and back. He was discharged home on Prednisone and Benadrly. Today reports no improvement. Denies any fevers, chills, nausea or vomiting. Denies any changes to medications or diet. Denies any new Cosmetic products or detergents. pt also c/o left middle finger pain and swelling. Three weeks ago he was walking his Dog on the leash, when it took off running pulling Pt's hand forward. Pt asking for Xray to r/o Fx. [facility] Medical History Change in consistency of stool Anxiety Glaucoma Diarrhea Migraine Peptic ulcer Depression Myocardial infarction Seizures Coronary artery disease Hyperlipidemia Diabetes mellitus Surgical History Hx of elbow surgery History of carpal tunnel surgery of right wrist History of incision and drainage History of back surgery History of esophagogastroduodenoscopy (EGD) Hx of colonoscopy Hx of inguinal hernia surgery History of ear surgery S/P coronary artery stent placement Family History Mother Lumbar spine tumor Father Heart attack Paternal Grandfather Heart attack Other No family history of coronary artery disease Social History Household Members: Spouse Housing: Apartment Are you a primary director critical care to a significant other at home: No Do you presently have visiting nurse or other home services: No Alcohol intake: never Comment: d/c from er Patient Tobacco Use Status: Former Tobacco user Tobacco use type: Cigarette Cigarettes Per Day: 4 Years Smoked: 22+ Packs per year/per ci.00 e-Cigarette/Vaping Use: Never Used Second Hand Smoke Exposure: Yes Substance Use Type: Marijuana service: No Current occupational status: unemployed Cognitive needs: No Hearing needs: No Vision needs: Yes Questionnaire Thrive Questionnaire Date Thrive assessed: 11/16/23 AUDIT C Alcohol Use Questionnaire (AUDIT-C) 1. How often do you have a drink containing alcohol?: Never 3. How often do you have six or more drinks on one occasion?: Never Total Score: 0 Score Reviewed/Action Taken: No BILLY-7 AMB Questionnaire BILLY-7 Date BILLY - 7 assessed: 11/16/23 Source: Developed by Drs. Paul Brand, Kim Sauer, Abdias Patel and colleagues, with an educational chad from [employer]. Review of Systems Const All systems reviewed & are unremarkable except as noted in HPI and below Physical exam (Primary Care) Vital Signs: Last Vital Signs Pulse 78 03/30/24 14:39 BP 118/68 03/30/24 14:39 Pulse Ox 99 03/30/24 14:39 Oxygen Delivery Method Room Air 03/30/24 14:39 BMI result Body Mass Index 29.4 Tobacco/Smoking Status: Tobacco use Status Tobacco use date assessed 11/16/23 03/30/24 14:41 Patient Tobacco Use Status Former Tobacco user 03/30/24 14:41 Tobacco use type Cigarette 03/30/24 14:41 e-Cigarette/Vaping Use Never Used 03/30/24 14:41 Thrive Assessment: Date of Thrive Assessment Date Thrive assessed 11/16/23 03/30/24 14:41 Const General: cooperative Orientation/consciousness: patient oriented x3 Skin General skin exam: crusts, dry skin and erythema Neuro General: patient oriented x3, gait normal and moves all extremities Psych Speech and movement: Normal speech and movement present Vital Signs: Last Vital Signs Pulse 78 03/30/24 14:39 BP 118/68 03/30/24 14:39 Pulse Ox 99 03/30/24 14:39 Oxygen Delivery Method Room Air 03/30/24 14:39 BMI result Body Mass Index 29.4 Const General: cooperative Orientation/consciousness: patient oriented x3 Skin Other: Dry crusting, erythematous lesions bilateral arms, legs, back and Torso. General skin exam: crusts, dry skin and erythema Neuro General: patient oriented x3, gait normal and moves all extremities Psych Speech and movement: Normal speech and movement present Results AMB Hemoglobin A1c AMB Hemoglobin A1c 7.5 % Last Edit by MARIS Eng on 03/30/24 15:01 Results Reviewed Results Reviewed: Laboratory Last Values Hgb A1c (Clinic) 7.5 % (4.0-6.0) H 03/30/24 08:35 Assessment and Plan Assessment & Plan (1) Rash and nonspecific skin eruption: Code(s): R21 - Rash and other nonspecific skin eruption Plan: Rash looks infected, probably from scratching and Skin picking. Will Tx with Bactrim today. Ordered Zyrtec BID for few days May take Benadrly at Bedtime. Low dose Topical Steroid cream BID If no improvement by Tuesday, advised to come to [facility] in [place]. may consider Derm Referral (2) Pain of middle finger: Code(s): M79.646 - Pain in unspecified finger(s) Plan: Probably Finger muscle Strain/Sprain. Ordered Xray of the digit. NSAIDs for pain relief IceHot Orders: Orders AMB Hemoglobin A1c Today E11.65 - Type 2 diabetes mellitus with hyperglycemia XR finger LT min 2V Today M79.646 - Pain in unspecified finger(s) Medications: New sulfamethoxazole-trimethoprim 800-160 mg (Bactrim DS) 1 tab PO Q12H 10 tabs 0RF 5 days R21 - Rash and other nonspecific skin eruption cetirizine (Zyrtec) 10 mg PO DAILY PRN 90 tabs 0RF allergy symptoms R21 - Rash and other nonspecific skin eruption hydrocortisone 2.5% 1 appl topical BID PRN 30 grams 0RF skin irritation R21 - Rash and other nonspecific skin eruption Coding Level of Care Code Est Pt Level 4 (77433) Diagnoses Rash and nonspecific skin eruption R21 Pain of middle finger M79.646 Time Spent (min) 20 Comment Spent on reviewing Hospital notes and Patient education
== END 2024-03-30 15:22 | disposition home or self-care (01) ==
PROVIDERS: Visit Provider Nurse Practitioner Family
DX: R21 Rash and other nonspecific skin eruption (principal); M79.642 Pain in left hand; E11.65 Type 2 diabetes mellitus with hyperglycemia
CPT/HCPCS: 83036; 99214

== ENCOUNTER 2024-04-02 08:33 | Outpatient (REF) | payer OTHER, SELFPAY ==
--- NOTE | ~2024-04-02 | XR_ITS ---
EXAMINATION: XR FINGER, LEFT CLINICAL INFORMATION: Left middle finger pain and swelling. Injury. COMPARISON: None available. TECHNIQUE: 3 views of the middle finger including AP view of the hand FINDINGS: Possible fracture along the volar cortex of the distal middle phalanx seen on only the lateral projection. Remaining bones joints and soft tissues unremarkable. XR/XR finger LT min 2V IMPRESSION: Possible fracture along the volar cortex of the distal middle phalanx seen on only the lateral projection. This could be artifactual given the projection Continue follow-up as felt clinically indicated to evaluate for possible fracture healing Electronically signed by: Ankit Mireles MD 04/15/2024 02:10 PM EDT
== END 2024-04-02 08:34 | disposition home or self-care (01) ==
LOC: HO.XRAY 08:33
PROVIDERS: Absent Provider Nurse Practitioner Family; PCP Physician Assistant; Visit Provider Internal Medicine Cardiovascular Disease
DX: M79.646 Pain in unspecified finger(s) (principal); I25.10 Atherosclerotic heart disease of native coronary artery without angina pectoris; E78.5 Hyperlipidemia, unspecified
CPT/HCPCS: 73140; 99212

== ENCOUNTER 2024-04-02 08:33 | Outpatient (AMB) | payer OTHER, SELFPAY ==
[2024-04-02 09:04] VITALS: BP 110/70; PULSE 69; BMI 30.4
--- NOTE | 2024-04-02 09:04 | A.OFFVIS_ITS ---
Vital Signs 04/02/24 09:04 Height 5 ft 6 in Weight 188 lb 4.396 oz BMI 30.4 BP 110/70 Blood Pressure Location Lt brachial Position Sitting Pulse 69 Pulse Source Pulse Oximeter Intake Visit Reasons: 6 mth f/up Intake Note: 6 mth f/up- pt is doing fine Adjuster Piano Action Required: No Accompanied by: Self / Same As Patient Allergies Penicillins Allergy (Severe, Verified 03/30/24 14:41) Anaphylaxis Medication List - Last Reconciled 04/02/24 by Washington Hampton MD aspirin (Ecotrin Low Strength) 81 mg PO DAILY atorvastatin (Lipitor) 40 mg PO DAILY 90 days blood sugar diagnostic (FreeStyle Lite Strips) Testing once a day as needed blood-glucose meter (FreeStyle Lite Meter kit) As directed cane As directed cetirizine (Zyrtec) 10 mg PO DAILY PRN cyclobenzaprine 10 mg PO BEDTIME 90 days flash glucose scanning reader (FreeStyle John 2 [place]) As directed flash glucose sensor (FreeStyle John 2 Sensor kit) As directed gabapentin 800 mg PO BID 30 days hydrocortisone 2.5% 1 appl topical BID PRN insulin glargine (Lantus Solostar U-100 Insulin) 12 units (0.12 mL) subcut QAM 30 days lancets (FreeStyle Lancets) Testing once a day as needed metformin 1,000 mg PO BID 90 days pantoprazole (Protonix) 40 mg PO DAILY 90 days pen needle, diabetic (BD Ultra-Fine [place] Pen Needle) As directed pioglitazone (Actos) 15 mg PO DAILY 90 days propranolol 10 mg PO BID 90 days simethicone (Gas Relief (simethicone)) 125 mg PO TID-QID PRN sulfamethoxazole-trimethoprim 800-160 mg (Bactrim DS) 1 tab PO Q12H 5 days varenicline 1 mg PO BID 90 days venlafaxine 37.5 mg PO DAILY 90 days HPI Comments Details: 53 year gentleman here for follow-up. He has background history of anterior wall TX in 2019 in the setting of cocaine use. He underwent drug-eluting stent at that time by Dr. Shah. He had EF of 40 45% at that time too. He was at [facility] with atypical chest pain in July 2022. At that time he underwent stress testing which did not show any significant issues and he was discharged home. He has not followed up since then. He is saying that he does not plan to follow up with [facility] and wants to establish care with our practice. He is experiencing some right-sided atypical sounding chest pains. He has chronic shoulder discomfort. His anginal pain was left-sided tightness which she has not experienced. He walks and has no significant shortness of breath or chest discomfort with activity. His main complaint is left calf claudication. He is a former smoker. He has been clean since he had the anterior wall TX. 06/27/2023: He returns for follow-up. He had echocardiography which showed basal inferior wall motion with EF of 55-60%. He has non-anginal left-sided chest pain. Blood pressure control is good. He has started smoking again and will be talking to his primary about alternative medications for Wellbutrin. He was previously given Wellbutrin but apparently has history of seizures of albuterol was stopped appropriately. 09/26/2023: He returns for follow-up. He has undergone spine and right shoulder surgery. He is still recovering from the shoulder surgery and is complaining of some pain. He is saying that he stop smoking with Chantix and today is day 1 of not smoking. He has no chest discomfort shortness of breath. Blood pressure is well controlled. 04/02/2024: He is here for follow-up. Denying any chest discomfort shortness of breath. He is complaining of cramping in both calves when he walks. This is random and it happens sometimes and other times he can walk without any complaints. No clear nighttime symptoms. He is taking insulin as well as oral medications for diabetes. Blood pressure is well controlled. [facility] Medical History Change in consistency of stool Anxiety Glaucoma Diarrhea Migraine Peptic ulcer Depression Myocardial infarction Seizures Coronary artery disease Hyperlipidemia Diabetes mellitus Surgical History Hx of elbow surgery History of carpal tunnel surgery of right wrist History of incision and drainage History of back surgery History of esophagogastroduodenoscopy (EGD) Hx of colonoscopy Hx of inguinal hernia surgery History of ear surgery S/P coronary artery stent placement Family History Mother Lumbar spine tumor Father Heart attack Paternal Grandfather Heart attack Other No family history of coronary artery disease Social History Household Members: Spouse Housing: Apartment Are you a primary after school caregiver to a significant other at home: No Do you presently have visiting nurse or other home services: No Alcohol intake: never Comment: d/c from er Patient Tobacco Use Status: Former Tobacco user Tobacco use type: Cigarette Cigarettes Per Day: 4 Years Smoked: 22+ e-Cigarette/Vaping Use: Never Used Second Hand Smoke Exposure: Yes Substance Use Type: Marijuana service: No Current occupational status: unemployed Cognitive needs: No Hearing needs: No Vision needs: Yes Review of Systems Const Denies chills, Denies fatigue, Denies fever(s), Denies frequent falls, Denies weakness, Denies weight gain and Denies weight loss ENT Denies dizziness Card Denies chest pain, Denies leg edema, Denies lightheadedness, Denies palpitations, Denies dyspnea and Denies dyspnea on exertion Resp Denies cough, Denies dyspnea and Denies dyspnea on exertion GI Denies hematochezia Musc Denies abnormal gait, Denies muscle weakness, Denies numbness, Denies radiating pain into limb and Denies tingling Neuro Denies abnormal gait, Denies dizziness, Denies frequent falls, Denies numbness, Denies tingling and Denies weakness Endo Denies fatigue and Denies palpitations Physical Exam Vital Signs: Last Vital Signs Pulse 69 04/02/24 09:04 BP 110/70 04/02/24 09:04 BMI result Body Mass Index 30.4 Last Vital Signs Temp 97.6 F 07/23/22 07:03 Pulse 76 07/23/22 10:45 Resp 14 07/23/22 10:45 BP 122/68 07/23/22 10:45 Pulse Ox 97 07/23/22 10:45 O2 Del Method 07/23/22 10:45 BMI result Body Mass Index 25.0 GENERAL APPEARANCE: in no acute distress, pleasant. NECK: no carotid bruit, no jugular venous distention. SKIN: Rash all over the body and he is on treatment for that by primary care physician. HEART: no murmurs, regular rate and rhythm. LUNGS: clear to auscultation bilaterally. ABDOMEN: soft, nontender. EXTREMITIES: no edema. PERIPHERAL PULSES: equal. NEUROLOGIC: No gross deficits, AAO X 3 Assessment & Plan Assessment & Plan (1) Coronary artery disease: Code(s): I25.10 - Atherosclerotic heart disease of [place] coronary artery without angina pectoris Category: Medical Qualifiers: Coronary Disease-Associated Artery/Lesion type: [place] artery [place] vs. transplanted heart: [place] heart Associated angina: without angina Qualified Code(s): I25.10 - Atherosclerotic heart disease of [place] coronary artery without angina pectoris (2) Hyperlipidemia: Code(s): E78.5 - Hyperlipidemia, unspecified Category: Medical Plan [age] year gentleman who is here for follow-up. He has known history of coronary disease and previous PCI. Has been stable from coronary disease point of view. Clinically not in heart failure. Triglycerides are mildly elevated. LDL is less than 70. I have advised him to diet and exercise and repeat cholesterol levels in 2-3 months. If no improvement then we will add ezetimibe 10 mg daily. Follow-up with us in 6 months. Thank you for allowing me to participate in the care of your patient. Please f eel free to contact me if you have any questions. Orders: Orders Lipid Panel 3 Months E78.5 - Hyperlipidemia, unspecified Coding Level of Care Code Est Pt Level 4 (61307) Diagnoses Coronary artery disease involving [place] coronary artery of [place] heart without angina pectoris I25.10 Coronary Disease-Associated Artery/Lesion type: [place] artery [place] vs. transplanted heart: [place] heart Associated angina: without angina Hyperlipidemia E78.5
== END 2024-04-02 09:22 | disposition home or self-care (01) ==
PROVIDERS: PCP Physician Assistant; Visit Provider Internal Medicine Cardiovascular Disease
DX: I25.10 Atherosclerotic heart disease of native coronary artery without angina pectoris (principal); E78.5 Hyperlipidemia, unspecified
CPT/HCPCS: 99214

== ENCOUNTER 2024-04-20 12:40 | Outpatient (AMB) | payer OTHER, SELFPAY ==
--- NOTE | 2024-04-20 12:50 | A.OFFVIS_ITS ---
Vital Signs 04/20/24 12:51 Height 5 ft 6 in Weight 191 lb BMI 30.8 BP 128/78 Blood Pressure Location Rt brachial Position Sitting Pulse 74 Pulse Source Pulse Oximeter Intake Visit Reasons: INP-Convulsion Intake Note: Patient presents for convulsions Allergies Penicillins Allergy (Severe, Verified 04/20/24 12:58) Anaphylaxis Medication List - Last Reconciled 04/20/24 by ELDA Yan aspirin (Ecotrin Low Strength) 81 mg PO DAILY atorvastatin (Lipitor) 40 mg PO DAILY 90 days blood sugar diagnostic (FreeStyle Lite Strips) Testing once a day as needed blood-glucose meter (FreeStyle Lite Meter kit) As directed cane As directed cetirizine (Zyrtec) 10 mg PO DAILY PRN cyclobenzaprine 10 mg PO BEDTIME 90 days flash glucose scanning reader (FreeStyle John 2 [place]) As directed flash glucose sensor (FreeStyle John 2 Sensor kit) As directed gabapentin 800 mg PO BID 30 days hydrocortisone 2.5% 1 appl topical BID PRN insulin glargine (Lantus Solostar U-100 Insulin) 22 units (0.22 mL) subcut QAM 30 days lancets (FreeStyle Lancets) Testing once a day as needed metformin 1,000 mg PO BID 90 days pantoprazole (Protonix) 40 mg PO DAILY 90 days pen needle, diabetic (BD Ultra-Fine [place] Pen Needle) As directed pioglitazone (Actos) 15 mg PO DAILY 90 days propranolol 10 mg PO BID 90 days simethicone (Gas Relief (simethicone)) 125 mg PO TID-QID PRN sulfamethoxazole-trimethoprim 800-160 mg (Bactrim DS) 1 tab PO Q12H 5 days varenicline 1 mg PO BID 90 days venlafaxine 37.5 mg PO DAILY 90 days HPI Comments Details: Right-handed 53-yr-old male presents for new pt evaluation of convulsions, but pt also would like to discuss h/o of question of MS. Pt reports 10 yrs ago, he started having episodes he thought were seizures- wo uld be walking or daily activities, when he would feel a surge of electrical activity throughout his body x's 20-30 seconds preceded by a metallic taste in his mouth. He denies LOC a/w the seizure activity. He stopped driving. Pt states that MRI at that time showed white matter changes, which increased on 6 month f/u MRI. EEG- was abnormal. After this, he started seeing Dr Lei, who dx'd him with seizure d/o and ? MS. He was treated w/ Keppra, but stopped as it was causing GI s/s. He has a typical seizure like episode every couple of weeks. Recently, he had an episode which came and went over 45 minutes- did not require urgent medical care, but did not feel well. Pt does not drive. He is not sure if he has ever had an MS attack. States he has constant pain in his neck, shoulders d/t diffuse arthritic changes. Has h/o low back surgery. 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 He has been having more difficulty walking- he has BLE calf cramping upon walking. 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 Generalized phonophobia- has h/o ear surgeries. He does not sleep well, uses marijuana for sleep. Has had sleep studies but has not been able to fall asleep- tells him he snores and gasps. Has photophobia. Recently had bilateral eye surgery for narrow angle glaucoma. States his diabetes is well-controlled, last HgA1C 7.5%, dx'd ~20 yrs ago. He is followed closely by cardiology, who is aware of claudication s/s. He has 3 types of headaches for at least 10 yrs: He has a left-sided headache- throbbing left eye pain, left temporal pain a/w left ear ringing. The pain is brief and severe. No known triggers. Occurs 4-5 x's per day. He has a right-sided headache- Brief, intense (not as severe as he left side) throbbing right temporal pain. Rarely occurs. Bilateral neck-occipital headache- throbbing starts in neck and moves into bilateral occipital region. This is triggered by poor posture- especially if laying down or sitting up incorrectly. Top of head pain- this pain is different, if he touches his hair, his head will hurt. Rarely occurs. Pt has previously worked w/ [facility] pain management, c-spine injections were not beneficial and not well-tolerated- caused hypergylcemia. XR C-spine, 03/2023- Mild to moderate cervical spondylosis. RUE EMG/NCS, 05/2023: 1. [id number] ulnar neuropathy across cubital tunnel. 2. [id number] right median neuropathy across carpal tunnel. C-spine MRI w/o, 08/2022: 1. Multilevel discogenic degenerative changes and multilevel central disc herniations and disc osteophyte complexes with multilevel [id number] degrees of spinal canal stenosis with moderate left- sided ventral cord deformity at C6-C7 and slight ventral cord impingement at C4- C5 and C5-C6. 2. Multilevel uncovertebral and facet arthropathy with multilevel mild-to-mod erate degrees of neural foraminal stenosis bilaterally as detailed by level above. 3. Probable chronic spinal cord volume loss at C6-C7 He has a 9 yr old autistic son. [facility] Medical History (Updated 04/29/24 @ 18:20 by ELDA Yan) White matter abnormality on MRI of brain Change in consistency of stool Anxiety Glaucoma Diarrhea Migraine Peptic ulcer Depression Myocardial infarction Seizures Coronary artery disease Hyperlipidemia Diabetes mellitus Surgical History Hx of elbow surgery History of carpal tunnel surgery of right wrist History of incision and drainage History of back surgery History of esophagogastroduodenoscopy (EGD) Hx of colonoscopy Hx of inguinal hernia surgery History of ear surgery S/P coronary artery stent placement Family History Mother Lumbar spine tumor Father Heart attack Paternal Grandfather Heart attack Other No family history of coronary artery disease Social History Household Members: Spouse Housing: Apartment Are you a primary health care marketing manager to a significant other at home: No Do you presently have visiting nurse or other home services: No Alcohol intake: never Comment: d/c from er Patient Tobacco Use Status: Former Tobacco user Tobacco use type: Cigarette Cigarettes Per Day: 4 Years Smoked: 22+ e-Cigarette/Vaping Use: Never Used Second Hand Smoke Exposure: Yes Substance Use Type: Marijuana service: No Current occupational status: unemployed Cognitive needs: No Hearing needs: No Vision needs: Yes Physical Exam Vital Signs: Last Vital Signs Pulse 74 04/20/24 12:51 BP 128/78 04/20/24 12:51 BMI result Body Mass Index 30.8 Const Orientation/consciousness: patient oriented x3 Resp Effort & Inspection: normal respiratory effort and able to speak in complete sentences Skin Other: Generalized tiny dry scabs. Neuro General: patient oriented x3 Cranial nerves: Yes CN's II-XII intact bilaterally Cognition (Neuro): normal cognition Gait exam (Neuro): Antalgic gait present Motor exam (neuro): 5/5 motor strength present throughout Deep tendon reflexes (DTR's): Right triceps reflex intensity grade: 2+, Left triceps reflex intensity grade: 2+, Rt Biceps (C5, C6): 2+, Left biceps reflex intensity grade: 2+, Right brachioradialis reflex intensity grade: 2+, Left brachioradialis reflex intensity grade: 2+, Right patellar reflex intensity grade: 2+ and Left patellar reflex intensity grade: 2+ Coordination: sapzii-yd-iran test normal and Romberg test negative Pupils: Normal pupillary reactivity/response: bilateral Extrem Other: Mild left 3rd finger swelling and tenderness Psych Appearance: grossly normal Mental Status: mental status grossly normal Speech and movement: Clear speech present Affect: normal affect Attitude: cooperative Thought process: Normal thought process present Assessment & Plan Assessment & Plan (1) Seizures: Code(s): R56.9 - Unspecified convulsions Category: Medical (2) White matter abnormality on MRI of brain: Comment: No recent head imaging available for review, thus severity/pattern unknown. Aug 2022 C-Spine MRI was w/o cord lesions. Pt does have CV and metabolic risk factors for cerebral vascular injuries/insults. No clear h/o MS attack, though history unclear d/t comorbid musculoskeletal, metabolic, and peripheral neuropathic processes. Code(s): R90.82 - White matter disease, unspecified Category: Medical (3) Headache: Comment: Multiple headache types- likely cervicogenic components, cranial neuralgias, possibly migraine Code(s): R51.9 - Headache, unspecified Category: Medical Plan Pt is advised to undergo: Brain MRI w/wo to assess status of white matter lesion burden. If suspicious for an MS/demyelinating process, will refer to the [facility]. f/u EEG Request notes from Dr Lei. For seizure: Increase Gabapentin from 800mg bid to 80mg qam, 400mg q midday, 800mg qhs. May help headaches as well. Do NOT drive or engage in high-risk activities, such as climbing ladders, swimming alone, operating heavy machinery. Future considerations: Carbamazepine/oxcarbazepine. Previous trial: Keppra caused GI upset. Will follow-up upon review of above and patient to follow-up in clinic in 6 months or sooner prn. Coding Level of Care Code New Pt Level 4 (15875) Diagnoses Seizures R56.9 White matter abnormality on MRI of brain R90.82 Headache R51.9
[2024-04-20 12:51] VITALS: BP 128/78; PULSE 74; BMI 30.8
== END 2024-04-20 14:18 | disposition home or self-care (01) ==
PROVIDERS: PCP Physician Assistant; Visit Provider Nurse Practitioner Family
DX: R56.9 Unspecified convulsions (principal); R90.82 White matter disease, unspecified; R51.9 Headache, unspecified
CPT/HCPCS: 99204

== ENCOUNTER → 2024-04-20 12:40 | Outpatient (BNVA) | payer OTHER, SELFPAY | PROVIDERS: PCP Physician Assistant; Visit Provider Nurse Practitioner Family | DX: R56.9 Unspecified convulsions (principal); R90.82 White matter disease, unspecified; R51.9 Headache, unspecified | CPT/HCPCS: 99202 ==

== ENCOUNTER 2024-05-22 08:32 | Outpatient (REF) | payer OTHER, SELFPAY ==
[2024-05-22 09:57] LABS: Hematocrit 42.6 % (42.0-52.0); Hemoglobin 14.9 g/dl (14.0-18.0); Mean Corpuscular Hemoglobin 30.5 pg (27.0-33.0); Mean Corpuscular Volume 87.3 fL (80.0-98.0); Mean Platelet Volume 9.6 fL (9.4-12.4); Platelet Count 238 X10*3/uL (160-400); Red Blood Count 4.88 X10*6/uL (4.60-5.80); Red Cell Distribution Width 13.2 % (11.0-16.0); White Blood Count 8.4 X10*3/uL (4.8-10.8)
[2024-05-22 10:25] LABS: Estimated Average Glucose 146 mg/dL; Hemoglobin A1C 182.6855 umol/L; Hemoglobin A1c % 6.7 % (<6.0); Total Hemoglobin (HGBA1C) 3703.7467 umol/L
[2024-05-22 10:38] LABS: Creatinine Urine 308.23 mg/dL; Microalbum/Creatinine Ratio Ur 10.7 ug/mg cr (<30)
[2024-05-22 10:54] LABS: Alanine Aminotransferase 17 U/L (0-40); Albumin Level 4.8 g/dL (3.5-5.0); Alkaline Phosphatase 88 U/L (39-117); Anion Gap 15 (12-20); Aspartate Amino Transferase 16 U/L (5-37); Bilirubin Total 0.5 mg/dL (0.0-1.0); Blood Urea Nitrogen 24 mg/dL (9-16); Calcium 10.4 mg/dL (8.4-10.2); Carbon Dioxide 22 mmol/L (22-29); Chloride 106 mmol/L (96-108); Estimated Glomerular Filt Rate > 60; Glucose Fasting 114 mg/dL (60-99); Potassium 4.1 mmol/L (3.3-5.1); Sodium 139 mmol/L (135-145); Total Protein 8.2 g/dL (6.5-8.0)
--- NOTE | 2024-05-22 11:03 | ECG_ITS ---
Test Reason : PREOP Blood Pressure : / mmHG Vent. Rate : 075 BPM Atrial Rate : 075 BPM P-R Int : 154 ms QRS Dur : 082 ms QT Int : 360 ms P-R-T Axes : 069 016 079 degrees QTc Int : 402 ms Normal sinus rhythm Low voltage QRS Borderline ECG When compared with ECG of 23-JUL-2022 06:12, No significant change was found Referred By: Jason Vega Electronically Signed By:FATEMEH MUIR
== END 2024-05-22 08:33 | disposition home or self-care (01) ==
LOC: HO.LAB 08:32
PROVIDERS: PCP Physician Assistant; Visit Provider Physician Assistant
DX: Z01.818 Encounter for other preprocedural examination (principal); E11.65 Type 2 diabetes mellitus with hyperglycemia; G56.01 Carpal tunnel syndrome, right upper limb; G56.21 Lesion of ulnar nerve, right upper limb; R20.0 Anesthesia of skin; M50.30 Other cervical disc degeneration, unspecified cervical region; I25.10 Atherosclerotic heart disease of native coronary artery without angina pectoris; E78.5 Hyperlipidemia, unspecified; Z87.891 Personal history of nicotine dependence; Z23 Encounter for immunization
CPT/HCPCS: 36415; 80053; 82043; 82570; 83036; 85027; 90471; 90656; 93005; 99212

== ENCOUNTER 2024-05-22 09:03 | Outpatient (AMB) | payer OTHER, SELFPAY ==
[2024-05-22 09:05] VITALS: BP 178/120; O2SAT 98; BMI 30.1
--- NOTE | 2024-05-22 09:05 | A.OFFPC_ITS ---
Vital Signs 05/22/24 09:05 05/22/24 09:35 Height 5 ft 6 in Weight 186 lb 8 oz BMI 30.1 BP 178/120 H 150/100 H Blood Pressure Location Rt brachial Position Sitting Pulse Oximetry (%) 98 Oxygen Delivery Method Room Air Intake Visit Reasons: Cubital/carpal t. surgery 05/28/24 Dr. Romero. Dining Room Supervisor Required: No Accompanied by: Self / Same As Patient Allergies Penicillins Allergy (Severe, Verified 05/22/24 09:17) Anaphylaxis Medication List - Last Reconciled 05/22/24 by Jason Vega PA-C aspirin (Ecotrin Low Strength) 81 mg PO DAILY atorvastatin (Lipitor) 40 mg PO DAILY 90 days blood sugar diagnostic (FreeStyle Lite Strips) Testing once a day as needed blood-glucose meter (FreeStyle Lite Meter kit) As directed cane As directed cetirizine (Zyrtec) 10 mg PO DAILY PRN cyclobenzaprine 10 mg PO BEDTIME 90 days flash glucose scanning reader (VolteaStyle John 2 [place]) As directed flash glucose sensor (FreeStyle John 2 Sensor kit) As directed gabapentin 800 mg PO BID 30 days gabapentin 400 mg PO DAILY 30 days hydrocortisone 2.5% 1 appl topical BID PRN insulin glargine (Lantus Solostar U-100 Insulin) 22 units (0.22 mL) subcut QAM 30 days lancets (FreeStyle Lancets) Testing once a day as needed metformin 1,000 mg PO BID 90 days pantoprazole (Protonix) 40 mg PO DAILY 90 days pen needle, diabetic (BD Ultra-Fine [place] Pen Needle) As directed pioglitazone (Actos) 15 mg PO DAILY 90 days propranolol 10 mg PO BID 90 days simethicone (Gas Relief (simethicone)) 125 mg PO TID-QID PRN varenicline 1 mg PO BID 90 days venlafaxine 37.5 mg PO DAILY 90 days Tobacco use date assessed: 11/16/23 Dental Screening Dental Screen Date: 05/22/24 Did you have a dental visit in the last 12 months?: No Did you have a dental problem in the last 6 months where you did not have access to dental care?: No Was dental information given to patient?: Patient has dentist HPI Cubital/carpal t. surgery 05/28/24 Dr. Romero. HPI Details Patient is a 53-year-old male here today for preop visit.? Patient has a past medical history significant for type 2 diabetes, coronary artery disease, hyperlipidemia, major depressive disorder. Patient does not have history of Congestive heart failure, CVA or NH> he does coronary artery disease to which she follows Cardiology for. Today in office blood pressure elevated, does report having a large ice coffee before today's visit. CHRONIC MEDICAL CONDITION---> Coronary artery disease:? Has quit smoking.? Continues on moderate dose statin.? He denies any chest discomfort or shortness of breath on exertion.. He has follow-up with cardiology advised to continue aspirin therapy .. Former smoker? Continues on Chantix and is quit smoking over the last several mo nths. He does admit to taking a drag from a cigarette from time to time though has generally stopped smoking .. Type 2 diabetes:? Most recent A1c has improved. Today's A1c below 7 Has a continues glucose monitor which has helped him tremendously control his blood sugar.. He is anticipating cubital tunnel surgery and needed A1c below 8. Has been Lantus 22 units and reports sugars are much better controlled. Of note has only been using 1 metformin 1000 mg per day. [facility] Medical History (Updated 05/17/24 @ 16:49 by Jason Vega PA-C) White matter abnormality on MRI of brain Change in consistency of stool Anxiety Glaucoma Diarrhea Migraine Peptic ulcer Depression Myocardial infarction Seizures Coronary artery disease Hyperlipidemia Diabetes mellitus Surgical History Hx of elbow surgery History of carpal tunnel surgery of right wrist History of incision and drainage History of back surgery History of esophagogastroduodenoscopy (EGD) Hx of colonoscopy Hx of inguinal hernia surgery History of ear surgery S/P coronary artery stent placement Family History Mother Lumbar spine tumor Father Heart attack Paternal Grandfather Heart attack Other No family history of coronary artery disease Social History Household Members: Spouse Housing: Apartment Are you a primary career development specialist to a significant other at home: No Do you presently have visiting nurse or other home services: No Alcohol intake: never Comment: d/c from er Patient Tobacco Use Status: Former Tobacco user Tobacco use type: Cigarette Cigarettes Per Day: 4 Years Smoked: 22+ e-Cigarette/Vaping Use: Never Used Second Hand Smoke Exposure: Yes Substance Use Type: Marijuana service: No Current occupational status: unemployed Cognitive needs: No Hearing needs: No Vision needs: Yes Questionnaire Thrive Questionnaire Date Thrive assessed: 11/16/23 Are you currently unemployed and looking for a job?: No BILLY-7 AMB Questionnaire BILLY-7 Date BILLY - 7 assessed: 11/16/23 Source: Developed by Drs. Paul Brand, Kim Sauer, Abdias Patel and colleagues, with an educational chad from [employer]. Review of Systems Const Denies headache(s) Eyes Denies loss of vision ENT Denies vertigo, Denies dizziness, Denies headache(s) and Denies sore throat Card Denies chest pain, Denies leg edema and Denies lightheadedness Resp Denies cough, Denies hemoptysis and Denies wheezing GI Denies abdominal pain, Denies melena, Denies constipation, Denies diarrhea and Denies vomiting Denies dysuria, Denies urinary frequency and Denies urinary urgency Musc Denies arthralgias, Denies joint swelling, Denies numbness and Denies tingling Neuro Denies Abnormal speech present, Denies behavioral changes, Denies vertigo, Denies dizziness, Denies headache(s), Denies loss of vision, Denies memory loss, Denies numbness and Denies tingling Psych Denies anxiety, Denies behavioral changes, Denies depression, Denies memory loss and Denies panic attacks Jamarcus/Lymph Denies easy bleeding and Denies easy bruising Aller/Immun Denies wheezing Physical exam (Primary Care) Vital Signs: Last Vital Signs BP 150/100 H 05/22/24 09:35 Pulse Ox 98 05/22/24 09:05 Oxygen Delivery Method Room Air 05/22/24 09:05 BMI result Body Mass Index 30.1 Tobacco/Smoking Status: Tobacco use Status Tobacco use date assessed 11/16/23 05/22/24 09:15 Patient Tobacco Use Status Former Tobacco user 05/22/24 09:15 Tobacco use type Cigarette 05/22/24 09:15 e-Cigarette/Vaping Use Never Used 05/22/24 09:15 Thrive Assessment: Date of Thrive Assessment Date Thrive assessed 11/16/23 05/22/24 09:15 Const General: healthy appearing, no acute distress, alert and awake Nutritional Appearance: well nourished Orientation/consciousness: oriented to person, oriented to place and oriented to time HENMT Ears: TM's normal bilaterally General nose exam: Normal nasal mucous membranes and turbinates present Eyes Conjunctivae: conjunctivae normal Sclerae: sclerae normal Pupils: Equal, round and reactive pupils present Neck Neck: Yes no lymphadenopathy and Yes no JVD Thyroid: Thyroid normal Carotids: no bruits Resp Effort & Inspection: normal respiratory effort and not tachypneic Auscultation: no crackles, no rales, no rhonchi and no wheezes Cardio Rate: regular rate Rhythm: regular rhythm Heart sounds: no murmurs and normal S1 and S2 GI Palpation (GI): Soft to palpation, nontender, no hepatomegaly and no splenomegaly Auscultation: normal bowel sounds Skin General skin exam: no rashes or lesions noted and dry skin Neuro General: oriented to person, oriented to place and oriented to time Cranial nerves: Yes Equal, round and reactive pupils present Speech: No Abnormal speech present Gait exam (Neuro): Normal gait present Motor exam (neuro): no tremor noted Extrem Right upper extremity: full ROM Left upper extremity: full ROM Right lower extremity: full ROM; no edema Left lower extremity: full ROM; no edema Psych Mental Status: mental status grossly normal Speech and movement: Normal speech and movement present Affect: normal affect Attitude: cooperative Thought process: Normal thought process present Office Procedures Flu Questionnaire Does the patient have a severe egg allergy?: No Does the patient have severe life threatening allergies?: No Does the patient have a fever or illness today?: No Has the patient ever had Guillain-Wheaton Syndrome?: No Has the patient ever had any past reaction to a flu shot?: No Immunizations Fluarix Triv [id number] (PF) 45 mcg (15 mcg x 3)/0.5 mL IM syringe Performing Provider: Jason Vega PA-C Performing Location: [facility] – [place] [facility] Administered by: MARIS Moulton on 05/22/24 09:42 Dose Route Admin Location Dispensed Lot Number Expiration Date [facility] Priming Powder Premix Blender 0.5 mL IM Right Deltoid 0.5 mL [id number] 02/18/25 [id number] One Diary VIS Given Date VIS Provided VIS Publication Date 05/22/24 Single Vaccine 21 Eligibility Eligibility Date Funding Source Not VF Eligible 05/22/24 Private Coding Level of Care Code Est Pt Level 4 (22211) Diagnoses Pre-op evaluation Z01.818 Coronary artery disease involving [place] coronary artery of [place] heart without angina pectoris I25.10 Associated angina: without angina Coronary Disease-Associated Artery/Lesion type: [place] artery [place] vs. transplanted heart: [place] heart Type 2 diabetes mellitus with hyperglycemia, without long-term current use of insulin E11.65 Diabetes mellitus complication status: with hyperglycemia Diabetes mellitus moth exterminator insulin use: without moth exterminator use Diabetes mellitus type: type 2 Assessment & Plan Assessment & Plan (1) Pre-op evaluation: Code(s): Z01.818 - Encounter for other preprocedural examination Category: Medical Plan: Patient's recent labs and EKG stable. Vitals today showing elevated blood pressure though reports having a large eyes coffee before coming into the office. He reports blood pressures are always pretty stable at home and at previous office visits. Patient is medically clear for needed carpal tunnel release surgery. (2) Coronary artery disease: Code(s): I25.10 - Atherosclerotic heart disease of [place] coronary artery without angina pectoris Category: Medical Qualifiers: Associated angina: without angina Coronary Disease-Associated Artery/Lesion type: [place] artery [place] vs. transplanted heart: [place] heart Qualified Code(s): I25.10 - Atherosclerotic heart disease of [place] coronary artery without angina pectoris Plan: Patient followed by Cardiology. Patient continues on aspirin and statin therapy. Most recent lipid panel showing excellent control of his total cholesterol and LDL. Patient's most recent EKG without any significant abnormalities. Goal LDL is to remain below 70 (3) Diabetes mellitus: Code(s): E11.9 - Type 2 diabetes mellitus without complications Category: Medical Qualifiers: Diabetes mellitus complication status: with hyperglycemia Diabetes mellitus correction insulin use: without correction use Diabetes mellitus type: type 2 Qualified Code(s): E11.65 - Type 2 diabetes mellitus with hyperglycemia Plan: Patient's type 2 diabetes is now well controlled. Does have a continues glucose monitor which he is able to manage his blood sugars much better. His Lantus dose to 22 units and continues with metformin 1000 mg b.i.d.. Most recent A1c below 7.0. Orders: Orders Influenza [id number] Immunization Today Z23 - Encounter for immunization Medications: Refilled atorvastatin (Lipitor) 40 mg PO DAILY 90 days 90 tabs 1RF E78.5 - Hyp erlipidemia, unspecified gabapentin 800 mg PO BID 30 days 60 tabs 0RF G56.21 - Lesion of ulnar nerve, right upper limb
[2024-05-22 09:35] VITALS: BP 150/100
== END 2024-05-22 09:42 | disposition home or self-care (01) ==
PROVIDERS: PCP Physician Assistant; Visit Provider Physician Assistant
DX: Z01.818 Encounter for other preprocedural examination (principal); I25.10 Atherosclerotic heart disease of native coronary artery without angina pectoris; E11.65 Type 2 diabetes mellitus with hyperglycemia; Z23 Encounter for immunization

== ENCOUNTER 2024-05-22 09:52 | Outpatient (AMB) | payer OTHER, SELFPAY ==
--- NOTE | 2024-05-22 10:16 | MHC.OFFVIS ---
Vital Signs 05/22/24 10:30 Height 5 ft 6 in Weight 186 lb 8 oz BMI 30.1 Intake Visit Reasons: Preop RT cubital vs trans/repeat CTR 05/28/24 AR Intake Note: Kwaku is 53 yr old male who presents today to discuss a right cubital tunnel release vs transposition & REPEAT right carpal tunnel release, scheduled for 05/28/[address] Romero. Allergies Penicillins Allergy (Severe, Verified 05/22/24 09:17) Anaphylaxis HPI HPI Preop RT cubital vs trans/repeat CTR 05/28/24 AR: Details: Kwaku is a 53 year old right hand dominant man who returns to discuss his right carpal & cubital tunnel syndrome. He continues to have dense numbness in all fingers his right hand. He says his fingers are only a little less numb than when he received a nerve block prior to his right RTC repair by Dr. Guerrero, DOS: 07/28/23. He has a hx of a right carpal tunnel release ~10+ years in the past, but he cannot remember the exact date. He says his symptoms did not improve following his surgery. 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 He says he is unsure if he is squeezing too hard when holding his sons' hand. He reports pain along anterior aspect of his right arm, extending along antecubital fossa, in line with the biceps tendon. He has some occasional pain in the extensor origin, near the lateral epicondyle He also complains of similar numbness in his left hand. Please see my previous note from 05/11/23 for more information regarding his LUE. He has a hx of Diabetes, CAD, depression, OCD, and is a heavy, daily, smoker Marijuana. He has quit smoking cigarettes at this time. He says he had a pre-op physical this morning with his PCP, and says he needs to go perform an EKG later today. He says his Diabetes has been better controlled, and his last HgA1c was ~7.5%. He says he recently had a skin infection ~1 month ago, which he suspects is related to his Diabetic sensor. This has been managed with Abx. 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 He had a lumbar spine surgery in 06/13. He says he has some difficulty walking due to his lumbar spine issues. 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 He is no longer practicing. [facility] Medical History (Updated 05/17/24 @ 16:49 by Jason Vega PA-C) White matter abnormality on MRI of brain Change in consistency of stool Anxiety Glaucoma Diarrhea Migraine Peptic ulcer Depression Myocardial infarction Seizures Coronary artery disease Hyperlipidemia Diabetes mellitus Surgical History Hx of elbow surgery History of carpal tunnel surgery of right wrist History of incision and drainage History of back surgery History of esophagogastroduodenoscopy (EGD) Hx of colonoscopy Hx of inguinal hernia surgery History of ear surgery S/P coronary artery stent placement Family History Mother Lumbar spine tumor Father Heart attack Paternal Grandfather Heart attack Other No family history of coronary artery disease Social History Household Members: Spouse Housing: Apartment Are you a primary respite care provider to a significant other at home: No Do you presently have visiting nurse or other home services: No Alcohol intake: never Comment: d/c from er Patient Tobacco Use Status: Former Tobacco user Tobacco use type: Cigarette Cigarettes Per Day: 4 Years Smoked: 22+ e-Cigarette/Vaping Use: Never Used Second Hand Smoke Exposure: Yes Substance Use Type: Marijuana service: No Current occupational status: unemployed Cognitive needs: No Hearing needs: No Vision needs: Yes Physical Exam Vital Signs: BMI result Body Mass Index 30.1 Extrem Other: Evaluation of Right Upper Extremity: The patient is alert, oriented, and in no acute distress Neuro: Dense numbness to the tips of all digits, including the small finger Early intrinsic wasting, no thenar wasting Weak APB muscle belly firing and finger cross + Froment's sign on the right - Froment's sign on the left Vascular: Cap refill brisk ROM: He can make a fist and extend all his digits Of note, he has multiple sores on both arms, in various stages of healing with a few scabs. No current infections Nerve Conduction Study: Right side only IMPRESSION: 1. Dsos-hb-[id number] ulnar neuropathy across cubital tunnel. 2. Pwsf-fm-yolzoagq right median neuropathy across carpal tunnel. Patricia Sandoval MD 02/03/23 Assessment & Plan Assessment & Plan (1) Carpal tunnel syndrome of right wrist: Code(s): G56.01 - Carpal tunnel syndrome, right upper limb Category: Medical (2) Cubital tunnel syndrome on right: Code(s): G56.21 - Lesion of ulnar nerve, right upper limb Category: Medical (3) Numbness and tingling in left hand: Code(s): R20.0 - Anesthesia of skin; R20.2 - Paresthesia of skin Category: Medical (4) Degenerative disc disease, cervical: Code(s): M50.30 - Other cervical disc degeneration, unspecified cervical region Category: Medical (5) Coronary artery disease: Code(s): I25.10 - Atherosclerotic heart disease of [place] coronary artery without angina pectoris Category: Medical Qualifiers: Associated angina: without angina Coronary Disease-Associated Artery/Lesion type: [place] artery [place] vs. transplanted heart: [place] heart Qualified Code(s): I25.10 - Atherosclerotic heart disease of [place] coronary artery without angina pectoris (6) Diabetes mellitus: Code(s): E11.9 - Type 2 diabetes mellitus without complications Category: Medical Qualifiers: Diabetes mellitus complication status: with hyperglycemia Diabetes mellitus prison insulin use: without prison use Diabetes mellitus type: type 2 Qualified Code(s): E11.65 - Type 2 diabetes mellitus with hyperglycemia Plan Assessment & Plan: 1. Right Cubital tunnel syndrome, mild-moderate on NCS With dense numbness & early intrinsic wasting with a + Froment's sign This is his primary complaint today 2. Right Carpal tunnel syndrome, mild-moderate, recurrent S/P release DOS: unknown, several years ago at an outside clinic With Dense numbness that did not improve after the primary surgery More notably he does not have visible thenar atrophy, but does have weak APB muscle belly firing I educated him about these conditions I discussed operative and non-operative treatment options, I am recommending surgery to preserve motor function The patient would like to proceed with surgery I explained the risks of his sensation not returning, and that surgery is important to maintain muscle function and preserve any sensation possible. He expressed understanding I explained that he may have some return of nerve function for 6-9 months, but that by 9 months whenever he has is likely the most improvement that he will have.. The risks and benefits of operative treatment were discussed with the patient and the patient wishes to proceed with surgery. These risks include, but are not limited to risk of damage to blood vessels, nerves, tendons, infection, recurrence, incomplete relief of preoperative symptoms, persistent pain, possible need for further surgery and the risks associated with regional blocks and anesthesia. The plan is to take the patient to the operating room sometime on 05/28/24 for the following procedures: 1. Right Cubital tunnel release vs transposition, under general 2. Right REPEAT Carpal tunnel release, under general All of the preoperative paperwork including the consent was filled out today. All the patient's questions were answered. The patient understands that they will be contacted by our assistant at surgery soon to schedule this procedure He denies blood thinners, asthma, lung, kidney issues He is a Diabetic, his most recent HgA1c was ~7.5%. He has CAD & PAD and will need cardiac clearance prior to surgery. However he underwent a right RTC repair on 07/27/[address] Guerrero, with no complications. He met with his PCP for pre-op clearance, and needs to go perform an EKG later today. He reports that he has quit smoking cigarettes, but occasionally smokes Marijuana Multiple sores on both upper extremities, in various stages of healing. No active infection. He has a hx of a recent skin infection, likely related to his Diabetic sensor. He has recently completed a course of PO Bactrim. All of this began about a month ago. He does have trouble with picking it wounds. Out of an abundance of caution I ordered a 7 day course of PO Bactrim, to be taken prior to surgery. I discussed the risks and benefits of delaying surgery to allow for further resolution of his multiple wounds, vs undergoing surgery while on PO Abx. He very much wants to avoid any further delay, and to proceed with surgery. 3. Left hand numbness, S/P cubital tunnel release Done by Dr. Guerrero in ~2015 Primarily in the middle, ring, and small fingers He reports having some slight improvement following his cubital tunnel release, but it was short-lived and he has had numbness since that time Negative Froment sign We will evaluate this at a later date. Scribed for Sharmila Romero MD by Rowdy Upton, medical technologist prn, on 05/22/24 at 10:45 AM, EST. Medications: New sulfamethoxazole-trimethoprim 800-160 mg (Bactrim DS) 1 tab PO BID 20 tabs 0RF 10 days Coding Level of Care Code Est Pt Level 4 (05596) Diagnoses Carpal tunnel syndrome of right wrist G56.01 Cubital tunnel syndrome on right G56.21 Numbness and tingling in left hand R20.0; R20.2 Degenerative disc disease, cervical M50.30 Coronary artery disease involving [place] coronary artery of [place] heart without angina pectoris I25.10 Associated angina: without angina Coronary Disease-Associated Artery/Lesion type: [place] artery [place] vs. 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
[2024-05-22 10:30] VITALS: BMI 30.1
== END 2024-05-22 11:04 | disposition home or self-care (01) ==
PROVIDERS: PCP Physician Assistant; Visit Provider Orthopaedic Surgery
DX: G56.01 Carpal tunnel syndrome, right upper limb (principal); G56.21 Lesion of ulnar nerve, right upper limb; M50.30 Other cervical disc degeneration, unspecified cervical region; I25.10 Atherosclerotic heart disease of native coronary artery without angina pectoris; E11.65 Type 2 diabetes mellitus with hyperglycemia
CPT/HCPCS: 99024

== ENCOUNTER 2024-05-23 09:33 | Outpatient (REF) | payer OTHER, SELFPAY ==
--- NOTE | ~2024-05-23 | MR_ITS ---
EXAMINATION: MR BRAIN WITHOUT AND WITH CONTRAST CLINICAL INFORMATION: White matter disease. Patient states has h/o being told he has MS and does not have MS. COMPARISON: CT head 12/12/2018. MR brain 06/13/2018. TECHNIQUE: Multiplanar MR imaging of the brain was performed without and with contrast. A total of 8.5 mL Gadavist was utilized for this examination. FINDINGS: There are are a few small nonspecific foci of T2 FLAIR signal hyperintensity within the left frontal lobe near the vertex and have remained stable when compared to prior imaging from 06/13/2018. No infratentorial white matter disease. Postcontrast images reveal no abnormal intracranial enhancement. No intracranial mass effect or midline shift. No abnormal extra-axial collection. Lateral and third ventricles are normal. No hydrocephalus. Midline structures including the cervicomedullary junction are normal. No acute bone marrow signal changes. There is no acute territorial infarct. No pathological magnetic susceptibility artifact. Intracranial vascular flow voids are maintained. There is no mastoid or middle ear effusion. Mild paranasal sinus the dorsal thickening within the ethmoid air cells. Globes and orbits are symmetric. MR/MR head/brain wo/w con IMPRESSION: Stable examination. A few small nonspecific signal changes within the left frontal lobe near the vertex have remained unchanged. No abnormal findings to provide conclusive evidence of demyelinating disease. No abnormal intracranial enhancement. No evidence of acute territorial infarct or hemorrhage. Electronically signed by: Paul Gerardo MD 06/01/2024 04:04 PM EDT
[2024-05-23] MEDS: gadobutroL 10 ML VIAL IVPUSH (10:31)
== END 2024-05-23 09:34 | disposition home or self-care (01) ==
LOC: HO.MRI 09:33
PROVIDERS: PCP Physician Assistant; Visit Provider Nurse Practitioner Family
DX: R56.9 Unspecified convulsions (principal); R90.82 White matter disease, unspecified
CPT/HCPCS: 70553; A9585

== ENCOUNTER 2024-05-28 06:59 | Day surgery (SDC) | payer OTHER, SELFPAY ==
--- NOTE | 2024-05-24 13:17 | HO.ANESPROP2 ---
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 He underwent drug-eluting stent at that time by Dr. Shah. He had EF of 40 45% at that time too. He was at [facility] with atypical chest pain in July 2022. At that time he underwent stress testing which did not show any significant issues and he was discharged home. Last office visit 03/2024 - stable with 6 month routine f/u [facility] Active Problems Active Problems: All Active Problems Former smoker (Acute) Pre-op evaluation (Acute) White matter abnormality on MRI of brain (Acute) Headache (Acute) Rib pain on right side (Acute) S/P right rotator cuff repair (Acute) Tobacco dependence (Acute) S/P spinal surgery (Acute) Otitis media (Acute) Gastric ulcer (Acute) Tubular adenoma of colon (Acute) Acid reflux (Acute) Cervical radicular pain (Acute) Numbness and tingling in left hand (Acute) Cubital tunnel syndrome on right (Acute) Carpal tunnel syndrome of right wrist (Acute) PAD (peripheral artery disease) (Acute) Lumbar stenosis (Acute) Right rotator cuff tear (Acute) Degenerative disc disease, cervical (Acute) Cervical spondylosis (Acute) Migraines (Acute) Lumbar degenerative disc disease (Acute) OCD (obsessive compulsive disorder) (Acute) Labral tear of shoulder, degenerative (Acute) Painful arc syndrome of right shoulder (Acute) Left knee pain (Acute) Preop cardiovascular exam (Acute) Claudication (Acute) Back pain of lumbar region with sciatica (Acute) Change in bowel habits (Acute) PUD (peptic ulcer disease) (Acute) Cervical stenosis of spinal canal (Acute) Right hand paresthesia (Acute) Tendinopathy of right shoulder (Acute) MDD (major depressive disorder), recurrent episode, moderate (Acute) Bilateral shoulder pain (Acute) Depression (Acute) Neck pain (Acute) Change in consistency of stool (Acute) Seizures (Acute) Hyperlipidemia (Acute) Coronary artery disease (Acute) Diabetes mellitus (Acute) Past Medical History Medical History Umbilical hernia White matter abnormality on MRI of brain Change in consistency of stool Anxiety Glaucoma Diarrhea Migraine Peptic ulcer Depression Myocardial infarction Seizures Coronary artery disease Hyperlipidemia Diabetes mellitus Family History Family History Mother Lumbar spine tumor Father Heart attack Paternal Grandfather Heart attack Other No family history of coronary artery disease Family history of problems with anesthesia: No Surgical History Surgical History Hx of elbow surgery History of carpal tunnel surgery of right wrist History of incision and drainage History of back surgery History of esophagogastroduodenoscopy (EGD) Hx of colonoscopy History of ear surgery S/P coronary artery stent placement History of Problems with Anesthesia: No Social History Social History Household Members: Spouse Housing: Apartment Are you a primary ostomy care nurse to a significant other at home: No Do you presently have visiting nurse or other home services: No Alcohol intake: never Comment: d/c from er Patient Tobacco Use Status: Former Tobacco user Tobacco use type: Cigarette Cigarettes Per Day: 4 Years Smoked: 22+ e-Cigarette/Vaping Use: Never Used Second Hand Smoke Exposure: Yes Use of substances other than those prescribed or required for medical reasons: Yes Substance Use Type: Marijuana Are you DNR?: No Advance Directives: No Advance Directives Information Provided: Yes Advance Directives on File: No Recently lost weight without trying: No Nutrition Risks: No Nutritional Risk service: No Current occupational status: unemployed Cognitive needs: No Hearing needs: No Vision needs: Yes Meds Allergies Allergy/AdvReac Type Severity Reaction Status Date / Time Penicillins Allergy Severe Anaphylaxis Verified 05/22/24 09:17 Home Medications ?Medication ?Instructions ?Recorded ?Confirmed ?Last Taken ?Type simethicone 125 mg chewable tablet 125 mg PO TID-QID PRN abdominal 06/28/23 05/22/24 Unknown History (Gas Relief (simethicone)) distention Exam Height,Weight and Vital Signs: Height 5 ft 6 in Weight 84.368 kg Pertinent Lab Results Pertinent Lab Results: Laboratory Tests 05/22/24 08:50 WBC 8.4 Hgb 14.9 Hct 42.6 Plt Count 238 Sodium 139 Potassium 4.1 Chloride 106 Carbon Dioxide 22 BUN 24 H Creatinine 1.11 Narrative Narrative: EKG 05/2024 Vent. Rate : 075 BPM Atrial Rate : 075 BPM P-R Int : 154 ms QRS Dur : 082 ms QT Int : 360 ms P-R-T Axes : 069 016 079 degrees QTc Int : 402 ms Normal sinus rhythm Low voltage QRS Borderline ECG When compared with ECG of 23-JUL-2022 06:12, No significant change was found Assessment and Plan Assessment Anesthesia Assessment: Chart Reviewed Final Anesthetic Review Family History of Problems with Anesthesia: No History of Problems with Anesthesia: No Documented by User: Lou Barr MD 05/28/24 10:48 PMFSH Past Medical History Medical History Umbilical hernia White matter abnormality on MRI of brain Change in consistency of stool Anxiety Glaucoma Diarrhea Migraine Peptic ulcer Depression Myocardial infarction Seizures Coronary artery disease Hyperlipidemia Diabetes mellitus Family History Family History Mother Lumbar spine tumor Father Heart attack Paternal Grandfather Heart attack Other No family history of coronary artery disease Surgical History Surgical History Hx of elbow surgery History of carpal tunnel surgery of right wrist History of incision and drainage History of back surgery History of esophagogastroduodenoscopy (EGD) Hx of colonoscopy History of ear surgery S/P coronary artery stent placement Social History Social History Household Members: Spouse Housing: Apartment Are you a primary ostomy care nurse to a significant other at home: No Do you presently have visiting nurse or other home services: No Alcohol intake: never Comment: d/c from er Patient Tobacco Use Status: Former Tobacco user Tobacco use type: Cigarette Cigarettes Per Day: 4 Years Smoked: 22+ e-Cigarette/Vaping Use: Never Used Second Hand Smoke Exposure: Yes Use of substances other than those prescribed or required for medical reasons: Yes Substance Use Type: Marijuana Are you DNR?: No Advance Directives: No Advance Directives Information Provided: Yes Advance Directives on File: No Recently lost weight without trying: No Nutrition Risks: No Nutritional Risk service: No Current occupational status: unemployed Cognitive needs: No Hearing needs: No Vision needs: Yes Meds Allergies Allergy/AdvReac Type Severity Reaction Status Date / Time Penicillins Allergy Severe Anaphylaxis Verified 05/22/24 09:17 Home Medications ?Medication ?Instructions ?Recorded ?Confirmed ?Last Taken ?Type simethicone 125 mg chewable tablet 125 mg PO TID-QID PRN abdominal 06/28/23 05/22/24 Unknown History (Gas Relief (simethicone)) distention Exam Airway Mallampati Class: III TM Dist: >3cm Neck ROM: Full Heart: rrr Lungs: cta Assessment and Plan Assessment Anesthesia Assessment: Anesthesia Plan Discussed Final Anesthetic Review NPO: Yes ASA Class: III Final Preanesthetic Review: No Changes in Pt Med Stat, Meds/Allgs Chart Reviewed, Consent Obtained/Reviewed and Anes Risks/Benef Reviewed Patient Risk: Intermediate Procedure Risk: Low Anesthetic Plan Anesthetic Plan: GA Disposition: Standard PACU
[2024-05-28] VITALS (7 sets, daily range): BP systolic 132–163; BP diastolic 77–85; PULSE 68–85; RESP 16–17; TEMP 36.3; O2SAT 97–100; BMI 30.7
[2024-05-28 08:04] LABS: Glucose, Whole Blood 113 mg/dL (60-115)
--- NOTE | 2024-05-28 08:29 | PC.NURSE ---
patient had brain mri on or tuesday of this past week to rule out his headaches. ?bleeding/ms rule out. history of seizures but no longer takes keppra per patient. used to see a neurologist but was referred to a new one. was seen at [facility]. i called mri and images are there but no report. i called our radiology department to put a stat read on patients mri prior to surgery in case its needed. denies having a headache at this time. neuros intact. 2mm bilateral reactive pupils.
--- NOTE | 2024-05-28 08:58 | PC.NURSE ---
md horvath by bedside regarding rash on bilateral arms and recent mri.
[2024-05-28] MEDS: Lactated Ringers 1,000 ML 100 ML IVCONT (09:06)
--- NOTE | 2024-05-28 09:11 | P.OP_ITS ---
Operative Note Operative Note Date of Service: 05/28/24 Narrative: Operative Note Narrative: Preop diagnosis: 1. Right Cubital tunnel syndrome 2. Right recurrent carpal tunnel syndrome Postop diagnosis: Same Procedure: 1. Right Cubital Tunnel Release 2. Right repeat carpal tunnel release Surgeon: Sharmila Romero MD Meteorology Teacher: None Anesthesia: General Anesthesia Findings: Thickening and fibrosis about the ulnar nerve at the cubital tunnel with an hourglass deformity at the distal half of the cubital tunnel, thickening of the nerve seen proximal to this. Implants: none Tourniquet time: 49 minutes EBL: 5.0 ml Specimen: none Drains: None Complications: None Disposition: Brought to the recovery room in stable condition Plan: Follow-up in 10-14 days for wound check, and suture removal He will finish up his Bactrim which she was given last week for his multiple healing upper extremity lesions. Indications: The patient is 53 years old with right cubital tunnel syndrome and right recurrent carpal tunnel syndrome . The risks and benefits of operative treatment, including but not limited to risk of damage to blood vessels, nerves, tendons, infection, recurrence, persistent pain or numbness, incomplete resolution of preoperative symptoms, or need for further surgery were discussed with the patient and they wished to proceed with surgery. Procedure: Once consent was obtained patient was brought back to the operating suite and placed in the operating table in a supine position. Perioperative antibiotics and anesthesia was administered by the anesthesia team. The limb was prepped and draped in a standard surgical fashion, and a sterile tourniquet applied to the proximal aspect of the right upper extremity. The limb was elevated exsanguinated with Esmarch bandage and the tourniquet inflated to 250 mm of mercury for a total tourniquet time of 49 minutes. Once assured that we had a good block, a 2.0 cm longitudinal incision was made centered over the right carpal tunnel and extended in a zigzag fashion proximal to the distal wrist crease.. The incision was made through the skin to the subcutaneous tissues using a #15 blade. Dissection was made down to the level of the volar forearm fascia at the distal aspect of the forearm. The volar forearm fascia was opened longitudinally using tenotomy scissors revealing to us the median nerve. The scar tissue in the area of the previous transverse carpal ligament then incised longitudinally 1st using a 15. Blade and then using tenotomy scissors under direct visualization. This visualized, a longitudinal incision was made in the transverse carpal ligament 1st using a #15 blade, then using tenotomy scissors under direct visualization. This was done while visualizing the median nerve. Once satisfied with our carpal tunnel release the wound was irrigated with normal saline. Skin edges were then reapproximated with some 4-0 Prolene suture material. My attention was then turned to our cubital tunnel release. A 6 cm gently curved but longitudinally oriented incision was made centered over the cubital tunnel of the right upper extremity. Incision was made through the skin to the subcutaneous tissues using a # 15 Blade. I then dissected down to the level of the medial epicondyle and the cubital tunnel using tenotomy scissors. Care was taken to protect the medial antebrachial cutaneous nerve. The ulnar nerve was identified just posterior to the medial intermuscular septum. The ulnar nerve was released in a proximal to distal direction using tenotomy in iris scissors while directly visualizing and protecting the ulnar nerve. He was noted to have an hourglass deformity of the ulnar nerve in the distal half of the cubital tunnel. Thickening and fibrosis was appreciated about the ulnar nerve proximal to the area of narrowing. The ulnar nerve was assessed as I passed the elbow through full flexion and extension and was found to remain stable within its groove. At this point the tourniquet was deflated and hemostasis obtained with a brief period of local pressure and bipolar electrocautery. The wound was copiously irrigated with normal saline. The subcutaneous layer was closed with 4-0 Vicryl suture, and the skin edges were reapproximated with 5-0 nylon suture. The wounds were infiltrated with some 1% lidocaine with epinephrine for postop pain control and sterile dressings were applied. The patient appears to have tolerated the procedure well and with no complications. All digits were well vascularized at the conclusion of the case.
--- NOTE | 2024-05-28 09:11 | MHC.SHP ---
Pre-Procedural Eval Section A - 24 Hr Update-Section A only Date of Service: 05/28/24 The patient is an INPATIENT: No Changes since office visit: No Cold of Flu in the past 2 weeks, No New Medical Problems, No Changes in Medication and No Patient answered all questions The patient has been examined within 24 hours of the surgical procedure. The History & Physical has been completed within 30 days and I have reviewed it.: Yes Section B - Complete if H&P > 30 days Chief Complaint: kesion of ulnar nerve,carpal tunnel release Allergies: Allergies Allergy/AdvReac Type Severity Reaction Status Date / Time Penicillins Allergy Severe Anaphylaxis Verified 05/22/24 09:17 Plan I have reviewed the history and physical and performed a pertinent physical examination on my patient. No changes have occurred unless specified. Time Spent With Patient Time: Total time managing care of this patient today ____ minutes.
== END 2024-05-28 12:37 | disposition home or self-care (01) ==
PROVIDERS: PCP Physician Assistant; Visit Provider Orthopaedic Surgery
PROC: (CPT 64718; principal; 2024-05-28 09:00)
PROC: (CPT 64721; 2024-05-28 09:00)
DX: G56.01 Carpal tunnel syndrome, right upper limb (principal); G56.21 Lesion of ulnar nerve, right upper limb; I25.10 Atherosclerotic heart disease of native coronary artery without angina pectoris; Z95.5 Presence of coronary angioplasty implant and graft; E78.5 Hyperlipidemia, unspecified; E11.65 Type 2 diabetes mellitus with hyperglycemia; F32.9 Major depressive disorder, single episode, unspecified; H40.9 Unspecified glaucoma; R90.82 White matter disease, unspecified; I25.2 Old myocardial infarction; R56.9 Unspecified convulsions; Z79.82 Long term (current) use of aspirin; Z79.899 Other long term (current) drug therapy; Z79.4 Long term (current) use of insulin; Z79.84 Long term (current) use of oral hypoglycemic drugs; Z88.0 Allergy status to penicillin; Z87.891 Personal history of nicotine dependence; Z98.890 Other specified postprocedural states; Z56.0 Unemployment, unspecified
CPT/HCPCS: 64721; 64718; 82947; J0131; J0736; J1100; J2003; J2004; J2405; J2704; J2795; J3010

== ENCOUNTER → 2024-05-28 06:59 | Outpatient (BNV) | payer OTHER, SELFPAY | PROVIDERS: PCP Physician Assistant; Visit Provider Orthopaedic Surgery | DX: G56.21 Lesion of ulnar nerve, right upper limb (principal); G56.01 Carpal tunnel syndrome, right upper limb | CPT/HCPCS: 64718; 64721 ==

== ENCOUNTER 2024-06-12 11:27 | Outpatient (AMB) | payer OTHER, SELFPAY ==
--- NOTE | 2024-06-12 11:46 | MHC.OFFVIS ---
Intake Visit Reasons: PO RT cubital vs trans/repeat CTR 05/28/24 AR Intake Note: Kwaku is a 53 year old male who presents today for a post operative visit s/p right cubital tunnel release & right repeat carpal tunnel release w/ Dr Romero DOS: 05/28/24. Pt states he is still having numbness and tingling in his pinky and ring finger. Pt states his ROM is doing better. Allergies Penicillins Allergy (Severe, Verified 06/12/24 11:47) Anaphylaxis HPI HPI PO RT cubital vs trans/repeat CTR 05/28/24 AR: Details: Patient is a 53-year-old male who presents for postoperative evaluation status post right cubital and repeat carpal tunnel releases DOS 05/28/2024. Today, the patient reports that he is feeling well, and he feels that the repeat carpal tunnel release brought him back normal sensation, but he continues to endorse dense numbness and tingling in the ulnar nerve distribution of the right hand. Patient was densely numb prior to surgery. The patient does report that his range of motion has improved significantly since DOS. Patient reports no other acute complaints or concerns at this time. [facility] Medical History Umbilical hernia White matter abnormality on MRI of brain Change in consistency of stool Anxiety Glaucoma Diarrhea Migraine Peptic ulcer Depression Myocardial infarction Seizures Coronary artery disease Hyperlipidemia Diabetes mellitus Surgical History Hx of elbow surgery History of carpal tunnel surgery of right wrist History of incision and drainage History of back surgery History of esophagogastroduodenoscopy (EGD) Hx of colonoscopy History of ear surgery S/P coronary artery stent placement Family History Mother Lumbar spine tumor Father Heart attack Paternal Grandfather Heart attack Other No family history of coronary artery disease Social History Household Members: Spouse Housing: Apartment Are you a primary director long term care to a significant other at home: No Do you presently have visiting nurse or other home services: No Alcohol intake: never Comment: d/c from er Patient Tobacco Use Status: Former Tobacco user Tobacco use type: Cigarette Cigarettes Per Day: 4 Years Smoked: 22+ e-Cigarette/Vaping Use: Never Used Second Hand Smoke Exposure: Yes Substance Use Type: Marijuana service: No Current occupational status: unemployed Cognitive needs: No Hearing needs: No Vision needs: Yes Physical Exam Extrem Other: Patient is alert, oriented, and in no acute distress. Neuro: Normal sensation of the tips of the thumb, index, and middle fingers of the right hand Patient does report continued numbness and tingling in the right ring and small fingers Vascular: Cap refill brisk Pain: Patient reports minimal tenderness to palpation about the incision sites ROM: Patient is able to make a closed fist and extend all digits of the right hand fully Patient is able to flex the right elbow to approximately 150 degrees and extend to 0 degrees without difficulty Skin: Well approximated and well healing incision sites noted on the medial aspect of the right elbow and the volar aspect of the right wrist No evidence of infection noted General: No ecchymosis, erythema, or evidence of infection. Psych: Appears grossly normal Affect normal Attitude cooperative Assessment & Plan Assessment & Plan (1) Cubital tunnel syndrome on right: Code(s): G56.21 - Lesion of ulnar nerve, right upper limb Category: Medical (2) Carpal tunnel syndrome of right wrist: Code(s): G56.01 - Carpal tunnel syndrome, right upper limb Category: Medical Plan 1. Cubital tunnel syndrome status post cubital tunnel release DOS 05/28/2024 Symptoms constant, daily 2. Carpal tunnel syndrome, right, status post carpal tunnel release DOS 05/28/2024 Patient appears to be recovering well postoperatively Patient is educated about the typical recovery course Patient was re-educated that due to the fact that he was experiencing dense numbness in the ulnar nerve distribution of the right hand, there is increased likelihood that he will not get normal sensation back even with release, and if he does it will likely take weeks to months Patient states understanding of this Patient is educated he should continue to work on range of motion exercises for the right hand, wrist, and elbow, and should call us for referral to occupational therapy if he notices no improvement his mild stiffness Patient will follow-up as needed with any acute concerns Coding Level of Care Code Global (18092) Diagnoses Cubital tunnel syndrome on right G56.21 Carpal tunnel syndrome of right wrist G56.01
== END 2024-06-12 12:17 | disposition home or self-care (01) ==
PROVIDERS: PCP Physician Assistant
DX: G56.21 Lesion of ulnar nerve, right upper limb (principal); G56.01 Carpal tunnel syndrome, right upper limb
CPT/HCPCS: 99024

== ENCOUNTER → 2024-06-12 11:27 | Outpatient (BNVA) | payer OTHER, SELFPAY | PROVIDERS: PCP Physician Assistant | DX: R20.0 Anesthesia of skin (principal); R20.2 Paresthesia of skin; Z48.811 Encounter for surgical aftercare following surgery on the nervous system; Z98.890 Other specified postprocedural states | CPT/HCPCS: 99212 ==

== ENCOUNTER 2024-07-16 11:31 | Outpatient (AMB) | payer OTHER, SELFPAY ==
--- NOTE | 2024-07-16 12:08 | A.OFFVIS_ITS ---
Intake Visit Reasons: OV - Rt Shoulder 07/27/23 follow up Intake Note: Kwaku is a 53 year old right hand dominant male who presents today for a follow up of his right shoulder s/p Right Rotator Cuff Tear and Biceps Tenotomy 07/27/23. Patient reports that his shoulder feels that same or worse than prior to surgery. He states My whole arm feels foreign to me, it doesn't feel like it belongs to me. He has trouble sleeping due to his pain, OTC NSAIDs and Tylenol are not helpful. Also reports increased pain in the left shoulder as he is sleeping on the left side and doing more with this arm due to pain in the right Right Cubital and Carpal Tunnel Release 05/28/24 AR - reports that his hand is still numb Allergies Penicillins Allergy (Severe, Verified 06/12/24 11:47) Anaphylaxis HPI HPI OV - Rt Shoulder 07/27/23 follow up: Details: Chucho comes in complaining of right shoulder pain. He is 1 year status post large rotator cuff repair. He states he can abduct his arm to 90 degrees but then starts to feel pain. He states he has difficulty sleeping at night. He also has some back pain and some arm pain. He recently had cubital and carpal tunnel surgery on the right. [facility] Medical History (Updated 07/10/24 @ 11:09 by Daysi Vasquez PA-C) Nicotine dependence, cigarettes, uncomplicated Umbilical hernia White matter abnormality on MRI of brain Change in consistency of stool Anxiety Glaucoma Diarrhea Migraine Peptic ulcer Depression Myocardial infarction Seizures Coronary artery disease Hyperlipidemia Diabetes mellitus Surgical History Hx of elbow surgery History of carpal tunnel surgery of right wrist History of incision and drainage History of back surgery History of esophagogastroduodenoscopy (EGD) Hx of colonoscopy History of ear surgery S/P coronary artery stent placement Family History Mother Lumbar spine tumor Father Heart attack Paternal Grandfather Heart attack Other No family history of coronary artery disease Social History Household Members: Spouse Housing: Apartment Are you a primary rn progressive care unit to a significant other at home: No Do you presently have visiting nurse or other home services: No Alcohol intake: never Comment: d/c from er Patient Tobacco Use Status: Former Tobacco user Tobacco use type: Cigarette Cigarettes Per Day: 4 Years Smoked: 22+ e-Cigarette/Vaping Use: Never Used Second Hand Smoke Exposure: Yes Substance Use Type: Marijuana service: No Current occupational status: unemployed Cognitive needs: No Hearing needs: No Vision needs: Yes Physical Exam Extrem Other: 4+/5 empty can on the right 5/5 external rotation at 0 degrees External rotation to 20 degrees Negative lift-off Positive Monica and Tana Assessment & Plan Assessment & Plan (1) S/P right rotator cuff repair: Comment: 07/27/2023 NE Code(s): Z98.890 - Other specified postprocedural states Category: Surgical Plan: Status post rotator cuff repair on the right. This is a large repair and based on his exam his rotator cuff appears to be functioning albeit in a slightly diminished capacity. I explained to him that this is to be expected given the severity of the tear and that I am pleased with the results. Still is frustrated that he has some pain at night and is not comfortable. He has done physical therapy and I am not comfortable injecting the shoulder at this time. I recommend a referral to pain management as they may have some additional intervention that might be helpful and they might be able to address some of his systemic pain complaints. I discussed this with him. He is amenable to the plan. No additional orthopedic surgical intervention warranted at this time. (2) Numbness and tingling in left hand: Code(s): R20.0 - Anesthesia of skin; R20.2 - Paresthesia of skin Category: Medical Plan: (3) Cervical radicular pain: Code(s): M54.12 - Radiculopathy, cervical region Category: Medical Plan: Orders: Referrals Pain Management Referral M54.12 - Radiculopathy, cervical region, R20.0 - Anesthesia of skin, R20.2 - Paresthesia of skin, Z98.890 - Other specified postprocedural states Coding Level of Care Code Est Pt Level 4 (61043) Diagnoses S/P right rotator cuff repair Z98.890 Numbness and tingling in left hand R20.0; R20.2 Cervical radicular pain M54.12
== END 2024-07-16 12:22 | disposition home or self-care (01) ==
PROVIDERS: PCP Physician Assistant; Visit Provider Orthopaedic Surgery
DX: Z47.89 Encounter for other orthopedic aftercare (principal); R20.0 Anesthesia of skin; R20.2 Paresthesia of skin; M54.12 Radiculopathy, cervical region
CPT/HCPCS: 99214

== ENCOUNTER → 2024-07-16 11:31 | Outpatient (BNVA) | payer OTHER, SELFPAY | PROVIDERS: PCP Physician Assistant; Visit Provider Orthopaedic Surgery | DX: R20.0 Anesthesia of skin (principal); R20.2 Paresthesia of skin; M54.12 Radiculopathy, cervical region; Z98.890 Other specified postprocedural states | CPT/HCPCS: 99212 ==

== ENCOUNTER 2024-07-30 10:32 | Outpatient (AMB) | payer OTHER, SELFPAY ==
--- NOTE | 2024-07-30 10:41 | MHC.OFFVIS ---
Vital Signs 07/30/24 10:43 Height 5 ft 6 in Weight 192 lb BMI 31.0 BP 134/72 Blood Pressure Location Lt brachial Position Sitting Respiration 15 Pulse 69 Pulse Source Pulse Oximeter Pulse Oximetry (%) 99 Oxygen Delivery Method Room Air Intake Visit Reasons: Cervical Radiculopathy BILLY 05/20/23 Allergies Penicillins Allergy (Severe, Verified 07/30/24 10:45) Anaphylaxis Medication List - Last Reconciled 07/30/24 by Krystal Day LPN aspirin (Ecotrin Low Strength) 81 mg PO DAILY atorvastatin (Lipitor) 40 mg PO DAILY 90 days blood sugar diagnostic (FreeStyle Lite Strips) Testing once a day as needed blood-glucose meter (FreeStyle Lite Meter kit) As directed cane As directed cetirizine (Zyrtec) 10 mg PO DAILY PRN cyclobenzaprine 10 mg PO BEDTIME 90 days flash glucose scanning reader (FreeStyle John 2 [place]) As directed flash glucose sensor (FreeStyle John 2 Sensor kit) As directed gabapentin 800 mg PO BID 30 days gabapentin 400 mg PO DAILY 30 days hydrocortisone 2.5% 1 appl topical BID PRN insulin glargine (Lantus Solostar U-100 Insulin) 22 units (0.22 mL) subcut QAM 30 days lancets (FreeStyle Lancets) Testing once a day as needed metformin 1,000 mg PO BID 90 days pantoprazole (Protonix) 40 mg PO DAILY 90 days pen needle, diabetic (BD Ultra-Fine [place] Pen Needle) As directed pioglitazone (Actos) 15 mg PO DAILY 90 days propranolol 10 mg PO BID 90 days simethicone (Gas Relief (simethicone)) 125 mg PO TID-QID PRN varenicline 1 mg PO BID 90 days venlafaxine 37.5 mg PO DAILY 90 days HPI HPI Cervical Radiculopathy BILLY 05/20/23: Details: 53-year-old male who presents today to the office for a cervical radiculopathy. He has difficulty sleeping on his side. He has muscle cramping on his bilateral side. He recently had back and elbow surgery with no relief. He reports increased pain in the left shoulder as he is sleeping on the left side and doing more with this arm due to pain in the right. He has trouble sleeping due to his pain; OTC NSAIDs and Tylenol are not helpful. He is still having numbness and tingling in his pinky and ring finger. He states he can abduct his arm to 90 degrees but then starts to feel pain. He also has some back pain and some arm pain. He recently had cubital and carpal tunnel surgery on the right by Dr. Romero, DOS: 05/28/24. He had status post right rotator cuff tear and biceps tenotomy on 07/27/23. He reports that his shoulder feels the same or worse than prior to surgery. He states, My whole arm feels foreign to me; it doesn't feel like it belongs to me. He has partial seizure disorder and has been taking gabapentin TID.? [facility] Medical History (Updated 07/10/24 @ 11:09 by Daysi Vasquez PA-C) Nicotine dependence, cigarettes, uncomplicated Umbilical hernia White matter abnormality on MRI of brain Change in consistency of stool Anxiety Glaucoma Diarrhea Migraine Peptic ulcer Depression Myocardial infarction Seizures Coronary artery disease Hyperlipidemia Diabetes mellitus Surgical History Hx of elbow surgery History of carpal tunnel surgery of right wrist History of incision and drainage History of back surgery History of esophagogastroduodenoscopy (EGD) Hx of colonoscopy History of ear surgery S/P coronary artery stent placement Family History Mother Lumbar spine tumor Father Heart attack Paternal Grandfather Heart attack Other No family history of coronary artery disease Social History Household Members: Spouse Housing: Apartment Are you a primary hospice care transitions coordinator to a significant other at home: No Do you presently have visiting nurse or other home services: No Alcohol intake: never Comment: d/c from er Patient Tobacco Use Status: Former Tobacco user Tobacco use type: Cigarette Cigarettes Per Day: 4 Years Smoked: 22+ e-Cigarette/Vaping Use: Never Used Second Hand Smoke Exposure: Yes Substance Use Type: Marijuana service: No Current occupational status: unemployed Cognitive needs: No Hearing needs: No Vision needs: Yes Review of Systems Const All systems reviewed & are unremarkable except as noted in HPI and below Physical Exam Vital Signs: Last Vital Signs Pulse 69 07/30/24 10:43 Resp 15 07/30/24 10:43 BP 134/72 07/30/24 10:43 Pulse Ox 99 07/30/24 10:43 Oxygen Delivery Method Room Air 07/30/24 10:43 BMI result Body Mass Index 31.0 General: Appears afebrile. Alert and oriented. Mood and affect appropriate. Follows and participates in conversation appropriately. Respiratory effort is unlabored. Able to transition from sit to stand unassisted. Ambulates with bilaterally normal heel strike and toe off. Right shoulder extension is limited to 90 degrees. Abduction is limited to 100 degrees, which reproduces pain all around the joint. There is tenderness to palpation overlying right shoulder joint. Results Reviewed Results Reviewed: No imaging is available for review. Assessment & Plan Assessment & Plan (1) S/P right rotator cuff repair: Comment: 07/27/2023 [place] Code(s): Z98.890 - Other specified postprocedural states Category: Surgical (2) Right rotator cuff tear: Code(s): M75.101 - Unspecified rotator cuff tear or rupture of right shoulder, not specified as traumatic Category: Medical Qualifiers: Rotator cuff tear extent: incomplete Rotator cuff tear trauma status: nontraumatic Qualified Code(s): M75.111 - Incomplete rotator cuff tear or rupture of right shoulder, not specified as traumatic (3) Bilateral shoulder pain: Code(s): M25.511 - Pain in right shoulder; M25.512 - Pain in left shoulder Category: Medical Plan We discussed temporary vs. permanent peripheral nerve stimulator as possible treatment options for his pain. We will schedule him for a right temporary suprascapular nerve stimulator placement. Discussed the risks and benefits of the procedure with the patient in detail. All questions were answered. The patient is on board with the plan. Justification for interventional therapy: ? Patient with average pain > 6/10 ? Patient has exhausted physical therapy, oral medications and surgical intervention. . Patient has a good understanding of their pain condition and has appropriate mental and social support. Scribed for Dr. Mccoy by Severo Payan, certified medical coding specialist, on 07/30/2024. I, Dr. Mccoy, have personally reviewed and agree with the information entered by the scribe. Coding Level of Care Code New Pt Level 4 (37215) Diagnoses S/P right rotator cuff repair Z98.890 Nontraumatic incomplete tear of right rotator cuff M75.111 Rotator cuff tear extent: incomplete Rotator cuff tear trauma status: nontraumatic Bilateral shoulder pain M25.511; M25.512
[2024-07-30 10:43] VITALS: BP 134/72; PULSE 69; RESP 15; O2SAT 99; BMI 31.0
== END 2024-07-30 11:18 | disposition home or self-care (01) ==
PROVIDERS: PCP Physician Assistant; Referring Provider Orthopaedic Surgery; Visit Provider Internal Medicine
DX: M75.111 Incomplete rotator cuff tear or rupture of right shoulder, not specified as traumatic (principal); M25.511 Pain in right shoulder; M25.512 Pain in left shoulder; Z98.890 Other specified postprocedural states
CPT/HCPCS: 99214

== ENCOUNTER → 2024-07-30 10:32 | Outpatient (BNVA) | payer OTHER, SELFPAY | PROVIDERS: PCP Physician Assistant; Referring Provider Orthopaedic Surgery; Visit Provider Internal Medicine | DX: M75.111 Incomplete rotator cuff tear or rupture of right shoulder, not specified as traumatic (principal); M25.511 Pain in right shoulder; M25.512 Pain in left shoulder; Z98.890 Other specified postprocedural states | CPT/HCPCS: 99212 ==

== ENCOUNTER 2024-08-31 11:36 | Outpatient (AMB) | payer OTHER, SELFPAY ==
[2024-08-31 11:40] VITALS: BP 184/86; PULSE 91; RESP 16; O2SAT 100; BMI 30.7
--- NOTE | 2024-08-31 11:40 | MHC.OFFVIS ---
Vital Signs 08/31/24 11:40 Height 5 ft 6 in Weight 190 lb BMI 30.7 BP 184/86 H Blood Pressure Location Lt brachial Position Sitting Respiration 16 Pulse 91 Pulse Source Pulse Oximeter Pulse Oximetry (%) 100 Oxygen Delivery Method Room Air Intake Visit Reasons: FU after denial Allergies Penicillins Allergy (Severe, Verified 08/31/24 11:41) Anaphylaxis Medication List - Last Reconciled 08/31/24 by Krystal Day LPN aspirin (Ecotrin Low Strength) 81 mg PO DAILY atorvastatin (Lipitor) 40 mg PO DAILY 90 days blood sugar diagnostic (FreeStyle Lite Strips) Testing once a day as needed blood-glucose meter (FreeStyle Lite Meter kit) As directed cane As directed cetirizine (Zyrtec) 10 mg PO DAILY PRN cyclobenzaprine 10 mg PO BEDTIME 90 days flash glucose scanning reader (MySQUARStyle John 2 [place]) As directed flash glucose sensor (FreeStyle John 2 Sensor kit) As directed gabapentin 800 mg PO BID 30 days gabapentin 400 mg PO DAILY 30 days hydrocortisone 2.5% 1 appl topical BID PRN insulin glargine (Lantus Solostar U-100 Insulin) 22 units (0.22 mL) subcut QAM 30 days lancets (FreeStyle Lancets) Testing once a day as needed metformin 1,000 mg PO BID 90 days pantoprazole (Protonix) 40 mg PO DAILY 90 days pen needle, diabetic (BD Ultra-Fine [place]re[place] Pen Needle) As directed pioglitazone (Actos) 15 mg PO DAILY 90 days propranolol 10 mg PO BID 90 days simethicone (Gas Relief (simethicone)) 125 mg PO TID-QID PRN varenicline 1 mg PO BID 90 days venlafaxine 37.5 mg PO DAILY 90 days HPI HPI FU after denial: Details: Chucho is here for follow-up following denial of his suprascapular nerve stimulation trial for his bilateral shoulder pain. He is not interested in corticosteroid injections. 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 He is interested in chronic opioid therapy to manage his multiple pain complaints as he is not interested in interventional therapy and is unable to return to work in his current condition. On exam today: Appears afebrile. Alert and oriented. Mood and affect appropriate. Follows and participates in conversation appropriately. Respiratory effort is unlabored. Able to transition from sit to stand unassisted. Ambulates with bilaterally normal heel strike and toe off. Able to stand and walk on toes and heels. [facility] Medical History (Updated 08/29/24 @ 12:22 by Jason Vega PA-C) Nicotine dependence, cigarettes, uncomplicated Umbilical hernia White matter abnormality on MRI of brain Change in consistency of stool Anxiety Glaucoma Diarrhea Migraine Peptic ulcer Depression Myocardial infarction Seizures Coronary artery disease Hyperlipidemia Diabetes mellitus Surgical History Hx of elbow surgery History of carpal tunnel surgery of right wrist History of incision and drainage History of back surgery History of esophagogastroduodenoscopy (EGD) Hx of colonoscopy History of ear surgery S/P coronary artery stent placement Family History Mother Lumbar spine tumor Father Heart attack Paternal Grandfather Heart attack Other No family history of coronary artery disease Social History Household Members: Spouse Housing: Apartment Are you a primary animal daycare provider to a significant other at home: No Do you presently have visiting nurse or other home services: No Alcohol intake: never Comment: d/c from er Patient Tobacco Use Status: Former Tobacco user Tobacco use type: Cigarette Cigarettes Per Day: 4 Years Smoked: 22+ e-Cigarette/Vaping Use: Never Used Second Hand Smoke Exposure: Yes Substance Use Type: Marijuana service: No Current occupational status: unemployed Cognitive needs: No Hearing needs: No Vision needs: Yes Physical Exam Vital Signs: Last Vital Signs Pulse 91 08/31/24 11:40 Resp 16 08/31/24 11:40 BP 184/86 H 08/31/24 11:40 Pulse Ox 100 08/31/24 11:40 Oxygen Delivery Method Room Air 08/31/24 11:40 BMI result Body Mass Index 30.7 Assessment & Plan Assessment & Plan (1) Foot pain, right: Code(s): M79.671 - Pain in right foot Category: Medical (2) Lumbar stenosis: Code(s): M48.061 - Spinal stenosis, lumbar region without neurogenic claudication Category: Medical (3) Painful arc syndrome of right shoulder: Code(s): M75.101 - Unspecified rotator cuff tear or rupture of right shoulder, not specified as traumatic Category: Medical (4) Left knee pain: Code(s): M25.562 - Pain in left knee Category: Medical Plan Unfortunately our request for authorization of temporary nerve stimulation for his shoulder pain was denied. He has peptic ulcer disease and can not take NSAIDs. He also has diabetes on insulin and is not interested in corticosteroid injections. He is already on gabapentin 2000 mg per day and this is not sufficient to relieve his symptoms. He is interested in chronic opioid therapy and states that he has never been addicted to any substance. I recommended that he follow-up with his primary care provider for consideration of chronic low-dose opioid therapy for his very out of pain symptoms since we are not accepting any patients into our opiate program at this time. He is already referred for podiatry evaluation for his left foot pain. He will follow-up as needed. Coding Level of Care Code Est Pt Level 3 (83569) Diagnoses Foot pain, right M79.671 Lumbar stenosis M48.061 Painful arc syndrome of right shoulder M75.101 Left knee pain M25.562
== END 2024-08-31 11:59 | disposition home or self-care (01) ==
PROVIDERS: PCP Physician Assistant; Visit Provider Internal Medicine
DX: M79.671 Pain in right foot (principal); M48.061 Spinal stenosis, lumbar region without neurogenic claudication; M75.101 Unspecified rotator cuff tear or rupture of right shoulder, not specified as traumatic; M25.562 Pain in left knee
CPT/HCPCS: 99213

== ENCOUNTER → 2024-08-31 11:36 | Outpatient (BNVA) | payer OTHER, SELFPAY | PROVIDERS: PCP Physician Assistant; Visit Provider Internal Medicine | DX: M79.671 Pain in right foot (principal); M48.061 Spinal stenosis, lumbar region without neurogenic claudication; M75.101 Unspecified rotator cuff tear or rupture of right shoulder, not specified as traumatic; M25.562 Pain in left knee | CPT/HCPCS: 99212 ==

== ENCOUNTER 2024-09-04 08:28 | Outpatient (REF) | payer OTHER, SELFPAY ==
--- NOTE | ~2024-09-04 | CT_ITS ---
CLINICAL HISTORY: F17.210 - Nicotine dependence, cigarettes, uncomplicated CT lung cancer screening (LDCT) Comparison: CT/CT/SR - CT LUNG SCREENING - 09/02/23 10:55 EST Technique: Axial CT images of the chest using low-dose technique. Referring provider counseled the patient on shared decision-making for LDCT screening. Additional counseling was provided on smoking cessation. Effective radiation dose total: DLP 50.5 mGycm, CTDIvol 1.6 mGy. Findings: Lung: Linear subsegmental atelectasis in the right middle lobe. 5 mm nodule in the right lower lobe (series 6, image [id number]) stable compared to prior. No new nodules. Coronary artery calcifications: Severe Limited upper abdomen: Unremarkable Other: Mild aortic atherosclerosis. No aneurysm. Impression: Category 2: Benign appearance or behavior, continue annual screening Category 1: Normal; continue annual screening Category 2: Benign appearance or behavior, continue annual screening Category 3: Probably benign, [address] recommended Category 4A: Suspicious, [address] recommended; may consider PET/CT Category 4B: Suspicious, Additional diagnostics and/or tissue sampling recommended Category 4X: Suspicious, Additional diagnostics and/or tissue sampling recommended Category 0: Recalls (incomplete screen due to Incomplete coverage, Noise, Respiratory motion, Expiration, Obscured by acute abnormality) This document has been electronically signed by: Herrera Wayne MD on 09/05/2024 02:39:07
== END 2024-09-04 08:29 | disposition home or self-care (01) ==
LOC: HO.CT 08:28
PROVIDERS: PCP Physician Assistant; Visit Provider Nurse Practitioner Family
DX: Z12.2 Encounter for screening for malignant neoplasm of respiratory organs (principal); F17.210 Nicotine dependence, cigarettes, uncomplicated
CPT/HCPCS: 71271

== ENCOUNTER → 2024-09-04 08:29 | Outpatient (BNV) | payer OTHER, SELFPAY | PROVIDERS: PCP Physician Assistant; Visit Provider Radiology Diagnostic Radiology | DX: F17.210 Nicotine dependence, cigarettes, uncomplicated (principal) | CPT/HCPCS: 71271 ==

== ENCOUNTER 2024-09-07 08:39 | Outpatient (REF) | payer OTHER, SELFPAY ==
[2024-09-07 10:07] LABS: Anion Gap 14 (12-20); Blood Urea Nitrogen 28 mg/dL (9-16); Calcium 9.8 mg/dL (8.4-10.2); Carbon Dioxide 25 mmol/L (22-29); Chloride 105 mmol/L (96-108); Cholesterol 170 mg/dL (<200); Estimated Glomerular Filt Rate > 60; Glucose Random 120 mg/dL (60-115); HDL Cholesterol 43 mg/dL (>40); LDL Cholesterol Calculated 86 mg/dL (<100); Potassium 4.3 mmol/L (3.3-5.1); Sodium 140 mmol/L (135-145); Triglycerides 206 mg/dL (<150)
== END 2024-09-07 08:40 | disposition home or self-care (01) ==
LOC: HO.LAB 08:39
PROVIDERS: Absent Provider Internal Medicine Cardiovascular Disease; PCP Physician Assistant; Visit Provider Physician Assistant
DX: Z01.818 Encounter for other preprocedural examination (principal); E78.5 Hyperlipidemia, unspecified; G56.01 Carpal tunnel syndrome, right upper limb
CPT/HCPCS: 36415; 80048; 80061

== ENCOUNTER 2024-09-19 08:32 | Outpatient (AMB) | payer OTHER, SELFPAY ==
[2024-09-19 09:19] VITALS: BP 132/82; PULSE 72; TEMP 36.2; O2SAT 99; BMI 31.6
--- NOTE | 2024-09-19 09:19 | A.OFFPC_ITS ---
Vital Signs 09/19/24 09:19 Height 5 ft 6 in Weight 195 lb 8 oz BMI 31.6 BP 132/82 Blood Pressure Location Lt brachial Position Sitting Pulse 72 Pulse Source Pulse Oximeter Temp 97.1 F Temp Source Temporal Artery Scan Pulse Oximetry (%) 99 Oxygen Delivery Method Room Air Intake Visit Reasons: f/u DMII Medical Dir Required: No Accompanied by: Self / Same As Patient Allergies Penicillins Allergy (Severe, Verified 09/19/24 09:36) Anaphylaxis Medication List - Last Reconciled 09/19/24 by Jason Vega PA-C aspirin (Ecotrin Low Strength) 81 mg PO DAILY atorvastatin 80 mg PO BEDTIME blood sugar diagnostic (FreeStyle Lite Strips) Testing once a day as needed blood-glucose meter (FreeStyle Lite Meter kit) As directed cane As directed cetirizine (Zyrtec) 10 mg PO DAILY PRN cyclobenzaprine 10 mg PO BEDTIME 90 days flash glucose scanning reader (videoNEXTStyle John 2 [place]) As directed flash glucose sensor (FreeStyle John 2 Sensor kit) As directed gabapentin 800 mg PO BID 30 days gabapentin 400 mg PO DAILY 30 days hydrocortisone 2.5% 1 appl topical BID PRN insulin glargine (Lantus Solostar U-100 Insulin) 22 units (0.22 mL) subcut QAM 30 days lancets (FreeStyle Lancets) Testing once a day as needed metformin 1,000 mg PO BID 90 days pantoprazole (Protonix) 40 mg PO DAILY 90 days pen needle, diabetic (BD Ultra-Fine [place] Pen Needle) As directed pioglitazone (Actos) 15 mg PO DAILY 90 days propranolol 10 mg PO BID 90 days simethicone (Gas Relief (simethicone)) 125 mg PO TID-QID PRN varenicline 1 mg PO BID 90 days venlafaxine 37.5 mg PO DAILY 90 days Tobacco use date assessed: 09/19/24 Dental Screening Dental Screen Date: 09/19/24 Did you have a dental visit in the last 12 months?: No Did you have a dental problem in the last 6 months where you did not have access to dental care?: No Was dental information given to patient?: Patient has dentist HPI f/u DMII HPI Details Patient is a 54-year-old male here today a follow-up visit.? Patient has a past medical history significant for type 2 diabetes, coronary artery disease, hyperlipidemia, major depressive disorder. Concern--> For his foot symptoms, the patient suggests he may have a Toney's neuroma. He reports a sensation of walking on a rock in his left foot with intermittent pain. A spout tender appointment is needed, complicated by pending documentation. Coronary artery disease:? Has quit smoking.? Continues on moderate dose statin.? He denies any chest discomfort or shortness of breath on exertion.. He has follow-up with cardiology advised to continue aspirin therapy .. Former smoker? Continues on Chantix and is quit smoking over the last several months. He does admit to taking a drag from a cigarette from time to time though has generally stopped smoking .. Type 2 diabetes:? The patient is also managing Type 2 Diabetes Mellitus. He has experienced episodes of hypoglycemia, coinciding with a period of gastrointestinal symptoms, including diarrhea. Previously, he had significant diarrhea reported as cowan and oily, with accompanying stomach cramps and belching, suggesting a possible celiac disease assessment is warranted. Current diabetes management includes insulin adjustments following hypoglycemia episodes and optimization of his oral regimen. The patient diligently monitors his blood glucose, with an A1c of 6.3 and average glucose readings showing good control. Laboratory Tests 12/17/22 12/23/22 03/28/23 09:38 10:02 10:05 RBC 4.97 4.25 L Hgb 15.0 12.9 L Sodium 133 L POC Glucose Random Glucose 327 H Fasting Glucose Hgb A1c (Clinic) 10.1 H Hemoglobin A1c % AST 14 Triglycerides Cholesterol LDL Cholesterol, C alc 03/28/23 06/02/23 06/28/23 10:40 10:16 10:37 RBC Hgb Sodium POC Glucose 221 H Random Glucose Fasting Glucose Hgb A1c (Clinic) 7.6 H 8.1 H Hemoglobin A1c % AST Triglycerides Cholesterol LDL Cholesterol, C alc 10/24/23 01/05/24 03/30/24 08:41 09:24 08:35 RBC 4.75 Hgb 13.8 L Sodium POC Glucose Random Glucose Fasting Glucose 187 H Hgb A1c (Clinic) 7.5 H Hemoglobin A1c % 9.2 H 8.9 H AST Triglycerides Cholesterol 138 LDL Cholesterol, C alc 62 05/22/24 09/07/24 09/19/24 08:50 09:00 09:27 RBC Hgb Sodium POC Glucose Random Glucose Fasting Glucose Hgb A1c (Clinic) 6.3 H Hemoglobin A1c % 6.7 H AST Triglycerides 206 H Cholesterol 170 LDL Cholesterol, C alc [facility] Medical History (Updated 09/19/24 @ 09:59 by Jason Vega PA-C) History of ST elevation myocardial infarction (STEMI) Seizures Coronary artery disease Hyperlipidemia Diabetes mellitus Nicotine dependence, cigarettes, uncomplicated Umbilical hernia White matter abnormality on MRI of brain Anxiety Depression Migraine Peptic ulcer Change in consistency of stool Diarrhea Glaucoma Surgical History History of heart artery stent Hx of elbow surgery History of carpal tunnel surgery of right wrist History of incision and drainage History of back surgery History of esophagogastroduodenoscopy (EGD) Hx of colonoscopy History of ear surgery Family History Mother Lumbar spine tumor Father Heart attack Paternal Grandfather Heart attack Other No family history of coronary artery disease Social History Household Members: Spouse Housing: Apartment Are you a primary home care consultant to a significant other at home: No Do you presently have visiting nurse or other home services: No Alcohol intake: never Comment: d/c from er Patient Tobacco Use Status: Former Tobacco user Tobacco use type: Cigarette Cigarettes Per Day: 4 Years Smoked: 22+ e-Cigarette/Vaping Use: Never Used Second Hand Smoke Exposure: Yes Substance Use Type: Marijuana service: No Current occupational status: unemployed Cognitive needs: No Hearing needs: No Vision needs: Yes Questionnaire PHQ-9 Over the last 2 weeks, how often have you been bothered by any of the following problems? 1. Little interest or pleasure in doing things: more than half the days 2. Feeling down, depressed, or hopeless: nearly every day 3. Trouble falling or staying asleep, or sleeping too much: nearly every day 4. Feeling tired or having little energy: nearly every day 5. Poor appetite or overeating: nearly every day 6. Feeling bad about yourself - or that you are a failure or have let yourself or your family down: nearly every day 7. Trouble concentrating on things, such as reading the newspaper or watching television: more than half the days 8. Moving or speaking so slowly that other people could have noticed. Or the opposite - being so fidgety or restless that you have been moving around a lot more than usual: nearly every day 9. Thoughts that you would be better off or of hurting yourself in some way: several days Total score: 23 [id number] - PHQ-9 Billing: Yes Source: Developed by Drs. Paul Brand, Kim Sauer, Abdias Patel and colleagues, with an educational chad from [employer]. Thrive Questionnaire Date Thrive assessed: 09/19/24 I am a: Patient What is your living situation today?: I have a place to live, but I am worried about losing it in the future Within the past 12 months, did the food you bought not last and you didn't have the money to get more?: Never true Within the past 12 months, did you worry whether your food would run out before you got money to buy more?: Never true Do you have trouble paying for medicines?: No Do you have trouble getting transportation to medical appointments?: No Do you have trouble paying your heating and electricity bill?: No Do you have trouble taking care of your child, family member or friend?: No Do you have trouble with day-to-day activities such as bathing, preparing meals, shopping, managing finances, etc.?: No Are you currently unemployed and looking for a job?: No Are you interested in more education?: No Please select the resources that you would like help with: None Currently or been in a relationship where the following occur: No concerns reported THRIVE Score: 1 AUDIT C Alcohol Use Questionnaire (AUDIT-C) 1. How often do you have a drink containing alcohol?: Never 3. How often do you have six or more drinks on one occasion?: Never Total Score: 0 Score Reviewed/Action Taken: No BILLY-7 AMB Questionnaire BILLY-7 Date BILLY - 7 assessed: 09/19/24 Feeling nervous, anxious, or on edge: 3 = Nearly every day Not being able to stop or control worryin = Nearly every day Worrying too much about different things: 3 = Nearly every day Trouble relaxin = Nearly every day Being so restless that it is hard to sit still: 3 = Nearly every day Becoming easily annoyed or irritable: 3 = Nearly every day Feeling afraid as if something awful might happen: 2 = More than half the days Total BILLY-7 score (0-4 normal; 5-9 mild; 10-14 moderate; 15-21 severe): 20 Source: Developed by Drs. Paul Brand, Kim Sauer, Abdias Patel and colleagues, with an educational chad from [employer]. BILLY-7 Assessment Billing BILLY-7 Assessment Tool: BILLY-7 Assessment 90168 Physical exam (Primary Care) Vital Signs: Last Vital Signs Temp 97.1 F 09/19/24 09:19 Pulse 72 09/19/24 09:19 BP 132/82 09/19/24 09:19 Pulse Ox 99 09/19/24 09:19 Oxygen Delivery Method Room Air 09/19/24 09:19 BMI result Body Mass Index 31.6 Tobacco/Smoking Status: Tobacco use Status Tobacco use date assessed 09/19/24 09/19/24 09:32 Patient Tobacco Use Status Former Tobacco user 09/19/24 09:26 Tobacco use type Cigarette 09/19/24 09:26 e-Cigarette/Vaping Use Never Used 09/19/24 09:26 PHQ-9: PHQ-9 Score PHQ-9: Total score 23 09/19/24 09:30 Thrive Assessment: Date of Thrive Assessment Date Thrive assessed 09/19/24 09/19/24 09:26 Currently or been in a relationship where the following occur: No concerns reported Results AMB Hemoglobin A1c AMB Hemoglobin A1c 6.3 % Last Edit by DAVID Lance on 09/19/24 09:28 Results Reviewed Results Reviewed: Laboratory Last Values Hgb A1c (Clinic) 6.3 % (4.0-6.0) H 09/19/24 09:27 Coding Diagnoses Type 2 diabetes mellitus with hyperglycemia, without long-term current use of insulin E11.65 Diabetes mellitus type: type 2 Diabetes mellitus intermediate insulin use: without intermediate manager use Diabetes mellitus complication status: with hyperglycemia MDD (major depressive disorder), recurrent episode, moderate F33.1 Mixed hyperlipidemia E78.2 Hyperlipidemia type: mixed hyperlipidemia Diarrhea due to malabsorption K90.9; R19.7 Diarrhea type: due to malabsorption 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 Additional Codes BILLY-7 Assessment Billing - BILLY-7 Assessment Tool: BILLY-7 Assessment 20067 ([id number]) PHQ-9 - 00166 - PHQ-9 Billing: Yes ([id number]) Assessment & Plan Assessment & Plan (1) Diabetes mellitus: Code(s): E11.9 - Type 2 diabetes mellitus without complications Category: Medical Qualifiers: Diabetes mellitus type: type 2 Diabetes mellitus intermediate insulin use: without intermediate use Diabetes mellitus complication status: with hyperglycemia Qualified Code(s): E11.65 - Type 2 diabetes mellitus with hyperglycemia Plan: Patient's type 2 diabetes well controlled with current dose of insulin and metformin and pioglitazone. He has reduced his insulin dose to 18 units to reduce hypoglycemic events. Goal A1c is to remain below 7.0 (2) MDD (major depressive disorder), recurrent episode, moderate: Code(s): F33.1 - Major depressive disorder, recurrent, moderate Category: Medical Plan: Patient continues to suffer with depression though has been fairly stable at this point. If refills most of his depression comes from his chronic pain. (3) Hyperlipidemia: Code(s): E78.5 - Hyperlipidemia, unspecified Category: Medical Qualifiers: Hyperlipidemia type: mixed hyperlipidemia Qualified Code(s): E78.2 - Mixed hyperlipidemia Plan: Most recent lipid panel showing good control of his total cholesterol and LDL. His atorvastatin increase to maximal dose 80 mg due to coronary artery calcifications. Goal LDL to be optimally below 70 (4) Diarrhea: Code(s): R19.7 - Diarrhea, unspecified Category: Medical Qualifiers: Diarrhea type: due to malabsorption Qualified Code(s): K90.9 - Intestinal malabsorption, unspecified; R19.7 - Diarrhea, unspecified Plan: Patient continues to complain of loose stools and diarrhea. Unclear if this is related to his metformin. He has made appointment with Gastroenterology for evaluation as he feels he has a malabsorptive diarrhea ? Celiac. He does report per antibiotics did help him normalize the stool. Will consider reducing his metformin to see if his diarrhea could be a side effect (5) Toney neuroma of left foot: Code(s): G57.62 - Lesion of plantar nerve, left lower limb Category: Medical Plan: He does report having left plantar foot pain and particular area just below his toes. He feels he may have a neuroma. Will like to see Podiatry for evaluation and treatment. Plan 1. Cubital tunnel syndrome status post cubital tunnel release DOS 05/28/2024 Symptoms constant, daily 2. Carpal tunnel syndrome, right, status post carpal tunnel release DOS 05/28/2024 Patient appears to be recovering well postoperatively Patient is educated about the typical recovery course Patient was re-educated that due to the fact that he was experiencing dense numbness in the ulnar nerve distribution of the right hand, there is increased likelihood that he will not get normal sensation back even with release, and if he does it will likely take weeks to months Patient states understanding of this Patient is educated he should continue to work on range of motion exercises for the right hand, wrist, and elbow, and should call us for referral to occupational therapy if he notices no improvement his mild stiffness Patient will follow-up as needed with any acute concerns Orders: Orders AMB Hemoglobin A1c Today E11.65 - Type 2 diabetes mellitus with hyperglycemia Referrals Podiatry Referral G57.62 - Lesion of plantar nerve, left lower limb Medications: New Lactobacillus rhamnosus GG (Culturelle) 1 cap PO DAILY 90 days 90 caps 1RF R19.7 - Diarrhea, unspecified blood sugar diagnostic (FreeStyle Test strips) Testing once a day as needed 100 ea 1RF baclofen 20 mg PO BEDTIME 30 days 30 tabs 3RF M50.30 - Other cervical disc degeneration, unspecified cervical region tramadol 50 mg PO DAILY 30 days PRN 14 tabs 3RF pain M50.30 - Other cervical disc degeneration, unspecified cervical region Changed From insulin glargine (Lantus Solostar U-100 Insulin) 22 units (0.22 mL) subcut QAM 30 days 15 mL 1RF E11.65 - Type 2 diabetes mellitus with hyperglycemia To insulin glargine (Lantus Solostar U-100 Insulin) 18 units (0.18 mL) subcut QAM 30 days 5.4 mL 1RF E11.65 - Type 2 diabetes mellitus with hyperglycemia Refilled insulin glargine (Lantus Solostar U-100 Insulin) 18 units (0.18 mL) subcut QAM 30 days 5.4 mL 1RF E11.65 - Type 2 diabetes mellitus with hyperglycemia gabapentin take daily at 2pm. Continue Gabapentin 800mg qam and qhs. 400 mg PO DAILY 30 days 30 caps 3RF hydrocortisone 2.5% 1 appl topical BID PRN 30 grams 0RF skin irritation R21 - Rash and other nonspecific skin eruption insulin glargine (Lantus Solostar U-100 Insulin) 22 units (0.22 mL) subcut QAM 30 days 15 mL 1RF E11.65 - Type 2 diabetes mellitus with hyperglycemia metformin 1,000 mg PO BID 90 days 180 tabs 1RF E11.65 - Type 2 diabetes mellitus with hyperglycemia Discontinued cyclobenzaprine Discontinued Reason: Doctor's Order 10 mg PO BEDTIME 90 days 90 tabs 3RF M48.02 - Spinal stenosis, cervical region
== END 2024-09-19 10:01 | disposition home or self-care (01) ==
PROVIDERS: PCP Physician Assistant; Visit Provider Physician Assistant
DX: E11.65 Type 2 diabetes mellitus with hyperglycemia (principal)

== ENCOUNTER → 2024-09-19 08:32 | Outpatient (BNVA) | payer OTHER, SELFPAY | PROVIDERS: PCP Physician Assistant; Visit Provider Physician Assistant | DX: E11.65 Type 2 diabetes mellitus with hyperglycemia (principal); F33.1 Major depressive disorder, recurrent, moderate; I25.10 Atherosclerotic heart disease of native coronary artery without angina pectoris; E78.5 Hyperlipidemia, unspecified; E78.2 Mixed hyperlipidemia; K90.9 Intestinal malabsorption, unspecified; R19.7 Diarrhea, unspecified; G57.62 Lesion of plantar nerve, left lower limb; M50.30 Other cervical disc degeneration, unspecified cervical region; Z87.891 Personal history of nicotine dependence | CPT/HCPCS: 83036; 96127; 99212 ==

== ENCOUNTER → 2024-11-02 15:03 | Outpatient (BNVA) | payer OTHER, SELFPAY | PROVIDERS: PCP Physician Assistant; Visit Provider Nurse Practitioner Family | DX: R56.9 Unspecified convulsions (principal); R90.82 White matter disease, unspecified; R51.9 Headache, unspecified | CPT/HCPCS: 99212 ==

== ENCOUNTER 2024-11-14 12:45 | Outpatient (AMB) | payer OTHER, SELFPAY ==
--- NOTE | 2024-11-14 12:47 | MHC.OFFVIS ---
Vital Signs 11/14/24 12:52 Height 5 ft 6 in Weight 191 lb 12.835 oz BMI 31.0 BP 147/72 H Blood Pressure Location Lt brachial Position Sitting Pulse 59 Intake Visit Reasons: Diarrhea Celeste PT 30 mins Intake Note: Kwaku presents in the office as a follow up Celeste patient. CC: States that he is still having diarrhea - today is okay and the past couple days have been okay. If he eats yogurt every day he does NOT have diarrhea. PCP tried to give him activia but that did not work as a prescription. If he eats fiber he will have constipation and back to diarrhea. LLQ pains that are new to him. He states that he had pains in the left groin area that came from the testicle area. 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 Reports daily watery BMs up to 2-10 times a day. Has been going on x 2 years. With and without abd pain. Not related to food intake. Night time sx +. No blood in stool. Sometimes black stool. Recently started celebrex 2 weeks ago. Bloating +. Nausea +. Vomit once a week but when he does throw up, has 2-3 emesis. Smokes marijuana. 0.5 oz/week. No etOH use. Prev crack cocaine - smoking. EGD/colo 2022: gastric ulcer gastritis Colonoscopy Findings: polyps internal hemorrhoids diverticular disease Path: A. Duodenum, biopsy: Duodenal mucosa with predominantly preserved villi and no specific change. B. Gastric ulcer, biopsy: Gastric antral mucosa (2 pieces) with congestion and reactive changes, consistent with tissue adjacent to ulcer; negative for H pylori, intestinal metaplasia and dysplasia. Duodenal mucosa (1 piece) with no specific change. C. Stomach, biopsy: Gastric antral and body mucosa with congestion and focal minimal chronic inactive inflammation; negative for H pylori, intestinal metaplasia and dysplasia. D. Gastroesophageal junction, biopsy: Squamocolumnar mucosa with mild chronic active inflammation; negative for intestinal metaplasia and dysplasia. E. Colon, ascending, 2 polyps: Tubular adenomas (multiple pieces); negative for high-grade dysplasia and carcinoma. F. Colon, descending, polyp: Tubular adenoma; negative for high-grade dysplasia and carcinoma. [facility] Medical History History of ST elevation myocardial infarction (STEMI) Seizures Coronary artery disease Hyperlipidemia Diabetes mellitus Nicotine dependence, cigarettes, uncomplicated Umbilical hernia White matter abnormality on MRI of brain Anxiety Depression Migraine Peptic ulcer Change in consistency of stool Diarrhea Glaucoma Surgical History History of heart artery stent Hx of elbow surgery History of carpal tunnel surgery of right wrist History of incision and drainage History of back surgery History of esophagogastroduodenoscopy (EGD) Hx of colonoscopy History of ear surgery Family History Mother Lumbar spine tumor Father Heart attack Paternal Grandfather Heart attack Other No family history of coronary artery disease Social History Household Members: Spouse Housing: Apartment Are you a primary nursing care attendant to a significant other at home: No Do you presently have visiting nurse or other home services: No Alcohol intake: never Comment: d/c from er Patient Tobacco Use Status: Former Tobacco user Tobacco use type: Cigarette Cigarettes Per Day: 4 Years Smoked: 22+ e-Cigarette/Vaping Use: Never Used Second Hand Smoke Exposure: Yes Substance Use Type: Marijuana service: No Current occupational status: unemployed Cognitive needs: No Hearing needs: No Vision needs: Yes Review of Systems Const All systems reviewed & are unremarkable except as noted in HPI and below Physical Exam Vital Signs: Last Vital Signs Pulse 59 11/14/24 12:52 BP 147/72 H 11/14/24 12:52 BMI result Body Mass Index 31.0 with obesity excoriation costa on both upper extremities abd soft, nontender, nondistended No NORTH Assessment & Plan Assessment & Plan (1) Abdominal pain: Code(s): R10.9 - Unspecified abdominal pain Category: Medical (2) Diarrhea: Code(s): R19.7 - Diarrhea, unspecified Category: Medical Qualifiers: Diarrhea type: due to malabsorption Qualified Code(s): K90.9 - Intestinal malabsorption, unspecified; R19.7 - Diarrhea, unspecified (3) Marijuana dependence: Code(s): F12.20 - Cannabis dependence, uncomplicated Category: Medical Plan Ddx includes malabsorption such as celiac, CSID, SIBO etc, microscopic colitis, panc insufficiency, symptomatic gallstones. Plan: - Blood work and stool studies as below - US Abd - Hold off antidiarrheals for now but can consider if stool/blood work up neg for inflammatory causes. Follow up 2 months Orders: Orders Complete Blood Count no Diff Today K90.9 - Intestinal malabsorption, unspecified, R19.7 - Diarrhea, unspecified Comprehensive Met. Panel Today K90.9 - Intestinal malabsorption, unspecified, R19.7 - Diarrhea, unspecified Ferritin Today K90.9 - Intestinal malabsorption, unspecified, R19.7 - Diarrhea, unspecified Hepatitis B Core Antibody Today K90.9 - Intestinal malabsorption, unspecified, R19.7 - Diarrhea, unspecified TSH reflex Free T4 Today K90.9 - Intestinal malabsorption, unspecified, R19.7 - Diarrhea, unspecified Transglutaminase IgA Today K90.9 - Intestinal malabsorption, unspecified, R19.7 - Diarrhea, unspecified Fecal Fat Qualitative Today K90.9 - Intestinal malabsorption, unspecified, R19.7 - Diarrhea, unspecified US abdomen complete Today K90.9 - Intestinal malabsorption, unspecified, R10.9 - Unspecified abdominal pain, R19.7 - Diarrhea, unspecified Hemoglobin A1c Today K90.9 - Intestinal malabsorption, unspecified, R19.7 - Diarrhea, unspecified IRON PROFILE Today K90.9 - Intestinal malabsorption, unspecified, R19.7 - Diarrhea, unspecified Hepatitis A IgG Today K90.9 - Intestinal malabsorption, unspecified, R19.7 - Diarrhea, unspecified Hepatitis B Surface Antibody Today K90.9 - Intestinal malabsorption, unspecified, R19.7 - Diarrhea, unspecified Hepatitis B Surface Antigen Today K90.9 - Intestinal malabsorption, unspecified, R19.7 - Diarrhea, unspecified Hepatitis C Antibody Today K90.9 - Intestinal malabsorption, unspecified, R19.7 - Diarrhea, unspecified Calprotectin, Fecal Today K90.9 - Intestinal malabsorption, unspecified, R19.7 - Diarrhea, unspecified Pancreatic Elastase-1 Today K90.9 - Intestinal malabsorption, unspecified, R19.7 - Diarrhea, unspecified Immunoglobulins,IgG IgA IgM Today K90.9 - Intestinal malabsorption, unspecified, R19.7 - Diarrhea, unspecified Coding Level of Care Code Est Pt Level 4 (59662) Diagnoses Abdominal pain R10.9 Diarrhea due to malabsorption K90.9; R19.7 Diarrhea type: due to malabsorption Marijuana dependence F12.20
[2024-11-14 12:52] VITALS: BP 147/72; PULSE 59; BMI 31.0
--- OUTSIDE RECORDS SUMMARY | 2024-11-14 15:04 | XMS_ITS | Encounter Summary ---
Author Organization [facility] Address [address] [place] [phone] Care Team Providers Care Auto Body Technician Name Role Phone Jason Vega Primary Care Provider [phone] Reason for Visit * Reason Comments Foot Pain Lesion Plantars nerv e L foot * Consultation (Routine) - Authorized Specialty Diagnoses / Procedures Referred By Darvin cordero Referred To Contact Podiatry / Orthopaedic Surgery Diagnoses Lesion of plantar nerve, left lower limb Jason Vega PA [address] [place] [address] Phone: tel: Matthew Edmonds DPM [address] [address] Phone: tel: fax: Referral ID Status Reason Start Date Expiration Date Visits Requested Visits Authorized [id number] Authorized Specialty Services Required 10/10/2024 10/10/2025 1 1 Encounter Details Date Type Department Care Team (Late st Contact Info) Description 11/13/2024 3:00 PM EDT Consult Orthopedic Surgery - [place] [address] [phone] Matthew Edmonds DPM [address] [id number] Lesion of plantar nerve, left lower limb (Primary Dx); Metatarsalgia of left foot; Lumbosacral radiculopathy Social History Tobacco Use Types Packs/Day Years Used Date Smoking Tobacco: Never Assessed Sex and Gender Information Value Date Recorded Sex Assigned at Not on file Legal Sex Male 2:28 PM EST Gender Identity Not on file Sexual Orientation Not on file documented as of this encounter Last Filed Vital Signs Vital Sign Reading Time Taken Comments Blood Pressure - - Pulse - - Temperature - - Respiratory Rate - - Oxygen Saturation - - Inhaled Oxygen Concentration - - Weight 87.5 kg (193 lb) 11/13/2024 3:22 PM EDT Height 170.2 cm (5' 7 ) 11/13/2024 3:22 PM EDT Body Mass Index 30.23 11/13/2024 3:22 PM EDT documented in this encounter Progress Notes * Matthew Edmonds DPM - 11/13/2024 3:00 PM EDT Referring MD: Jason Vega PA Last PCP visit: 10/16/2024 IDENTIFIER: @TITLE@ Caterina is a 54 y.o. year old male who presents for consultation. CC: Left foot pain HPI: 54-year-old male presents office for chief complaint of left foot pain. Patient notes that the areato the distal aspect of the left foot has had sharp shooting pain radiating into the midfoot which increases with more ambulatory activity. Patient wears good supportive shoes. Patient does have an extensive lower back history is required multiple surgeries. Patient denies any recent trauma to the area. ROS: GENERAL: Pt denies nausea, fever, vomiting, chills, or shortness of breath. Pt in NAD. CARDIOLOGY: pt denies chest pain, palpitations LUNGS: pt denies shortness of breath MUSCULOSKELETAL: See HPI, otherwise no joint pain or swelling, back pain, or muscle pain. SKIN: see HPI, otherwise no lesions, rash or itching NEURO: No persistent headache, weakness or numbness The remainder of the review of systems is noncontributory PAST MEDICAL HISTORY: There is no problem list on file for this patient. SOCIAL HISTORY: Social History Tobacco Use Smoking status: Not on file Smokeless tobacco: Not on file Substance Use Topics Alcohol use: Not on file ACTIVE MEDICATIONS: Outpatient Medications Marked as Taking for the 11/13/24 encounter (Consult) with Matthew Edmonds DPM Medication Sig Dispense Refill amLODIPine (NORVASC) 5 mg tablet Take 1 tablet (5 mg total) by mouth. atorvastatin (LIPITOR) 40 mg tablet Take 1 tablet (40 mg total) by mouth 1 (one) time each day. azithromycin (ZITHROMAX) 250 mg tablet TAKE 1 TABLET BY MOUTH ONCE DAILY FOR 4 DAYS baclofen (LIORESAL) 20 mg tablet Take 1 tablet (20 mg total) by mouth. at bedtime. blood pressure monitor kit 1 each. celecoxib (CeleBREX) 100 mg capsule Take 1 capsule (100 mg total) by mouth every 12 (twelve) hours. cetirizine (ZyrTEC) 10 mg tablet clopidogreL (Plavix) 75 mg tablet Take 1 tablet (75 mg total) by mouth. cyclobenzaprine (FLEXERIL) 10 mg tablet Take 1 tablet (10 mg total) by mouth. at bedtime. escitalopram (LEXAPRO) 5 mg/5 mL solution Take by mouth. FreeStyle John 2 Wagoner misc See administration instructions. FreeStyle John 2 Sensor kit USE DIRECTED TO TEST BLOOD SUGAR CHANGE EVERY 14 DAYS FreeStyle Precision Jakob Strips test strip USE DIRECTED TO TEST BLOOD SUGAR ONCE DAILY NEEDED gabapentin (NEURONTIN) 400 mg capsule TAKE 1 CAPSULE BY MOUTH EVERY DAY AT 2 IN THE AFTERNOON. CONTINUE 800 MG IN THE MORNING AND AT BEDTIME. gabapentin (NEURONTIN) 800 mg tablet Take 1 tablet (800 mg total) by mouth 2 (two) times a day. hydrocortisone 2.5 % cream APPLY TO THE AFFECTED AREA(S) TWICE DAILY NEEDED FOR SKIN IRRITATION Ani Conway U-100 Insulin 100 unit/mL (3 mL) injection pen INJECT 22 UNITS SUBCUTANEOUSLY EVERYMORNING metFORMIN (GLUCOPHAGE) 1,000 mg tablet Take 1 tablet (1,000 mg total) by mouth 2 (two) times a day. metoprolol succinate (Toprol XL) 25 mg 24 hr tablet Take 1 tablet (25 mg total) by mouth. ondansetron (ZOFRAN) 4 mg tablet Take 1 tablet (4 mg total) by mouth every 4 (four) hours if needed. nausea and vomiting ondansetron ODT (ZOFRAN-ODT) 8 mg disintegrating tablet DISSOLVE 1 TABLET ON TONGUE EVERY TWELVE HOURS NEEDED FOR NAUSEA AND VOMITING oxyCODONE-acetaminophen (PERCOCET) 5-325 mg per tablet Take 1 tablet by mouth every 6 (six) hours if needed. for pain Max Daily Amount: 4 tablets pantoprazole (PROTONIX) 40 mg EC tablet Take 1 tablet (40 mg total) by mouth 1 (one) time each day. Pentips Pen Needle 32 gauge x 5/32 needle See administration instructions. pioglitazone (ACTOS) 15 mg tablet Take 1 tablet (15 mg total) by mouth 1 (one) time each day. predniSONE (DELTASONE) 20 mg tablet TAKE 3 TABLETS BY MOUTH ONCE DAILY FOR 3 DAYS, THEN TAKE 2 TABLETS ONCE DAILY FOR 3 DAYS THEN 1 TABLET ONCE DAILY FOR 3 DAYS propranoloL (INDERAL) 10 mg tablet Take 1 tablet (10 mg total) by mouth 2 (two) times a day. sulfamethoxazole-trimethoprim (BACTRIM DS,SEPTRA DS) 800-160 mg per tablet traMADoL (ULTRAM) 50 mg tablet Take 1 tablet (50 mg total) by mouth 1 (one) time each day if needed. for pain Max Daily Amount: 50 mg varenicline tartrate (CHANTIX) 1 mg tablet Take 1 tablet (1 mg total) by mouth 2 (two) times a day. venlafaxine (EFFEXOR) 37.5 mg tablet Take 1 tablet (37.5 mg total) by mouth 1 (one) time each day. ALLERGIES: @ALL@ PHYSICAL EXAM: Height 1.702 m (67 ), weight 87.5 kg (193 lb). PODIATRIC EXAMINATION: GENERAL: Patient appears well nourished, with NAD. VASCULAR: Dorsalis pedis pulses are 2/4 bilaterally and Posterior tibial pulses are 2/4 bilaterally. Capillary filling time within normal limits the digits. No pallor on elevation or rubor on dependency. Positive hair growth. No varicosities. Denies rest pain or claudication pain. NEUROLOGICAL: Sharp/dull sensation intact, protective sensation intact on Pierron. Peripheral neuropathy throughout the lower extremity bilaterally ORTHOPEDIC: Good muscle strength 5/5 of all flexors and extensors. Dorsi flexion of ankle ,10 degrees, plantar flexion WNL. No muscle atrophy. Few arthritic changes to the left foot over the midtarsal joint. Some increased pain on palpation of the second and third interspace with increased pain at the second metatarsal head. Some contracture which is reducible in multiple digits. DERMATOLOGICAL:.No masses or skin lesions noted. Normal skin temperature, normal skin turgor. BIOMECHANICS: STJ ROM wnl, MTJ ROM wnl, 1st MPJ ROM wnl. IMPRESSION: 1. Lesion of plantar nerve, left lower limb 2. Metatarsalgia of left foot 3. Lumbosacral radiculopathy PLAN: Pt was seen and examined, history reviewed. Patient was educated that he could be suffering with impinged nerve in the lower back which is causing sensitivity within the foot. Patient is also educated on neuromas and lesions within the common digital nerves that run between the metatarsals. Patient was educated on the use of steroid injections versus offloading metatarsal pads for the purpose of decreasing pain. Patient does not like steroid medication and would prefer conservative offloading. Patient was fit with an offloading pad and instructed to use it for 4 weeks daily. Patient was educated on where to purchase silicone version ofthe same item. Patient understands that if there is no resolve in his pain he may require an MRI to visualize the soft tissue compartment and evaluate bursa formation versus neuroma. Patient return in 3 weeks Matthew Edmonds DPM cc: Jason Vega PA documented in this encounter Plan of Treatment Upcoming Encounters Date Type Department Care Team (Late st Contact Info) Description 12/25/2024 10:00 AM EDT Office Visit Orthopedic Surgery - [place] [address] [phone] Matthew Edmonds DPM [address] [phone] documented as of this encounter Visit Diagnoses Diagnosis Lesion of plantar nerve, left lower limb- Primary Metatarsalgia of left foot Lumbosacral radiculopathy Thoracic or lumbosacral neuritis or radiculitis, unspecified documented in this encounter Historical Medications * This list may reflect changes made after this encounter. escitalopram (LEXAPRO) 5 mg/5 mL solution Take by mouth. 3 amLODIPine (NORVASC) 5 mg tablet Take 1 tablet (5 mg total) by mouth. 0 aspirin 81 mg EC tablet Take 1 tablet (81 mg total) by mouth 1 (one) time each day. venlafaxine (EFFEXOR) 37.5 mg tablet Take 1 tablet (37.5 mg total) by mouth 1 (one) time each day. 5 varenicline tartrate (CHANTIX) 1 mg tablet Take 1 tablet (1 mg total) by mouth 2 (two) times a day. 5 traMADoL (ULTRAM) 50 mg tablet Take 1 tablet (50 mg total) by mouth 1 (one) time each day if needed. for pain Max Daily Amount: 50 mg 5 sulfamethoxazole-tr imethoprim (BACTRIM DS,SEPTRA DS) 800-160 mg per tablet 4 propranoloL (INDERAL) 10 mg tablet Take 1 tablet (10 mg total) by mouth 2 (two) times a day. 5 predniSONE (DELTASONE) 20 mg tablet TAKE 3 TABLETS BY MOUTH ONCE DAILY FOR 3 DAYS, THEN TAKE 2 TABLETS ONCE DAILY FOR 3 DAYS THEN 1 TABLET ONCE DAILY FOR 3 DAYS 4 pioglitazone (ACTOS) 15 mg tablet Take 1 tablet (15 mg total) by mouth 1 (one) time each day. 5 Pentips Pen Needle 32 gauge x 5/32 needle See administration instructions. 5 pantoprazole (PROTONIX) 40 mg EC tablet Take 1 tablet (40 mg total) by mouth 1 (one) time each day. 5 oxyCODONE-acetamino phen (PERCOCET) 5-325 mg per tablet Take 1 tablet by mouth every 6 (six) hours if needed. for pain Max Daily Amount: 4 tablets 4 ondansetron (ZOFRAN) 4 mg tablet Take 1 tablet (4 mg total) by mouth every 4 (four) hours if needed. nausea and vomiting 5 ondansetron ODT (ZOFRAN-ODT) 8 mg disintegrating tablet DISSOLVE 1 TABLET ON TONGUE EVERY TWELVE HOURS NEEDED FOR NAUSEA AND VOMITING 5 metoprolol succinate (Toprol XL) 25 mg 24 hr tablet Take 1 tablet (25 mg total) by mouth. 0 metFORMIN (GLUCOPHAGE) 1,000 mg tablet Take 1 tablet (1,000 mg total) by mouth 2 (two) times a day. 5 Lanisabelle Solmaurizioar U-100 Insulin 100 unit/mL (3 mL) injection pen INJECT 22 UNITS SUBCUTANEOUSLY EVERY MORNING 5 hydrocortisone 2.5 % cream APPLY TO THE AFFECTED AREA(S) TWICE DAILY NEEDED FOR SKIN IRRITATION 5 gabapentin (NEURONTIN) 800 mg tablet Take 1 tablet (800 mg total) by mouth 2 (two) times a day. 5 gabapentin (NEURONTIN) 400 mg capsule TAKE 1 CAPSULE BY MOUTH EVERY DAY AT 2 IN THE AFTERNOON. CONTINUE 800 MG IN THE MORNING AND AT BEDTIME. 5 FreeStyle John 2 Sensor kit USE DIRECTED TO TEST BLOOD SUGAR CHANGE EVERY 14 DAYS 5 FreeStyle John 2 Wagoner misc See administration instructions. 4 cyclobenzaprine (FLEXERIL) 10 mg tablet Take 1 tablet (10 mg total) by mouth. at bedtime. 4 clopidogreL (Plavix) 75 mg tablet Take 1 tablet (75 mg total) by mouth. 0 cetirizine (ZyrTEC) 10 mg tablet 4 celecoxib (CeleBREX) 100 mg capsule Take 1 capsule (100 mg total) by mouth every 12 (twelve) hours. 5 FreeStyle Precision Jakob Strips test strip USE DIRECTED TO TEST BLOOD SUGAR ONCE DAILY NEEDED 5 baclofen (LIORESAL) 20 mg tablet Take 1 tablet (20 mg total) by mouth. at bedtime. 5 azithromycin (ZITHROMAX) 250 mg tablet TAKE 1 TABLET BY MOUTH ONCE DAILY FOR 4 DAYS 5 atorvastatin (LIPITOR) 80 mg tablet Take 1 tablet (80 mg total) by mouth. at bedtime. atorvastatin (LIPITOR) 40 mg tablet Take 1 tablet (40 mg total) by mouth 1 (one) time each day. 5 blood pressure monitor kit 1 each. 0 added in this encounter Orders Outpatient Referral Count Last Ordered Date Fir st Ordered Date AMB REFERRAL TO PODIATRY 1 11/13/2024 documented in this encounter Care Teams Auto Body Technician Relationship Specialty Start Date End Date Jason Vega PA [address] [place] [address] PCP - General Physician Crusher Assembler 10/10/24 documented as of this encounter
--- OUTSIDE RECORDS SUMMARY | 2024-11-14 15:04 | XMS_ITS | Clinical Summary ---
Author Organization 175 [facility] Address [address] [place] [address] Phone Care Team Providers Care Court Registry Officer Name Role Phone Jason Vega Primary Care Provider Allergies Active Allergy Reactions Criticality Noted Date Comments Penicillin 11/13/2024 Penicillin G 12/02/2022 Medications blood pressure monitor kit 1 each. 05/12/20 20 Active atorvastatin (LIPITOR) 40 mg tablet Take 1 tablet (40 mg total) by mouth 1 (one) time each day. 08/29/19 25 Active atorvastatin (LIPITOR) 80 mg tablet Take 1 tablet (80 mg total) by mouth. at bedtime. Active azithromycin (ZITHROMAX) 250 mg tablet TAKE 1 TABLET BY MOUTH ONCE DAILY FOR 4 DAYS 10/05/19 25 Active baclofen (LIORESAL) 20 mg tablet Take 1 tablet (20 mg total) by mouth. at bedtime. 10/19/19 25 Active FreeStyle Precision Jakob Strips test strip USE DIRECTED TO TEST BLOOD SUGAR ONCE DAILY NEEDED 09/19/19 25 Active celecoxib (CeleBREX) 100 mg capsule Take 1 capsule (100 mg total) by mouth every 12 (twelve) hours. 11/03/19 25 Active cetirizine (ZyrTEC) 10 mg tablet 03/30/20 24 Active clopidogreL (Plavix) 75 mg tablet Take 1 tablet (75 mg total) by mouth. 04/20/20 20 Active cyclobenzaprine (FLEXERIL) 10 mg tablet Take 1 tablet (10 mg total) by mouth. at bedtime. 07/09/20 24 Active FreeStyle John 2 [place] misc See administration instructions. 01/30/20 24 Active FreeStyle John 2 Sensor kit USE DIRECTED TO TEST BLOOD SUGAR CHANGE EVERY 14 DAYS 10/09/19 Active gabapentin (NEURONTIN) 400 mg capsule TAKE 1 CAPSULE BY MOUTH EVERY DAY AT 2 IN THE AFTERNOON. CONTINUE 800 MG IN THE MORNING AND AT BEDTIME. 09/11/19 Active gabapentin (NEURONTIN) 800 mg tablet Take 1 tablet (800 mg total) by mouth 2 (two) times a day. 10/19/19 Active hydrocortisone 2.5 % cream APPLY TO THE AFFECTED AREA(S) TWICE DAILY NEEDED FOR SKIN IRRITATION 09/19/19 Active Lantus Solostar U-100 Insulin 100 unit/mL (3 mL) injection pen INJECT 22 UNITS SUBCUTANEOUSLY EVERY MORNING 08/29/19 Active metFORMIN (GLUCOPHAGE) 1,000 mg tablet Take 1 tablet (1,000 mg total) by mouth 2 (two) times a day. 10/19/19 Active metoprolol succinate (Toprol XL) 25 mg 24 hr tablet Take 1 tablet (25 mg total) by mouth. 05/12/20 Active ondansetron ODT (ZOFRAN-ODT) 8 mg disintegrating tablet DISSOLVE 1 TABLET ON TONGUE EVERY TWELVE HOURS NEEDED FOR NAUSEA AND VOMITING 10/03/19 25 Active ondansetron (ZOFRAN) 4 mg tablet Take 1 tablet (4 mg total) by mouth every 4 (four) hours if needed. nausea and vomiting 11/03/19 25 Active oxyCODONE-acetamin ophen (PERCOCET) 5-325 mg per tablet Take 1 tablet by mouth every 6 (six) hours if needed. for pain Max Daily Amount: 4 tablets 05/28/20 24 Active pantoprazole (PROTONIX) 40 mg EC tablet Take 1 tablet (40 mg total) by mouth 1 (one) time each day. 10/19/19 25 Active Pentips Pen Needle 32 gauge x 5/32 needle See administration instructions. 08/31/19 25 Active pioglitazone (ACTOS) 15 mg tablet Take 1 tablet (15 mg total) by mouth 1 (one) time each day. 10/19/19 25 Active predniSONE (DELTASONE) 20 mg tablet TAKE 3 TABLETS BY MOUTH ONCE DAILY FOR 3 DAYS, THEN TAKE 2 TABLETS ONCE DAILY FOR 3 DAYS THEN 1 TABLET ONCE DAILY FOR 3 DAYS 03/21/20 24 Active propranoloL (INDERAL) 10 mg tablet Take 1 tablet (10 mg total) by mouth 2 (two) times a day. 10/19/19 Active sulfamethoxazole-t rimethoprim (BACTRIM DS,SEPTRA DS) 800-160 mg per tablet 05/22/20 Active traMADoL (ULTRAM) 50 mg tablet Take 1 tablet (50 mg total) by mouth 1 (one) time each day if needed. for pain Max Daily Amount: 50 mg 10/19/19 Active varenicline tartrate (CHANTIX) 1 mg tablet Take 1 tablet (1 mg total) by mouth 2 (two) times a day. 10/19/19 Active venlafaxine (EFFEXOR) 37.5 mg tablet Take 1 tablet (37.5 mg total) by mouth 1 (one) time each day. 10/19/19 Active aspirin 81 mg EC tablet Take 1 tablet (81 mg total) by mouth 1 (one) time each day. Active amLODIPine (NORVASC) 5 mg tablet Take 1 tablet (5 mg total) by mouth. 04/20/20 Active escitalopram (LEXAPRO) 5 mg/5 mL solution Take by mouth. 09/20/19 Active Encounters Date Type Department Care Team Description 11/13/2024 3:00 PM EDT Consult Orthopedic Surgery - [address] [phone] Matthew Edmonds DPM Lesion of plantar nerve, left lower limb (Primary Dx); Metatarsalgia of left foot; Lumbosacral radiculopathy from Last 3 Months Social History Tobacco Use Types Packs/Day Years Used Date Smoking Tobacco: Never Assessed Sex and Gender Information Value Date Recorded Sex Assigned at Not on file Legal Sex Male 2:28 PM EST Gender Identity Not on file Sexual Orientation Not on file Last Filed Vital Signs Vital Sign Reading Time Taken Comments Blood Pressure - - Pulse - - Temperature - - Respiratory Rate - - Oxygen Saturation - - Inhaled Oxygen Concentration - - Weight 87.5 kg (193 lb) 11/13/2024 3:22 PM EDT Height 170.2 cm (5' 7 ) 11/13/2024 3:22 PM EDT Body Mass Index 30.23 11/13/2024 3:22 PM EDT Plan of Treatment Upcoming Encounters Date Type Department Care Team (Late st Contact Info) Description 12/25/2024 10:00 AM EDT Office Visit Orthopedic Surgery - [place] [address] [facility] [address] [place] [phone] Matthew Edmonds, CLIFF[place] 175 [facility] [address] [place] [address] Health Maintenance Due Date Last Done Comments Diabetes: Annual GFR (Glomerular Filtration Rate) 1969 Diabetes: Annual Foot Exam 1979 Diabetes: Annual Retina Eye Exam 1979 Hepatitis B Vaccines (1 of 3 - 19+ 3-dose series) 1988 Zoster Vaccines (2 of 2) 01/20/2023 11/25/2022 COVID-19 Vaccine ( season) 2024 01/05/2024, 12/02/2022, 08/24/2022, Additional history exists Cholesterol Screening (Lipid Panel) 10/10/2024 Colorectal Cancer Screening: Colonoscopy 10/10/2024 Depression Screening 10/10/2024 HIV Screening 10/10/2024 Hepatitis C Screening 10/10/2024 Social Influencers of Health Screening 10/10/2024 Diabetes: Annual Urine Albumin-Creatinine Ratio (uACR) 11/13/2024 Diabetes: Blood Sugar Control Test (HGBA1C) 11/13/2024 Hypertension/CHF/CAD Annual BMP Blood Test 11/13/2024 DTaP,Tdap,and Td Vaccines (2 - Td or Tdap) 11/19/2025 11/20/2015 Pneumococcal Vaccine: 50+ Years Completed 11/25/2022, 04/20/2020, 11/20/2015 Pneumococcal Vaccine: Pediatrics (0 to 5 Years) and At-Risk Patients (6 to 64 Years) Aged Out 11/25/2022, 04/20/2020, 11/20/2015 No longer eligible based on patient's age to complete this topic Influenza Vaccine Completed 05/22/2024, , 04/05/2017, Additional history exists HIB Vaccines Aged Out No longer eligi ble based on patient's age to complete this topic HPV Vaccines Aged Out No longer eligi ble based on patient's age to complete this topic Hepatitis A Vaccines Aged Out No long er eligible based on patient's age to complete this topic IPV Vaccines Aged Out No longer eligi ble based on patient's age to complete this topic MMR Vaccines Aged Out No longer eligi ble based on patient's age to complete this topic Meningococcal ACWY Vaccine Aged Out N o longer eligible based on patient's age to complete this topic Meningococcal B Vacine Aged Out No lo nger eligible based on patient's age to complete this topic RSV Immunization Patients Under 20 months Aged Out No longer eligible based on patient's age to complete this topic Varicella Vaccines Aged Out No longer eligible based on patient's age to complete this topic Insurance [facility] Care Teams Court Registry Officer Relationship Specialty Start Date End Date Jason Vega PA [address] [place] [address] PCP - General Physician Knife Cutter 10/10/24
--- OUTSIDE RECORDS SUMMARY | 2024-11-14 15:04 | XMS_ITS | Clinical Summary ---
Author Organization [employer] Address [address] [place] [address] [address] [place] [address] Care Team Providers Care Delivery Nurse Name Role Phone Unavailable Primary Care Provider Unavailabl e Allergies Active Allergy Reactions Criticality Noted Date Comments Penicillin G 12/02/2022 Immunizations Name Administration Dates Next Due Influenza injectable quadriv alent IIV4 with preservative 04/05/2017,06/14/2016 Influenza injectable quadrivalent preservative f ree 05/25/2023 Moderna Covid-19 Vaccine 12+ 08/24/2022,07/27/20 22 Moderna Covid-19 Vaccine 6+ Bivalent 12/02/2022 Pfizer Covid-19 Vaccine 12+ 01/05/2024 Pneumococcal Conjugate PCV 20 11/25/2022 Pneumococcal Polysaccharide PPSV23 04/20/2020, Tdap 11/20/2015 Zoster, Recombinant 11/25/2022 Social History Tobacco Use Types Packs/Day Years Used Date Smoking Tobacco: Never Assessed Sex and Gender Information Value Date Recorded Sex Assigned at Male 07/27/2022 10:55 AM EST Legal Sex Male 10:48 AM EST Gender Identity Male 07/27/2022 10:55 AM EST Sexual Orientation Straight 07/27/2022 10 :55 AM EST Plan of Treatment Health Maintenance Due Date Last Done Comments CT Colonography 1969 Colonoscopy 1969 Colorectal Cancer Screening 1969 Depression Screening 1969 FIT DNA/Cologuard 1969 FIT 1969 FOBT 1969 HIV Screening 1969 Lipid Panel 1969 SDOH Screening 1969 Sigmoidoscopy 1969 Alcohol/Substance Use Screening 1981 Tobacco Screening 1981 Hepatitis C Screening 1987 Hepatitis B Vaccines (1 of 3 - 19+ 3-dose series) 1988 Zoster Vaccines (2 of 2) 01/20/2023 11/25/2022 COVID-19 Vaccine (5 - season) 2024 01/05/2024, 12/02/2022, 08/24/2022, Additional history exists Influenza Vaccine (#1) 2024 , 04/05/2017, 06/14/2016 DTaP/Tdap/Td Vaccines (2 - Td or Tdap) 11/19/2025 11/20/2015 RSV Patients and Patients Aged 60 years or older (1 - 1-dose 75+ series) 2044 Pneumococcal Vaccine: 50+ Years Completed 11/25/2022, 04/20/2020, 11/20/2015 HIB Vaccines Aged Out No longer eligi [...] patient's age to complete this topic Meningococcal Vaccine Aged Out No pineda sarah eligible based on patient's age to complete this topic RSV under 20 months Aged Out No longe r eligible based on patient's age to complete this topic Rotavirus Vaccines Aged Out No longer eligible based on patient's age to complete this topic Insurance [facility]
== END 2024-11-14 13:18 | disposition home or self-care (01) ==
LOC: HO.HGI 12:45
PROVIDERS: PCP Physician Assistant; Visit Provider Internal Medicine
DX: R10.9 Unspecified abdominal pain (principal); K90.9 Intestinal malabsorption, unspecified; R19.7 Diarrhea, unspecified; F12.20 Cannabis dependence, uncomplicated
CPT/HCPCS: 99214

== ENCOUNTER → 2024-11-14 12:45 | Outpatient (BNVA) | payer OTHER, SELFPAY | PROVIDERS: PCP Physician Assistant; Visit Provider Internal Medicine | DX: K52.9 Noninfective gastroenteritis and colitis, unspecified (principal); K90.9 Intestinal malabsorption, unspecified; R10.32 Left lower quadrant pain; F12.20 Cannabis dependence, uncomplicated | CPT/HCPCS: 99212 ==

== ENCOUNTER 2024-12-25 09:29 | Outpatient (REF) | payer OTHER, SELFPAY ==
--- NOTE | ~2024-12-25 | US_ITS ---
EXAMINATION: US ABDOMEN COMPLETE CLINICAL INFORMATION: Abdominal pain. Diarrhea.. COMPARISON: December 22, 2016. TECHNIQUE: Real-time ultrasound of the abdomen using grayscale and color Doppler technique. FINDINGS: PANCREAS: No peripancreatic fluid collections. No main pancreatic ductal dilatation. ABDOMINAL AORTA: The proximal, mid, and distal segments are normal in caliber. INFERIOR VENA CAVA: Visualized portions are normal. LIVER: Liver measures 18 cm. Coarse echotexture. No nodular surface. No solid or cystic lesion detected by the technologist. No intrahepatic biliary ductal dilatation. GALLBLADDER: Fluid-filled. No pericholecystic fluid collection or gallbladder wall thickening. COMMON BILE DUCT: 4 mm. RIGHT KIDNEY: 10 cm. Normal echotexture. Normal renal cortical thickness. No hydronephrosis. No gross solid or cystic lesion. Normal flow on color Doppler interrogation. LEFT KIDNEY: 11 cm. Normal echotexture. Normal renal cortical thickness. No hydronephrosis. 8 mm anechoic lesion in the lower pole. Normal flow on color Doppler interrogation of the renal hilum. SPLEEN: 12 cm. No focal lesion.. FREE FLUID: None. US/US abdomen complete IMPRESSION: Hepatomegaly and likely steatosis. Borderline up to normal spleen. No cholelithiasis. No hydronephrosis. 8 mm cyst, left kidney. Electronically signed by: Rodolfo Vila MD 12/25/2024 10:27 AM EDT
--- OUTSIDE RECORDS SUMMARY | 2024-12-25 10:27 | XMS_ITS | Clinical Summary ---
Author Organization [employer] Address [address] [place] [address] [address] [place] [address] Care Team Providers Care Beam House Inspector Name Role Phone Unavailable Primary Care Provider [...] patient's age to complete this topic Insurance [facility]
== END 2024-12-25 09:30 | disposition home or self-care (01) ==
LOC: HO.US 09:29
PROVIDERS: PCP Physician Assistant; Visit Provider Internal Medicine
DX: K90.9 Intestinal malabsorption, unspecified (principal); R10.9 Unspecified abdominal pain; R19.7 Diarrhea, unspecified
CPT/HCPCS: 76700

== ENCOUNTER → 2024-12-25 09:30 | Outpatient (BNV) | payer OTHER, SELFPAY | PROVIDERS: PCP Physician Assistant; Visit Provider Radiology Diagnostic Radiology | DX: N28.1 Cyst of kidney, acquired (principal); R16.0 Hepatomegaly, not elsewhere classified | CPT/HCPCS: 76700 ==

== ENCOUNTER 2025-01-11 08:30 | Outpatient (REF) | payer OTHER, SELFPAY ==
--- OUTSIDE RECORDS SUMMARY | 2025-01-11 08:42 | XMS_ITS | Clinical Summary ---
Author Organization [address] [facility] Address [address] [place] [address] Phone Care Team Providers Care Ticker Maintainer Name Role Phone Jason Vega Primary Care [...] bedtime. 07/09/20 24 Active FreeStyle John 2 [place] misc See administration instructions. 01/30/20 24 Active [...] mouth 2 (two) times a day. 10/19/19 25 Active hydrocortisone 2.5 % cream APPLY TO THE AFFECTED AREA(S) TWICE DAILY NEEDED FOR SKIN IRRITATION 09/19/19 Active Lantus Solostar U-100 Insulin 100 unit/mL (3 mL) injection pen INJECT 22 UNITS SUBCUTANEOUSLY EVERY MORNING 08/29/19 25 Active metFORMIN (GLUCOPHAGE) 1,000 mg tablet Take [...] mouth 2 (two) times a day. 10/19/19 25 Active venlafaxine (EFFEXOR) 37.5 mg tablet Take [...] 3:00 PM EDT Consult Orthopedic Surgery - [address] [id number] Matthew Edmonds DPM [place] of [...] Care Team (Late st Contact Info) Description 01/22/2025 9:15 AM EDT Office Visit Orthopedic Surgery - [address] [facility] [address] [place] [id number] Matthew Edmonds, [place] [address] [facility] [address] [place] [address] Health Maintenance Due Date Last Done Comments [...] age to complete this topic Meningococcal B Vaccine Aged Out No l onger eligible based on patient's age to complete this topic RSV Immunization Patients Under 20 months Aged Out No longer eligible based on patient's age to complete this topic Varicella Vaccines Aged Out No longer eligible based on patient's age to complete this topic Insurance [facility] Care Teams Ticker Maintainer Relationship Specialty Start Date End Date Jason Vega PA PCP - General Physician Check Clerk 10/10/24
[2025-01-11 09:31] LABS: Hematocrit 39.3 % (42.0-52.0); Hemoglobin 13.6 g/dl (14.0-18.0); Mean Corpuscular HGB Conc 34.6 g/dl (31.0-36.0); Mean Corpuscular Hemoglobin 30.5 pg (27.0-33.0); Mean Corpuscular Volume 88.1 fL (80.0-98.0); Mean Platelet Volume 9.7 fL (9.4-12.4); Platelet Count 226 X10*3/uL (160-400); Red Blood Count 4.46 X10*6/uL (4.60-5.80); Red Cell Distribution Width 13.3 % (11.0-16.0); White Blood Count 7.5 X10*3/uL (4.8-10.8)
[2025-01-11 09:52] LABS: Estimated Average Glucose 140 mg/dL; Hemoglobin A1C 170.5667 umol/L; Hemoglobin A1c % 6.5 % (<6.0); Total Hemoglobin (HGBA1C) 3601.8651 umol/L
[2025-01-11 10:13] LABS: Albumin Level 4.6 g/dL (3.5-5.0); Alkaline Phosphatase 75 U/L (39-117); Anion Gap 11 (12-20); Aspartate Amino Transferase 28 U/L (5-37); Bilirubin Total 0.3 mg/dL (0.0-1.0); Blood Urea Nitrogen 21 mg/dL (9-16); Calcium 9.7 mg/dL (8.4-10.2); Carbon Dioxide 27 mmol/L (22-29); Chloride 110 mmol/L (96-108); Estimated Glomerular Filt Rate > 60; Glucose Random 130 mg/dL (60-115); Iron 78 mcg/dL (45-160); Percent Iron Saturation 28 % (15-50); Sodium 143 mmol/L (135-145); Total Iron Binding Capacity 278 mcg/dL (228-428); Total Protein 7.3 g/dL (6.5-8.0); Unsaturated Iron Binding 200 ug/dL
[2025-01-11 10:16] LABS: HBS Num1 0.97 mIU/mL (0-7.99); HBc Num1 0.05 S/CO (0.00-0.79); HBsAGNum1 0.41 S/CO (0.00-0.99); Hepatitis B Core Antibody Nonreactive (Nonreactive); Hepatitis B Surface Antigen Negative (Negative); ~HepC Num1 0.07 S/CO (0.00-0.79); ~Hepatitis B Surface Antibody NONREACTIVE (Nonreactive); ~Hepatitis C Antibody Nonreactive (Nonreactive)
[2025-01-11 10:18] LABS: Hepatitis A Antibody IgG Nonreactive (Nonreactive); ~Hepatitis A Antibody IgG 0.22 S/CO (0.00-0.99)
[2025-01-11 10:19] LABS: Alanine Aminotransferase 35 U/L (0-40)
[2025-01-11 10:28] LABS: Ferritin 99 ng/mL (20-250); TSH reflex Free T4 1.39 uIU/mL (0.32-4.0)
[2025-01-15 13:38] LABS: IgA 204 mg/dL (47-310); IgG 1030 mg/dL (600-1640); IgM 91 mg/dL (50-300)
[2025-01-16 15:14] LABS: Transglutaminase IgA <1.0 U/mL
== END 2025-01-11 08:31 | disposition home or self-care (01) ==
LOC: HO.LAB 08:30
PROVIDERS: Absent Provider Internal Medicine; PCP Physician Assistant; Visit Provider Physician Assistant
DX: K90.9 Intestinal malabsorption, unspecified (principal); R19.7 Diarrhea, unspecified
CPT/HCPCS: 80053; 82728; 82784; 83036; 83540; 84443; 85027; 86364; 86704; 86706; 86708; 86803; 87340

== ENCOUNTER 2025-01-16 08:42 | Outpatient (AMB) | payer OTHER, SELFPAY ==
[2025-01-16 08:58] VITALS: BP 144/94; PULSE 68; O2SAT 99; BMI 31.4
--- NOTE | 2025-01-16 08:58 | MHC.PC.OV ---
Vital Signs 01/16/25 08:58 Height 5 ft 6 in Weight 194 lb 8 oz BMI 31.4 BP 144/94 H Blood Pressure Location Lt brachial Position Sitting Pulse 68 Pulse Source Pulse Oximeter Pulse Oximetry (%) 99 Oxygen Delivery Method Room Air Intake Visit Reasons: 4 Month F/U Covered Button Maker Required: No Accompanied by: Self / Same As Patient Allergies Penicillins Allergy (Severe, Verified 01/16/25 09:23) Anaphylaxis Medication List - Last Reconciled 01/16/25 by Jason Vega PA-C aspirin (Ecotrin Low Strength) 81 mg PO DAILY atorvastatin 80 mg PO BEDTIME baclofen 20 mg PO BEDTIME 30 days blood sugar diagnostic (FreeStyle Lite Strips) Testing once a day as needed blood sugar diagnostic (FreeStyle Test strips) Testing once a day as needed blood-glucose meter (FreeStyle Lite Meter kit) As directed cane As directed celecoxib (Celebrex) 100 mg PO Q12H 90 days cetirizine (Zyrtec) 10 mg PO DAILY PRN flash glucose scanning reader (OwnEnergyStyle John 2 [place]) As directed flash glucose sensor (FreeStyle John 2 Sensor kit) As directed gabapentin 800 mg PO BID 30 days gabapentin 400 mg PO DAILY 30 days hydrocortisone 2.5% 1 appl topical BID PRN insulin glargine (Lantus Solostar U-100 Insulin) 18 units (0.18 mL) subcut QAM 30 days Lactobacillus rhamnosus GG (Culturelle) 1 cap PO DAILY 90 days lancets (FreeStyle Lancets) Testing once a day as needed metformin 1,000 mg PO BID 90 days ondansetron HCl 4 mg PO Q4H PRN 30 days MDD 12mg pantoprazole (Protonix) 40 mg PO DAILY 90 days pen needle, diabetic (BD Ultra-Fine [place] Pen Needle) As directed pioglitazone (Actos) 15 mg PO DAILY 90 days propranolol 10 mg PO BID 90 days simethicone (Gas Relief (simethicone)) 125 mg PO TID-QID PRN tramadol 50 mg PO DAILY PRN 30 days venlafaxine 37.5 mg PO DAILY 90 days Tobacco use date assessed: 01/16/25 Dental Screening Dental Screen Date: 01/16/25 Did you have a dental visit in the last 12 months?: Yes Did you have a dental problem in the last 6 months where you did not have access to dental care?: No Was dental information given to patient?: Patient has dentist HPI 4 Month F/U HPI Details Patient is a 54-year-old male here today a follow-up visit.? Patient has a past medical history significant for type 2 diabetes, coronary artery disease, hyperlipidemia, major depressive disorder. Concern--> Chronic pain has intensified following back and rotator cuff surgeries, with pain in the back, shoulders, and legs. He is status post lower lumbar spine back surgeries. He is considering a neurostimulator for pain relief due to ineffectiveness of tramadol and gabapentin. Foot pain/Toney's neuroma: Followed by Podiatry For his foot symptoms, the patient suggests he may have a Toney's neuroma. He reports a sensation of walking on a rock in his left foot with intermittent pain. Coronary artery disease:? Has quit smoking.? Continues on moderate dose statin.? He denies any chest discomfort or shortness of breath on exertion.. He has follow-up with cardiology advised to continue aspirin therapy . .. Type 2 diabetes:? The patient is also managing Type 2 Diabetes Mellitus. He has experienced episodes of hypoglycemia, coinciding with a period of gastrointestinal symptoms, including diarrhea. Previously, he had significant diarrhea reported as cowan and oily, with accompanying stomach cramps and belching, suggesting a possible celiac disease assessment is warranted. Current diabetes management includes insulin adjustments following hypoglycemia episodes and optimization of his oral regimen. The patient diligently monitors his blood glucose, with an A1c of 6.3 and average glucose readings showing good control. PLAN: we plan to reduce his metformin to a 1000 mg daily. He will continue his normal insulin regime. Laboratory Tests 09/07/24 09/19/24 01/11/25 09:00 09:27 08:46 RBC 4.46 L Hgb 13.6 L Creatinine 0.97 Random Glucose 130 H Hgb A1c (Clinic) 6.3 H Hemoglobin A1c % 6.5 H Cholesterol 170 TSH 1.39 [facility] Medical History History of ST elevation myocardial infarction (STEMI) Seizures Coronary artery disease Hyperlipidemia Diabetes mellitus Nicotine dependence, cigarettes, uncomplicated Umbilical hernia White matter abnormality on MRI of brain Anxiety Depression Migraine Peptic ulcer Change in consistency of stool Diarrhea Glaucoma Surgical History History of heart artery stent Hx of elbow surgery History of carpal tunnel surgery of right wrist History of incision and drainage History of back surgery History of esophagogastroduodenoscopy (EGD) Hx of colonoscopy History of ear surgery Family History Mother Lumbar spine tumor Father Heart attack Paternal Grandfather Heart attack Other No family history of coronary artery disease Social History Household Members: Spouse Housing: Apartment Are you a primary personal caregiver to a significant other at home: No Do you presently have visiting nurse or other home services: No Alcohol intake: never Comment: d/c from er Patient Tobacco Use Status: Former Tobacco user Tobacco use type: Cigarette Cigarettes Per Day: 4 Years Smoked: 22+ e-Cigarette/Vaping Use: Never Used Second Hand Smoke Exposure: Yes Substance Use Type: Marijuana service: No Current occupational status: unemployed Cognitive needs: No Hearing needs: No Vision needs: Yes Questionnaire PHQ-9 Over the last 2 weeks, how often have you been bothered by any of the following problems? 1. Little interest or pleasure in doing things: nearly every day 2. Feeling down, depressed, or hopeless: more than half the days 3. Trouble falling or staying asleep, or sleeping too much: nearly every day 4. Feeling tired or having little energy: nearly every day 5. Poor appetite or overeating: more than half the days 6. Feeling bad about yourself - or that you are a failure or have let yourself or your family down: more than half the days 7. Trouble concentrating on things, such as reading the newspaper or watching television: more than half the days 8. Moving or speaking so slowly that other people could have noticed. Or the opposite - being so fidgety or restless that you have been moving around a lot more than usual: more than half the days 9. Thoughts that you would be better off or of hurting yourself in some way: several days Total score: 20 Source: Developed by Drs. Paul Brand, Kim SauerAbdias and colleagues, with an educational chad from [employer]. Thrive Questionnaire Date Thrive assessed: 01/16/25 I am a: Patient What is your living situation today?: I choose not to answer this question Within the past 12 months, did the food you bought not last and you didn't have the money to get more?: Never true Within the past 12 months, did you worry whether your food would run out before you got money to buy more?: Never true Do you have trouble paying for medicines?: No Do you have trouble getting transportation to medical appointments?: No Do you have trouble paying your heating and electricity bill?: No Do you have trouble taking care of your child, family member or friend?: No Do you have trouble with day-to-day activities such as bathing, preparing meals, shopping, managing finances, etc.?: No Are you currently unemployed and looking for a job?: No Are you interested in more education?: No Please select the resources that you would like help with: None Currently or been in a relationship where the following occur: I choose not to answer THRIVE Score: 0 AUDIT C Alcohol Use Questionnaire (AUDIT-C) 1. How often do you have a drink containing alcohol?: Never 3. How often do you have six or more drinks on one occasion?: Never Total Score: 0 BILLY-7 AMB Questionnaire BILLY-7 Date BILLY - 7 assessed: 01/16/25 Feeling nervous, anxious, or on edge: 2 = More than half the days Not being able to stop or control worryin = More than half the days Worrying too much about different things: 2 = More than half the days Trouble relaxin = More than half the days Being so restless that it is hard to sit still: 2 = More than half the days Becoming easily annoyed or irritable: 2 = More than half the days Feeling afraid as if something awful might happen: 0 = Not at all Total BILLY-7 score (0-4 normal; 5-9 mild; 10-14 moderate; 15-21 severe): 12 Source: Developed by Drs. Paul Brand, Kim Sauer, Abdias Patel and colleagues, with an educational chad from [employer]. Review of Systems Const Denies headache(s) Eyes Denies loss of vision ENT Denies vertigo, Denies dizziness, Denies headache(s) and Denies sore throat Card Denies chest pain, Denies leg edema and Denies lightheadedness Resp Denies cough, Denies hemoptysis and Denies wheezing GI Denies abdominal pain, Denies melena, Denies constipation, Denies diarrhea and Denies vomiting Denies dysuria, Denies urinary frequency and Denies urinary urgency Musc Denies arthralgias, Denies joint swelling, Denies numbness and Denies tingling Neuro Denies Abnormal speech present, Denies behavioral changes, Denies vertigo, Denies dizziness, Denies headache(s), Denies loss of vision, Denies memory loss, Denies numbness and Denies tingling Psych Denies anxiety, Denies behavioral changes, Denies depression, Denies memory loss and Denies panic attacks Jamarcus/Lymph Denies easy bleeding and Denies easy bruising Aller/Immun Denies wheezing Physical exam (Primary Care) Vital Signs: Last Vital Signs Pulse 68 01/16/25 08:58 BP 144/94 H 01/16/25 08:58 Pulse Ox 99 01/16/25 08:58 Oxygen Delivery Method Room Air 01/16/25 08:58 BMI result Body Mass Index 31.4 Tobacco/Smoking Status: Tobacco use Status Tobacco use date assessed 01/16/25 01/16/25 09:05 Patient Tobacco Use Status Former Tobacco user 01/16/25 08:58 Tobacco use type Cigarette 01/16/25 08:58 e-Cigarette/Vaping Use Never Used 01/16/25 08:58 PHQ-9: PHQ-9 Score PHQ-9: Total score 20 01/16/25 09:24 Thrive Assessment: Date of Thrive Assessment Date Thrive assessed 01/16/25 01/16/25 09:05 Currently or been in a relationship where the following occur: I choose not to answer Const General: healthy appearing, no acute distress, alert and awake Nutritional Appearance: well nourished Orientation/consciousness: oriented to person, oriented to place and oriented to time HENMT Ears: TM's normal bilaterally General nose exam: Normal nasal mucous membranes and turbinates present Eyes Conjunctivae: conjunctivae normal Sclerae: sclerae normal Pupils: Equal, round and reactive pupils present Neck Neck: Yes no lymphadenopathy and Yes no JVD Thyroid: Thyroid normal Carotids: no bruits Resp Effort & Inspection: normal respiratory effort and not tachypneic Auscultation: no crackles, no rales, no rhonchi and no wheezes Cardio Rate: regular rate Rhythm: regular rhythm Heart sounds: no murmurs and normal S1 and S2 GI Palpation (GI): Soft to palpation, nontender, no hepatomegaly and no splenomegaly Auscultation: normal bowel sounds Skin General skin exam: no rashes or lesions noted and dry skin Neuro General: oriented to person, oriented to place and oriented to time Cranial nerves: Yes Equal, round and reactive pupils present Speech: No Abnormal speech present Gait exam (Neuro): Normal gait present Motor exam (neuro): no tremor noted Extrem Right upper extremity: full ROM Left upper extremity: full ROM Right lower extremity: full ROM; no edema Left lower extremity: full ROM; no edema Psych Mental Status: mental status grossly normal Speech and movement: Normal speech and movement present Affect: normal affect Attitude: cooperative Thought process: Normal thought process present Coding Level of Care Code Est Pt Level 4 (24897) Diagnoses Type 2 diabetes mellitus with hyperglycemia, without long-term current use of insulin E11.65 Diabetes mellitus complication status: with hyperglycemia Diabetes mellitus senior maintenance technician insulin use: without assisted use Diabetes mellitus type: type 2 MDD (major depressive disorder), recurrent episode, moderate F33.1 Mixed hyperlipidemia E78.2 Hyperlipidemia type: mixed hyperlipidemia 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 transplanted heart: [place] heart Assessment & Plan Assessment & Plan (1) Diabetes mellitus: Code(s): E11.9 - Type 2 diabetes mellitus without complications Category: Medical Qualifiers: Diabetes mellitus complication status: with hyperglycemia Diabetes mellitus assisted insulin use: without assisted use Diabetes mellitus type: type 2 Qualified Code(s): E11.65 - Type 2 diabetes mellitus with hyperglycemia Plan: Patient's type 2 diabetes well controlled with current dose of insulin and metformin and pioglitazone. He has reduced his insulin dose to 18 units to reduce hypoglycemic events. Will reduce his dose of metformin to a 1000 mg daily. Will continue to keep a close eye in his blood sugars. Goal A1c is to remain below 7.0 (2) MDD (major depressive disorder), recurrent episode, moderate: Code(s): F33.1 - Major depressive disorder, recurrent, moderate Category: Medical Plan: Patient's PHQ-9 score positive for depression which has been existing condition for him. Patient continues to suffer with depression though has been fairly stable at this point. He most of his depression comes from his chronic pain. (3) Hyperlipidemia: Code(s): E78.5 - Hyperlipidemia, unspecified Category: Medical Qualifiers: Hyperlipidemia type: mixed hyperlipidemia Qualified Code(s): E78.2 - Mixed hyperlipidemia Plan: Most recent lipid panel showing good control of his total cholesterol and LDL. He continues on atorvastatin 40 mg. Goal LDL to be optimally below 70 (4) Toney neuroma of left foot: Code(s): G57.62 - Lesion of plantar nerve, left lower limb Category: Medical Plan: He is now seeing a stucco worker. He continues to report pain in his plantar region of his left foot. (5) Degenerative disc disease, cervical: Code(s): M50.30 - Other cervical disc degeneration, unspecified cervical region Category: Medical Plan: I discussed the likelihood of a neuropathic origin for the patient's pain and the challenges with current medication regimens. We reviewed the choice of a limited quantity of opioid medication for as-needed basis only, with an emphasis on non-pharmacological interventions. I advised starting Baclofen as a new muscle relaxer at night, explaining the potential benefits - Prescribe a low dose of opioid pain medication for as-needed pain relief, strictly limited in quantity. - Start a new muscle relaxant, Baclofen, for night use to address muscle spasms. (6) Coronary artery disease: Code(s): I25.10 - Atherosclerotic heart disease of [place] coronary artery without angina pectoris Category: Medical Qualifiers: Associated angina: without angina Coronary Disease-Associated Artery/Lesion type: [place] artery [place] vs. transplanted heart: [place] heart Qualified Code(s): I25.10 - Atherosclerotic heart disease of [place] coronary artery without angina pectoris Plan: Most recent lipid panel showing suboptimal control of his LDL a 6 in August of 2024. He will work on dietary modifications. He was not able to tolerate higher potency statin. Will continue atorvastatin 40 mg at this time. Goal LDL optimally below 70. Orders: Orders Complete Blood Count no Diff Today E11.65 - Type 2 diabetes mellitus with hyperglycemia Comprehensive [place]. Panel Fast Today E11.65 - Type 2 diabetes mellitus with hyperglycemia Lipid Panel Today I25.10 - Atherosclerotic heart disease of [place] coronary artery without angina pectoris
== END 2025-01-16 09:53 | disposition home or self-care (01) ==
LOC: HO.HMCH 08:43
PROVIDERS: PCP Physician Assistant; Visit Provider Physician Assistant
DX: E11.65 Type 2 diabetes mellitus with hyperglycemia (principal); F33.1 Major depressive disorder, recurrent, moderate; E78.2 Mixed hyperlipidemia; G57.62 Lesion of plantar nerve, left lower limb; M50.30 Other cervical disc degeneration, unspecified cervical region; I25.10 Atherosclerotic heart disease of native coronary artery without angina pectoris

== ENCOUNTER → 2025-01-16 08:42 | Outpatient (BNVA) | payer OTHER, SELFPAY | PROVIDERS: PCP Physician Assistant; Visit Provider Physician Assistant | DX: I25.10 Atherosclerotic heart disease of native coronary artery without angina pectoris (principal); I25.2 Old myocardial infarction; Z79.899 Other long term (current) drug therapy; E11.65 Type 2 diabetes mellitus with hyperglycemia; F33.1 Major depressive disorder, recurrent, moderate; E78.2 Mixed hyperlipidemia; G57.62 Lesion of plantar nerve, left lower limb; M50.30 Other cervical disc degeneration, unspecified cervical region; Z79.4 Long term (current) use of insulin; Z79.84 Long term (current) use of oral hypoglycemic drugs | CPT/HCPCS: 93005; 99212 ==

== ENCOUNTER 2025-01-16 13:34 | Outpatient (AMB) | payer OTHER, SELFPAY ==
--- NOTE | 2025-01-16 14:23 | A.OFFVIS_ITS ---
Vital Signs 01/16/25 14:25 Height 5 ft 6 in Weight 195 lb 12.328 oz BMI 31.6 BP 140/64 H Blood Pressure Location Lt brachial Position Sitting Pulse 67 Pulse Source Monitor Intake Visit Reasons: 6 mth f/up/r/s 10/03 Intake Note: 6 mth f/up Avionics Engineer Required: No Accompanied by: Self / Same As Patient Allergies Penicillins Allergy (Severe, Verified 01/16/25 09:23) Anaphylaxis Medication List - Last Reconciled 01/16/25 by Washington Hampton MD aspirin (Ecotrin Low Strength) 81 mg PO DAILY atorvastatin 80 mg PO BEDTIME baclofen 20 mg PO BEDTIME 30 days blood sugar diagnostic (FreeStyle Lite Strips) Testing once a day as needed blood sugar diagnostic (FreeStyle Test strips) Testing once a day as needed blood-glucose meter (FreeStyle Lite Meter kit) As directed cane As directed celecoxib (Celebrex) 100 mg PO Q12H 90 days cetirizine (Zyrtec) 10 mg PO DAILY PRN flash glucose scanning reader (PrimeloopStyle John 2 Powers) As directed flash glucose sensor (FreeStyle John 2 Sensor kit) As directed gabapentin 800 mg PO BID 30 days gabapentin 400 mg PO DAILY 30 days hydrocortisone 2.5% 1 appl topical BID PRN insulin glargine (Lantus Solostar U-100 Insulin) 18 units (0.18 mL) subcut QAM 30 days Lactobacillus rhamnosus GG (Culturelle) 1 cap PO DAILY 90 days lancets (FreeStyle Lancets) Testing once a day as needed metformin 1,000 mg PO BID 90 days ondansetron HCl 4 mg PO Q4H PRN 30 days MDD 12mg pantoprazole (Protonix) 40 mg PO DAILY 90 days pen needle, diabetic (BD Ultra-Fine Nereida Pen Needle) As directed pioglitazone (Actos) 15 mg PO DAILY 90 days propranolol 10 mg PO BID 90 days simethicone (Gas Relief (simethicone)) 125 mg PO TID-QID PRN tramadol 50 mg PO DAILY PRN 30 days venlafaxine 37.5 mg PO DAILY 90 days HPI Comments Details: 54 year gentleman here for follow-up. He has background history of anterior wall DC in 2019 in the setting of cocaine use. He underwent drug-eluting stent at that time by Dr. Shah. He had EF of 40 45% at that time too. He was at [facility] with atypical chest pain in July 2022. At that time he underwent stress testing which did not show any significant issues and he was discharged home. He has not followed up since then. He is saying that he does not plan to follow up with [facility] and wants to establish care with our practice. He is experiencing some right-sided atypical sounding chest pains. He has chronic shoulder discomfort. His anginal pain was left-sided tightness which she has not experienced. He walks and has no significant shortness of breath or chest discomfort with activity. His main complaint is left calf claudication. He is a former smoker. He has been clean since he had the anterior wall DC. 06/27/2023: He returns for follow-up. He had echocardiography which showed basal inferior wall motion with EF of 55-60%. He has non-anginal left-sided chest pain. Blood pressure control is good. He has started smoking again and will be talking to his primary about alternative medications for Wellbutrin. He was previously given Wellbutrin but apparently has history of seizures of albuterol was stopped appropriately. 09/26/2023: He returns for follow-up. He has undergone spine and right shoulder surgery. He is still recovering from the shoulder surgery and is complaining of some pain. He is saying that he stop smoking with Chantix and today is day 1 of not smoking. He has no chest discomfort shortness of breath. Blood pressure is well controlled. 04/02/2024: He is here for follow-up. Denying any chest discomfort shortness of breath. He is complaining of cramping in both calves when he walks. This is random and it happens sometimes and other times he can walk without any complaints. No clear nighttime symptoms. He is taking insulin as well as oral medications for diabetes. Blood pressure is well controlled. 01/16/2025: Here for follow-up. Denying any chest discomfort or shortness of breath. He is walking with a cane. He has significant joint pain and spine issues. He had lipid panel done which is showing LDL of 86. He has target is less than 55. He is currently taking atorvastatin 80 mg but saying that he gets GI issues due to that. [facility] Medical History History of ST elevation myocardial infarction (STEMI) Seizures Coronary artery disease Hyperlipidemia Diabetes mellitus Nicotine dependence, cigarettes, uncomplicated Umbilical hernia White matter abnormality on MRI of brain Anxiety Depression Migraine Peptic ulcer Change in consistency of stool Diarrhea Glaucoma Surgical History History of heart artery stent Hx of elbow surgery History of carpal tunnel surgery of right wrist History of incision and drainage History of back surgery History of esophagogastroduodenoscopy (EGD) Hx of colonoscopy History of ear surgery Family History Mother Lumbar spine tumor Father Heart attack Paternal Grandfather Heart attack Other No family history of coronary artery disease Social History Household Members: Spouse Housing: Apartment Are you a primary point of care technician to a significant other at home: No Do you presently have visiting nurse or other home services: No Alcohol intake: never Comment: d/c from er Patient Tobacco Use Status: Former Tobacco user Tobacco use type: Cigarette Cigarettes Per Day: 4 Years Smoked: 22+ e-Cigarette/Vaping Use: Never Used Second Hand Smoke Exposure: Yes Substance Use Type: Marijuana service: No Current occupational status: unemployed Cognitive needs: No Hearing needs: No Vision needs: Yes Review of Systems Const Denies chills, Denies fatigue, Denies fever(s), Denies frequent falls, Denies weakness, Denies weight gain and Denies weight loss ENT Denies dizziness Card Denies chest pain, Denies leg edema, Denies lightheadedness, Denies palpitations, Denies dyspnea and Denies dyspnea on exertion Resp Denies cough, Denies dyspnea and Denies dyspnea on exertion GI Denies hematochezia Musc Denies abnormal gait, Denies muscle weakness, Denies numbness, Denies radiating pain into limb and Denies tingling Neuro Denies abnormal gait, Denies dizziness, Denies frequent falls, Denies numbness, Denies tingling and Denies weakness Endo Denies fatigue and Denies palpitations Physical Exam Vital Signs: Last Vital Signs Pulse 67 01/16/25 14:25 BP 140/64 H 01/16/25 14:25 BMI result Body Mass Index 31.6 GENERAL APPEARANCE: in no acute distress, pleasant. NECK: no carotid bruit, no jugular venous distention. HEART: no murmurs, regular rate and rhythm. LUNGS: clear to auscultation bilaterally. ABDOMEN: soft, nontender. EXTREMITIES: no edema. PERIPHERAL PULSES: equal. NEUROLOGIC: No gross deficits, AAO X 3 Office Procedures EKG Details: Sinus rhythm 67 beats per minute, normal axis, septal infarct, QTC 399 milliseconds. [id number], Complete Assessment & Plan Assessment & Plan (1) Coronary artery disease: Code(s): I25.10 - Atherosclerotic heart disease of [place] coronary artery without angina pectoris Category: Medical Qualifiers: Coronary Disease-Associated Artery/Lesion type: [place] artery [place] vs. transplanted heart: [place] heart Associated angina: without angina Qualified Code(s): I25.10 - Atherosclerotic heart disease of [place] coronary artery without angina pectoris Plan Pleasant 54 year gentleman who has known history of coronary disease with previous anterior wall DC status post primary PCI. Denying any anginal symptoms currently. Blood pressure control is okay. He is in pain all over the body and is consider ing neurostimulator. LDL cholesterol is 86. His target is less than 55. He is saying 80 mg atorvastatin gives him abdominal discomfort. I have advised him to decrease atorvastatin dose to 40 mg daily and add ezetimibe 10 mg daily. We will see if he tolerates this combination and repeat LDL in 3-4 months. Follow up in 3 months. Thank you for allowing me to participate in the care of your patient. Please feel free to contact me if you have any questions. Medications: New ezetimibe 10 mg PO DAILY 90 tabs 3RF atorvastatin 40 mg PO BEDTIME 90 tabs 3RF Discontinued atorvastatin Discontinued Reason: Doctor's Order 80 mg PO BEDTIME 90 tabs 3RF Coding Level of Care Code Est Pt Level 4 (80980) Diagnoses Coronary artery disease involving [place] coronary artery of [place] heart without angina pectoris I25.10 Coronary Disease-Associated Artery/Lesion type: [place] artery [place] vs. transplanted heart: [place] heart Associated angina: without angina CPT Codes EKG - CPT: [id number]-[id number], Complete ([id number])
[2025-01-16 14:25] VITALS: BP 140/64; PULSE 67; BMI 31.6
== END 2025-01-16 14:50 | disposition home or self-care (01) ==
LOC: HO.HCS 13:35
PROVIDERS: PCP Physician Assistant; Visit Provider Internal Medicine Cardiovascular Disease
DX: I25.10 Atherosclerotic heart disease of native coronary artery without angina pectoris (principal)
CPT/HCPCS: 93010; 99214

== ENCOUNTER 2025-01-21 10:03 | Outpatient (AMB) | payer OTHER, SELFPAY ==
--- NOTE | 2025-01-21 10:07 | MHC.OFFVIS ---
Vital Signs 01/21/25 10:14 Height 5 ft 6 in Weight 191 lb 12.835 oz BMI 31.0 BP 178/99 H Blood Pressure Location Lt brachial Position Sitting Pulse 69 Intake Visit Reasons: 2m malabsorption diarrhea Intake Note: Julian presents in the office as a 2 month follow up for Malabsortion diarrhea. CC: States that he is nuable to have a solid bowel movement - always has diarrhea. Nausea and Vomiting - wants to cut some medications out. Heart Dr said he has to keep taking metformin. Clipper Operator Required: No Allergies Penicillins Allergy (Severe, Verified 01/21/25 10:09) Anaphylaxis HPI Comments Details: 54 y.o M with PMH of who is here for chronic diarrhea x 2 years. Reports daily watery BMs up to 2-10 times a day. Has been going on x 2 years. With and without abd pain. Not related to food intake. Night time sx +. No blood in stool. Sometimes black stool. Recently started celebrex 2 weeks ago. Bloating +. Nausea +. Vomit once a week but when he does throw up, has 2-3 emesis. Smokes marijuana. 0.5 oz/week. No etOH use. Prev crack cocaine - smoking. EGD/colo 2022: gastric ulcer gastritis Colonoscopy Findings: polyps internal hemorrhoids diverticular disease Path: A. Duodenum, biopsy: Duodenal mucosa with predominantly preserved villi and no specific change. B. Gastric ulcer, biopsy: Gastric antral mucosa (2 pieces) with congestion and reactive changes, consistent with tissue adjacent to ulcer; negative for H pylori, intestinal metaplasia and dysplasia. Duodenal mucosa (1 piece) with no specific change. C. Stomach, biopsy: Gastric antral and body mucosa with congestion and focal minimal chronic inactive inflammation; negative for H pylori, intestinal metaplasia and dysplasia. D. Gastroesophageal junction, biopsy: Squamocolumnar mucosa with mild chronic active inflammation; negative for intestinal metaplasia and dysplasia. E. Colon, ascending, 2 polyps: Tubular adenomas (multiple pieces); negative for high-grade dysplasia and carcinoma. F. Colon, descending, polyp: Tubular adenoma; negative for high-grade dysplasia and carcinoma. 01/21/25: Her for follow up. Labs reviewed. Stool tests not done. Cont to have 4-5 loose watery BMs per day most of the days with bloating. No abd discomfort with this. US reviewed - consistent with fatty liver. LFTs not elevated. Laboratory Tests 01/11/25 08:46 Hgb 13.6 L Hct 39.3 L Ferritin 99 AST 28 ALT 35 TSH 1.39 IgG Total 1030 IgA Total 204 IgM 91 Tiss Transglutamin IgA <1.0 PFSH Medical History History of ST elevation myocardial infarction (STEMI) Seizures Coronary artery disease Hyperlipidemia Diabetes mellitus Nicotine dependence, cigarettes, uncomplicated Umbilical hernia White matter abnormality on MRI of brain Anxiety Depression Migraine Peptic ulcer Change in consistency of stool Diarrhea Glaucoma Surgical History History of heart artery stent Hx of elbow surgery History of carpal tunnel surgery of right wrist History of incision and drainage History of back surgery History of esophagogastroduodenoscopy (EGD) Hx of colonoscopy History of ear surgery Family History Mother Lumbar spine tumor Father Heart attack Paternal Grandfather Heart attack Other No family history of coronary artery disease Social History Household Members: Spouse Housing: Apartment Are you a primary animal care worker to a significant other at home: No Do you presently have visiting nurse or other home services: No Alcohol intake: never Comment: d/c from er Patient Tobacco Use Status: Former Tobacco user Tobacco use type: Cigarette Cigarettes Per Day: 4 Years Smoked: 22+ e-Cigarette/Vaping Use: Never Used Second Hand Smoke Exposure: Yes Substance Use Type: Marijuana service: No Current occupational status: unemployed Cognitive needs: No Hearing needs: No Vision needs: Yes Review of Systems Const All systems reviewed & are unremarkable except as noted in HPI and below Physical Exam Vital Signs: Last Vital Signs Pulse 69 01/21/25 10:14 BP 178/99 H 01/21/25 10:14 BMI result Body Mass Index 31.0 No apparent distress Nonicteric Abdomen soft, nondistended Alert and oriented x3, normal gait Assessment & Plan Assessment & Plan (1) Diarrhea: Code(s): R19.7 - Diarrhea, unspecified Category: Medical Qualifiers: Diarrhea type: due to malabsorption Qualified Code(s): K90.9 - Intestinal malabsorption, unspecified; R19.7 - Diarrhea, unspecified (2) Bloating: Code(s): R14.0 - Abdominal distension (gaseous) (3) Personal history of colonic polyps: Code(s): Z86.0100 - Personal history of colon polyps, unspecified Category: Medical Plan Ddx include SIBO, panc insufficiency, dietary malabsoprtion such as CSID, microscopic colitis. IBS less likely given absence of abd pain. Similarly IBD less likely based on colo findings from 2022. Plan: - Stool tests below - If negative, trial of rifaximin 550 mg TID for possible SIBO - Next colo due 2025 for hx of polyps Follow up 3 months Orders: Orders Calprotectin, Fecal Today K90.9 - Intestinal malabsorption, unspecified, R19.7 - Diarrhea, unspecified Fecal Fat Qualitative Today K90.9 - Intestinal malabsorption, unspecified, R19.7 - Diarrhea, unspecified Pancreatic Elastase-1 Today K90.9 - Intestinal malabsorption, unspecified, R19.7 - Diarrhea, unspecified Coding Level of Care Code Est Pt Level 4 (85787) Diagnoses Diarrhea due to malabsorption K90.9; R19.7 Diarrhea type: due to malabsorption Bloating R14.0 Personal history of colonic polyps Z86.0100
[2025-01-21 10:14] VITALS: BP 178/99; PULSE 69; BMI 31.0
--- OUTSIDE RECORDS SUMMARY | 2025-01-21 10:57 | XMS_ITS | Clinical Summary ---
Author Organization [address] [facility] Address [address] [place] [address] Phone Care Team Providers Care Information Specialist Name Role Phone Jason Vega Primary Care [...] bedtime. 07/09/20 24 Active FreeStyle John 2 [place] misc See administration instructions. 01/30/20 24 Active [...] 3:00 PM EDT Consult Orthopedic Surgery - [address] [address] Matthew Edmonds DPM Lesion of [...] AM EDT Office Visit Orthopedic Surgery - [place] [address] [facility] [address] [place] [phone] Matthew Edmonds, [place] 175 [facility] [address] [place] [address] Health Maintenance Due Date Last Done Comments [...] patient's age to complete this topic Insurance [facility] Care Teams Information Specialist Relationship Specialty Start Date End Date Jason Vega PA PCP - General Physician Marine Structural Designer 10/10/24
== END 2025-01-21 10:54 | disposition home or self-care (01) ==
PROVIDERS: PCP Physician Assistant; Visit Provider Internal Medicine
DX: K90.9 Intestinal malabsorption, unspecified (principal); R19.7 Diarrhea, unspecified; R14.0 Abdominal distension (gaseous); Z86.0100 Personal history of colon polyps, unspecified
CPT/HCPCS: 99214

== ENCOUNTER → 2025-01-21 10:03 | Outpatient (BNVA) | payer OTHER, SELFPAY | PROVIDERS: PCP Physician Assistant; Visit Provider Internal Medicine | DX: R19.7 Diarrhea, unspecified (principal); K90.9 Intestinal malabsorption, unspecified; R14.0 Abdominal distension (gaseous); Z86.0100 Personal history of colon polyps, unspecified | CPT/HCPCS: 99212 ==

== ENCOUNTER 2025-01-30 08:55 | Outpatient (REF) | payer OTHER, SELFPAY ==
[2025-02-05 13:08] LABS: Fecal Fat Qualitative Normal (Normal)
[2025-02-06 01:29] LABS: Pancreatic Elastase-1 >800 mcg/g (>200)
[2025-02-07 04:09] LABS: Calprotectin, Fecal 107 mcg/g
== END 2025-01-30 08:56 | disposition home or self-care (01) ==
LOC: HO.LNP 08:55
PROVIDERS: Visit Provider Internal Medicine
DX: K90.9 Intestinal malabsorption, unspecified (principal); R19.7 Diarrhea, unspecified
CPT/HCPCS: 82656; 82705; 83993

== ENCOUNTER → 2025-02-05 09:36 | Outpatient (BNV) | payer MEDICAID, SELFPAY | PROVIDERS: PCP Physician Assistant; Visit Provider Radiology Diagnostic Radiology | DX: M48.02 Spinal stenosis, cervical region (principal) | CPT/HCPCS: 72141 ==

== ENCOUNTER 2025-02-05 09:39 | Outpatient (REF) | payer MEDICAID, SELFPAY ==
--- NOTE | ~2025-02-05 | MR_ITS ---
EXAMINATION: MR CERVICAL SPINE WITHOUT CONTRAST EXAM: TECHNIQUE: Multiplanar multisequence imaging through the cervical spine was performed from the base of the skull through at least T1. INDICATION: Chronic and worsening cervical spine radiculopathy pain PRIOR: August 23, 2022 FINDINGS: Skull Base: There is no tonsillar ectopia. Cord: There is no abnormal cord signal or hydrosyringomyelia. Marrow and end-plates: There are no marrow replacing lesions. Alignment: Vertebral body height and alignment is unchanged. Soft tissues: Paraspinal soft tissues and major vascular structures are unremarkable. C2-3: Uncovertebral osteophyte results in mild left foraminal narrowing, unchanged. There is no spinal stenosis or right foraminal narrowing. C3-4: Again seen is mild broad-based disc bulge with mild spinal stenosis. Facet and uncovertebral osteophytes result in noob-eq-pcdwdaqd foraminal narrowing, greater than left, similar to the prior. C4-5: Broad-based disc bulge and ligamentum flavum thickening results in mild spinal stenosis. Facet and uncovertebral osteophytes results in moderate bilateral foraminal narrowing, greater on the right. Stable. C5-6: Broad-based disc bulge and ligamentum flavum thickening results in mild spinal stenosis. Disc and uncovertebral osteophytes results in moderate right and kgkx-co-dwpcwurm left foraminal narrowing, stable. C6-7: There is mild loss of disc height and circumferential broad-based disc bulge with left paracentral disc extrusion with flattening of the ventral cord. There is ddrh-pb-dllghlzm spinal stenosis similar to the prior. There is no right foraminal narrowing and mild medial left foraminal narrowing. Stable. C7-T1: There is no disc bulge, herniation, spinal stenosis, or foraminal narrowing. MR/MR cervical spine wo con IMPRESSION: Essentially unchanged multilevel degenerative disc disease in the cervical spine. C3-4: There is mild spinal and zgdz-an-lhquelhx foraminal narrowing, greater than left, similar to the prior. C4-5: There is mild spinal and moderate bilateral foraminal narrowing, greater on the right. Stable. C5-6: There is mild spinal stenosis and moderate right and flia-as-icdlvbpt left foraminal narrowing, stable. C6-7: There is central and left paracentral disc herniation with njgj-ud-xllmckgu spinal stenosis similar to the prior. There is mild medial left foraminal narrowing. Stable. Electronically signed by: Tyson Morgan MD 02/05/2025 11:01 AM EDT
--- OUTSIDE RECORDS SUMMARY | 2025-02-05 10:34 | XMS_ITS | Clinical Summary ---
Author Organization 175 [facility] Address [address] [place] [address] Phone Care Team Providers Care Business Solution Analyst Name Role Phone Jason Vega Primary Care [...] bedtime. 07/09/20 24 Active FreeStyle John 2 [place] misc See administration instructions. 01/30/20 24 Active [...] (two) times a day. 10/19/19 25 Active sulfamethoxazole-t rimethoprim (BACTRIM DS,SEPTRA DS) 800-160 mg per tablet 05/22/20 24 Active traMADoL (ULTRAM) 50 mg tablet Take 1 tablet (50 mg total) by mouth 1 (one) time each day if needed. for pain Max Daily Amount: 50 mg 10/19/19 25 Active varenicline tartrate (CHANTIX) 1 mg tablet Take 1 tablet (1 mg total) by mouth 2 (two) times a day. 10/19/19 25 Active venlafaxine (EFFEXOR) 37.5 mg tablet Take 1 tablet (37.5 mg total) by mouth 1 (one) time each day. 10/19/19 25 Active aspirin 81 mg EC tablet Take 1 tablet (81 mg total) by mouth 1 (one) time each day. Active amLODIPine (NORVASC) 5 mg tablet Take 1 tablet (5 mg total) by mouth. 04/20/20 Active escitalopram (LEXAPRO) 5 mg/5 mL solution Take by mouth. 09/20/19 23 Active Encounters Date Type Department Care Team Description 01/22/2025 9:15 AM EDT Office Visit Orthopedic Surgery [address] [phone] Matthew Edmonds DPM Lesion of plantar nerve, left lower limb (Primary Dx); Metatarsalgia of left foot; Lumbosacral radiculopathy; Contracture, right foot; Foot drop, right 11/13/2024 3:00 PM EDT Consult Orthopedic Surgery [address] [phone] Matthew Edmonds DPM Lesion of plantar nerve, [...] - - Weight 87.5 kg (193 lb) 01/22/2025 9:08 AM EDT Height 170.2 cm (5' 7.01 ) 01/22/2025 9:08 AM ED T Body Mass Index 30.22 01/22/2025 9:08 AM EDT Plan of Treatment Upcoming Encounters Date Type Department Care Team (Late st Contact Info) Description 04/16/2025 3:00 PM EDT Appointment [facility] Neurodiagnostic [address] [place] [address] Health Maintenance Due Date Last Done Comments Diabetes: Annual GFR (Glomerular Filtration Rate) 1969 Diabetes: Annual Foot Exam 1979 Diabetes: Annual Retina Eye Exam 1979 Hepatitis B Vaccines (1 of 3 - 19+ 3-dose series) 1988 Zoster Vaccines (2 of 2) 01/20/2023 11/25/2022 COVID-19 Vaccine () 04/22/2024 01/05/2024, 12/02/2022, 08/24/2022, Additional history exists Cholesterol [...] patient's age to complete this topic Insurance [facility] Care Teams Business Solution Analyst Relationship Specialty Start Date End Date Jason Vega PA [address] [place] [address] PCP - General Physician Terminal Superintendent 10/10/24
== END 2025-02-05 09:40 | disposition home or self-care (01) ==
LOC: HO.MRI 09:39
PROVIDERS: PCP Physician Assistant; Visit Provider Physician Assistant
DX: M54.12 Radiculopathy, cervical region (principal)
CPT/HCPCS: 72141

== ENCOUNTER 2025-04-04 11:00 | Outpatient (RCR) | payer OTHER, SELFPAY | END 2025-06-24 09:53 | disposition home or self-care (01) | LOC: HO.PT 11:00 | PROVIDERS: PCP Physician Assistant; Visit Provider Podiatrist | DX: M21.371 Foot drop, right foot (principal); M21.372 Foot drop, left foot | CPT/HCPCS: 97110; 97162 ==

== ENCOUNTER 2025-04-09 09:34 | Outpatient (AMB) | payer OTHER, SELFPAY ==
[2025-04-09 10:11] VITALS: BP 160/82; PULSE 62; BMI 31.1
--- NOTE | 2025-04-09 10:11 | MHC.OFFVIS ---
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: No Allergies Penicillins Allergy (Severe, Verified 04/09/25 10:13) Anaphylaxis Medication List - Last Reconciled 04/09/25 by JOHN Lipscomb aspirin (Ecotrin Low Strength) 81 mg PO DAILY atorvastatin 40 mg PO BEDTIME baclofen 20 mg PO BEDTIME 30 days blood sugar diagnostic (FreeStyle Lite Strips) Testing once a day as needed blood sugar diagnostic (FreeStyle Test strips) Testing once a day as needed blood-glucose meter (FreeStyle Lite Meter kit) As directed cane As directed celecoxib (Celebrex) 100 mg PO Q12H 90 days cetirizine (Zyrtec) 10 mg PO DAILY PRN ezetimibe 10 mg PO DAILY flash glucose scanning reader (Co-WorkStyle John 2 [place]) As directed flash glucose sensor (FreeStyle John 2 Sensor kit) As directed gabapentin 800 mg PO BID 30 days gabapentin 400 mg PO DAILY 30 days hydrocortisone 2.5% 1 appl topical BID PRN insulin glargine (Lantus Solostar U-100 Insulin) 18 units (0.18 mL) subcut QAM 30 days lancets (FreeStyle Lancets) Testing once a day as needed metformin 1,000 mg PO BID 90 days ondansetron HCl 4 mg PO Q4H PRN 30 days MDD 12mg pantoprazole (Protonix) 40 mg PO DAILY 90 days pen needle, diabetic (BD Ultra-Fine [place] Pen Needle) As directed pioglitazone (Actos) 15 mg PO DAILY 90 days propranolol 10 mg PO BID 90 days rifaximin 550 mg PO TID 14 days simethicone (Gas Relief (simethicone)) 125 mg PO TID-QID PRN tramadol 50 mg PO DAILY PRN 30 days venlafaxine 37.5 mg PO DAILY 90 days HPI HPI 3 mth f/up: Details: Kwaku is a 54-year-old male with past medical history of hyperlipidemia, prior cocaine use, prior smoking, CAD, anterior STEMI 2020 with MARICHUY to the LAD who presents for follow-up. Today he reports that he has been doing generally well since his last visit in December. His primary complaint is of cramping in each of his calfs when he ambulates distances. If he stops and rest of the symptom will resolve and he is able to keep going. He says he has an appointment with vascular in the near future. He quit smoking 1.5 years ago but does smoke marijuana each night to help him rest. No chest discomfort at rest or with activity. No shortness of breath, PND, orthopnea or edema. No lightheadedness, presyncope, syncope, palpitations. Ambulates with a cane. Compliant with meds. He reports recent high stress levels at home. [facility] Medical History (Updated 04/09/25 @ 11:10 by JOHN Lipscomb) History of ST elevation myocardial infarction (STEMI) Seizures Coronary artery disease Hyperlipidemia Diabetes mellitus Nicotine dependence, cigarettes, uncomplicated Umbilical hernia White matter abnormality on MRI of brain Anxiety Depression Migraine Peptic ulcer Change in consistency of stool Diarrhea Glaucoma Surgical History History of heart artery stent Hx of elbow surgery History of carpal tunnel surgery of right wrist History of incision and drainage History of back surgery History of esophagogastroduodenoscopy (EGD) Hx of colonoscopy History of ear surgery Family History Mother Lumbar spine tumor Father Heart attack Paternal Grandfather Heart attack Other No family history of coronary artery disease Social History Household Members: Spouse Housing: Apartment Are you a primary child care attendant school to a significant other at home: No Do you presently have visiting nurse or other home services: No Alcohol intake: never Comment: d/c from er Patient Tobacco Use Status: Former Tobacco user Tobacco use type: Cigarette Cigarettes Per Day: 4 Years Smoked: 22+ e-Cigarette/Vaping Use: Never Used Second Hand Smoke Exposure: Yes Substance Use Type: Marijuana service: No Current occupational status: unemployed Cognitive needs: No Hearing needs: No Vision needs: Yes Review of Systems Const All systems reviewed & are unremarkable except as noted in HPI and below ENT Denies dizziness Card Denies chest pain, Denies chest pain at rest, Denies chest pain with activity, Denies rapid heart rate, Denies pedal edema, Denies edema, Denies leg edema, Denies lightheadedness, Denies palpitations, Denies dyspnea, Denies dyspnea on exertion and Denies orthopnea Resp Denies cough, Denies dyspnea and Denies dyspnea on exertion GI Denies hematochezia and Denies change in stool character Musc Details: uses cane for balance - calf cramping with ambulation Denies abnormal gait, Denies limited range of motion, Denies muscle cramps, Denies muscle weakness, Denies numbness, Denies radiating pain into limb, Denies stiffness and Denies tingling Neuro Denies abnormal gait, Denies dizziness, Denies numbness and Denies tingling Endo Denies palpitations Physical Exam Vital Signs: Last Vital Signs Pulse 62 04/09/25 10:11 BP 160/82 H 04/09/25 10:11 BMI result Body Mass Index 31.1 Const General: cooperative, healthy appearing, comfortable and no acute distress Orientation/consciousness: patient oriented x3 Neck Neck: Yes normal visual inspection and Yes no JVD Resp Effort & Inspection: normal respiratory effort Auscultation: clear to auscultation bilaterally, no crackles, no rales, no rhonchi and no wheezes Cardio Jugular venous distension: no JVD Rate: regular rate Rhythm: regular rhythm Heart sounds: S1 normal heart sound present, S2 normal heart sound present, no gallops, no murmurs and no rubs Neuro General: patient oriented x3 Extrem General: Yes normal to inspection, No no pedal edema and No calf tenderness Psych Appearance: grossly normal Mental Status: mental status grossly normal Speech and movement: Normal speech and movement present Assessment & Plan Assessment & Plan (1) Coronary artery disease: Code(s): I25.10 - Atherosclerotic heart disease of yocha dehe coronary artery without angina pectoris Category: Medical Qualifiers: Associated angina: without angina Coronary Disease-Associated Artery/Lesion type: yocha dehe artery [place] vs. transplanted heart: yocha dehe heart Qualified Code(s): I25.10 - Atherosclerotic heart disease of yocha dehe coronary artery without angina pectoris Plan: History of anterior STEMI 2019 with MARICHUY to the LAD. Last echo 02/17/2023 showing EF 55-60%, basal inferior akinetic. Currently no anginal symptoms. Continue with risk factor modification. Continue atorvastatin and Zetia with ideal LDL goal less than 55. Continue propranolol. Blood pressure elevated today, will add amlodipine 2.5 mg daily. Has PCP follow-up on 04/18/2025 and blood pressure will be rechecked at that time. Cardiology follow-up 6 months, sooner if needed. (2) History of ST elevation myocardial infarction (STEMI): Comment: (STEMI 03/2020 s/p stent to LAD - w/ ) Code(s): I25.2 - Old myocardial infarction Category: Medical Plan: As above (3) Claudication: Code(s): I73.9 - Peripheral vascular disease, unspecified Category: Medical Plan: Reports of claudication. Has upcoming visit with vascular. Prior smoker, quit 1.5 years ago. Does smoke marijuana daily. (4) Hyperlipidemia: Code(s): E78.5 - Hyperlipidemia, unspecified Category: Medical Qualifiers: Hyperlipidemia type: mixed hyperlipidemia Qualified Code(s): E78.2 - Mixed hyperlipidemia Plan: [place] LDL goal less than 55. He is currently on atorvastatin 40 mg daily and Zetia 10 mg daily. Fasting lipid profile is pending. (5) PAD (peripheral artery disease): Code(s): I73.9 - Peripheral vascular disease, unspecified Category: Medical Plan: As above Plan I discussed with the patient the initiation of amlodipine for hypertension management, explaining the potential side effects and the importance of monitoring blood pressure. We reviewed the need for cholesterol re-evaluation and the continuation of current diabetes management strategies. I emphasized the importance of dietary changes and scheduled a vascular consultation to address leg symptoms. Medications: New amlodipine BP medication 2.5 mg PO DAILY 30 tabs 5RF Patient Instructions: - Start taking amlodipine as prescribed and monitor for any side effects. - Schedule and complete cholesterol labs before the next primary care visit. - Continue current diabetes medications and dietary changes. - Attend the scheduled vascular consultation for leg symptoms. Patient was informed and verbally consented to the use of an ambient scribe for clinic note documentation during this visit. Visit time spent on chart review, interview, assessment, orders, documentation. Coding Level of Care Code Est Pt Level 4 (13168) Complex EM visit Add On G2211 Diagnoses Coronary artery disease involving yocha dehe coronary artery of yocha dehe heart without angina pectoris I25.10 Associated angina: without angina Coronary Disease-Associated Artery/Lesion type: y[place] dehe artery [place] vs. transplanted heart: y[place] dehe heart History of ST elevation myocardial infarction (STEMI) I25.2 Claudication I73.9 Mixed hyperlipidemia E78.2 Hyperlipidemia type: mixed hyperlipidemia PAD (peripheral artery disease) I73.9 Time Spent (min) 32
--- OUTSIDE RECORDS SUMMARY | 2025-04-09 10:40 | XMS_ITS | Clinical Summary ---
Author Organization [address] [facility] Address [address] [place] [address] Phone Care Team Providers Care Blindstitch Machine Operator Name Role Phone Jason Vega Primary Care Provider [phone] Allergies Active Allergy Reactions Criticality Noted Date [...] bedtime. 07/09/20 24 Active FreeStyle John 2 Vancleve misc See administration instructions. 01/30/20 24 Active [...] tablet (5 mg total) by mouth. 04/20/20 20 Active escitalopram (LEXAPRO) 5 mg/5 mL solution Take by mouth. 09/20/19 23 Active Encounters Date Type Department Care Team Description 01/22/2025 9:15 AM EDT Office Visit Orthopedic Surgery - [address] [address] Matthew Edmonds DPM Lesion of plantar nerve, left lower limb (Primary Dx); Metatarsalgia of left foot; Lumbosacral radiculopathy; Contracture, right foot; Foot drop, right from Last 3 Months Social History Tobacco [...] Info) Description 04/16/2025 3:00 PM EDT Appointment [facility] [address] [place] [address] Health Maintenance Due Date Last Done Comments Diabetes: Annual GFR (Glomerular Filtration Rate) 1969 Diabetes: Annual Foot Exam 1979 Diabetes: Annual Retina Eye Exam 1979 Hepatitis B Vaccines (1 of 3 - 19+ 3-dose series) 1988 Zoster Vaccines (2 of 2) 01/20/2023 11/25/2022 COVID-19 Vaccine ( season) 2024 01/05/2024, 12/02/2022, 08/24/2022, Additional history exists Depression Screening 08/22/2024 Cholesterol Screening (Lipid Panel) 10/10/2024 Colorectal Cancer Screening: Colonoscopy 10/10/2024 HIV Screening 10/10/2024 Hepatitis C Screening 10/10/2024 Social Influencers of Health Screening 10/10/2024 Diabetes: Annual Urine Albumin-Creatinine Ratio (uACR) 11/13/2024 Diabetes: Blood Sugar Control Test (HGBA1C) 11/13/2024 Hypertension/CHF/CAD Annual BMP Blood Test 11/13/2024 Influenza Vaccine (#1) 2025 , 05/25/2023, 04/05/2017, Additional history exists DTaP,Tdap,and Td Vaccines (2 - Td or [...] patient's age to complete this topic Insurance [facility] Care Teams Blindstitch Machine Operator Relationship Specialty Start Date End Date Jason Vega PA [address] [place] [phone] PCP - General Physician Splitting Machine Feeder 10/10/24
--- OUTSIDE RECORDS SUMMARY | 2025-04-09 10:40 | XMS_ITS | Clinical Summary ---
Author Organization [employer] Address [address] [place] [address] [address] [place] [address] Care Team Providers Care Dupligraph Operator Name Role Phone Unavailable Primary Care Provider Unavailabl e Allergies Active Allergy Reactions Criticality Noted Date Comments Penicillin G 12/02/2022 Immunizations Immunization Administration Dates Next Due Influenza injectable quadriv [...] Panel 1969 SDOH Screening 1969 Sigmoidoscopy 1969 Disability Screening 1969 Alcohol/Substance Use Screening 1981 Tobacco Screening 1981 Hepatitis C Screening 1987 Hepatitis B Vaccines (1 of 3 - 19+ 3-dose series) 1988 Zoster Vaccines (2 of 2) 01/20/2023 11/25/2022 COVID-19 Vaccine (5 - 2023- season) 2024 01/05/2024, 12/02/2022, 08/24/2022, Additional history exists Influenza Vaccine (#1) 2025 , 04/05/2017, 06/14/2016 DTaP/Tdap/Td Vaccines (2 - [...] age to complete this topic Insurance [facility]
== END 2025-04-09 10:37 | disposition home or self-care (01) ==
LOC: HO.HCS 09:35
PROVIDERS: PCP Physician Assistant; Visit Provider Nurse Practitioner Family
DX: I25.10 Atherosclerotic heart disease of native coronary artery without angina pectoris (principal); I25.2 Old myocardial infarction; I73.9 Peripheral vascular disease, unspecified; E78.2 Mixed hyperlipidemia
CPT/HCPCS: 99214

== ENCOUNTER → 2025-04-09 09:34 | Outpatient (BNVA) | payer OTHER, SELFPAY | PROVIDERS: PCP Physician Assistant; Visit Provider Nurse Practitioner Family | DX: R25.2 Cramp and spasm (principal); I25.10 Atherosclerotic heart disease of native coronary artery without angina pectoris; I25.2 Old myocardial infarction; I73.9 Peripheral vascular disease, unspecified; E78.2 Mixed hyperlipidemia | CPT/HCPCS: 99212 ==

== ENCOUNTER → 2025-04-16 23:59 | Outpatient (BNV) | payer OTHER, SELFPAY | PROVIDERS: PCP Physician Assistant; Visit Provider Psychiatry & Neurology Neurology | DX: G62.89 Other specified polyneuropathies (principal) | CPT/HCPCS: 95886; 95911 ==

== ENCOUNTER 2025-04-18 08:55 | Outpatient (REF) | payer OTHER, SELFPAY ==
--- OUTSIDE RECORDS SUMMARY | 2025-04-16 14:26 | XMS_ITS | Encounter Summary ---
Author Organization [facility] Address [address] [place] [address] Care Team Providers Care Hand Folder Name Role Phone Jason Vega Primary Care Provider [phone] Reason for Referral * Neurology (Routine) - Authorized Specialty Diagnoses / Procedures Referred By Contac t Referred To Contact Neurology Diagnoses Lumbosacral radiculopathy Foot drop, right Procedures EMG one limb Matthew Edmonds DPM [address] [address] Phone: tel: fax: [facility] [address] [place] [phone] Phone: tel: Referral ID Status Reason Start Date Expiration Date V isits Requested Visits Authorized [id number] Authorized 01/22/2025 01/22/2026 1 1 Reason for Visit * Neurology (Routine) - Authorized Specialty Diagnoses / Procedures Referred By Contvenecia t Referred To Contact Neurology Diagnoses Lumbosacral radiculopathy Foot drop, right Procedures EMG one limb Matthew Edmonds DPM [address] [address] Phone: tel: fax: [facility] [address] [place] [phone] Phone: tel: Referral ID Status Reason Start Date Expiration Date V isits Requested Visits Authorized [id number] Authorized 01/22/2025 01/22/2026 1 1 Encounter Details Date Type Department Care Team (Latest Contact Info) Description 04/16/2025 2:26 PM EDT Hospital Encounter [facility] [address] [place] [address] Lumbosacral radiculopathy; Foot drop, right Social History Tobacco Use Types Packs/Day Years Used Date Smoking Tobacco: Never Assessed Sex and Gender Information Value Date Recorded Sex Assigned at Not on file Legal Sex Male 2:28 PM EST Gender Identity Not on file Sexual Orientation Not on file documented as of this encounter Plan of Treatment Pending Results Name Type Priority Associated Diagnoses Date /Time EMG one limb Neurology Routine Lumbosacral radiculopathy Foot drop, right 04/16/2025 3:17 PM EDT Scheduled Orders Name Type Priority Associated Diagnoses Orde r Schedule EMG one limb Neurology Routine Lumbosacral radiculopathy Foot drop, right Once for 1 Occurrences starting 04/16/2025 until 04/16/2025 documented as of this encounter Visit Diagnoses Diagnosis Lumbosacral radiculopathy Thoracic or lumbosacral neuritis or radiculitis, unspecified Foot drop, right Other acquired deformity of ankle and foot documented in this encounter Care Teams Hand Folder Relationship Specialty Start Date End Date Jason Vega PA [address] [place] [phone] PCP - General Physician Cable Tool Driller 10/10/24 documented as of this encounter
--- OUTSIDE RECORDS SUMMARY | 2025-04-18 09:47 | XMS_ITS | Clinical Summary ---
Author Organization [email or web address] Address [address] [place] [address] [address] [place] [address] Care Team Providers Care Gas Treater Name Role Phone Unavailable Primary Care Provider [...] patient's age to complete this topic Insurance [facility]
--- OUTSIDE RECORDS SUMMARY | 2025-04-18 09:47 | XMS_ITS | Clinical Summary ---
Author Organization [facility] Address [address] [place] [address] Phone Care Team Providers Care Estate Manager Name Role Phone Jason Vega Primary Care [...] bedtime. 07/09/20 24 Active FreeStyle John 2 [place] misc See administration instructions. 01/30/20 24 Active FreeStyle John 2 Sensor kit USE DIRECTED TO TEST BLOOD SUGAR CHANGE EVERY 14 DAYS 10/09/19 25 Active gabapentin (NEURONTIN) 400 mg capsule TAKE 1 CAPSULE BY MOUTH EVERY DAY AT 2 IN THE AFTERNOON. CONTINUE 800 MG IN THE MORNING AND AT BEDTIME. 09/11/19 25 Active gabapentin (NEURONTIN) 800 mg tablet Take 1 tablet (800 mg total) by mouth 2 (two) times a day. 10/19/19 25 Active hydrocortisone 2.5 % cream APPLY TO THE AFFECTED AREA(S) TWICE DAILY NEEDED FOR SKIN IRRITATION 09/19/19 25 Active Lantus Solostar U-100 Insulin 100 unit/mL (3 mL) injection pen INJECT 22 UNITS SUBCUTANEOUSLY EVERY MORNING 08/29/19 25 Active metFORMIN (GLUCOPHAGE) 1,000 mg tablet Take 1 tablet (1,000 mg total) by mouth 2 (two) times a day. 10/19/19 25 Active metoprolol succinate (Toprol XL) 25 mg [...] Encounters Date Type Department Care Team Description 04/16/2025 2:26 PM EDT Hospital Encounter [facility] Neurodiagnostic [address] [place] [address] Lumbosacral radiculopathy; Foot drop, right 01/22/2025 9:15 AM EDT Office Visit Orthopedic Surgery [facility] [address] [facility] [address] [place] [phone] Matthew Edmonds DPM Lesion of plantar nerve, [...] 01/22/2025 9:08 AM EDT Plan of Treatment Health Maintenance Due Date [...] patient's age to complete this topic Insurance [employer] Care Teams Estate Manager Relationship Specialty Start Date End Date Jason Vega PA [address] [place] [phone] PCP - General Physician Breakfast Attendant 10/10/24
[2025-04-18 09:50] LABS: Hematocrit 40.8 % (42.0-52.0); Hemoglobin 14.5 g/dl (14.0-18.0); Mean Corpuscular HGB Conc 35.5 g/dl (31.0-36.0); Mean Corpuscular Hemoglobin 30.8 pg (27.0-33.0); Mean Corpuscular Volume 86.6 fL (80.0-98.0); NRBC Abs Auto 0.000 X10*3/uL (0.0-0.012); NRBC Pct Auto 0.0 /100WBC (0.0-0.2); Platelet Count 212 X10*3/uL (160-400); Red Blood Count 4.71 X10*6/uL (4.60-5.80); White Blood Count 8.5 X10*3/uL (4.8-10.8)
[2025-04-18 10:28] LABS: Alanine Aminotransferase 30 U/L (0-40); Albumin Level 5.0 g/dL (3.5-5.0); Alkaline Phosphatase 75 U/L (39-117); Anion Gap 12 (12-20); Aspartate Amino Transferase 24 U/L (5-37); Blood Urea Nitrogen 20 mg/dL (9-16); Calcium 9.9 mg/dL (8.4-10.2); Carbon Dioxide 28 mmol/L (22-29); Chloride 102 mmol/L (96-108); Cholesterol 127 mg/dL (<200); Estimated Glomerular Filt Rate > 60; HDL Cholesterol 40 mg/dL (>40); Potassium 4.5 mmol/L (3.3-5.1); Sodium 137 mmol/L (135-145); Total Protein 7.8 g/dL (6.5-8.0); Triglycerides 156 mg/dL (<150)
== END 2025-04-18 08:56 | disposition home or self-care (01) ==
LOC: HO.LAB 08:55
PROVIDERS: PCP Physician Assistant; Visit Provider Physician Assistant
DX: E11.65 Type 2 diabetes mellitus with hyperglycemia (principal); I25.10 Atherosclerotic heart disease of native coronary artery without angina pectoris; Z13.89 Encounter for screening for other disorder
CPT/HCPCS: 36415; 80053; 80061; 83036; 85027; 96127; 99212

== ENCOUNTER 2025-04-18 09:19 | Outpatient (AMB) | payer OTHER, SELFPAY ==
--- NOTE | 2025-04-18 09:24 | A.OFFPC_ITS ---
Vital Signs 04/18/25 09:26 Height 5 ft 6 in Weight 190 lb 2 oz BMI 30.7 BP 128/90 H Position Sitting Pulse 58 Temp 97.1 F Temp Source Temporal Artery Scan Pulse Oximetry (%) 99 Oxygen Delivery Method Room Air Intake Visit Reasons: f/u DMII/ CAD/ Chronic pain Embedded Software Manager Required: No Accompanied by: Self / Same As Patient Allergies Penicillins Allergy (Severe, Verified 04/18/25 09:44) Anaphylaxis Medication List - Last Reconciled 04/18/25 by Jason Vega PA-C amlodipine 2.5 mg PO DAILY aspirin (Ecotrin Low Strength) 81 mg PO DAILY atorvastatin 40 mg PO BEDTIME baclofen 20 mg PO BEDTIME 30 days blood sugar diagnostic (FreeStyle Lite Strips) Testing once a day as needed blood sugar diagnostic (FreeStyle Test strips) Testing once a day as needed blood-glucose meter (FreeStyle Lite Meter kit) As directed cane As directed celecoxib (Celebrex) 100 mg PO Q12H 90 days cetirizine (Zyrtec) 10 mg PO DAILY PRN ezetimibe 10 mg PO DAILY flash glucose scanning reader (TopOPPSStyle John 2 [place]) As directed flash glucose sensor (FreeStyle John 2 Sensor kit) As directed gabapentin 400 mg PO DAILY 30 days gabapentin 800 mg PO BID 30 days hydrocortisone 2.5% 1 appl topical BID PRN insulin glargine (Lantus Solostar U-100 Insulin) 18 units (0.18 mL) subcut QAM 30 days lancets (FreeStyle Lancets) Testing once a day as needed metformin 1,000 mg PO BID 90 days ondansetron HCl 4 mg PO Q4H PRN 30 days MDD 12mg pantoprazole (Protonix) 40 mg PO DAILY 90 days pen needle, diabetic (BD Ultra-Fine [place] Pen Needle) As directed pioglitazone (Actos) 15 mg PO DAILY 90 days propranolol 10 mg PO BID 90 days tramadol 50 mg PO DAILY PRN 30 days venlafaxine 37.5 mg PO DAILY 90 days Tobacco use date assessed: 01/16/25 Dental Screening Dental Screen Date: 01/16/25 Did you have a dental visit in the last 12 months?: No Did you have a dental problem in the last 6 months where you did not have access to dental care?: No Was dental information given to patient?: No HPI f/u DMII/ CAD/ Chronic pain HPI Details Patient is a 54-year-old male here today a follow-up visit.? Patient has a past medical history significant for type 2 diabetes, coronary artery disease, hyperlipidemia, major depressive disorder. Concern--> RIGHT SHOULDER TENDINOPATHY-- > Musculoskeletal issues include right shoulder pain post-rotator cuff repair, with ongoing pain and popping sensations. The patient seeks a second opinion due to dissatisfaction with current treatment. Neuropathy symptoms persist, with numbness in the right hand and elbow issues despite surgeries. Stress from housing instability may contribute to elevated blood pressure, managed with amlodipine. Cervical disc disease pain: Chronic pain has intensified following back and rotator cuff surgeries, with pain in the back, shoulders, and legs. He is status post lower lumbar spine back surgeries. He has followed up with neurosurgeon for evaluation of brain stimulator though was not a candidate. He has been referred to [facility] pain management to discuss perhaps a spinal stimulator . He is considering a neurostimulator for pain relief due to ineffectiveness of tramadol and gabapentin. .. HTN: recently started on amlodipine it appears blood pressures are better controlled. Foot pain/Toney's neuroma: Followed by Podiatry For his foot symptoms, the patient suggests he may have a Toney's neuroma. He reports a sensation of walking on a rock in his left foot with intermittent pain. .. Abdominal distention: Has followed up with Gastroenterology and underwent stool studies, The patient had an E. coli infection, treated with antibiotics, resolving diarrhea. Abdominal bloating occurs intermittently but has improved Coronary artery disease:? Has quit smoking.? Continues on moderate dose statin.? He denies any chest discomfort or shortness of breath on exertion.. He has follow-up with cardiology advised to continue aspirin therapy .. Type 2 diabetes:? We have recently reduced his metformin dose to a 1000 daily, most recent A1c is 6.4. Laboratory Tests 01/11/25 01/30/25 04/18/25 08:46 08:55 09:34 Hgb A1c (Clinic) 6.4 H Hemoglobin A1c % 6.5 H Stool Calprotectin 107 Stool Pancreat Latanya stase >800 Tiss Transglutamin IgA <1.0 [facility] Medical History History of ST elevation myocardial infarction (STEMI) Seizures Coronary artery disease Hyperlipidemia Diabetes mellitus Nicotine dependence, cigarettes, uncomplicated Umbilical hernia White matter abnormality on MRI of brain Anxiety Depression Migraine Peptic ulcer Change in consistency of stool Diarrhea Glaucoma Surgical History History of heart artery stent Hx of elbow surgery History of carpal tunnel surgery of right wrist History of incision and drainage History of back surgery History of esophagogastroduodenoscopy (EGD) Hx of colonoscopy History of ear surgery Family History Mother Lumbar spine tumor Father Heart attack Paternal Grandfather Heart attack Other No family history of coronary artery disease Social History Household Members: Spouse Housing: Apartment Are you a primary child caregiver private home to a significant other at home: No Do you presently have visiting nurse or other home services: No Alcohol intake: never Comment: d/c from er Patient Tobacco Use Status: Former Tobacco user Tobacco use type: Cigarette Cigarettes Per Day: 4 Years Smoked: 22+ e-Cigarette/Vaping Use: Never Used Second Hand Smoke Exposure: Yes Substance Use Type: Marijuana service: No Current occupational status: unemployed Cognitive needs: No Hearing needs: No Vision needs: Yes Questionnaire PHQ-9 Over the last 2 weeks, how often have you been bothered by any of the following problems? 1. Little interest or pleasure in doing things: nearly every day 2. Feeling down, depressed, or hopeless: more than half the days 3. Trouble falling or staying asleep, or sleeping too much: nearly every day 4. Feeling tired or having little energy: nearly every day 5. Poor appetite or overeating: more than half the days 6. Feeling bad about yourself - or that you are a failure or have let yourself or your family down: more than half the days 7. Trouble concentrating on things, such as reading the newspaper or watching television: more than half the days 8. Moving or speaking so slowly that other people could have noticed. Or the opposite - being so fidgety or restless that you have been moving around a lot more than usual: more than half the days 9. Thoughts that you would be better off or of hurting yourself in some way: several days Total score: 20 Depression Screening Interpretation: Positive Depression Screening Follow-up: Existing condition and Declines treatment Depression Screening Done: Yes 31071 - PHQ-9 Billing: Yes Source: Developed by Drs. Paul Brand, Kim Sauer, Abdias Patel and colleagues, with an educational chad from [employer]. Thrive Questionnaire Date Thrive assessed: 01/16/25 I am a: Patient What is your living situation today?: I choose not to answer this question Within the past 12 months, did the food you bought not last and you didn't have the money to get more?: Never true Within the past 12 months, did you worry whether your food would run out before you got money to buy more?: Never true Do you have trouble paying for medicines?: No Do you have trouble getting transportation to medical appointments?: No Do you have trouble paying your heating and electricity bill?: No Do you have trouble taking care of your child, family member or friend?: No Do you have trouble with day-to-day activities such as bathing, preparing meals, shopping, managing finances, etc.?: No Are you currently unemployed and looking for a job?: No Are you interested in more education?: No Please select the resources that you would like help with: None Currently or been in a relationship where the following occur: I choose not to answer THRIVE Score: 0 AUDIT C Alcohol Use Questionnaire (AUDIT-C) 1. How often do you have a drink containing alcohol?: Never 3. How often do you have six or more drinks on one occasion?: Never Total Score: 0 BILLY-7 AMB Questionnaire BILLY-7 Date BILLY - 7 assessed: 01/16/25 Feeling nervous, anxious, or on edge: 2 = More than half the days Not being able to stop or control worryin = More than half the days Worrying too much about different things: 2 = More than half the days Trouble relaxin = More than half the days Being so restless that it is hard to sit still: 2 = More than half the days Becoming easily annoyed or irritable: 2 = More than half the days Feeling afraid as if something awful might happen: 0 = Not at all Total BILLY-7 score (0-4 normal; 5-9 mild; 10-14 moderate; 15-21 severe): 12 Source: Developed by Drs. Paul Brand, Kim Sauer, Abdias Patel and colleagues, with an educational chad from [employer]. BILLY-7 Assessment Billing BILLY-7 Assessment Tool: BILLY-7 Assessment 63948 Review of Systems Const Denies body aches, Denies chills, Denies excessive sweating, Denies fatigue, Denies fever(s) and Denies headache(s) Eyes Denies blurry vision ENT Denies dysphagia, Denies vertigo, Denies dizziness, Denies headache(s), Denies hearing loss and Denies tinnitus Card Denies chest pain, Denies chest pain with activity, Denies syncope, Denies irregular heart rhythm and Denies dyspnea Resp Denies chest congestion, Denies cough, Denies hemoptysis, Denies dyspnea and Denies wheezing GI Denies abdominal pain, Denies melena, Denies hematochezia, Denies coffee ground emesis, Denies dysphagia, Denies diarrhea, Denies nausea and Denies vomiting Denies difficulty urinating, Denies dysuria, Denies urinary frequency, Denies urinary hesitancy and Denies urinary urgency Musc Denies arthralgias, Denies limited range of motion, Denies muscle cramps and Denies muscle weakness Skin/Breast Denies rash and Denies skin ulcer Neuro Denies Abnormal speech present, Denies confusion, Denies vertigo, Denies dizziness, Denies syncope, Denies headache(s), Denies memory loss and Denies seizure-like activity Psych Denies anxiety, Denies confusion, Denies depression, Denies memory loss, Denies panic attacks and Denies paranoia Endo Denies excessive sweating, Denies fatigue, Denies flushing, Denies polydipsia and Denies polyuria Jamarcus/Lymph Denies easy bleeding and Denies easy bruising Aller/Immun Denies wheezing Physical exam (Primary Care) Vital Signs: Last Vital Signs Temp 97.1 F 04/18/25 09:26 Pulse 58 04/18/25 09:26 BP 128/90 H 04/18/25 09:26 Pulse Ox 99 04/18/25 09:26 Oxygen Delivery Method Room Air 04/18/25 09:26 BMI result Body Mass Index 30.7 Tobacco/Smoking Status: Tobacco use Status Tobacco use date assessed 01/16/25 04/18/25 09:30 Patient Tobacco Use Status Former Tobacco user 04/18/25 09:30 Tobacco use type Cigarette 04/18/25 09:30 e-Cigarette/Vaping Use Never Used 04/18/25 09:30 PHQ-9: PHQ-9 Score PHQ-9: Total score 20 04/18/25 09:35 Depression Screening Interpretation: Positive Depression Screening Follow-up: Existing condition and Declines treatment Thrive Assessment: Date of Thrive Assessment Date Thrive assessed 01/16/25 04/18/25 09:30 Currently or been in a relationship where the following occur: I choose not to answer Const General: cooperative, comfortable, no acute distress, alert and awake; No confusion Nutritional Appearance: well nourished Orientation/consciousness: oriented to person, oriented to place, patient oriented x3 and No confusion HENMT Head: Yes normocephalic Ears: external ears normal and TM's normal bilaterally General nose exam: Normal nasal mucous membranes and turbinates present Face and sinus: No sinus tenderness Mouth: Normal oral and palatal mucosa present and tongue normal Teeth and gingiva: dentition normal and gingiva normal Throat: Yes posterior oropharynx normal, Yes tonsils normal and Yes uvula midline Eyes Conjunctivae: conjunctivae normal Sclerae: sclerae normal Pupils: Equal, round and reactive pupils present EOM: EOMs intact bilaterally Direct Ophthalmoscopy: No no photophobia Neck Neck: Yes no lymphadenopathy, No tender and Yes no JVD Thyroid: Thyroid normal Carotids: no bruits Chest Chest palpation & inspection: no tenderness Resp Effort & Inspection: normal respiratory effort, no audible wheezes, not labored and no stridor Auscultation: no crackles, no rales, no rhonchi and no wheezes Cardio Jugular venous distension: no JVD Rate: regular rate, not bradycardic and not tachycardic Rhythm: regular rhythm Heart sounds: no murmurs and normal S1 and S2 Bruits: no carotid bruits Peripheral pulses: Peripheral pulses 2+ throughout GI Inspection: Yes normal to inspection, No abdominal wall ecchymosis and No visible herniation Palpation (GI): Soft to palpation, nontender, no guarding, not rigid and No hepatosplenomegaly present Auscultation: normoactive bowel sounds General: Yes no CVA tenderness Back/Spine/Pelvis Back: no CVA tenderness and No back tenderness Cervical Spine: cervical ROM normal Thoracic/Lumbar Spine: thoracic and lumbar spine normal to inspection, straight leg raise negative bilaterally, No thoraco-lumbar ROM limited and No lumbar spinal tenderness Skin General skin exam: no rashes or lesions noted and dry skin Lesions: no lesions Rashes: no rashes Wounds: no wounds Neuro General: oriented to person, oriented to place, patient oriented x3, CN's II-XI intact bilaterally and No confusion Cranial nerves: Yes Equal, round and reactive pupils present and Yes Normal accommodation reflex present Cognition (Neuro): normal cognition Speech: No Abnormal speech present Gait exam (Neuro): Normal gait present Motor exam (neuro): 5/5 motor strength present throughout Extrem Other: LIMITED RANGE OF MOTION OF THE RIGHT SHOULDER COMPARED TO LEFT SHOULDER, POSITIVE EMPTY CAN AND INGRAM TESTS. Right upper extremity: ROM limited and no cyanosis Left upper extremity: full ROM; no cyanosis Right lower extremity: no edema Left lower extremity: no edema Psych Appearance: grossly normal Mental Status: mental status grossly normal Speech and movement: Normal speech and movement present Affect: normal affect Attitude: cooperative Thought process: Normal thought process present Results AMB Hemoglobin A1c AMB Hemoglobin A1c 6.4 % Last Edit by Roseann Gordon CMA on 04/18/25 09:39 Results Reviewed Results Reviewed: Laboratory Last Values Hgb A1c (Clinic) 6.4 % (4.0-6.0) H 04/18/25 09:34 Coding Level of Care Code Est Pt Level 4 (00955) Diagnoses Type 2 diabetes mellitus with hyperglycemia, without long-term current use of insulin E11.65 Diabetes mellitus type: type 2 Diabetes mellitus terminal operations supervisor insulin use: without chcf use Diabetes mellitus complication status: with hyperglycemia MDD (major depressive disorder), recurrent episode, moderate F33.1 Mixed hyperlipidemia E78.2 Hyperlipidemia type: mixed hyperlipidemia Degenerative disc disease, cervical M50.30 Coronary artery disease involving enterprise coronary artery of enterprise heart without angina pectoris I25.10 Coronary Disease-Associated Artery/Lesion type: enterprise artery [place] vs. transplanted heart: enterprise heart Associated angina: without angina Tendinopathy of right shoulder M67.911 S/P right rotator cuff repair Z98.890 Additional Codes PHQ-9 - 04516 - PHQ-9 Billing: Yes ([id number]) BILLY-7 Assessment Billing - BILLY-7 Assessment Tool: BILLY-7 Assessment 35955 ([id number]) Assessment & Plan Assessment & Plan (1) Diabetes mellitus: Code(s): E11.9 - Type 2 diabetes mellitus without complications Category: Medical Qualifiers: Diabetes mellitus type: type 2 Diabetes mellitus chcf insulin use: without terminal operations supervisor use Diabetes mellitus complication status: with hyperglycemia Qualified Code(s): E11.65 - Type 2 diabetes mellitus with hyperglycemia Plan: Patient's type 2 diabetes well controlled with current dose of insulin and metformin and pioglitazone. Today's A1c acceptable.. Will continuing current doses of antihyperglycemic medication. . Goal A1c is to remain below 7.0 (2) MDD (major depressive disorder), recurrent episode, moderate: Code(s): F33.1 - Major depressive disorder, recurrent, moderate Category: Medical Plan: Patient's PHQ-9 score positive for depression which has been existing condition for him. He reports he is having a lot of personal issues as he has been evicted from his apartment now looking for new housing.. Patient continues to suffer with depression.He most of his depression comes from his chronic pain. (3) Hyperlipidemia: Code(s): E78.5 - Hyperlipidemia, unspecified Category: Medical Qualifiers: Hyperlipidemia type: mixed hyperlipidemia Qualified Code(s): E78.2 - Mixed hyperlipidemia Plan: Most recent lipid panel showing good control of his total cholesterol and LDL. He continues on atorvastatin 40 mg. Goal LDL to be optimally below 70 (4) Degenerative disc disease, cervical: Code(s): M50.30 - Other cervical disc degeneration, unspecified cervical region Category: Medical Plan: Be following up with [facility] pain management to discuss possible neurostimulator to help reduce pain. Otherwise continues with use of gabapentin Celebrex and tramadol though unfortunately still complains of pain. (5) Coronary artery disease: Code(s): I25.10 - Atherosclerotic heart disease of enterprise coronary artery without angina pectoris Category: Medical Qualifiers: Coronary Disease-Associated Artery/Lesion type: enterprise artery [place] vs. transplanted heart: enterprise heart Associated angina: without angina Qualified Code(s): I25.10 - Atherosclerotic heart disease of enterprise coronary artery without angina pectoris Plan: Most recent lipid panel showing suboptimal control of his LDL a 6 in August of 2024. He will work on dietary modifications. He was not able to tolerate higher potency statin. Will continue atorvastatin 40 mg at this time. Goal LDL optimally below 70. (6) Tendinopathy of right shoulder: Code(s): M67.911 - Unspecified disorder of synovium and tendon, right shoulder Category: Medical Plan: The patient experiences ongoing pain and popping in the right shoulder post- rotator cuff repair. A second opinion with a shoulder specialist is planned to explore further treatment options. (7) S/P right rotator cuff repair: Comment: 07/27/2023 [place] Code(s): Z98.890 - Other specified postprocedural states Category: Surgical Plan: As above Orders: Orders AMB Hemoglobin A1c Today Z13.9 - Encounter for screening, unspecified Referrals Orthopedics Referral M75.111 - Incomplete rotator cuff tear or rupture of right shoulder, not specified as traumatic Medications: Refilled gabapentin 800 mg PO BID 60 tabs 3RF 30 days G56.21 - Lesion of ulnar nerve, right upper limb
[2025-04-18 09:26] VITALS: BP 128/90; PULSE 58; TEMP 36.2; O2SAT 99; BMI 30.7
== END 2025-04-18 10:05 | disposition home or self-care (01) ==
LOC: HO.HMCH 09:20
PROVIDERS: PCP Physician Assistant; Visit Provider Physician Assistant
DX: E11.65 Type 2 diabetes mellitus with hyperglycemia (principal); F33.1 Major depressive disorder, recurrent, moderate; I25.10 Atherosclerotic heart disease of native coronary artery without angina pectoris; M67.911 Unspecified disorder of synovium and tendon, right shoulder; Z98.890 Other specified postprocedural states

== ENCOUNTER 2025-05-06 09:47 | Outpatient (AMB) | payer OTHER, SELFPAY ==
[2025-05-06 09:53] VITALS: BP 127/75; PULSE 82; O2SAT 96; BMI 31.2
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
--- OUTSIDE RECORDS SUMMARY | 2025-05-06 12:04 | XMS_ITS | Clinical Summary ---
Author Organization [address] [facility] Address [address] [place] [address] Phone Care Team Providers Care Clip Loading Machine Feeder Name Role Phone Jason Vega Primary Care [...] bedtime. 07/09/20 24 Active FreeStyle John 2 [place] misc See administration instructions. 01/30/20 24 Active [...] Care Team Description 04/16/2025 2:26 PM EDT - 04/16/2025 11:59 PM EDT Hospital Encounter [facility] [address] [place] [id number] Lumbosacral radiculopathy; Foot drop, right Discharge Disposition: Home or Self Care from Last 3 Months Social History Tobacco [...] Zoster Vaccines (2 of 2) 01/20/2023 11/25/2022 Depression Screening 08/22/2024 Cholesterol Screening (Lipid Panel) 10/10/2024 Colorectal Cancer Screening: Colonoscopy 10/10/2024 HIV Screening 10/10/2024 Hepatitis C Screening 10/10/2024 Social Influencers of Health Screening 10/10/2024 Diabetes: Annual Urine Albumin-Creatinine Ratio (uACR) 11/13/2024 Diabetes: Blood Sugar Control Test (HGBA1C) 11/13/2024 Hypertension/CHF/CAD Annual BMP Blood Test 11/13/2024 COVID-19 Vaccine ( season) 2025 01/05/2024, 12/02/2022, 08/24/2022, Additional history exists Influenza Vaccine (#1) 2025 , 05/25/2023, 04/05/2017, [...] patient's age to complete this topic Insurance [facility] [employer] Care Teams Clip Loading Machine Feeder Relationship Specialty Start Date End Date Jason Vega PA [address] [place] [address] PCP - General Physician Back Tender 10/10/24
--- OUTSIDE RECORDS SUMMARY | 2025-05-06 12:04 | XMS_ITS | Clinical Summary ---
Author Organization [employer] Address [address] [place] [address] [address] [place] [address] Care Team Providers Care Acrylic Fabricator Name Role Phone Unavailable Primary Care Provider [...] 2) 01/20/2023 11/25/2022 COVID-19 Vaccine (5 - 2024- season) 2025 01/05/2024, 12/02/2022, 08/24/2022, Additional history [...] patient's age to complete this topic Insurance [facility]
== END 2025-05-06 10:31 | disposition home or self-care (01) ==
LOC: HO.HGI 09:48
PROVIDERS: PCP Physician Assistant; Visit Provider Internal Medicine
DX: R13.10 Dysphagia, unspecified (principal); R14.0 Abdominal distension (gaseous); Z86.0100 Personal history of colon polyps, unspecified
CPT/HCPCS: 99214

== ENCOUNTER → 2025-05-06 09:47 | Outpatient (BNVA) | payer OTHER, SELFPAY | PROVIDERS: PCP Physician Assistant; Visit Provider Internal Medicine | DX: R14.0 Abdominal distension (gaseous) (principal); R19.7 Diarrhea, unspecified; R13.10 Dysphagia, unspecified; Z86.0100 Personal history of colon polyps, unspecified | CPT/HCPCS: 99212 ==

== ENCOUNTER 2025-05-09 09:34 | Outpatient (AMB) | payer OTHER, SELFPAY ==
[2025-05-09 09:38] VITALS: BMI 31.1
--- NOTE | 2025-05-09 09:38 | MHC.OFFVIS ---
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 Pt states started a year ago. Pt states legs seize up when he wakes up in the a.m.. 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 The patient reports experiencing leg pain for over a year, initially occurring in the morning when stretching, with the calves seizing. The pain progresses with walking, limiting him to two to three blocks before needing to stop due to calf hardening. The left leg is noted to be more affected than the right. The patient has a history of smoking, having quit a year and a half ago, and denies being diabetic. Previous arterial testing in January 2023 showed an SHARDA of 0.99 on the right and 0.78 on the left. The patient has undergone one back surgery a year and a half ago, performed by Dr. Keene, due to spinal stenosis. He reports experiencing muscle spasms and is on medication for this condition. He now presents to us for arterial evaluation [facility] Medical History History of ST elevation myocardial infarction (STEMI) Seizures Coronary artery disease Hyperlipidemia Diabetes mellitus Nicotine dependence, cigarettes, uncomplicated Umbilical hernia White matter abnormality on MRI of brain Anxiety Depression Migraine Peptic ulcer Change in consistency of stool Diarrhea Glaucoma Surgical History History of heart artery stent Hx of elbow surgery History of carpal tunnel surgery of right wrist History of incision and drainage History of back surgery History of esophagogastroduodenoscopy (EGD) Hx of colonoscopy History of ear surgery Family History Mother Lumbar spine tumor Father Heart attack Paternal Grandfather Heart attack Other No family history of coronary artery disease Social History Household Members: Spouse Housing: Apartment Are you a primary nonfarm animal caretaker to a significant other at home: No Do you presently have visiting nurse or other home services: No Alcohol intake: never Comment: d/c from er Patient Tobacco Use Status: Former Tobacco user Tobacco use type: Cigarette Cigarettes Per Day: 4 Years Smoked: 22+ e-Cigarette/Vaping Use: Never Used Second Hand Smoke Exposure: Yes Substance Use Type: Marijuana service: No Current occupational status: unemployed Cognitive needs: No Hearing needs: No Vision needs: Yes Review of Systems Const All systems reviewed & are unremarkable except as noted in HPI and below Reports no additional complaints ENT Reports Normal hearing present Card Denies chest pain, Denies chest pain at rest, Denies chest pain with activity and Denies pedal edema Resp Denies cough GI Denies abdominal pain Musc Denies abnormal gait, Denies muscle cramps and Denies radiating pain into limb Skin/Breast Denies skin ulcer and Denies wounds Neuro Reports Normal hearing present and Denies abnormal gait Psych Reports no additional complaints Physical Exam Vital Signs: BMI result Body Mass Index 31.1 Const General: cooperative, healthy appearing and comfortable Orientation/consciousness: oriented to person, oriented to place and oriented to time HEENT Head: Yes normal to inspection Neck Neck: Yes normal visual inspection Carotids: no bruits Chest Chest palpation & inspection: normal inspection of the chest Resp Effort & Inspection: normal respiratory effort and able to speak in complete sentences Auscultation: clear to auscultation bilaterally, no crackles, no rales, no rhonchi and no wheezes Cardio Other: Palpable right dorsalis pedis pulse, faintly palpable left dorsalis pedis pulse Rate: regular rate Rhythm: regular rhythm Heart sounds: S1 normal heart sound present and S2 normal heart sound present Bruits: no carotid bruits Peripheral pulses: Peripheral pulses 2+ throughout GI Inspection: Yes normal to inspection Skin Wounds: no wounds Hair: normal Neuro General: oriented to person, oriented to place and oriented to time Cranial nerves: Yes CN's II-XII intact bilaterally and Yes Normal hearing present Cognition (Neuro): normal cognition Motor exam (neuro): 5/5 motor strength present throughout Extrem Other: venous exam: No significant superficial varicosities or spider telangiectasias, minimal edema General: No clubbing, No cyanosis and No edema Psych Appearance: grossly normal Mental Status: mental status grossly normal Speech and movement: Normal speech and movement present Assessment & Plan Assessment & Plan (1) PAD (peripheral artery disease): Code(s): I73.9 - Peripheral vascular disease, unspecified Category: Medical Plan: In short patient may have an element of peripheral vascular disease. I do believe this is more neurogenic claudication but I have taken the liberty of ordering arterial testing to rule that out as a source. We did discuss routine risk factor modification and he will follow up with us after testing. Thank you for allowing us to assist in his care. Plan Patient was informed and verbally consented to the use of an ambient scribe for clinic note documentation during this visit. Orders: Orders US arterial duplex LE BI Today I73.9 - Peripheral vascular disease, unspecified Patient Instructions: - Attend the scheduled arterial ultrasound on the second floor of the hospital. - Follow up with the vascular surgery clinic to discuss test results and further management. Coding Level of Care Code New Pt Level 4 (97213) Diagnoses PAD (peripheral artery disease) I73.9
--- OUTSIDE RECORDS SUMMARY | 2025-05-09 11:14 | XMS_ITS | Clinical Summary ---
Author Organization [address] [facility] Address [address] [place] [address] Phone Care Team Providers Care Photoengraving Photographer Name Role Phone Jason Vega Primary Care [...] mouth. at bedtime. 07/09/20 24 Active FreeStyle Ojhn 2 [place] misc See administration instructions. 01/30/20 24 Active [...] Encounters Date Type Department Care Team Description 05/07/2025 Telephone Orthopedic Surgery - [place] [address] [facility] [address] [place] [address] Jacy Grubbs 04/16/2025 2:26 PM EDT - 04/16/2025 11:59 PM EDT Hospital Encounter [facility] [address] [place] [address] Lumbosacral radiculopathy; Foot drop, right Discharge [...] Annual BMP Blood Test 11/13/2024 COVID-19 Vaccine (2024- season) 2025 01/05/2024, 12/02/2022, 08/24/2022, Additional history exists Influenza Vaccine (#1) 2025 , 05/25/2023, 04/05/2017, Additional history exists DTaP,Tdap,and Td Vaccines (2 - Td or Tdap) 11/19/2025 11/20/2015 RSV Immunization Adult Patients (1 - 1-dose 75+ series) 2044 Pneumococcal [...] patient's age to complete this topic Insurance [facility] [employer] Care Teams Photoengraving Photographer Relationship Specialty Start Date End Date Jason Vega PA [address] [place] [phone] PCP - General Physician Mold Finisher 10/10/24
--- OUTSIDE RECORDS SUMMARY | 2025-05-09 11:14 | XMS_ITS | Clinical Summary ---
Author Organization [employer] Address [address] [place] [address] [address] [place] [address] Care Team Providers Care Social Work Lecturer Name Role Phone Unavailable Primary Care Provider [...] patient's age to complete this topic Insurance [facility]
--- OUTSIDE RECORDS SUMMARY | 2025-05-09 11:14 | XMS_ITS | Encounter Summary ---
Author Organization [facility] Address [address] [place] [address] Care Team Providers Care Refrigeration Mechanic Name Role Phone Jason Vega Primary Care Provider Encounter Details Date Type Department Care Team (Late st Contact Info) Description 05/07/2025 Telephone Orthopedic Surgery - [place] [address] [address] Jacy Grubbs Social History Tobacco Use Types Packs/Day Years Used Date Smoking Tobacco: Never Assessed Sex and Gender Information Value Date Recorded Sex Assigned at Not on file Legal Sex Male 2:28 PM EST Gender Identity Not on file Sexual Orientation Not on file documented as of this encounter Progress Notes * Jacy Grubbs - 05/07/2025 1:55 PM EDT Good afternoon, Patient called the office stating that he had his EMG done but has not heard about about the results. Will you call the patient with the results or would you like me to schedule him an appointment to be seen? Thank you, Jacy documented in this encounter Plan of Treatment Not on file documented as of this encounter Visit Diagnoses Not on filedocumented in this encounter Care Teams Refrigeration Mechanic Relationship Specialty Start Date End Date Jason Vega PA [address] [place] [address] PCP - General Physician Purchasing Coordinator 10/10/24 documented as of this encounter
== END 2025-05-09 11:14 | disposition home or self-care (01) ==
LOC: HO.HVS 09:35
PROVIDERS: PCP Physician Assistant; Visit Provider Surgery Vascular Surgery
DX: I73.9 Peripheral vascular disease, unspecified (principal)
CPT/HCPCS: 99204

== ENCOUNTER → 2025-05-09 09:34 | Outpatient (BNVA) | payer OTHER, SELFPAY | PROVIDERS: PCP Physician Assistant; Visit Provider Surgery Vascular Surgery | DX: I73.9 Peripheral vascular disease, unspecified (principal) | CPT/HCPCS: 99202 ==

== ENCOUNTER → 2025-07-23 11:14 | Outpatient (BNV) | payer OTHER, SELFPAY | PROVIDERS: PCP Physician Assistant; Visit Provider Radiology Diagnostic Radiology | DX: I73.9 Peripheral vascular disease, unspecified (principal) | CPT/HCPCS: 93922; 93925 ==

== ENCOUNTER 2025-07-29 10:06 | Outpatient (AMB) | payer OTHER, SELFPAY ==
[2025-07-29 10:20] VITALS: BP 142/68; PULSE 64; TEMP 36.6; O2SAT 97; BMI 30.2
--- NOTE | 2025-07-29 10:20 | A.OFFPC_ITS ---
Vital Signs 07/29/25 10:20 Height 5 ft 6 in Weight 187 lb 6 oz BMI 30.2 BP 142/68 H Blood Pressure Location Lt brachial Position Sitting Pulse 64 Pulse Source Pulse Oximeter Temp 98 F Temp Source Temporal Artery Scan Pulse Oximetry (%) 97 Oxygen Delivery Method Room Air Intake Visit Reasons: f/u DMII/ HTN/ CAD Intake Note: Patient is here to follow up on DMII, HTN, CAD. Faucet Polisher Required: No Crocodile Farmer: Not Required per policy Accompanied by: Self / Same As Patient Allergies Penicillins Allergy (Severe, Verified 07/29/25 10:34) Anaphylaxis Medication List - Last Reconciled 07/29/25 by Jason Vega PA-C amlodipine 2.5 mg PO DAILY aspirin (Ecotrin Low Strength) 81 mg PO DAILY atorvastatin 40 mg PO BEDTIME baclofen 20 mg PO BEDTIME 30 days blood sugar diagnostic (FreeStyle Lite Strips) Testing once a day as needed blood sugar diagnostic (FreeStyle Test strips) Testing once a day as needed blood-glucose meter (FreeStyle Lite Meter kit) As directed cane As directed celecoxib (Celebrex) 100 mg PO Q12H 90 days cetirizine (Zyrtec) 10 mg PO DAILY PRN ezetimibe 10 mg PO DAILY flash glucose scanning reader (Drink Up DowntownStyle John 2 Walker) As directed flash glucose sensor (FreeStyle John 2 Sensor kit) As directed gabapentin 400 mg PO DAILY 30 days gabapentin 800 mg PO BID 30 days hydrocortisone 2.5% 1 appl topical BID PRN insulin glargine (Lantus Solostar U-100 Insulin) 18 units (0.18 mL) subcut QAM 30 days lancets (FreeStyle Lancets) Testing once a day as needed metformin 1,000 mg PO BID 90 days ondansetron HCl 4 mg PO Q4H PRN 30 days MDD 12mg pantoprazole (Protonix) 40 mg PO BID 90 days pen needle, diabetic (BD Ultra-Fine [place]re[place] Pen Needle) As directed pioglitazone (Actos) 15 mg PO DAILY 90 days propranolol 10 mg PO BID 90 days tramadol 50 mg PO DAILY PRN 30 days varenicline tartrate (Chantix Starting Month Box) PO PER PKG DIR venlafaxine 37.5 mg PO DAILY 90 days Tobacco use date assessed: 07/29/25 Dental Screening Dental Screen Date: 01/16/25 HPI f/u DMII/ HTN/ CAD HPI Details Patient is a 54-year-old male here today a follow-up visit.? Patient has a past medical history significant for type 2 diabetes, coronary artery disease, hyperlipidemia, major depressive disorder. Concern--> RIGHT SHOULDER TENDINOPATHY-- > Musculoskeletal issues include right shoulder pain post-rotator cuff repair, with ongoing pain and popping sensations. The patient seeks a second opinion due to dissatisfaction with current treatment. Neuropathy symptoms persist, with numbness in the right hand and elbow issues despite surgeries. Stress from housing instability may contribute to elevated blood pressure, managed with amlodipine. Cervical disc disease pain: Chronic pain has intensified following back and rotator cuff surgeries, with pain in the back, shoulders, and legs. He is status post lower lumbar spine back surgeries. He has followed up with neurosurgeon for evaluation of brain stimulator though was not a candidate. He has been referred to [facility] pain management to discuss perhaps a spinal stimulator . He is considering a neurostimulator for pain relief due to ineffectiveness of tramadol and gabapentin. .. HTN: recently started on amlodipine it appears blood pressures are better controlled. Foot pain/Toney's neuroma: Followed by Podiatry For his foot symptoms, the patient suggests he may have a Toney's neuroma. He reports a sensation of walking on a rock in his left foot with intermittent pain. .. Abdominal distention: Has followed up with Gastroenterology and underwent stool studies, The patient had an E. coli infection, treated with antibiotics, resolving diarrhea. Abdominal bloating occurs intermittently but has improved Coronary artery disease:? Has quit smoking.? Continues on moderate dose statin.? He denies any chest discomfort or shortness of breath on exertion.. He has follow-up with cardiology advised to continue aspirin therapy .. Type 2 diabetes:? We have recently reduced his metformin dose to a 1000 daily, most recent A1c is 6.4. [facility] Medical History History of ST elevation myocardial infarction (STEMI) Seizures Coronary artery disease Hyperlipidemia Diabetes mellitus Nicotine dependence, cigarettes, uncomplicated Umbilical hernia White matter abnormality on MRI of brain Anxiety Depression Migraine Peptic ulcer Change in consistency of stool Diarrhea Glaucoma Surgical History History of heart artery stent Hx of elbow surgery History of carpal tunnel surgery of right wrist History of incision and drainage History of back surgery History of esophagogastroduodenoscopy (EGD) Hx of colonoscopy History of ear surgery Family History Mother Lumbar spine tumor Father Heart attack Paternal Grandfather Heart attack Other No family history of coronary artery disease Social History Household Members: Spouse Housing: Apartment Are you a primary adult live in caregiver to a significant other at home: No Do you presently have visiting nurse or other home services: No Alcohol intake: never Comment: d/c from er Patient Tobacco Use Status: Former Tobacco user Tobacco use type: Cigarette Cigarettes Per Day: 4 Years Smoked: 22+ e-Cigarette/Vaping Use: Never Used Second Hand Smoke Exposure: Yes Substance Use Type: Marijuana service: No Current occupational status: unemployed Cognitive needs: No Hearing needs: No Vision needs: Yes Questionnaire Thrive Questionnaire Date Thrive assessed: 01/16/25 I am a: Patient What is your living situation today?: I choose not to answer this question Within the past 12 months, did the food you bought not last and you didn't have the money to get more?: Never true Within the past 12 months, did you worry whether your food would run out before you got money to buy more?: Never true Do you have trouble paying for medicines?: No Do you have trouble getting transportation to medical appointments?: No Do you have trouble paying your heating and electricity bill?: No Do you have trouble taking care of your child, family member or friend?: No Do you have trouble with day-to-day activities such as bathing, preparing meals, shopping, managing finances, etc.?: No Are you currently unemployed and looking for a job?: No Are you interested in more education?: No Please select the resources that you would like help with: None Currently or been in a relationship where the following occur: I choose not to answer THRIVE Score: 0 BILLY-7 AMB Questionnaire BILLY-7 Date BILLY - 7 assessed: 01/16/25 Source: Developed by Drs. Paul L. CathieKim colon, Abdias Patel and colleagues, with an educational chad from [employer]. Review of Systems Const Denies headache(s) Eyes Denies loss of vision ENT Denies vertigo, Denies dizziness, Denies headache(s) and Denies sore throat Card Denies chest pain, Denies leg edema and Denies lightheadedness Resp Denies cough, Denies hemoptysis and Denies wheezing GI Denies abdominal pain, Denies melena, Denies constipation, Denies diarrhea and Denies vomiting Denies dysuria, Denies urinary frequency and Denies urinary urgency Musc Denies arthralgias, Denies joint swelling, Denies numbness and Denies tingling Neuro Denies Abnormal speech present, Denies behavioral changes, Denies vertigo, Denies dizziness, Denies headache(s), Denies loss of vision, Denies memory loss, Denies numbness and Denies tingling Psych Denies anxiety, Denies behavioral changes, Denies depression, Denies memory loss and Denies panic attacks Jamarcus/Lymph Denies easy bleeding and Denies easy bruising Aller/Immun Denies wheezing Physical exam (Primary Care) Vital Signs: Last Vital Signs Temp 98 F 07/29/25 10:20 Pulse 64 07/29/25 10:20 BP 142/68 H 07/29/25 10:20 Pulse Ox 97 07/29/25 10:20 Oxygen Delivery Method Room Air 07/29/25 10:20 BMI result Body Mass Index 30.2 Tobacco/Smoking Status: Tobacco use Status Tobacco use date assessed 07/29/25 07/29/25 10:27 Patient Tobacco Use Status Former Tobacco user 07/29/25 10:27 Tobacco use type Cigarette 07/29/25 10:27 e-Cigarette/Vaping Use Never Used 07/29/25 10:27 Thrive Assessment: Date of Thrive Assessment Date Thrive assessed 01/16/25 07/29/25 10:27 Currently or been in a relationship where the following occur: I choose not to answer Const General: healthy appearing, no acute distress, alert and awake Nutritional Appearance: well nourished Orientation/consciousness: oriented to person, oriented to place and oriented to time HENMT Ears: TM's normal bilaterally General nose exam: Normal nasal mucous membranes and turbinates present Eyes Conjunctivae: conjunctivae normal Sclerae: sclerae normal Pupils: Equal, round and reactive pupils present Neck Neck: Yes no lymphadenopathy and Yes no JVD Thyroid: Thyroid normal Carotids: no bruits Resp Effort & Inspection: normal respiratory effort and not tachypneic Auscultation: no crackles, no rales, no rhonchi and no wheezes Cardio Rate: regular rate Rhythm: regular rhythm Heart sounds: no murmurs and normal S1 and S2 GI Palpation (GI): Soft to palpation, nontender, no hepatomegaly and no splenomegaly Auscultation: normal bowel sounds Skin General skin exam: no rashes or lesions noted and dry skin Neuro General: oriented to person, oriented to place and oriented to time Cranial nerves: Yes Equal, round and reactive pupils present Speech: No Abnormal speech present Gait exam (Neuro): Normal gait present Motor exam (neuro): no tremor noted Extrem Right upper extremity: full ROM Left upper extremity: full ROM Right lower extremity: full ROM; no edema Left lower extremity: full ROM; no edema Psych Mental Status: mental status grossly normal Speech and movement: Normal speech and movement present Affect: normal affect Attitude: cooperative Thought process: Normal thought process present Office Procedures Flu Questionnaire Does the patient have a severe egg allergy?: No Does the patient have severe life threatening allergies?: No Does the patient have a fever or illness today?: No Has the patient ever had Guillain-Saugus Syndrome?: No Has the patient ever had any past reaction to a flu shot?: No Results AMB Hemoglobin A1c AMB Hemoglobin A1c 6.5 % Last Edit by MARIS Andrade on 07/29/25 10:34 Immunizations Fluarix [id number] (PF) 45 mcg (15 mcg x 3)/0.5 mL IM syringe Performing Provider: Jason Vega PA-C [place] Administered by: Romy Lyles RN on 07/29/25 10:38 Dose Route Admin Location Dispensed Lot Number Expiration Date [facility] Legal Consultant 0.5 mL IM Left Deltoid 0.5 mL [id number] 02/18/26 [id number] [email or web address] VIS Given Date VIS Provided VIS Publication Date 07/29/25 Single Vaccine 24 Eligibility Eligibility Date Funding Source Not [facility] Eligible 07/29/25 Private Results Reviewed Results Reviewed: Laboratory Last Values Hgb A1c (Clinic) 6.5 % (4.0-6.0) H 07/29/25 10:19 Coding Diagnoses Type 2 diabetes mellitus with hyperglycemia, without long-term current use of insulin E11.65 Diabetes mellitus type: type 2 Diabetes mellitus retirement insulin use: without intermission coordinator use Diabetes mellitus complication status: with hyperglycemia MDD (major depressive disorder), recurrent episode, moderate F33.1 Mixed hyperlipidemia E78.2 Hyperlipidemia type: mixed hyperlipidemia Degenerative disc disease, cervical M50.30 Coronary artery disease involving [place] coronary artery of [place] heart without angina pectoris I25.10 Coronary Disease-Associated Artery/Lesion type: [place] artery [place] vs. transplanted heart: [place] heart Associated angina: without angina Tendinopathy of right shoulder M67.911 S/P right rotator cuff repair Z98.890 PAD (peripheral artery disease) I73.9 Assessment & Plan Assessment & Plan (1) Diabetes mellitus: Code(s): E11.9 - Type 2 diabetes mellitus without complications Category: Medical Qualifiers: Diabetes mellitus type: type 2 Diabetes mellitus intermission coordinator insulin use: without retirement use Diabetes mellitus complication status: with hyperglycemia Qualified Code(s): E11.65 - Type 2 diabetes mellitus with hyperglycemia Plan: Patient's type 2 diabetes well controlled with current dose of insulin and metformin and pioglitazone. Today's A1c acceptable.. Will continuing current doses of antihyperglycemic medication. . Goal A1c is to remain below 7.0 (2) MDD (major depressive disorder), recurrent episode, moderate: Code(s): F33.1 - Major depressive disorder, recurrent, moderate Category: Medical Plan: Patient's PHQ-9 score positive for depression which has been existing condition for him. He reports he is having a lot of personal issues as he has been evicted from his apartment now looking for new housing.. Patient continues to suffer with depression.He most of his depression comes from his chronic pain. (3) Hyperlipidemia: Code(s): E78.5 - Hyperlipidemia, unspecified Category: Medical Qualifiers: Hyperlipidemia type: mixed hyperlipidemia Qualified Code(s): E78.2 - Mixed hyperlipidemia Plan: Most recent lipid panel showing good control of his total cholesterol and LDL. He continues on atorvastatin 40 mg. Goal LDL to be optimally below 70 (4) Degenerative disc disease, cervical: Code(s): M50.30 - Other cervical disc degeneration, unspecified cervical region Category: Medical Plan: Be following up with [facility] pain management to discuss possible neurostimulator to help reduce pain. Otherwise continues with use of gabapentin Celebrex and tramadol though unfortunately still complains of pain. (5) Coronary artery disease: Code(s): I25.10 - Atherosclerotic heart disease of [place] coronary artery without angina pectoris Category: Medical Qualifiers: Coronary Disease-Associated Artery/Lesion type: [place] artery [place] vs. transplanted heart: [place] heart Associated angina: without angina Qualified Code(s): I25.10 - Atherosclerotic heart disease of [place] coronary artery without angina pectoris Plan: Most recent lipid panel showing suboptimal control of his LDL a 6 in August of 2024. He will work on dietary modifications. He was not able to tolerate higher potency statin. Will continue atorvastatin 40 mg at this time. Goal LDL optimally below 70. (6) Tendinopathy of right shoulder: Code(s): M67.911 - Unspecified disorder of synovium and tendon, right shoulder Category: Medical Plan: The patient experiences ongoing pain and popping in the right shoulder post- rotator cuff repair. A second opinion with a shoulder specialist is planned to explore further treatment options. (7) S/P right rotator cuff repair: Comment: 07/27/2023 [place] Code(s): Z98.890 - Other specified postprocedural states Category: Surgical (8) PAD (peripheral artery disease): Code(s): I73.9 - Peripheral vascular disease, unspecified Category: Medical Orders: Orders AMB Hemoglobin A1c Today E11.65 - Type 2 diabetes mellitus with hyperglycemia Influenza [id number] Immunization Today Z23 - Encounter for immunization Lipid Panel Today I73.9 - Peripheral vascular disease, unspecified Comprehensive [place]. Panel Fast Today E78.2 - Mixed hyperlipidemia Complete Blood Count no Diff Today E78.2 - Mixed hyperlipidemia Prostate Specific Antigen Scr Today E78.2 - Mixed hyperlipidemia, Z12.5 - Encounter for screening for malignant neoplasm of prostate Medications: New duloxetine 20 mg PO DAILY 30 caps 3RF 30 days M54.12 - Radiculopathy, cervical region Discontinued celecoxib (Celebrex) Discontinued Reason: Doctor's Order 100 mg PO Q12H 90 days 180 caps 1RF On Hold gabapentin Hold Comment: Doctor's Order 800 mg PO BID 30 days 60 tabs 3RF G56.21 - Lesion of ulnar nerve, right upper limb
== END 2025-07-29 11:01 | disposition home or self-care (01) ==
LOC: HO.HMCH 10:07
PROVIDERS: PCP Physician Assistant; Visit Provider Physician Assistant
DX: E11.65 Type 2 diabetes mellitus with hyperglycemia (principal); Z23 Encounter for immunization

== ENCOUNTER → 2025-07-29 10:06 | Outpatient (BNVA) | payer OTHER, SELFPAY | PROVIDERS: PCP Physician Assistant; Visit Provider Physician Assistant | DX: Z23 Encounter for immunization (principal); E11.65 Type 2 diabetes mellitus with hyperglycemia; F33.1 Major depressive disorder, recurrent, moderate; E78.2 Mixed hyperlipidemia; M50.30 Other cervical disc degeneration, unspecified cervical region; I25.10 Atherosclerotic heart disease of native coronary artery without angina pectoris | CPT/HCPCS: 83036; 90471; 90656; 99212 ==

== ENCOUNTER 2025-08-09 11:31 | Outpatient (AMB) | payer OTHER, SELFPAY ==
--- NOTE | 2025-08-09 11:53 | A.SPINEOV_ITS ---
Intake Visit Reasons: chronic back pain/back sx on 06/13 Intake Note: Mr. Diggs is here today c/o Chronic back pain. MRI done at [place]. Leather Goods Maker Required: No Allergies Penicillins Allergy (Severe, Verified 08/09/25 11:54) Anaphylaxis Assessment & Plan Assessment & Plan (1) Peripheral neuropathy: Code(s): G62.9 - Polyneuropathy, unspecified Category: Medical Plan Mr Diggs came in for follow up today. He had a previous L4-5 decompression which worked well. He has had persistent pain down the back of his legs with bilateral footdrop. He was diagnosed by EMG of having peripheral neuropathy with motor and sensory features. He is a 20 year diabetic. His lumbar MRI done at [place] which was done as a precaution, shows good decompression of the thecal sac. Although the radiology report still suggests there is moderate stenosis, I disagree with this. There has been significant interval improvement in his stenosis and I do not see any nerve impingement at all. Unfortunately this looks like a case of neuropathy related to his diabetes and unfortunately there is nothing we can do from a surgical standpoint to help with that. I think he more less 1 and some reassurance to make sure that this was not something coming from his back. He has been working with the [facility] pain management, and they want to do injections but I do not think this is going to be of much used to him. I recommended with his diabetes that he not undergo any injections. Total amount of time spent in this visit was 20 minutes in discussion of symptoms, lumbar MRI imaging results and subsequent plan of care Anthony Keene MD,PhD [facility] Coding Level of Care Code Est Pt Level 3 (60853) Diagnoses Peripheral neuropathy G62.9
== END 2025-08-09 12:31 | disposition home or self-care (01) ==
LOC: HO.HNS 11:32
PROVIDERS: PCP Physician Assistant; Visit Provider Physician Assistant
DX: G62.9 Polyneuropathy, unspecified (principal)
CPT/HCPCS: 99213

== ENCOUNTER → 2025-08-09 11:31 | Outpatient (BNVA) | payer OTHER, SELFPAY | PROVIDERS: PCP Physician Assistant; Visit Provider Physician Assistant | DX: G62.9 Polyneuropathy, unspecified (principal) | CPT/HCPCS: 99212 ==

== ENCOUNTER 2025-08-16 12:33 | Day surgery (SDC) | payer OTHER, SELFPAY ==
--- NOTE | 2025-08-13 10:49 | P.CONAN_ITS ---
Documented by User: Caitlin Euceda NP 08/13/25 10:54 HPI - Anesthesia Eval Consult details Narrative: 54 yr old male for upper endoscopy CAD: at 03/2025 visit, History of anterior STEMI 2019 with MARICHUY to the LAD. Last echo 02/17/2023 showing EF 55-60%, basal inferior akinetic. Currently no anginal symptoms. Cervical disc disease pain: Chronic pain has intensified following back and rotator cuff surgeries, with pain in the back, shoulders, and legs. He is status post lower lumbar spine back surgeries. +marijuana use Tobacco use: ?former PMFSH Active Problems Active Problems: All Active Problems Peripheral neuropathy (Acute) Osteoarthritis of right hip (Acute) Dysphagia (Acute) History of ST elevation myocardial infarction (STEMI) (Acute) Lower extremity edema (Acute) Personal history of colonic polyps (Acute) Marijuana dependence (Acute) Abdominal pain (Acute) Toney neuroma of left foot (Acute) Diarrhea (Acute) Seizures (Acute) OCD (obsessive compulsive disorder) (Acute) Coronary artery disease (Acute) Hyperlipidemia (Acute) Diabetes mellitus (Acute) PUD (peptic ulcer disease) (Acute) Foot pain, right (Acute) Nicotine dependence, cigarettes, uncomplicated (Acute) Headache (Acute) Rib pain on right side (Acute) S/P right rotator cuff repair (Acute) S/P spinal surgery (Acute) Gastric ulcer (Acute) Tubular adenoma of colon (Acute) Acid reflux (Acute) Cervical radicular pain (Acute) Numbness and tingling in left hand (Acute) Cubital tunnel syndrome on right (Acute) Carpal tunnel syndrome of right wrist (Acute) PAD (peripheral artery disease) (Acute) Lumbar stenosis (Acute) Right rotator cuff tear (Acute) Degenerative disc disease, cervical (Acute) Cervical spondylosis (Acute) Migraines (Acute) Lumbar degenerative disc disease (Acute) Labral tear of shoulder, degenerative (Acute) Painful arc syndrome of right shoulder (Acute) Left knee pain (Acute) Claudication (Acute) Back pain of lumbar region with sciatica (Acute) Change in bowel habits (Acute) Cervical stenosis of spinal canal (Acute) Right hand paresthesia (Acute) Tendinopathy of right shoulder (Acute) MDD (major depressive disorder), recurrent episode, moderate (Acute) Bilateral shoulder pain (Acute) Depression (Acute) Neck pain (Acute) White matter abnormality on MRI of brain (Acute) Change in consistency of stool (Acute) Past Medical History Medical History (Updated 08/09/25 @ 12:20 by MATIAS Cervantes) History of ST elevation myocardial infarction (STEMI) Seizures Coronary artery disease Hyperlipidemia Diabetes mellitus Nicotine dependence, cigarettes, uncomplicated Umbilical hernia White matter abnormality on MRI of brain Anxiety Depression Migraine Peptic ulcer Change in consistency of stool Diarrhea Glaucoma Family History Family History Mother Lumbar spine tumor Father Heart attack Paternal Grandfather Heart attack Other No family history of coronary artery disease Family history of problems with anesthesia: No Surgical History Surgical History (Updated 08/13/25 @ 12:50 by Viji Partida RN) Hx of repair of rotator cuff History of heart artery stent Hx of elbow surgery History of carpal tunnel surgery of right wrist History of incision and drainage History of back surgery History of esophagogastroduodenoscopy (EGD) Hx of colonoscopy History of ear surgery History of Problems with Anesthesia: No Social History Social History Household Members: Spouse Housing: Apartment Are you a primary animal care assistant to a significant other at home: No Do you presently have visiting nurse or other home services: No Alcohol intake: never Comment: d/c from er Patient Tobacco Use Status: Current everyday Tobacco user Tobacco use type: Cigarette Cigarettes Per Day: 4 Years Smoked: 22+ e-Cigarette/Vaping Use: Never Used Second Hand Smoke Exposure: Yes Use of substances other than those prescribed or required for medical reasons: Yes Substance Use Type: Marijuana Substance Use Frequency: Daily Are you DNR?: No Advance Directives: No Advance Directives Information Provided: Yes Advance Directives on File: No service: No Current occupational status: unemployed Cognitive needs: No Hearing needs: No Vision needs: Yes Meds Allergies Allergy/AdvReac Type Severity Reaction Status Date / Time Penicillins Allergy Severe Anaphylaxis Verified 08/09/25 11:54 Exam Narrative Narrative: EKG 12/2024 NSR, rate 67 Septal infarct age undetermined Assessment and Plan Assessment Anesthesia Assessment: Chart Reviewed Final Anesthetic Review Family History of Problems with Anesthesia: No History of Problems with Anesthesia: No Documented by User: Jermaine Irene MD 08/16/25 15:24 [facility] [place] Past Medical History Medical History (Updated 08/09/25 @ 12:20 by MATIAS Cervantes) History of ST elevation myocardial infarction (STEMI) Seizures Coronary artery disease Hyperlipidemia Diabetes mellitus Nicotine dependence, cigarettes, uncomplicated Umbilical hernia White matter abnormality on MRI of brain Anxiety Depression Migraine Peptic ulcer Change in consistency of stool Diarrhea Glaucoma Family History Family History Mother Lumbar spine tumor Father Heart attack Paternal Grandfather Heart attack Other No family history of coronary artery disease Surgical History Surgical History (Updated 08/13/25 @ 12:50 by Viji Partida RN) Hx of repair of rotator cuff History of heart artery stent Hx of elbow surgery History of carpal tunnel surgery of right wrist History of incision and drainage History of back surgery History of esophagogastroduodenoscopy (EGD) Hx of colonoscopy History of ear surgery Social History Social History Household Members: Spouse Housing: Apartment Are you a primary animal care assistant to a significant other at home: No Do you presently have visiting nurse or other home services: No Alcohol intake: never Comment: d/c from er Patient Tobacco Use Status: Current everyday Tobacco user Tobacco use type: Cigarette Cigarettes Per Day: 4 Years Smoked: 22+ e-Cigarette/Vaping Use: Never Used Second Hand Smoke Exposure: Yes Use of substances other than those prescribed or required for medical reasons: Yes Substance Use Type: Marijuana Substance Use Frequency: Daily Are you DNR?: No Advance Directives: No Advance Directives Information Provided: Yes Advance Directives on File: No service: No Current occupational status: unemployed Cognitive needs: No Hearing needs: No Vision needs: Yes Meds Allergies Allergy/AdvReac Type Severity Reaction Status Date / Time Penicillins Allergy Severe Anaphylaxis Verified 08/09/25 11:54 Exam Airway Mallampati Class: II TM Dist: <=3cm Neck ROM: Full Denture: Upper Loose/Missing/Broken Teeth: Yes (front teeth very loose. Risk of loss and aspiration d/w pt at length.) Heart: ok Lungs: ok Assessment and Plan Assessment Anesthesia Assessment: Anesthesia Plan Discussed Final Anesthetic Review NPO: Yes ASA Class: III Final Preanesthetic Review: No Changes in Pt Med Stat, Meds/Allgs Chart Reviewed, Consent Obtained/Reviewed and Anes Risks/Benef Reviewed Patient Risk: Intermediate Procedure Risk: Intermediate Anesthetic Plan Anesthetic Plan: Agree w/ Assess. and Plan and TIVA Disposition: Standard PACU
[2025-08-13 12:47] VITALS: BMI 30.2
[2025-08-16 13:35] VITALS: BMI 30.1
--- NOTE | 2025-08-16 13:53 | MHC.SHP ---
Pre-Procedural Eval Section A - 24 Hr Update-Section A only Date of Service: 08/16/25 Section B - Complete if H&P > 30 days Chief Complaint: Gastric ulcer, dysphagia Details of Present Illness: PMH: History of ST elevation myocardial infarction (STEMI) Seizures Coronary artery disease Hyperlipidemia Diabetes mellitus Nicotine dependence, cigarettes, uncomplicated Umbilical hernia White matter abnormality on MRI of brain Anxiety Depression Migraine Peptic ulcer Change in consistency of stool Diarrhea Glaucoma Surgical History History of heart artery stent Hx of elbow surgery History of carpal tunnel surgery of right wrist History of incision and drainage History of back surgery History of esophagogastroduodenoscopy (EGD) Hx of colonoscopy History of ear surgery Present Medications: see Short Stay Collaborative assessment Allergies: Allergies Allergy/AdvReac Type Severity Reaction Status Date / Time Penicillins Allergy Severe Anaphylaxis Verified 08/09/25 11:54 Review of Systems Review of Systems Comment: Ten point ROS negative Exam Exam Comment: Gen appear: No acute distress HEENT: no icterus Chest: No overt resp distress Abd: soft, nontender, nondistended Psych: Stable affect, answering questions appropriately Neuro: A/Ox3 noted to move all extremities spontaneously Ext: no peripheral edema Plan Diagnosis/Plan: Unchanged I have reviewed the history and physical and performed a pertinent physical examination on my patient. No changes have occurred unless specified. Time Spent With Patient Time: Total time managing care of this patient today ____ minutes.
[2025-08-16 14:07] VITALS: BP 130/78; PULSE 62; RESP 14; TEMP 36.6; O2SAT 99
[2025-08-16] MEDS: Lactated Ringers 1,000 ML 100 ML IVCONT (14:12)
[2025-08-16 14:14] LABS: Glucose, Whole Blood 105 mg/dL (60-115)
--- NOTE | 2025-08-16 15:42 | P.OP_ITS ---
Operative Note Operative Note Date of Service: 08/16/25 Narrative: Procedure: Esophagogastroduodenoscopy Endoscopist: Graciela Saxena MD Indication: Abd pain, dysphagia, hx of gastric ulcer Anesthesia Provider: Dr Jermaine Irene Anesthesia Type: MAC ?? EGD Procedure:?? The procedure, indications, preparation and potential complications were reviewed with the patient, who indicated understanding and gave written informed consent to proceed. A physical exam was performed. The endoscope was introduced through the mouth, and advanced to the second part of duodenum. The mucosa was carefully examined on slow withdrawal of the endoscope. The patient tolerated the procedure well. There were no immediate complications.? ? EGD Findings:? * Esophagus:? Two patches of heterotopic gastric mucosa opposing each other in upper esophagus were noted. Remaining esophageal mucosa was normal. The Z line was at 38 cm. Middle and lower esophagus forceps biopsies were obtained to rule out eosinophilic esophagitis. * Stomach:? Erythema and edema focally in distal antrum at 11 o clock. Retroflexion was performed in the cardia. Cold forceps biopsies were taken from gastric body and antrum for histology. * Duodenum:? duodenal mucosa noted in the whole of examined duodenum. Cold forceps biopsies were taken from duodenal bulb and 2nd portion of the duodenum to rule out celiac sprue. Additional intervention: Soft tipped Savary wire was introduced through the biopsy channel of the gastroscope and advanced to the antrum. ?The gastroscope was then backed out. ?Savary Lexy bougie was advanced over the guidewire and the esophagus was dilated to 18 mm without any resistance felt. ?On relook, no heme or tear was noted. ? EGD Impressions:? * Inlet patch x 2 * Normal esophageal mucosa (biopsy) * Gastritis (biopsy) * Normal duodenum (biopsy) ?? Recommendations:?? * Follow biopsy results. Our office will call or send a letter with results within 7-10 days. * Continue PPI therapy. * If H pylori +, patient will be prescribed eradication therapy followed by test of cure. * Avoid NSAIDs. * Empiric dilation was performed today. However if no improvement on sx and bx neg for EoE, can consider APC ablation of inlet patches for globus/dysphagia sx. Above has been reviewed with the patient.
[2025-08-16 15:47] VITALS: BP 96/57; PULSE 58; RESP 18; TEMP 36.2; O2SAT 96
[2025-08-16 16:00] VITALS: BP 99/63; PULSE 68; RESP 18; O2SAT 97
[2025-08-16 16:15] VITALS: BP 119/66; PULSE 60; RESP 18; TEMP 36.1; O2SAT 97
== END 2025-08-16 16:18 | disposition home or self-care (01) ==
PROVIDERS: PCP Physician Assistant; Visit Provider Internal Medicine
PROC: 0DJ08ZZ Inspection of Upper Intestinal Tract, Via Natural or Artificial Opening Endoscopic (ICD-10-PCS; CPT 43235; principal; 2025-08-16 15:00)
DX: R13.10 Dysphagia, unspecified (principal); K25.9 Gastric ulcer, unspecified as acute or chronic, without hemorrhage or perforation; R14.0 Abdominal distension (gaseous); K22.89 Other specified disease of esophagus
CPT/HCPCS: 43239; 43248; 82947; 88305; 88313; 88342; C1769; J2003; J2704

== ENCOUNTER → 2025-08-16 12:33 | Outpatient (BNV) | payer OTHER, SELFPAY | PROVIDERS: PCP Physician Assistant; Visit Provider Internal Medicine | DX: R13.10 Dysphagia, unspecified (principal); K22.89 Other specified disease of esophagus; K29.70 Gastritis, unspecified, without bleeding | CPT/HCPCS: 43239; 43248 ==